=== PATIENT | female | born 1955 | race Caucasian/White ===

== ENCOUNTER 2022-02-04 21:27 | Outpatient (CLI) | payer MEDICARE, MEDICAID, SELFPAY | END 2022-02-04 21:28 | disposition home or self-care (01) | LOC: AMB 02-21 21:36 | PROVIDERS: PCP Family Medicine; Visit Provider Family Medicine | DX: R07.89 Other chest pain (principal) | CPT/HCPCS: A0425; A0427 ==

== ENCOUNTER 2022-02-04 21:41 | Emergency (ER) | payer MEDICARE, MEDICAID, SELFPAY ==
[2022-02-04 21:50] VITALS: BP 188/90; PULSE 93; RESP 16; TEMP 37.2; O2SAT 99; BMI 25.6
[2022-02-04 22:00] VITALS: BP 169/92; PULSE 92; RESP 26; O2SAT 99
--- NOTE | 2022-02-04 22:07 | CRLHL7_ITS ---
For Patients: As a result of the Cures Act, medical imaging exams and procedure reports are released immediately into your electronic medical record. You may view this report before your referring provider. If you have questions, please contact your health care provider. INDICATION: Shortness of breath. TECHNIQUE: Chest 1 view. COMPARISON: 11/16/2021. FINDINGS: Cardiovascular and mediastinum: Stable cardiomediastinal silhouette. Median sternotomy wires and mediastinal clips. Lungs and pleural spaces: Lungs are clear. No sign of infiltrate or mass. No sign of pleural effusion. No pneumothorax. Bones and soft tissues: No significant findings. IMPRESSION: No acute findings. Dictated by Balaji Tavares MD @ 02/04/2022 11:02:45 PM (Electronically Signed)
[2022-02-04 22:30] VITALS: BP 189/91; PULSE 87; RESP 28; O2SAT 99
--- NOTE | 2022-02-04 22:36 | ED.NURSE ---
call from lab, critical md cheryl notified
[2022-02-04 22:38] LABS: Basophils Absolute Auto 0.04 K/uL (0.00-0.30); Basophils Percent Auto 0.4 % (0.0-3.0); Hematocrit 37.8 % (33.0-51.0); Immature Granulocytes Abs Auto 0.01 K/uL (0.00-0.30); Lymphocytes Percent Auto 16.5 % (20-44); Mean Corpuscular HGB Conc 34 gm/dL (32-36); Mean Corpuscular Hemoglobin 31 pg (26-34); Mean Corpuscular Volume 91 fL (80-100); Monocytes Percent Auto 5.1 % (0.0-11.0); Neutrophils Percent Auto 77.9 % (42.0-72.0); Platelet Count* 429 K/uL (140-440); RDW Coefficient of Variation % 13.2 % (11.5-15.5); Red Blood Count 4.16 m/uL (4.00-5.20); Slide Review Reflex No; White Blood Count* 9.26 K/uL (4.50-11.00)
[2022-02-04] MEDS: 0.9 % SODIUM CHLORIDE 500 ML 500 ML IV ×2 (22:42→23:10)
[2022-02-04 22:51] LABS: Albumin* 4.8 g/dL (3.3-5.0); Chloride* 103 mmol/L (96-114)
[2022-02-04 22:52] LABS: Potassium* 3.9 mmol/L (3.6-5.1); Sodium* 138 mmol/L (135-149)
[2022-02-04 22:54] LABS: Creatinine* 0.9 mg/dL (0.5-1.5); Est. Creatinine Clearance* 42.59; Estimated Glomerular Filt Rate 70 ml/min
[2022-02-04 22:55] LABS: Alanine Aminotransferase* 41 U/L (4-35); Alkaline Phosphatase* 100 U/L (40-150); Aspartate Amino Transferase* 70 U/L (12-35); Bilirubin Direct* 0.3 mg/dL (0.0-0.5); Bilirubin Total* 0.4 mg/dL (0.1-1.5); Blood Urea Nitrogen* 22 mg/dL (7-30); Calcium* 10.3 mg/dL (8.4-10.6); Carbon Dioxide* 17 mmol/L (20-32); Glucose* 77 mg/dL (60-115); Total Protein* 7.5 g/dL (6.0-8.3)
[2022-02-04 22:56] LABS: Ethanol* 0.23 % (0.01-0.03)
[2022-02-04 23:00] VITALS: BP 137/122; PULSE 98; RESP 38; O2SAT 99
[2022-02-04 23:01] LABS: Acetaminophen* < 10.0 ug/mL (10.0-30.0); C Reactive Protein* < 0.5 mg/dL (0.5-1.0); Salicylate* < 1.0 mg/dL (1.0-10)
[2022-02-04 23:17] LABS: Erythrocyte SedimentationRate* 8 mm/hr (2-20)
[2022-02-04 23:30] VITALS: BP 122/67; PULSE 90; RESP 20; O2SAT 99
[2022-02-04 23:55] LABS: Troponin, Point-of-Care* 0.01 ng/ml (0.01-0.04)
[2022-02-04 23:55] LABS: Appearance Urine Clear (Clear); Bilirubin Urine Negative (Negative); Blood Urine 1+ (Negative); Color Urine Yellow (Yellow); Glucose Urine Negative (Negative); Ketones Urine 3+ (Negative); Leukocyte Esterase Urine Negative (Negative); Nitrite Urine Negative (Negative); Protein Urine 1+ (Negative); Specific Gravity Urine 1.025 (1.000-1.030); Urobilinogen Urine 0.2 (0.2-1.0); pH Urine 5.5 (5.0-8.5)
[2022-02-05] VITALS: BP 117/63; PULSE 89; RESP 18; O2SAT 99
[2022-02-05] LABS: PCR FLU A Negative PCR FLU A (Negative); PCR FLU B Negative PCR FLU B (Negative)
[2022-02-05 00:01] LABS: Amphetamine Screen Urine Negative (Negative); Barbiturate Screen Urine Negative (Negative); Benzodiazepines Screen Urine Negative (Negative); Cocaine Screen Urine Negative (Negative); Methadone Screen Urine Negative (Negative); Methamphetamines Screen Urine Negative (Negative); Opiate Screen Urine Negative (Negative); Oxycodone Screen Urine Negative (Negative); Phencyclidine Screen Urine Negative (Negative); Tricyclic Antidepressant Urine Negative (Negative)
[2022-02-05 00:05] LABS: Bacteria Urine Few; Squamous Epithelial Cell Urine Moderate (None-Few); WBC Urine 0-2 (0-5)
[2022-02-05 00:07] LABS: Cannabinoid Screen Urine POSITIVE (Negative)
[2022-02-05 00:17] LABS: SARS PCR* Negative SARS-CoV-2 (Negative)
--- NOTE | 2022-02-05 00:24 | ED.GENADULT ---
HPI - General Adult General Chief complaint: Unspecified Complaint, Adult Stated complaint: Palpitations Time Seen by Provider: 02/04/22 22:03 Source: patient Mode of arrival: ambulatory Limitations: no limitations History of Present Illness HPI narrative: 66-year-old female, looks much older than stated age, presents today with ?heart pounding in my chest?. Patient states that she feels like her heart is beating much stronger than it normally does. She denies it beating faster or irregularly. She states that it is beating the same rate it usually does but she just feels that much more her chest and this is very concerning for her because ?my heart usually kicks ass?. She denies any shortness of breath. She denies any fevers or chills. No headache or blurry vision. She denies feeling dizzy or lightheaded. She denies recent falls. She states that she has been drinking alcohol today. She also states that she was smoking marijuana which she does regularly. She denies any other drug use and states she has not done any other drugs since last winter. She denies any abdominal pain or recent diarrhea. She denies feeling like she is going to pass out. Related Data Home Medications Medication Instructions Recorded Confirmed aspirin 325 mg tablet 325 mg PO DAILY 02/04/22 02/04/22 lisinopril 10 tab 02/04/22 mg-hydrochlorothiazide 12.5 mg tablet metoprolol succinate 25 mg mg PO 02/04/22 tablet,extended release 24 hr trazodone 100 mg tablet mg 02/04/22 Allergies Allergy/AdvReac Type Severity Reaction Status Date / Time atorvastatin Allergy Severe Verified 02/04/22 23:34 lithium Allergy Severe other Verified 02/04/22 23:34 morphine Allergy Intermediate Vomiting Verified 02/04/22 23:34 codeine Allergy Mild Nausea Verified 02/04/22 23:34 Review of Systems Status of ROS: Reports: 10 or more systems reviewed and unremarkable except as noted in History and below PFSH PFS Social History Smoking Status: Former smoker How often do you have a drink containing alcohol: 4 or more times a week How many standard drinks containing alcohol do you have on a typical day: 3 or 4 How often do you have six or more drinks on one occasion: Never AUDIT-C Alcohol total score: 5 Non-prescribed substance use: marijuana (any form) Exam Narrative: Exam Narrative: Thin, well-developed patient in no acute distress. Alert and oriented. Answers questions appropriately. Patient in full sentences without needing to catch her breath. Patient's speech is slurred and she is clearly intoxicated. HEENT: Normocephalic atraumatic. Pupils are equally round reactive to light. Extraocular muscles are intact. Conjunctivae are moist without any icterus noted, she does have bilateral injection. Moist mucous membranes. Posterior pharynx is normal. Neck is soft without any lymphadenopathy or thyromegaly. No masses are appreciated. Cardiovascular: Heart is regular rate and rhythm S1 and S2 are present without any murmurs. Lungs: Clear to auscultation bilaterally no wheezes rhonchi or rales are appreciated. Patient takes deep breaths without any discomfort. Abdomen: Soft and nontender nondistended with normal bowel sounds. No guarding or rebound. No masses or organomegaly appreciated. Extremities: Bilateral lower extremities are without edema. Normal DP and PT pulses. Skin: Well perfused without any obvious rashes. Const: Vital Signs, click to edit/add: Vital Signs - 24 hr 02/04/22 21:50 02/04/22 22:00 02/04/22 22:30 Temperature 98.9 F Pulse Rate [Right Pulse Oximeter] 93 92 87 Respiratory Rate 16 26 H 28 H Blood Pressure [Le ft Upper Arm] 188/90 H 169/92 H 189/91 H Pulse Oximetry 99 99 99 02/04/22 23:00 02/04/22 23:30 02/05/22 00:00 Temperature Pulse Rate [Right Pulse Oximeter] 98 90 89 Respiratory Rate 38 H 20 18 Blood Pressure [Le ft Upper Arm] 137/122 H 122/67 117/63 Pulse Oximetry 99 99 99 02/05/22 00:30 02/05/22 01:00 Temperature Pulse Rate [Right Pulse Oximeter] 90 93 Respiratory Rate 20 22 Blood Pressure [Le ft Upper Arm] 106/61 101/66 Pulse Oximetry 99 99 Course Course Hospital Course: EKG was done which showed normal sinus rhythm with a left atrial enlargement and left ventricular hypertrophy, shows was a prolonged QTC which is slightly longer than has been in the past. She has however had prolonged QT before this is not new. Her labs are unremarkable aside from an elevated lactate at 6.0 and her blood alcohol was elevated at 0.23. Patient received 1 L of normal saline and a repeat lactate was down to 4.1. We did give her another 500 mL of normal saline after this. Troponin was unremarkable, chest a x-ray was unremarkable. In my absence, patient was talking on the phone happily with her friends, I could clearly here her as her room was directly across the doctor's office. Shortly after her conversation patient fell asleep and slept soundly. Vital Signs Vital signs: Initial Vital Signs Temperature 98.9 F 02/04/22 21:50 Temperature Source Temporal Artery Scan 02/04/22 21:50 Pulse Rate 93 02/04/22 21:50 Respiratory Rate 16 02/04/22 21:50 Blood Pressure 188/90 H 02/04/22 21:50 Blood Pressure Mean 122 02/04/22 21:50 Blood Pressure Position Supine 02/04/22 21:50 Pulse Oximetry 99 02/04/22 21:50 Oxygen Delivery Method 02/04/22 21:50 Vital Signs Temperature 98.9 F 02/04/22 21:50 Pulse Rate 93 02/04/22 21:50 Respiratory Rate 16 02/04/22 21:50 Blood Pressure 188/90 H 02/04/22 21:50 Pulse Oximetry 99 02/04/22 21:50 Temperature 98.9 F 02/04/22 21:50 Pulse Rate 93 02/05/22 01:00 Respiratory Rate 22 02/05/22 01:00 Blood Pressure 101/66 02/05/22 01:00 Pulse Oximetry 99 02/05/22 01:00 Medical Decision Making MDM Narrative Medical decision making narrative: 66-year-old female with palpitations-patient was monitored while she was here nothing abnormal was found. She was also acutely intoxicated with a blood alcohol 0.23. She was feeling better after fluid hydration. Patient discharged home in stable condition. Recommend speaking her doctor about her abnormal EKG. Recommend increased fluid hydration. Medical Records Medical records reviewed: Yes I reviewed the patient's medical records Lab Data Lab results reviewed: Yes I reviewed the patient's lab results Labs: Lab Results 02/04/22 02/04/22 02/04/22 Range/Units 22:20 22:20 22:20 WBC 9.26 (4.50-11.00) K/uL RBC 4.16 (4.00-5.20) m/uL Hgb 13.0 (12.0-16.0) gm/dL Hct 37.8 (33.0-51.0) % MCV 91 (80-100) fL MCH 31 (26-34) pg MCHC 34 (32-36) gm/dL RDW Coeff of Per 13.2 (11.5-15.5) % Plt Count 429 (140-440) K/uL Neut % (Auto) 77.9 H (42.0-72.0) % Lymph % (Auto) 16.5 L (20-44) % [place] % (Auto) 5.1 (0.0-11.0) % Eos % (Auto) 0.0 (0.0-7.0) % Baso % (Auto) 0.4 (0.0-3.0) % Neut # (Auto) 7.20 H (1.7-7.0) K/uL Lymph # (Auto) 1.50 (0.90-2.90) K/uL [place] # (Auto) 0.50 (0.00-0.90) K/UL Eos # (Auto) 0.00 (0.00-0.50) K/uL Baso # (Auto) 0.04 (0.00-0.30) K/uL Abs Immat Gran (auto) 0.01 (0.00-0.30) K/uL ESR 8 (2-20) mm/hr Sodium 138 (135-149) mmol/L Potassium 3.9 (3.6-5.1) mmol/L Chloride 103 (96-114) mmol/L Carbon Dioxide 17 L (20-32) mmol/L BUN 22 (7-30) mg/dL Creatinine 0.9 (0.5-1.5) mg/dL Estimated Creat Clear 42.59 Estimated GFR 70 ml/min Glucose 77 (60-115) mg/dL Lactate (0.5-1.9) mmol/L Calcium 10.3 (8.4-10.6) mg/dL Magnesium 2.0 (1.5-2.6) mg/dL Total Bilirubin 0.4 (0.1-1.5) mg/dL Direct Bilirubin 0.3 (0.0-0.5) mg/dL AST 70 H (12-35) U/L ALT 41 H (4-35) U/L Alkaline Phosphatase 100 (40-150) U/L C-Reactive Protein < 0.5 L (0.5-1.0) mg/dL Total Protein 7.5 (6.0-8.3) g/dL Albumin 4.8 (3.3-5.0) g/dL TSH (0.270-4.20) uIU/mL Urine Color (Yellow) Urine Appearance (Clear) Urine pH (5.0-8.5) Ur Specific [place] (1.000-1.030) Urine Protein (Negative) Urine Glucose (UA) (Negative) Urine Ketones (Negative) Urine Blood (Negative) Urine Nitrite (Negative) Urine Bilirubin (Negative) Urine Urobilinogen (0.2-1.0) Ur Leukocyte Esterase (Negative) Urine RBC (0-2) Urine WBC (0-5) Ur Squamous Epith Cells (None-Few) Urine Bacteria (None) Salicylates < 1.0 L (1.0-10) mg/dL Urine Opiates Screen (Negative) Ur Oxycodone Screen (Negative) Urine Methadone Screen (Negative) Ur Propoxyphene Screen (Negative) Acetaminophen < 10.0 L (10.0-30.0) ug/mL Ur Barbiturates Screen (Negative) U Tricyclic Antidepress (Negative) Ur Phencyclidine Scrn (Negative) Ur Amphetamines Screen (Negative) U Methamphetamines Scrn (Negative) U Benzodiazepines Scrn (Negative) Urine Cocaine Screen (Negative) U Marijuana (THC) Screen (Negative) Ur Drug Screen Comment Ethyl Alcohol 0.23 H (0.01-0.03) % SARS-CoV-2 (PCR) (Negative) Influenza Type A (PCR) (Negative) Influenza Type B (PCR) (Negative) POC Troponin I (0.01-0.04) ng/ml 02/04/22 02/04/22 02/04/22 Range/Units 22:20 22:20 22:20 WBC (4.50-11.00) K/uL RBC (4.00-5.20) m/uL Hgb (12.0-16.0) gm/dL Hct (33.0-51.0) % MCV (80-100) fL MCH (26-34) pg MCHC (32-36) gm/dL RDW Coeff of Per (11.5-15.5) % Plt Count (140-440) K/uL Neut % (Auto) (42.0-72.0) % Lymph % (Auto) (20-44) % [place] % (Auto) (0.0-11.0) % Eos % (Auto) (0.0-7.0) % Baso % (Auto) (0.0-3.0) % Neut # (Auto) (1.7-7.0) K/uL Lymph # (Auto) (0.90-2.90) K/uL [place] # (Auto) (0.00-0.90) K/UL Eos # (Auto) (0.00-0.50) K/uL Baso # (Auto) (0.00-0.30) K/uL Abs Immat Gran (auto) (0.00-0.30) K/uL ESR (2-20) mm/hr Sodium (135-149) mmol/L Potassium (3.6-5.1) mmol/L Chloride (96-114) mmol/L Carbon Dioxide (20-32) mmol/L BUN (7-30) mg/dL Creatinine (0.5-1.5) mg/dL Estimated Creat Clear Estimated GFR ml/min Glucose (60-115) mg/dL Lactate 6.0 H* (0.5-1.9) mmol/L Calcium (8.4-10.6) mg/dL Magnesium (1.5-2.6) mg/dL Total Bilirubin (0.1-1.5) mg/dL Direct Bilirubin (0.0-0.5) mg/dL AST (12-35) U/L ALT (4-35) U/L Alkaline Phosphatase (40-150) U/L C-Reactive Protein (0.5-1.0) mg/dL Total Protein (6.0-8.3) g/dL Albumin (3.3-5.0) g/dL TSH 1.080 (0.270-4.20) uIU/mL Urine Color (Yellow) Urine Appearance (Clear) Urine pH (5.0-8.5) Ur Specific [place] (1.000-1.030) Urine Protein (Negative) Urine Glucose (UA) (Negative) Urine Ketones (Negative) Urine Blood (Negative) Urine Nitrite (Negative) Urine Bilirubin (Negative) Urine Urobilinogen (0.2-1.0) Ur Leukocyte Esterase (Negative) Urine RBC (0-2) Urine WBC (0-5) Ur Squamous Epith Cells (None-Few) Urine Bacteria (None) Salicylates (1.0-10) mg/dL Urine Opiates Screen (Negative) Ur Oxycodone Screen (Negative) Urine Methadone Screen (Negative) Ur Propoxyphene Screen (Negative) Acetaminophen (10.0-30.0) ug/mL Ur Barbiturates Screen (Negative) U Tricyclic Antidepress (Negative) Ur Phencyclidine Scrn (Negative) Ur Amphetamines Screen (Negative) U Methamphetamines Scrn (Negative) U Benzodiazepines Scrn (Negative) Urine Cocaine Screen (Negative) U Marijuana (THC) Screen (Negative) Ur Drug Screen Comment Ethyl Alcohol (0.01-0.03) % SARS-CoV-2 (PCR) (Negative) Influenza Type A (PCR) (Negative) Influenza Type B (PCR) (Negative) POC Troponin I 0.01 (0.01-0.04) ng/ml 02/04/22 02/04/22 02/04/22 Range/Units 22:20 23:30 23:30 WBC (4.50-11.00) K/uL RBC (4.00-5.20) m/uL Hgb (12.0-16.0) gm/dL Hct (33.0-51.0) % MCV (80-100) fL MCH (26-34) pg MCHC (32-36) gm/dL RDW Coeff of Per (11.5-15.5) % Plt Count (140-440) K/uL Neut % (Auto) (42.0-72.0) % Lymph % (Auto) (20-44) % [place] % (Auto) (0.0-11.0) % Eos % (Auto) (0.0-7.0) % Baso % (Auto) (0.0-3.0) % Neut # (Auto) (1.7-7.0) K/uL Lymph # (Auto) (0.90-2.90) K/uL [place] # (Auto) (0.00-0.90) K/UL Eos # (Auto) (0.00-0.50) K/uL Baso # (Auto) (0.00-0.30) K/uL Abs Immat Gran (auto) (0.00-0.30) K/uL ESR (2-20) mm/hr Sodium (135-149) mmol/L Potassium (3.6-5.1) mmol/L Chloride (96-114) mmol/L Carbon Dioxide (20-32) mmol/L BUN (7-30) mg/dL Creatinine (0.5-1.5) mg/dL Estimated Creat Clear Estimated GFR ml/min Glucose (60-115) mg/dL Lactate (0.5-1.9) mmol/L Calcium (8.4-10.6) mg/dL Magnesium (1.5-2.6) mg/dL Total Bilirubin (0.1-1.5) mg/dL Direct Bilirubin (0.0-0.5) mg/dL AST (12-35) U/L ALT (4-35) U/L Alkaline Phosphatase (40-150) U/L C-Reactive Protein (0.5-1.0) mg/dL Total Protein (6.0-8.3) g/dL Albumin (3.3-5.0) g/dL TSH (0.270-4.20) uIU/mL Urine Color Yellow (Yellow) Urine Appearance Clear (Clear) Urine pH 5.5 (5.0-8.5) Ur Specific [place] 1.025 (1.000-1.030) Urine Protein 1+ A (Negative) Urine Glucose (UA) Negative (Negative) Urine Ketones 3+ A (Negative) Urine Blood 1+ A (Negative) Urine Nitrite Negative (Negative) Urine Bilirubin Negative (Negative) Urine Urobilinogen 0.2 (0.2-1.0) Ur Leukocyte Esterase Negative (Negative) Urine RBC 2-5 A (0-2) Urine WBC 0-2 (0-5) Ur Squamous Epith Cells Moderate A (None-Few) Urine Bacteria Few A (None) Salicylates (1.0-10) mg/dL Urine Opiates Screen Negative (Negative) Ur Oxycodone Screen Negative (Negative) Urine Methadone Screen Negative (Negative) Ur Propoxyphene Screen Negative (Negative) Acetaminophen (10.0-30.0) ug/mL Ur Barbiturates Screen Negative (Negative) U Tricyclic Antidepress Negative (Negative) Ur Phencyclidine Scrn Negative (Negative) Ur Amphetamines Screen Negative (Negative) U Methamphetamines Scrn Negative (Negative) U Benzodiazepines Scrn Negative (Negative) Urine Cocaine Screen Negative (Negative) U Marijuana (THC) Screen POSITIVE A* (Negative) Ur Drug Screen Comment See Note Ethyl Alcohol (0.01-0.03) % SARS-CoV-2 (PCR) Negative SARS-CoV-2 (Negative) Influenza Type A (PCR) Negative PCR FLU A (Negative) Influenza Type B (PCR) Negative PCR FLU B (Negative) POC Troponin I (0.01-0.04) ng/ml 02/05/22 Range/Units 00:35 WBC (4.50-11.00) K/uL RBC (4.00-5.20) m/uL Hgb (12.0-16.0) gm/dL Hct (33.0-51.0) % MCV (80-100) fL MCH (26-34) pg MCHC (32-36) gm/dL RDW Coeff of Per (11.5-15.5) % Plt Count (140-440) K/uL Neut % (Auto) (42.0-72.0) % Lymph % (Auto) (20-44) % [place] % (Auto) (0.0-11.0) % Eos % (Auto) (0.0-7.0) % Baso % (Auto) (0.0-3.0) % Neut # (Auto) (1.7-7.0) K/uL Lymph # (Auto) (0.90-2.90) K/uL [place] # (Auto) (0.00-0.90) K/UL Eos # (Auto) (0.00-0.50) K/uL Baso # (Auto) (0.00-0.30) K/uL Abs Immat Gran (auto) (0.00-0.30) K/uL ESR (2-20) mm/hr Sodium (135-149) mmol/L Potassium (3.6-5.1) mmol/L Chloride (96-114) mmol/L Carbon Dioxide (20-32) mmol/L BUN (7-30) mg/dL Creatinine (0.5-1.5) mg/dL Estimated Creat Clear Estimated GFR ml/min Glucose (60-115) mg/dL Lactate 4.1 H* (0.5-1.9) mmol/L Calcium (8.4-10.6) mg/dL Magnesium (1.5-2.6) mg/dL Total Bilirubin (0.1-1.5) mg/dL Direct Bilirubin (0.0-0.5) mg/dL AST (12-35) U/L ALT (4-35) U/L Alkaline Phosphatase (40-150) U/L C-Reactive Protein (0.5-1.0) mg/dL Total Protein (6.0-8.3) g/dL Albumin (3.3-5.0) g/dL TSH (0.270-4.20) uIU/mL Urine Color (Yellow) Urine Appearance (Clear) Urine pH (5.0-8.5) Ur Specific [place] (1.000-1.030) Urine Protein (Negative) Urine Glucose (UA) (Negative) Urine Ketones (Negative) Urine Blood (Negative) Urine Nitrite (Negative) Urine Bilirubin (Negative) Urine Urobilinogen (0.2-1.0) Ur Leukocyte Esterase (Negative) Urine RBC (0-2) Urine WBC (0-5) Ur Squamous Epith Cells (None-Few) Urine Bacteria (None) Salicylates (1.0-10) mg/dL Urine Opiates Screen (Negative) Ur Oxycodone Screen (Negative) Urine Methadone Screen (Negative) Ur Propoxyphene Screen (Negative) Acetaminophen (10.0-30.0) ug/mL Ur Barbiturates Screen (Negative) U Tricyclic Antidepress (Negative) Ur Phencyclidine Scrn (Negative) Ur Amphetamines Screen (Negative) U Methamphetamines Scrn (Negative) U Benzodiazepines Scrn (Negative) Urine Cocaine Screen (Negative) U Marijuana (THC) Screen (Negative) Ur Drug Screen Comment Ethyl Alcohol (0.01-0.03) % SARS-CoV-2 (PCR) (Negative) Influenza Type A (PCR) (Negative) Influenza Type B (PCR) (Negative) POC Troponin I (0.01-0.04) ng/ml Imaging Data Chest x-ray: Attestation: I have reviewed the pertinent imaging results. My impression: Normal chest Radiologist's impression: FINDINGS: Cardiovascular and mediastinum: Stable cardiomediastinal silhouette. Median sternotomy wires and mediastinal clips. Lungs and pleural spaces: Lungs are clear. No sign of infiltrate or mass. No sign of pleural effusion. No pneumothorax. Bones and soft tissues: No significant findings. IMPRESSION: No acute findings. ECG Data Attestation: I personally reviewed and interpreted this ECG as follows: (Normal sinus rhythm with possible left atrial enlargement and left ventricular hypertrophy with repolarization abnormality, prolonged QT) Prior ECG tracings: available for review (Compared to x-ray from November of 2021 no significant changes aside from QTc now 510 where it was just below 500 before.) Discharge Plan Discharge Clinical Impression: Palpitation, Prolonged QT interval, Acute alcohol intoxication Patient Disposition: Home, Self-Care Condition: Improved Additional Instructions: Reach out to your primary care physician if you would like any information on ways that we can help you abstain from alcohol use.Encourage you to increase your water intake on a daily basis. Follow-up with your primary care provider as needed. You do have a prolonged QT which is a slight abnormality on your EKG (the reading of your heart beat). I suggest to follow-up with your primary care provider to discuss if anything needs to be done about this, if you already have not had this discussion. Prescriptions: No Action trazodone 100 mg tablet 0RF Label Comments: TAKE 1 TABLET BY MOUTH AT BEDTIME metoprolol succinate 25 mg tablet extended release 24 hr PO 0RF Label Comments: TAKE 1 TABLET BY MOUTH EVERY DAY lisinopril-hydrochlorothiazide 10-12.5 mg tablet 0RF Label Comments: TAKE 1 TABLET BY MOUTH EVERY DAY aspirin 325 mg tablet 325 mg PO DAILY 0RF Follow Up/Referrals: Kurt Woodruff MD [Primary Care Provider] - Stand Alone Forms: [employer] Info Instructions
[2022-02-05 00:30] VITALS: BP 106/61; PULSE 90; RESP 20; O2SAT 99
[2022-02-05 00:43] LABS: Lactate* 4.1 mmol/L (0.5-1.9)
[2022-02-05 01:00] VITALS: BP 101/66; PULSE 93; RESP 22; O2SAT 99
[2022-02-05] MEDS: 0.9 % SODIUM CHLORIDE 500 ML 500 ML IV (01:09)
--- NOTE | 2022-02-05 05:01 | ED.NURSE ---
Pt did come to ER via EMS with only one shoe
== END 2022-02-05 07:12 | disposition home or self-care (01) ==
PROVIDERS: Emergency Provider Family Medicine; PCP Family Medicine
DX: R00.2 Palpitations (principal); I45.81 Long QT syndrome; F10.129 Alcohol abuse with intoxication, unspecified
CPT/HCPCS: 36415; 71045; 80048; 80076; 80143; 80179; 80306; 81001; 82077; 83605; 83735; 84443; 84484; 85025; 85651; 86140; 87086; 87502; 87635; 93005; 96360; 96361; 99284; 99285; J7120

== ENCOUNTER 2022-05-01 15:48 | Outpatient (CLI) | payer MEDICARE, MEDICAID, SELFPAY | END 2022-05-01 15:49 | disposition home or self-care (01) | LOC: AMB 05-06 15:43 | PROVIDERS: PCP Family Medicine; Visit Provider Family Medicine | DX: R41.82 Altered mental status, unspecified (principal) | CPT/HCPCS: A0425; A0427 ==

== ENCOUNTER 2022-05-01 16:19 | Emergency (ER) | payer MEDICARE, MEDICAID, SELFPAY ==
--- NOTE | 2022-05-01 16:40 | ED.NURSE ---
Pt removed her dentures from her mouth. A short time later, abruptly sat up in bed and began throwing her arms/legs around. Her dentures were sitting on her lap and were thrown and broke upon landing on the ground.
--- NOTE | 2022-05-01 16:52 | ED_ITS ---
HPI - General Adult General Date Seen: 05/01/22 Chief complaint: Alcohol/Intoxication Stated complaint: ETOH/Fall Time Seen by Provider: 05/01/22 16:23 Source: patient and EMS Mode of arrival: EMS Limitations: altered mental status History of Present Illness HPI narrative: Patient is a 67-year-old female well known to the emergency department who comes in acutely intoxicated. Apparently she was wandering around behind [employer] yelling and hugging patrons against their will. Police and EMS were called and she is brought in initially combative. She struck out and spit at our staff and EMS staff until she was properly sedated. She is too intoxicated to provide any history. She is intermittently tearful. She is awake and climbing out of the bed but is essentially nonverbal. As I clap and spinal other she tends to get out of bed and dance. She reeks of alcohol. After a single dose of Zyprexa she rested comfortably and was much more cooperative. Related Data Home Medications Medication Instructions Recorded Confirmed aspirin 325 mg tablet 325 mg PO DAILY 02/04/22 02/04/22 lisinopril 10 tab 02/04/22 mg-hydrochlorothiazide 12.5 mg tablet metoprolol succinate 25 mg mg PO 02/04/22 tablet,extended release 24 hr trazodone 100 mg tablet mg 02/04/22 Allergies Allergy/AdvReac Type Severity Reaction Status Date / Time atorvastatin Allergy Severe Verified 02/04/22 23:34 lithium Allergy Severe other Verified 02/04/22 23:34 morphine Allergy Intermediate Vomiting Verified 02/04/22 23:34 codeine Allergy Mild Nausea Verified 02/04/22 23:34 Review of Systems Status of ROS: Reports: unobtainable due to mental status [facility] Medical History (Updated 05/01/22 @ 19:23 by Izaiah Tang MD) Alcohol abuse Bipolar disorder COPD (chronic obstructive pulmonary disease) Coronary artery disease GERD (gastroesophageal reflux disease) Hyperlipidemia Hypertension Marijuana abuse Methadone overdose Methamphetamine abuse Polymyalgia rheumatica Surgical History (Updated 05/01/22 @ 17:31 by Izaiah Tang MD) History of carotid endarterectomy History of coronary angioplasty History of hysterectomy History of lumbar laminectomy History of tubal ligation Hx of CABG Family History (Updated 05/01/22 @ 17:32 by Izaiah Tang MD) Mother Coronary artery disease Father Coronary artery disease CHF (congestive heart failure) Social History (Updated 05/01/22 @ 17:32 by Izaiah Tang MD) Narrative: Single, retired, lives in the [facility], alcohol abuse, former smoker, polysubstance abuse Smoking Status: Former smoker How often do you have a drink containing alcohol: 4 or more times a week How many standard drinks containing alcohol do you have on a typical day: 3 or 4 How often do you have six or more drinks on one occasion: Never AUDIT-C Alcohol total score: 5 Non-prescribed substance use: marijuana (any form) service: No Exam Narrative: Exam Narrative: Vitals noted. She is obviously intoxicated. She is awake and combative. HEENT: Small nontender lump on the back of the head. Nothing fluctuant. No bony step-off. Conjunctiva clear. Tympanic membranes are pearly white bilater ally. She has spit out her false teeth and broken them. Neck is supple without adenopathy, thyromegaly, carotid bruit. Lungs: Diminished but Clear to auscultation in all pardo. No wheezes, rales, rhonchi. Heart: She has a midline sternotomy scar. Regular rate and rhythm without murmur. Abdomen: Soft and nontender. No guarding, rigidity, rebound. Bowel sounds are normal. No palpable masses. Extremities: No cyanosis or edema. Good distal pulses. Skin: No abnormalities noted of the exposed skin. Neurologic: Awake, and intoxicated. Moving all four extremities symmetrically. Does not follow commands. Const: Vital Signs, click to edit/add: Vital Signs - 24 hr 05/01/22 16:53 05/01/22 18:43 Temperature 96.2 F L Pulse Rate [Left P ulse Oximeter] 57 L 78 Respiratory Rate 16 15 Blood Pressure [Ri ght Upper Arm] 148/91 H Pulse Oximetry 98 95 Oxygen Delivery Me thod Room Air Room Air Documenting provider has reviewed patient's vital signs: yes Exam limitations: altered mental status General appearance: odor of alcohol detected Course Course Hospital Course: Patient was seen and examined. Labs and CT are ordered. She usually required sedation with Zyprexa 10 mg IM. This took about 30 minutes to really take affect and she was much more cooperative after that she is still climbs out of bed intermittently but thus far has not required physical restraints. Reevaluation(s) Reevaluation #1: CT of the head is negative for acute findings. CBC and BMP are essentially unremarkable. AST and ALT are mildly elevated. Blood alcohol is 0.38. Urine drug screen has not been collected yet. Patient is resting comfortably. We will seek discharged to detox when appropriate. Reevaluation #2: Patient awoke an urinated in her bed and on the floor. Urine drug screen is positive for marijuana but negative for methamphetamine. She will not voluntarily go to detox we are looking to see if she has a responsible person to take her home. Reevaluation #3: Apparently detox one no longer take people that are not there voluntarily. Patient refuses to go. She has no responsible adult to take her home at this point so she will need to sleep here until she is sober enough to take care of herself at home. Vital Signs Vital signs: Initial Vital Signs Temperature 96.2 F L 05/01/22 16:53 Temperature Source Temporal Artery Scan 05/01/22 16:53 Pulse Rate 57 L 05/01/22 16:53 Pulse Rhythm 05/01/22 16:53 Pulse Strength 3+ Normal 05/01/22 16:53 Respiratory Rate 16 05/01/22 16:53 Blood Pressure 148/91 H 05/01/22 16:53 Blood Pressure Mean 110 05/01/22 16:53 Blood Pressure Position Sitting 05/01/22 16:53 Pulse Oximetry 98 05/01/22 16:53 Oxygen Delivery Method 05/01/22 16:53 Vital Signs Temperature 96.2 F L 05/01/22 16:53 Pulse Rate 57 L 05/01/22 16:53 Respiratory Rate 16 05/01/22 16:53 Blood Pressure 148/91 H 05/01/22 16:53 Pulse Oximetry 98 05/01/22 16:53 Oxygen Delivery Method 05/01/22 16:53 Temperature 96.2 F L 05/01/22 16:53 Pulse Rate 78 05/01/22 18:43 Respiratory Rate 15 05/01/22 18:43 Blood Pressure 148/91 H 05/01/22 16:53 Pulse Oximetry 95 05/01/22 18:43 Oxygen Delivery Method 05/01/22 18:43 Medical Decision Making Lab Data Labs: Lab Results 05/01/22 05/01/22 05/01/22 Range/Units 16:52 16:52 18:36 WBC 10.39 (4.50-11.00) K/uL RBC 3.98 L (4.00-5.20) m/uL Hgb 11.9 L (12.0-16.0) gm/dL Hct 37.0 (33.0-51.0) % MCV 93 (80-100) fL MCH 30 (26-34) pg MCHC 32 (32-36) gm/dL RDW Coeff of Per 14.9 (11.5-15.5) % Plt Count 429 (140-440) K/uL Neut % (Auto) 57.1 (42.0-72.0) % Lymph % (Auto) 36.1 (20-44) % [place] % (Auto) 3.9 (0.0-11.0) % Eos % (Auto) 1.3 (0.0-7.0) % Baso % (Auto) 1.1 (0.0-3.0) % Neut # (Auto) 5.94 (1.7-7.0) K/uL Lymph # (Auto) 3.75 H (0.90-2.90) K/uL [place] # (Auto) 0.40 (0.00-0.90) K/UL Eos # (Auto) 0.13 (0.00-0.50) K/uL Baso # (Auto) 0.11 (0.00-0.30) K/uL Abs Immat Gran (auto) 0.05 (0.00-0.30) K/uL Sodium 143 (135-149) mmol/L Potassium 3.4 L (3.6-5.1) mmol/L Chloride 106 (96-114) mmol/L Carbon Dioxide 23 (20-32) mmol/L BUN 13 (7-30) mg/dL Creatinine 0.5 (0.5-1.5) mg/dL Estimated Creat Clear 41.99 Estimated GFR 101 ml/min Glucose 89 (60-115) mg/dL Calcium 10.1 (8.4-10.6) mg/dL Total Bilirubin 0.2 (0.1-1.5) mg/dL Direct Bilirubin 0.1 (0.0-0.5) mg/dL AST 86 H (12-35) U/L ALT 65 H (4-35) U/L Alkaline Phosphatase 106 (40-150) U/L Total Protein 7.8 (6.0-8.3) g/dL Albumin 5.0 (3.3-5.0) g/dL Urine Opiates Screen Negative (Negative) Ur Oxycodone Screen Negative (Negative) Urine Methadone Screen Negative (Negative) Ur Propoxyphene Screen Negative (Negative) Ur Barbiturates Screen Negative (Negative) U Tricyclic Antidepress Negative (Negative) Ur Phencyclidine Scrn Negative (Negative) Ur Amphetamines Screen Negative (Negative) U Methamphetamines Scrn Negative (Negative) U Benzodiazepines Scrn Negative (Negative) Urine Cocaine Screen Negative (Negative) U Marijuana (THC) Screen POSITIVE A* (Negative) Ur Drug Screen Comment See Note Ethyl Alcohol 0.38 H* (0.01-0.03) % Discharge Plan Discharge Patient Disposition: Pending Disposition Discharge Diet: Regular
[2022-05-01 16:53] VITALS: BP 148/91; PULSE 57; RESP 16; TEMP 35.7; O2SAT 98; BMI 25.6
--- NOTE | 2022-05-01 16:56 | CRLHL7_ITS ---
For Patients: As a result of the Century Cures Act, medical imaging exams and procedure reports are released immediately into your electronic medical record. You may view this report before your referring provider. If you have questions, please contact your health care provider. INDICATION: Fall, alcohol intoxication.. TECHNIQUE: CT head without contrast. COMPARISON: None. FINDINGS: CSF spaces: Within normal limits for age. Brain parenchyma and extra-axial spaces: The perez-white differentiation is normal. No sign of mass, hemorrhage, or midline shift. No extra-axial fluid collection. Calcific atherosclerosis of the intracranial vasculature. Skull base and calvarium: The visualized paranasal sinuses and mastoid air cells demonstrate no acute or significant findings. The visualized orbits are grossly unremarkable. Bilateral lens prostheses. Left posterior parietal scalp hematoma. No skull fractures. IMPRESSION: No intracranial hemorrhage identified. No skull fractures identified. Scalp hematoma along the left posterior parietal region. Please note that all CT scans at this facility use dose modulation, iterative reconstruction, and/or weight-based dosing when appropriate to reduce radiation dose to as low as reasonably achievable. Dictated by Jojo Yip MD @ 05/01/2022 5:23:56 PM (Electronically Signed)
[2022-05-01 16:59] LABS: Basophils Absolute Auto 0.11 K/uL (0.00-0.30); Basophils Percent Auto 1.1 % (0.0-3.0); Eosinophils Absolute Auto 0.13 K/uL (0.00-0.50); Eosinophils Percent Auto 1.3 % (0.0-7.0); Hemoglobin* 11.9 gm/dL (12.0-16.0); Immature Granulocytes Abs Auto 0.05 K/uL (0.00-0.30); Lymphocytes Absolute Auto 3.75 K/uL (0.90-2.90); Lymphocytes Percent Auto 36.1 % (20-44); Mean Corpuscular HGB Conc 32 gm/dL (32-36); Mean Corpuscular Hemoglobin 30 pg (26-34); Mean Corpuscular Volume 93 fL (80-100); Monocytes Percent Auto 3.9 % (0.0-11.0); Neutrophils Absolute Auto 5.94 K/uL (1.7-7.0); Neutrophils Percent Auto 57.1 % (42.0-72.0); Platelet Count* 429 K/uL (140-440); RDW Coefficient of Variation % 14.9 % (11.5-15.5); Red Blood Count 3.98 m/uL (4.00-5.20); White Blood Count* 10.39 K/uL (4.50-11.00)
[2022-05-01 17:00] LABS: Slide Review Reflex No
[2022-05-01 17:20] LABS: Chloride* 106 mmol/L (96-114); Potassium* 3.4 mmol/L (3.6-5.1); Sodium* 143 mmol/L (135-149)
[2022-05-01 17:22] LABS: Aspartate Amino Transferase* 86 U/L (12-35); Bilirubin Direct* 0.1 mg/dL (0.0-0.5); Bilirubin Total* 0.2 mg/dL (0.1-1.5); Carbon Dioxide* 23 mmol/L (20-32); Creatinine* 0.5 mg/dL (0.5-1.5); Est. Creatinine Clearance* 41.99; Estimated Glomerular Filt Rate 101 ml/min; Total Protein* 7.8 g/dL (6.0-8.3)
[2022-05-01 17:23] LABS: Alanine Aminotransferase* 65 U/L (4-35); Alkaline Phosphatase* 106 U/L (40-150); Blood Urea Nitrogen* 13 mg/dL (7-30); Calcium* 10.1 mg/dL (8.4-10.6); Glucose* 89 mg/dL (60-115)
[2022-05-01] MEDS: OLANZapine 5 MG/ML inj 10 MG IM (17:28)
[2022-05-01 17:37] LABS: Ethanol* 0.38 % (0.01-0.03)
[2022-05-01 18:43] VITALS: PULSE 78; RESP 15; O2SAT 95
[2022-05-01 19:05] LABS: Amphetamine Screen Urine Negative (Negative); Barbiturate Screen Urine Negative (Negative); Benzodiazepines Screen Urine Negative (Negative); Cannabinoid Screen Urine POSITIVE (Negative); Cocaine Screen Urine Negative (Negative); Methadone Screen Urine Negative (Negative); Methamphetamines Screen Urine Negative (Negative); Opiate Screen Urine Negative (Negative); Oxycodone Screen Urine Negative (Negative); Phencyclidine Screen Urine Negative (Negative); Tricyclic Antidepressant Urine Negative (Negative)
[2022-05-01 20:07] VITALS: O2SAT 96
[2022-05-01 20:30] VITALS: PULSE 68; RESP 20; O2SAT 96
[2022-05-01 22:01] VITALS: PULSE 64; RESP 16; O2SAT 96
[2022-05-01 23:42] VITALS: PULSE 66; RESP 16; O2SAT 92
[2022-05-02 02:44] VITALS: PULSE 65; RESP 14; O2SAT 93
--- NOTE | 2022-05-02 03:57 | ED.NURSE ---
pt ambulated to restroom.
[2022-05-02 09:15] VITALS: BP 113/77; PULSE 88; RESP 18; TEMP 37.1; O2SAT 96
--- NOTE | 2022-05-02 09:53 | ED.NURSE ---
pt awake and alert ate breakfast. calm and pleasant. sent home via taxi
== END 2022-05-02 10:00 | disposition home or self-care (01) ==
PROVIDERS: Emergency Provider Family Medicine; PCP Family Medicine
DX: F10.129 Alcohol abuse with intoxication, unspecified (principal)
CPT/HCPCS: 36415; 70450; 80048; 80076; 80306; 82077; 85025; 96372; 99284; S0166

== ENCOUNTER 2022-05-18 03:00 | Outpatient (CLI) | payer MEDICARE, MEDICAID, SELFPAY | END 2022-05-18 03:01 | disposition home or self-care (01) | LOC: AMB 05-24 10:32 | PROVIDERS: PCP Family Medicine; Visit Provider Family Medicine | DX: F91.9 Conduct disorder, unspecified (principal); F10.129 Alcohol abuse with intoxication, unspecified; R45.851 Suicidal ideations | CPT/HCPCS: A0425; A0429 ==

== ENCOUNTER 2022-05-18 03:18 | Emergency (ER) | payer MEDICARE, MEDICAID, SELFPAY ==
[2022-05-18 03:24] VITALS: BP 168/94; PULSE 112; RESP 20; TEMP 36.2; O2SAT 96
--- NOTE | 2022-05-18 03:24 | ED_ITS ---
HPI - General Adult General Date Seen: 05/18/22 Chief complaint: Alcohol/Intoxication Stated complaint: ETOH Time Seen by Provider: 05/18/22 03:23 Source: patient, EMS and police Mode of arrival: EMS Limitations: altered mental status History of Present Illness HPI narrative: Patient is a 67-year-old female who is familiar to the ER staff who is brought in by EMS and law enforcement after being picked up in the [facility] parking lot. She was found to be intoxicated and vandalizing cars and pounding on the door is trying to get into the facility. It was raining at the time. She is brought in combative, profane, thrashing. She repeatedly says she just wants to end her life. If she had drugs she would take them. She is afraid of jumping off a bridge because she might not quickly. She says her life is terrible and she just wants to end it. air control/anti air warfare officer is able to get her to calm down briefly but after a few minutes she she goes back to her previous behavior. Eventually she did require medication to calm her behavior. She is not able to provide any lucid history. Apparently she was again over served at [facility] which seems to be a pattern. Related Data Home Medications Medication Instructions Recorded Confirmed aspirin 325 mg tablet 325 mg PO DAILY 02/04/22 02/04/22 lisinopril 10 tab 02/04/22 mg-hydrochlorothiazide 12.5 mg tablet metoprolol succinate 25 mg mg PO 02/04/22 tablet,extended release 24 hr trazodone 100 mg tablet mg 02/04/22 Allergies Allergy/AdvReac Type Severity Reaction Status Date / Time atorvastatin Allergy Severe Verified 02/04/22 23:34 lithium Allergy Severe other Verified 02/04/22 23:34 morphine Allergy Intermediate Vomiting Verified 02/04/22 23:34 codeine Allergy Mild Nausea Verified 02/04/22 23:34 Review of Systems Narrative: Unobtainable from the intoxicated patient. [facility] Medical History (Updated 05/18/22 @ 05:57 by Izaiah Tang MD) Alcohol abuse Bipolar disorder COPD (chronic obstructive pulmonary disease) Coronary artery disease GERD (gastroesophageal reflux disease) Hyperlipidemia Hypertension Marijuana abuse Methadone overdose Methamphetamine abuse Polymyalgia rheumatica Surgical History (Updated 05/01/22 @ 17:31 by Izaiah Tang MD) History of carotid endarterectomy History of coronary angioplasty History of hysterectomy History of lumbar laminectomy History of tubal ligation Hx of CABG Family History (Updated 05/01/22 @ 17:32 by Izaiah Tang MD) Mother Coronary artery disease Father Coronary artery disease CHF (congestive heart failure) Social History (Updated 05/01/22 @ 17:32 by Izaiah Tang MD) Narrative: Single, retired, lives in the [facility], alcohol abuse, former smoker, polysubstance abuse Smoking Status: Former smoker Non-prescribed substance use: marijuana (any form) Non-prescribed substance use details: pt refused to answer etoh intake questions service: No Exam Narrative: Exam Narrative: Vitals noted. Exam is challenging as she is aggressive and belligerent. HEENT: No outward signs of head trauma other than some old bruises. Conjunctiva clear. Tympanic membranes are pearly white bilaterally. Posterior pharynx is clear without erythema or exudate. She is edentulous. Neck is supple without adenopathy, thyromegaly, carotid bruit. Lungs: Diminished but Clear to auscultation in all pardo. No wheezes, rales, rhonchi. Heart: Regular rate and rhythm without murmur. Abdomen: Soft and apparently nontender. No guarding, rigidity, rebound. Bowel sounds are normal. No palpable masses. Extremities: No cyanosis or edema. Good distal pulses. She has multiple scattered bruises. Neurologic: Grossly intoxicated, agitated, uncooperative. Const: Vital Signs, click to edit/add: Vital Signs - 24 hr 05/18/22 03:24 05/18/22 05:00 05/18/22 06:36 Temperature 97.2 F L Pulse Rate [Left P ulse Oximeter] 112 H 77 71 Respiratory Rate 20 16 16 Blood Pressure [Le ft Upper Arm] 168/94 H Pulse Oximetry 96 96 96 Oxygen Delivery Me thod Room Air Room Air Room Air Course Course Hospital Course: Patient is seen and examined. When we were not able to get her to remain calm and cooperative I did have to resort to giving her Benadryl 50 mg IM, Haldol 5 mg IM, lorazepam 2 mg IM. With this she did calm down and sleep comfortably. Labs are ordered. Reevaluation(s) Reevaluation #1: Labs returned showing a normal CBC, normal BMP, normal LFTs, normal lipase. Blood alcohol level is 0.23%. Patient continued to rest comfortably. Reevaluation #2: Patient will be turned over to Dr. Saba for final disposition after the [facility] assessment. Vital Signs Vital signs: Initial Vital Signs Temperature 97.2 F L 05/18/22 03:24 Temperature Source Temporal Artery Scan 05/18/22 03:24 Pulse Rate 112 H 05/18/22 03:24 Pulse Rhythm 05/18/22 03:24 Respiratory Rate 20 05/18/22 03:24 Blood Pressure 168/94 H 05/18/22 03:24 Blood Pressure Mean 118 05/18/22 03:24 Blood Pressure Position Sitting 05/18/22 03:24 Pulse Oximetry 96 05/18/22 03:24 Oxygen Delivery Method 05/18/22 03:24 Vital Signs Temperature 97.2 F L 05/18/22 03:24 Pulse Rate 112 H 05/18/22 03:24 Respiratory Rate 20 05/18/22 03:24 Blood Pressure 168/94 H 05/18/22 03:24 Pulse Oximetry 96 05/18/22 03:24 Oxygen Delivery Method 05/18/22 03:24 Temperature 97.2 F L 05/18/22 03:24 Pulse Rate 71 05/18/22 06:36 Respiratory Rate 16 05/18/22 06:36 Blood Pressure 168/94 H 05/18/22 03:24 Pulse Oximetry 96 05/18/22 06:36 Oxygen Delivery Method 05/18/22 06:36 Medical Decision Making Lab Data Labs: Lab Results 05/18/22 05/18/22 Range/Units 03:37 03:37 WBC 8.29 (4.50-11.00) K/uL RBC 4.07 (4.00-5.20) m/uL Hgb 12.1 (12.0-16.0) gm/dL Hct 36.4 (33.0-51.0) % MCV 89 (80-100) fL MCH 30 (26-34) pg MCHC 33 (32-36) gm/dL RDW Coeff of Per 14.4 (11.5-15.5) % Plt Count 401 (140-440) K/uL Neut % (Auto) 43.1 (42.0-72.0) % Lymph % (Auto) 45.0 H (20-44) % [place] % (Auto) 6.3 (0.0-11.0) % Eos % (Auto) 4.3 (0.0-7.0) % Baso % (Auto) 1.2 (0.0-3.0) % Neut # (Auto) 3.57 (1.7-7.0) K/uL Lymph # (Auto) 3.70 H (0.90-2.90) K/uL [place] # (Auto) 0.50 (0.00-0.90) K/UL Eos # (Auto) 0.36 (0.00-0.50) K/uL Baso # (Auto) 0.10 (0.00-0.30) K/uL Abs Immat Gran (auto) 0.01 (0.00-0.30) K/uL Imm/Tot Granulo (auto) 0.1 % Sodium 141 (135-149) mmol/L Potassium 3.5 L (3.6-5.1) mmol/L Chloride 105 (96-114) mmol/L Carbon Dioxide 19 L (20-32) mmol/L BUN 11 (7-30) mg/dL Creatinine 0.6 (0.5-1.5) mg/dL Estimated GFR 97 ml/min Glucose 84 (60-115) mg/dL Calcium 10.2 (8.4-10.6) mg/dL Total Bilirubin 0.2 (0.1-1.5) mg/dL Direct Bilirubin 0.0 (0.0-0.5) mg/dL AST 42 H (12-35) U/L ALT 30 (4-35) U/L Alkaline Phosphatase 82 (40-150) U/L Total Protein 7.4 (6.0-8.3) g/dL Albumin 4.8 (3.3-5.0) g/dL Lipase 75 (23-300) U/L Ethyl Alcohol 0.23 H (0.01-0.03) % Discharge Plan Discharge Clinical Impression: Alcohol abuse, Suicidal ideation, Alcoholic intoxication Condition: Improved Prescriptions: No Action trazodone 100 mg tablet Label Comments: TAKE 1 TABLET BY MOUTH AT BEDTIME metoprolol succinate 25 mg tablet extended release 24 hr PO Label Comments: TAKE 1 TABLET BY MOUTH EVERY DAY lisinopril-hydrochlorothiazide 10-12.5 mg tablet Label Comments: TAKE 1 TABLET BY MOUTH EVERY DAY aspirin 325 mg tablet 325 mg PO DAILY Follow Up/Referrals: Kurt Woodruff MD [Primary Care Provider] -
--- OUTSIDE RECORDS SUMMARY | 2022-05-18 03:25 | XMS_ITS | Clinical Summary ---
:1955 Author Organization [facility] [place] [address] Care Team Providers Name Role Phone Kurt Woodruff MD Primary Care Provider Leonardo Laguerre MD Unavailable Allergies Active Allergy Reactions Severity Noted Date Comments Codeine Nausea Only 05/23/2005 Atorvastatin Shortness Of Breath 12/07/2005 Patient has said she is able to tolerat e Crestor medication. She reported she has been on Crestor for the last 3 years and has had no issu es. [facility] pharmacy consul arielle 11-17-17 and said if weston camacho tolerates the m edication (per her report ), then to make a note in allergies, and it is ok to give. [place] Other - Describe In High 01/20/2019 Uncontro lled bodily Comment Field movements/kaila r skills, loss of memory, Morphine Vomiting 02/02/2005 Medications Medication Sig Dispensed Refills Start Date End Date Status acetaminophen Take 1 tablet by 60 tablet 0 08/14/2019 Active (TYLENOL EXTRA mouth every 6 STRENGTH) 500 mg hours if needed. tabletIndications: Max acetaminophen Chronic bilateral dose: 4000mg in 24 thoracic back pain hrs. aspirin 325 mg Take 1 tablet by 0 08/14/2019 Active tabletIndications: mouth once daily myocardial with a meal. infarction Indications: prevention treatment to prevent a heart attack metoprolol TAKE 1 TABLET BY 90 Tablet 0 01/12/2022 A ctive succinate (TOPROL MOUTH EVERY DAY XL) 25 mg Sustained-Release tabletIndications: HTN (hypertension) multivitamin (MVI) Take 1 Tablet by 0 02/12/2022 Active tablet mouth once daily. lidocaine-menthol Apply 1 Patch on 10 Patch 0 02/19/2022 Active 4-1 % topical dry, clean, patchIndications: hairless skin once Chronic pain of daily. Apply to right knee intact skin to cover most painful area for max 12hr per 24hr period. traZODone TAKE 1 TABLET(100 90 Tablet 0 04/21/2022 A ctive (DESYREL) 100 mg MG) BY MOUTH AT tabletIndications: BEDTIME Bipolar disorder, mixed (HC) lisinopril-hydroch Take 1 Tablet by 30 Tablet 0 05/16/2022 Active lorothiazide mouth once daily. (10-12.5 mg) tablet (PRINZIDE; ZESTORETIC)Indicat ions: HTN (hypertension) traZODone Take 1 Tablet (100 90 Tablet 0 11/22/2021 04/21/20 Discontinued (DESYREL) 100 mg mg) by mouth at 22 tabletIndications: bedtime. Bipolar disorder, mixed (HC) lisinopril-hydroch TAKE 1 TABLET BY 90 Tablet 0 01/12/202209/03 Discontinued lorothiazide MOUTH EVERY DAY 22 (10-12.5 mg) tablet (PRINZIDE; ZESTORETIC)Indicat ions: HTN (hypertension) Active Problems Problem Noted Date Chronic pain of right knee 02/16/2022 Primary osteoarthritis of right knee 01/01/2022 PMR (polymyalgia rheumatica) 08/04/2020 Alcohol-induced psychosis with complication 08/04/2020 Bipolar disorder, mixed 06/03/2020 Fall 08/28/2019 Borderline personality disorder 08/11/2019 Cannabis dependence 08/11/2019 Adjustment disorder 08/11/2019 Alcohol abuse 09/16/2018 COPD (chronic obstructive pulmonary disease) 9 Decreased level of consciousness 09/08/2018 Methamphetamine abuse, episodic 09/08/2018 Acute stress reaction 11/18/2017 Mood disorder 11/18/2017 History of methamphetamine abuse 11/18/2017 Panic attacks 08/16/2017 Alcohol withdrawal syndrome without complication 08/16 Beata 08/15/2017 Memory loss of unknown cause 06/20/2017 Marijuana dependence 06/20/2017 Hyperlipidemia, unspecified 01/30/2017 Gastroesophageal reflux disease without esophagitis Alcohol intoxication 03/30/2015 Acute drug overdose 03/30/2015 Acute respiratory failure with hypoxia 03/30/2015 Memory loss 03/30/2015 Methadone overdose of undetermined intent 03/30/2015 Closed compression fracture of lumbar vertebra 015 Personal history of colonic polyps 11/12/2014 Gout 10/18/2014 Pain medication agreement 04/27/2014 Overview: Abbott on occasion. Acute pericarditis, unspecified 08/04/2013 Chest pain 07/22/2013 Overview: Progressive CP with minimal exertion, si nce March when seen in the ER and ruled out at that time. Tobacco use disorder 07/22/2013 Overview: 5 cigars per day H/O drug abuse 07/22/2013 Overview: Methamphetamine abuser for 47 years and also using acid and other psychedelics as well as having an issue with alcohol abuse. Reports being clean since March 2013 ; although, does smoke marijuana daily. 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 HTN (hypertension) 08/03/2008 Overview: Updated by system to replace inactive re cord Lumbago 01/10/2006 Postsurgical percutaneous transluminal coronary angiop lasty status Other symptoms involving cardiovascular system Other specified personal history presenting hazards to health(V15.89) Resolved Problems Problem Noted Date Resolved Date S/P CABG x 3 07/28/2013 03/30/2015 Overview: CLAIR to LAD; Ao to RI; Ao to RPDA-- Dr. 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 Coronary atherosclerosis of unspecified type of vessel, genoveva ve or graft 08/22/2009 Encounters Date Type Specialty Care Team Description 05/16/2022 Refill Kurt Woodruff Refill R equest MD (Lisinopril-hyd rochlorot hiazide 10 Mg-1 2.5 Mg) 05/15/2022 Refill Kurt Woodruff Refill R equest MD (Lisinopril-hyd rochlorot hiazide 10 Mg-1 2.5 Mg) 05/01/2022 Orders Only Scanner <No scans attac hed> 04/19/2022 RefKurt Menendez Refill R equest MD (Trazodone) 03/22/2022 Hospital Encounter [facility] Ch ronic pain of right MD knee 03/22/2022 Travel 02/16/2022 Office Visit [facility], April U p (Right Knee) 02/16/2022 Travel from Last 3 Months Immunizations Name Administration Dates Next Due COVID-19 vaccine (Moderna 100mcg/0.5mL) PF MDV 09/29/2020, 08/29/2020 Influenza Virus, Unspecified 03/26/2020 Influenza, High-dose Inactivated 05/17/2019, 03/20/2018 Influenza, IIV3 (Age >=3 years) 04/10/2013 Influenza, IIV4 04/30/2017, 04/01/2015 Pneumococcal Poly,23-Valent (Pneumovax) 08/02/2020 Pneumococcal conj 13-Valent (Prevnar 13) 03/31/2018 Tdap 05/29/2015, 10/26/2009 Family History Medical History Relation Name Comments Other Brother throat ca Heart Disease Father Hyperlipidemia Father Diabetes Mother Heart Disease Mother Hyperlipidemia Mother Genetic Other Mother at 8 3, had CABG and had coronary bypass surgery i n her late 70's. Father at 83 of congest margaret heart failure, had his first GA in his 50's. She has 13 siblings, none with heart disease. Other Sister brain tumor Cancer-breast No Family History Relation Name Status Comments Brother Daughter mirian Alive Father (Age 83) CHF Mother (Age 83) Other Sister Social History Tobacco Use Types Packs/Day Years Used Date Former Smoker Cigarettes, Cigars 0.4 40 Quit: Smokeless Tobacco: Never Used Tobacco Cessation: Counseling Given: Yes Alcohol Use Standard Drinks/Week Comments Yes 0 (1 standard drink = 0.6 oz pure usuall y has vodka and hasn't had alcohol) any since 01/2019. Ad mitted to drinking Taquila Alcohol Habits Answer Date Recorded How often do you have a drink Not asked containing alcohol? How many drinks containing alcohol do Not asked you have on a typical day when you are drinking? How often do you have six or more Not asked drinks on one occasion? Comment: usually has vodka and hasn't had 022 any since 01/2019. Admitted to drinking Taquila Sex Assigned at Date Recorded Not on file Obstetrics History Last Filed Vital Signs Vital Sign Reading Time Taken Comments Blood Pressure 130/92 02/12/2022 11:05 AM CDT Pulse 88 02/12/2022 11:05 AM CDT Temperature 36.8 ??C (98.3 ??F) 12/13/2021 10:53 AM CDT Respiratory Rate 16 12/13/2021 10:53 AM CDT Oxygen Saturation 99% 12/13/2021 10:53 AM CDT Inhaled Oxygen Concentration - - Weight 62.6 kg (137 lb 14.4 oz) 02/12/2022 11:05 AM CDT Height 157.5 cm (5' 2) 12/13/2021 10:53 AM CDT Body Mass Index 25.22 12/13/2021 10:53 AM CDT Plan of Treatment Health Maintenance Due Date Last Done Comments Zoster (shingles) series for age 0803/06/2003 50+ (1 of 2) Colonoscopy through age 75 11/11/2019 11/10/2014, 5 COVID-19 vaccine series (3 - 11/24/2020 09/29/2020, 021 Booster for Moderna series) Medicare Wellness for age 65+ 08/02/2021 08/02/2020, 2018, 03/31/2018 Mammogram for age 45-75 10/18/2021 10/18/2020, 04/22/2019, 02/26/2018, Additional history exists Influenza for age 65+ 03/15/2022 03/26/2020, 05/17/2019, 03/20/2018, Additional history exists BMI (ht and wt on same day) for 12/13/2022 12/13/2021, 02/13, age 18+ 08/02/2020, Additional history exists Depression screening for age 12+ 12/13/2022 12/13/2021, , 08/02/2020, Additional history exists Tetanus booster 05/29/2025 05/29/2015, 10/26/2009 Lipids for age 45-75 08/02/2025 08/02/2020, 08/11/2019, 12/19/2018, Additional history exists Tdap Completed 05/29/2015, 10/26/2009 Hepatitis C screening for age Completed 08/02/2020 18-79 Pneumococcal series for age 65+ Completed 08/02/2020, 03/15 DEXA/DXA scan for age 65+ Completed 08/09/2020 Goals Goal Patient Goal Associated Recent Patient-Stated? Author Type Problems Progress Food - Diet In progress No Dionne Hayes (05/04/2020 [place] information security 8:55 AM CDT) Note: Formatting of this note might be d ifferent from the original. Goal identified during: Initial Screenin g Status: In Progress Barriers to goal achievement: No transpo rtation lives alone. Patient steps toward goal achievement: W ork with [facility] review list sent to patient. Navigator steps to support goal achievem ent: Follow up with patient in two weeks. Went through the resources and she did already have a few. Proposed timeline for goal completion: 2 weeks Notes: Date of follow up: 05/17/20 Transportation - Increase General In progress (05/04/20 20 No Honey Hayes, reliability 8:55 AM CDT) RN Note: Formatting of this note might be d ifferent from the original. Goal identified during: Initial Screenin g Status: In Progress Barriers to goal achievement: Limited In come Patient steps toward goal achievement: W ork with [facility] and review resources Navigator steps to support goal achievem ent: Refer to [facility] Proposed timeline for goal completion: 2 weeks Notes: Date of follow up: 05/17/20 Procedures Procedure Name Priority Date/Time Associated Comments Diagnosis SCAN-CT INTERPRETATION 05/01/2022 12:00 AM CDT MR KNEE RIGHT WO Routine 03/22/2022 10:38 Chronic pain of Resu lts for this AM CDT right knee procedure are i n the results section. from Last 3 Months Results SCAN-CT INTERPRETATION (05/01/2022 12:00 AM CDT) Narrative This result has an attachment that is no t available. Scanner OTHER MR KNEE RIGHT WO CONTRAST (03/22/2022 10:38 AM CDT) Anatomical Region Laterality Modality KNEE R Magnetic Resonance Specimen (Source) Anatomical Collection Method Collection Time Re ceived Time Location / / Volume Laterality 03/22/2022 4:11 PM CDT Impressions 03/22/2022 4:11 PM CDT 1. Complex degenerative lateral meniscus tear. 2. Medial meniscus tear. 3. Tricompartmental osteoarthritis moder ate to severe in the lateral compartment. 4. Large joint effusion. Small Spears cys t. Dictated by Tin Moeller MD @ 03/22/2022 4 :11:49 PM (Electronically Signed) Narrative 03/22/2022 4:11 PM CDT For Patients: ??As a result of the Century Cures Act, medical imaging exams and procedure report s are released immediately into your [facility] medical record. ??You may view this report before your referring provider. ??If you have questions, please contact your health care provider. HISTORY: Chronic knee pain. TECHNIQUE: Axial, sagittal and coronal T1, proton d ensity, proton density fat-sat and T2 fat-sat images were obtained of the right knee without contrast administration. COMPARISON: Right knee radiograph 12/13/2021 FINDINGS: Medial compartment: Medial meniscus: Longitudinal tear in th e medial meniscus body. Articular cartilage: Mild cartilage thin radha with no focal chondral defect. - Lateral compartment: Lateral meniscus: Degenerative tear in t he anterior horn and body of lateral meniscus. Articular cartilage: Diffuse grade 3 car tilage loss with subcentimeter grade 4 loss along the peripheral lateral femoral condyle. - Patellofemoral compartment: Grade 2 supe rficial cartilage fissuring on the patella and in the trochlear groove. - Ligaments: The anterior and posterior cr uciate ligaments are intact. Medial collateral ligament and lateral ligamentous complex are maintained. - Extensor mechanism: Distal quadriceps te ndon and patellar tendon are intact. The medial and lateral patellar restraints are intact. No patellar subluxation or merry. - Joint space: Large joint effusion. Small Spears`s cyst. - Bones and soft tissues: Mild bone marrow edema in the peripheral lateral femoral condyle per no acute fracture or AVN. No evidence of infiltrative bone marrow process. No loculated fluid collection or soft tissue mass. - Procedure Note Tin Moeller MD - 03/22/2022Form atting of this note might be different from the original. For Patients: As a result of the ntury Cures Act, medical imaging exams and procedure reports are released immediately into your electronic medical record. You may view this report before your referring provider. If you have questions, please contact [facility] health care provider. HISTORY: Chronic knee pain. TECHNIQUE: Axial, sagittal and coronal T1, proton d ensity, proton density fat-sat and T2 fat-sat images were obtained of the right knee without contrast administration. COMPARISON: Right knee radiograph 12/13/2021 FINDINGS: Medial compartment: Medial meniscus: Longitudinal tear in th e medial meniscus body. Articular cartilage: Mild cartilage thin radha with no focal chondral defect. - Lateral compartment: Lateral meniscus: Degenerative tear in t he anterior horn and body of lateral meniscus. Articular cartilage: Diffuse grade 3 car tilage loss with subcentimeter grade 4 loss along the peripheral lateral femoral condyle. - Patellofemoral compartment: Grade 2 supe rficial cartilage fissuring on the patella and in the trochlear groove. - Ligaments: The anterior and posterior cr uciate ligaments are intact. Medial collateral ligament and lateral ligamentous complex are maintained. - Extensor mechanism: Distal quadriceps te ndon and patellar tendon are intact. The medial and lateral patellar restraints are intact. No patellar subluxation or merry. - Joint space: Large joint effusion. Small Spears`s cyst. - Bones and soft tissues: Mild bone marrow edema in the peripheral lateral femoral condyle per no acute fracture or AVN. No evidence of infiltrative bone marrow process. No loculated fluid collection or soft tissue mass. - IMPRESSION: 1. Complex degenerative lateral meniscus tear. 2. Medial meniscus tear. 3. Tricompartmental osteoarthritis moder ate to severe in the lateral compartment. 4. Large joint effusion. Small Spears cys t. Dictated by Tin Moeller MD @ 03/22/2022 4 :11:49 PM (Electronically Signed) King Cintron MD MR from Last 3 Months Insurance Payer Benefit Plan / Subscriber ID Effective Dates Phone Addre ss Type Group MEDICARE PART B MEDICARE PART B [id number] 2006-Present ATTN: CLAIMS - HB USE ONLY HB ONLY [address] [place] [address] MEDICARE PART A MEDICARE PART A [id number] 2006-Present ATTN: CLAIMS - HB USE ONLY HB ONLY [address] [place] [address] MEDICARE PART A MEDICARE PART A [id number] 2006-Present ATTN: CLAIMS - HB USE ONLY HB ONLY [address] [place] [address] MEDICARE - PB MEDICARE PB [id number] 2006-Present ATT N: CLAIMS USE ONLY ONLY [address] [place] [address] MEDICA [place] MEDICA CHOICE [id number] 2013-Present [address] [address] [place] [address] [place] [id number] 2018-Present [address] [address] [place] [address] Advance Directives Latest Code Status on File Code Status Date Activated Date Inactivated Comments Full Code 08/28/2019 10:11 AM 08/29/2019 12:09 PM Full Code 08/10/2019 10:16 PM 08/14/2019 5:16 PM Code Status Discussion: Not Discussed Full Code 09/08/2018 9:09 PM 09/09/2018 2:47 PM Code Status Discussion: Not Discussed Full Code 12/13/2017 4:45 PM 12/16/2017 5:03 PM Code Status Discussion: Discussed Full Code 11/17/2017 10:30 PM 11/19/2017 3:54 PM Code Status Discussion: Not Discussed Care Teams Adobe Developer Relationship Specialty Start Date End Date Kurt Woodruff MD PCP - General Family Practice 08/05/13 [facility] [address] Leonardo Laguerre MD Rheumatology Rheumatology 02/13/18 [address] [facility] [address] [facility] [address] [place] [address]
--- OUTSIDE RECORDS SUMMARY | 2022-05-18 03:25 | XMS_ITS | Clinical Summary ---
:1955 Author Organization [facility] Address [address] [place] [address] Care Team Providers Name Role Phone Unassigned, Provider Primary Care Provider Unavailable Source Comments You are receiving this document as you are listed as the primary care provider,follow-up provider, or the patient has been referred to you for consultation.This is in compliance with the Medicare and Medicaid EHR Incentive Program,which states Providers who transition their patient to another setting of careor provider of care or refers their patient to another provider of care shouldprovide summarycare record for each transition of care or referral. Product World Allergies Active Allergy Reactions Severity Noted Date Comments Atorvastatin Calcium 02/02/2005 Nimrod 05/12/2020 Morphine And Related Vomiting 02/02/2005 Medications Medication Sig Dispensed Refills Start Date End Date Status esomeprazole (NEXIUM) Take 1 Capsule by 30 Capsule 0 0 Active 20 MG capsule mouth daily. metoprolol succinate Take 1 Tablet by 30 Tablet 0 05/23/2020 Active (TOPROL XL) 100 MG 24 mouth daily. hour release tablet QUEtiapine (SEROQUEL) Take 1 Tablet by 30 Tablet 0 05/23/2020 Active 50 MG tablet mouth daily at bedtime. rosuvastatin (CRESTOR) Take 1 Tablet by 30 Tablet 0 05/23/2020 Active 20 MG tablet mouth daily. tiZANidine (ZANAFLEX) Take 1 Tablet by 30 Tablet 0 05/23/2020 Active 4 MG tablet mouth daily. sertraline (ZOLOFT) Take 1 Tablet by 30 Tablet 0 05/23/2020 Active 100 MG tablet mouth daily at bedtime. lisinopril-hydroCHLORO Take 1 Tablet by 30 Tablet 0 05/23/2020 Active thiazide (PRINZIDE) mouth daily. 20-12.5 MG tablet Active Problems Problem Noted Date Severe episode of recurrent major depressive disorder, without psychotic 05/13/2020 features Lumbago 03/17/2003 Family History Medical History Relation Name Comments Heart Disease Father Diabetes Mother Alcohol Abuse Brother Alcohol Abuse Daughter Depression Daughter Depression Sister Relation Name Status Comments Father Mother Brother Daughter Sister Social History Tobacco Use Types Packs/Day Years Used Date Smoking Tobacco: Never Smokeless Tobacco: Never Alcohol Use Standard Drinks/Week Comments Not Currently 0 (1 standard drink = 0.6 oz pure alcoho l) Occasional Food Insecurity Answer Date Recorded Within the past 12 months, you worried that your food Someti mes true 05/12/2020 would run out before you got money to buy more. Within the past 12 months, the food you bought just Sometime s true 05/12/2020 didn't last and you didn't have money to get more. Sex Assigned at Date Recorded Not on file Last Filed Vital Signs Vital Sign Reading Time Taken Comments Blood Pressure 123/70 05/23/2020 8:14 AM WATCH AND CLOCK REPAIR CLERK Pulse 65 05/23/2020 8:14 AM WATCH AND CLOCK REPAIR CLERK Temperature 35.9 ??C (96.7 ??F) 05/23/2020 8:14 AM WATCH AND CLOCK REPAIR CLERK Respiratory Rate 18 05/23/2020 8:14 AM WATCH AND CLOCK REPAIR CLERK Oxygen Saturation 97% 05/22/2020 8:34 AM WATCH AND CLOCK REPAIR CLERK Inhaled Oxygen Concentration - - Weight 74.5 kg (164 lb 3.2 oz) 05/19/2020 7:58 AM WATCH AND CLOCK REPAIR CLERK Height 157.5 cm (5' 2.01) 05/13/2020 1:00 PM CDT Body Mass Index 30.02 05/13/2020 1:00 PM CDT Plan of Treatment Health Maintenance Due Date Last Done Comments Colon Cancer Screening Plan 1955 Due Hep C Screening (Preventive 1955 Services) Medicare Annual Wellness 1955 Visit Mammogram 1955 COVID-19 Vaccine (#1) 1955 DTaP/Tdap/Td (1 - Tdap) 1972 Zoster/Shingles (1 of 2) 2003 Cholesterol 02/24/2014 02/24/2009, 07/29/2008, 11/06/2004 Pneumococcal 65+ Yrs (1 - 2018 PCV) Influenza (#1) 2022 HepA Aged Out No longer eligib le based on patient's age to complete this to pic HepB Aged Out No longer eligib le based on patient's age to complete this to pic Hib Aged Out No longer eligib le based on patient's age to complete this to pic IPV (Polio) Aged Out No longer eligib le based on patient's age to complete this to pic MCV4 Aged Out No longer eligib le based on patient's age to complete this to pic Insurance Payer Benefit Plan / Subscriber ID Effective Phone Address T ype Group Dates MEDICARE MEDICARE [id number] 2006-Pre Medic are sent RAHUL SAUER [place] [id number] 2008-Pre PO BOX Medi caid sent [phone] [place] [employer] [place] [place] [address] COMPREHENSIVE COMPREHENSIVE 2003-Pre PO BOX Workers MGD. MANAGED CARE sent [id number] [place] [address] Marissa Shepard Personal/Family Self [phone] (Home) [place] [address] Marissa Shepard Personal/Family Self 1955 [address] [place] [address] Marissa Shepard Workers Comp Self 1955 [address] ([address] [place] [address] Marissa Shepard Workers Comp Self 1955 [address] ([address] [place] [address] Advance Directives Latest Code Status on File Code Status Date Activated Date Inactivated Comments Full Code 05/12/2020 4:42 PM 05/23/2020 1:18 PM Full Code 02/23/2009 3:53 PM 03/07/2009 12:10 PM Full Code 02/03/2009 6:00 PM 02/10/2009 5:38 PM Full Code 07/28/2008 4:50 PM 07/29/2008 6:35 PM Care Teams Paint Dipper Relationship Specialty Start Date End Date Unassigned, Provider PCP - General 03/12/[address] [place] [id number]
--- OUTSIDE RECORDS SUMMARY | 2022-05-18 03:26 | XMS_ITS | Encounter Summary ---
:1955 [facility] Address [address] [place] [address] Care Team Providers Name Role Phone Unassigned, Provider Primary Care Provider Unavailable Reason for Visit Reason Comments ALTERED MENTAL STATUS--ED SEIZURE--ED Encounter Details Date Type Department Care Team Description 12/12/2004 - Hospital Encounter RH C62 Arnol Talbot MD [address] [place] [address] OTHER GENERAL SYMPTOMS; 12/14/2004 640 Charles De León MD AMPHETAMINE ABUSE UNSPECIFIED [place], [place] [id number] Social History Tobacco Use Types Packs/Day Years Used Date Smoking Tobacco: Never Assessed Food Insecurity Answer Date Recorded Within the past 12 months, you worried that your food Someti mes true 05/12/2020 would run out before you got money to buy more. Within the past 12 months, the food you bought just Sometime s true 05/12/2020 didn't last and you didn't have money to get more. Sex Assigned at Date Recorded Not on file documented as of this encounter Last Filed Vital Signs Vital Sign Reading Time Taken Comments Blood Pressure 121/51 12/12/2004 10:29 AM CDT Pulse 91 12/12/2004 10:29 AM CDT Temperature - - Respiratory Rate 16 12/12/2004 10:29 AM CDT Oxygen Saturation 99% 12/12/2004 10:29 AM CDT Inhaled Oxygen Concentration - - Weight - - Height - - Body Mass Index - - documented in this encounter Discharge Summaries Arnol Talbot - 12/12/2004 12:00 AM CDT Patient left AMA on 12/14/04. DISCHARGE DIAGNOSES: 1. Methamphetamine dependence. 2. Presumed Seroquel toxicity. 3. Depression. 4. Rhabdomyolysis. HOSPITAL COURSE: For details of patient's presentation, please see dictated admission history and physical dated 12/12/04. In brief, the patient is a 49 -year-old woman who had been partying and relapsed and used methamphetamine. She also took an unknown amount of her Seroquel and Neurontin. Patient denied any suicidal attempt. She was extremely lethargic when she first presented after sleeping for the first afternoon and night. The next day, she was alert and oriented x 4. Her u-tox did come back confirming the prescience of amphetamine and tricyclics. She had no arrhythmic or other complicationsfrom ingestion of Seroquel and other medications. She was evaluated by psychiatry who felt that she should either go to their service (she had been on their service one month prior for depression and methamphetamine use). Their other option for her was to go to chemical dependency treatment. Patient agreed to inpatient chemical dependency treatment, and so that was the route elected. On the day of dis charge, however, at the time of discharge, the patient left AMA. Other complications noted during this admission was the patient had slightly elevated blood sugars.She also had rhabdomyolysis. Her CK had gotten into the 9000 range. When it was checked on the subsequent day, it was down to the 6000 range and she had normal kidney function. She also had one elevated blood sugar in the mid-100 range randomly and then two fasting normal ones. She at least has pre-diabetes and needs that issue followed up on. DISCHARGE MEDICATIONS: Again, the patient left AMA prior to receiving any of her medications. The medications she presented with were the following: Neurontin 600 mg t.i.d., Prevacid 30 mg q. day, Centrum Carb Assist 1 per day, ibuprofen 800 mg t.i.d., fluoxetine 40 mg p.o. q. day, Seroquel 25 mg p.o. q.4h. p.r.n. DISCHARGE DISPOSITION & FOLLOW UP: The patient left against medical advice despite initially agreeing to chemical dependency inpatient treatment. 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 I had stressed with her during this hospitalization that she should not be taking her ibuprofen so her kidney function should remain normal, and I imagine her CK will drop down to normal rangeover the next few days. She does have a psychiatrist and had noted before that she will follow up there as well. mkb Dictated: 12/14/2004 15:01:52 Transcribed: 12/18/2004 12:17:17 Kristin Talbot MD Doc #: [id number] cc: Heaven Burcht, [facility] This document was electronically signed by Kristin Talbot MD on 12/25/2004 14:05:02. 1 Page 1 Patient Name: FIFI CALDERON DISCHARGE SUMMARY CONFIDENTIAL MEDICAL RECORD [address] [id number] Page 1 Patient: FIFI CALDERON Location: R-DIS HPN: Admit Date: 12/12/2004 Date of : 1955 Discharge Date: 12/14/2004 DISCHARGE SUMMARY documented in this encounter Medications at Time of Discharge Medication Sig Dispensed Refills Start Date End Date CYCLOBENZAPRINE HCL 1 tab po qhs 10 0 12/23/2003 (FLEXERIL) 10MG ORAL TABS FLEXERIL 10MG ORAL TABS 1 tab po qhs prn 20 1 200307/28/2008 low back spasm. IBUPROFEN 800MG ORAL TABS 1 tab po q 8hrly 30 0 06/07/28/2008 prn IBUPROFEN 800MG ORAL TABS 1 tablet q 6-8 30 1 200302/06/2005 hours po prn for low back pain VICODIN 5-500MG ORAL TABS One tab po q 6-8 20 0 06/2 03/200407/28/2008 hours prn severe low back pain. VICODIN 5-500MG ORAL TABS 1 tab po q6hrly 10 0 11/1507/28/2008 prn documented as of this encounter OR Notes H&P - Arnol Talbot - 12/12/2004 12:00 AM CDT HISTORY OF PRESENT ILLNESS: The patient is a 49-year-old woman who was brought to the emergency department after she was found to have altered mental status. The patient has a long past medical history significant for depression, methamphetamine dependence and cocaine dependence. She apparently had been partying over the weekend using methamphetamine. There was some suggestion that the patient may have had an ingestion of her Seroquel, but at this time no detailed information is available. The patient's boyfriend apparently dropped her off and did not stay around for questioning. The patient herself is very sleepy at this time and cannot give me any history. The above information is, at this point, gathered only from second and third sources including the emergency department and toxicology notations since the patient is unable to give any history. The patient was admitted here at [facility] approximately one month ago and stayed for about 8 days. At that time she was found to have depression, methamphetamine dependence and cocaine dependence. She was discharged to [facility] in order to undergo outpatient chemical dependency treatment. Unclear on what happened after the discharge and how much of the program she went through. PAST MEDICAL HISTORY 1. Poly substance abuse. Patient has used methamphetamine off and on for the past several years perold hospital notes. She has also used cocaine in that time period. She also has been a heavy alcoholdrinker in the distant past. She has been through chemical dependency treatment on several occasions. 2. Depression. As noted above, the patient was on the psychiatry service here one month ago. She was also on the psychiatry service at [facility] following a neurosurgery procedure for her back. She has been treated mainly with SSRIs until recently. 3. Low back pain. The patient has chronic low back pain. She did undergo surgery in July of thisyear. PAST SURGICAL HISTORY 1. Hysterectomy. 2. Carotid endarterectomy. 3. Questionable angioplasty 15 years ago. MEDICATIONS: The patient has a bag full of medications with her including Neurontin 600 mg p.o. t.i.d.; Prevacid 30 mg p.o. q.d.; Centrum Carb-Assist 1 per day; ibuprofen 800 mg p.o. t.i.d.; fluoxetine 20 mg, 2 tablets q.d.; Seroquel 25 mg q 4 hours p.r.n. Of note, several of these bottles are empty,but there is one bottle that has a number of different pills in it. ALLERGIES: NO KNOWN DRUG ALLERGIES THAT ARE LISTED IN EPICWEB. ON A PREVIOUS DISCHARGE SUMMARY, METOPROLOL, LIPITOR AND CODEINE ARE LISTED. SOCIAL HISTORY: As above. I am unable to get further information from the patient. REVIEW OF SYSTEMS/FAMILY HISTORY: Unable to obtain from the patient. PHYSICAL EXAMINATION GENERAL: The patient is very sleepy; she is arouseable and is oriented to person and place, but does not stay awake longer than that to answer more questions. HEENT: No signs of head trauma; pupils equal, round and reactive to light; they are slightly enlarged; oropharynx is clear. NECK: Supple; no lymphadenopathy or thyromegaly. LUNGS: Clear to auscultation with poor respiratory effort bilaterally; she is in no respiratory distress. HEART: Regular rate and rhythm; normal S1 and S2; no murmur, rub or gallop. ABDOMEN: Positive bowelsounds; nontender to palpation; no hepatosplenomegaly. EXTREMITIES: No clubbing, cyanosis or edema. NEUROLOGIC: The patient is sleepy, but oriented x 2 only; when she is touched even with my stethoscope she does seem to twitch or jump; she does withdraw to painful stimuli; she is also slightly hyperreflexic symmetrically; she has no evidence of bruising or laceration. LABORATORY DATA: Tylenol level is less than 2. Sodium 140, potassium 4.1, chloride 102, [id number], BUN 27, creatinine 1.3, calcium 9.1. Urine toxicology screen is positive for amphetamine and tricyclic. ECG revealed normal sinus rhythm with a rate of 88, positive left ventricular hypertrophy. She alsohas Q-waves in V4 through V6. No significant ST or other T- wave changes, prolonged QT interval with QT corrected being 493. ASSESSMENT/PLAN: Altered mental status. The patient's mental status seems to be decreased secondaryto drug ingestion. She appears to have used methamphetamine over the weekend and then may have takentoo much of her own Seroquel, Neurontin and/or fluoxetine. She may also be in a post-excited state seen after methamphetamine use. The rest of the patient's laboratory thus far, including Tylenol level, is unremarkable. There is no suggestion of head or other trauma and no suggestion of other metabolic or infectious etiologies at this point. For now the patient will be watched closely in the MICU forrespiratory depression and if she develops respiratory depression she would need to be intubated. She will also be watched closely for signs and symptoms of arrhythmia which may come about from prolonged QT. Will also have psychiatry come to see her tomorrow. Unclear if this was a suicide attempt, unclear also whether the patient needs further inpatient psychiatric management at this point or not. While she is in the ICU and because she has a history of gastroesophageal reflux disease she will be oncertain preventative measures including peptic ulcer prophylaxis with ranitidine. I will also keep her NPO, given her decreased level of consciousness, and support her with half normal saline. mjb Dictated: 12/12/2004 14:14:15 Transcribed: 12/12/2004 14:29:25 Kristin Talbot MD Doc #: [id number] cc: Heaven Huynh MD, Primary This document was electronically signed by Kristin Talbot MD on 12/18/2004 08:05:43. 1 Page 2 Patient Name: FIFI CALDERON HISTORY & PHYSICAL CONFIDENTIAL MEDICAL RECORD [address] [address] Page 1 Patient: FIFI CALDERON Location: HPN: Admit Date: 12/12/2004 Date of : 1955 HISTORY & PHYSICAL documented in this encounter ED Notes Charles Trammell - 12/12/2004 11:[address] [facility] Emergency Department Attending Supervision Note Patient Name: Fifi Calderon Date of : 1955 I certify that I obtained a history, examined the patient, and agree with resident's findings as documented the corresponding visit note by Dr. Jean Carlos Rivera. PMH, FH, SOC, ROS reviewed Please see today's note by resident physician. Assessment: Altered Mental Status OVERDOSE Plan: Planned Disposition: inpatient admission This electronic signature covers the nursing and ancillary testing orders for this visit. Author: Charles Trammell MD - 12/12/2004 11:05 AM Nighat Angelo - 12/12/2004 11:00 AM CDT Patient Valuables Collected on Admission and sent to Nursing Unit Fifi Calderon [id number] 12/12/2004 Paper $: (not recorded) Coins $: (not recorded) Checkbook: No, First Number: (not recorded), Last Number: (not recorded) Name of Credit Cards: (not recorded), Number of Credit Cards: (not recorded), Social Security Card:No, Passport: No, Drivers' License: No, Government ID: No Watch: Yes Watch Brand: (not recorded) Glasses: No Hearing Aid: No Dentures: No [place] #: (not recorded) Cell Phone: No Pager: No Jewelry: Yes, Description: 1-SILVER CHAIN, 1-EAR CUFF, 1-SILVER RING Clothes/Misc: (not recorded) Medications: Kept at the bedside, Description: 6-BOTTLES, ONLY 3- HAVE PILLS IN THEM Equipment: No, Description: (not recorded) I understand that I assume full responsibility for all clothing, personal items, or valuables retained by me in my hospital room. I choose to keep the following at my bedside: Watch, Jewelry and Clothes/Misc. I have been offered the opportunity to secure my valuables in the Business Office. Patient and Witness signatures required. 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 Emergency Department Visit Note Patient Name: Fifi Calderon Date of : 1955 Chief Complaint: Patient presents with: ALTERED MENTAL STATUS--ED SEIZURE--ED HPI: 49 y.o. female present by EMS with AMS. Pt states, I was partying this weekend. I did a line of crank . Admits to taking excess Seroquel (amount unknown). Brought to [facility] by boyfriend, got out of car and laid on ground. EMS called for difficulty to arouse. Pt without complaint at this time. Aware she is at [facility] and knows date PMH: Previous Medical History: None on file There is no previous surgical history on file. Meds: No active medications on file as of 12/12/2004 Allergies: Review of patient's allergies indicates no known allergies. Social and Family History: Tobacco Use: Not Asked Alcohol Use: Not Asked Patient's Family History None on file Review of Systems: Please see iPerceptions flowsheet for review of systems. Physical Exam: BP 133/62 Pulse 90 Resp 16 SaO2 100% General: oriented to time, altered level of consciousness and moderate dehydration Head: atraumatic Eyes: PERRL, EOMI, corneas clear and conjunctivae clear, no nystagmus Nose: no rhinorrhea/nasal discharge Mouth/Throat: no exudates and no erythema Neck: no tenderness, supple and full AROM Chest/Pulmonary: chest clear with equal lung sounds bilaterally, no chest wall tenderness or deformities and no tachypnea Cardiovascular: S1, S2 normal, regular rate and rhythm, no murmur, no rubs, no S3 or S4, no JVD andno pedal edema Abdomen: soft, non-tender, no guarding, no rebound tenderness and no tenderness to percussion Musculoskel/Extremities: normal extremities, no edema, erythema, tenderness and full AROM of major joints without tenderness Neuro: gait stable and motor normal. No clonus. Difficulty following exam. Responds to voice and sternal rub. No focal weakness. Medical Decision Making: EKG: NSR with LVH. QT 493. Labs: Tylenol pending. Anion gap 16. Assessment: Altered mental status. LIkely secondary to seroquel ingestion which also likely explains prolonged QT interval. Discusssed with admitting hospitalist. Pt protecting airway at this time so will not intubated. Plan: Planned Disposition: inpatient admission: MICU Condition on disposition: Stable This electronic signature covers the nursing and ancillary testing orders for this visit. Author: Jean Carlos Rivera MD - 12/12/2004 10:22 AM Hortencia Bull - 12/12/2004 10:34 AM CDT awaiting admit to icu, glascow remains 12 Hortencia Bull - 12/12/2004 10:12 AM CDT REASSESSED, STATIS SAME GLASCOW 13, LISTLESS, AWAKENS WITH STIMULATION, VS STABLE, LABS PENDING. Hortencia Bull - 12/12/2004 9:43 AM CDT received pt decrease lo9c, glascow 12, denies trauma, states drinking and partying this weekend, may have taken too many drugs, admit to meth use, takeing seraquil and alcohool. breathilizier.00, acucheck 455. heart rrr, sinus tach, lungs clear, abd soft, #2 ivin, lab done drColleen with pt. Spenser Ring - 12/12/2004 12:00 AM CDT CLINICAL TOXICOLOGY CONSULTATION: DATE OF CONSULTATION: 12/12/2004. REASON FOR CONSULTATION: Dr. Trammell from the emergency department asked the toxicology service to see this lady for altered mental status and possible ingestion of Seroquel, as well as using amphetamines over the weekend. The patient's medications included gabapentin, ibuprofen, Prevacid and Seroquel. The patient also takes Prozac. HISTORY: The patient is a 49-year-old female who was brought to the emergency department by medics after she presented to them with altered mental status. She apparently has had a very active weekend using amphetamines. She has been very fatigued according to the patient's boyfriend and has been sleeping quite a bit over the past day or 2. Due to the patient's mental status, no further history can be obtained. REVIEW OF SYSTEMS, SOCIAL HISTORY AND PAST MEDICAL HISTORY: Unable to be obtained due to the patient's level of consciousness. PHYSICAL EXAMINATION: VITAL SIGNS: Blood pressure 123/60, pulse 90 and regular, respirations 18 and sonorous. HEENT: Head was atraumatic. Pupils were equal, round and react to light. They are sluggish. The pupil diameter is approximately 2 mm to 3 mm. Mucous membranes are slightly dry. NECK: Supple. LUNGS: Clear bilaterally. HEART: Regular rate and rhythm. Without gallops or rubs. There was a questionable soft grade 1/6 systolic murmur at the left sternal border. ABDOMEN: Soft. Non-tender. No masses appreciated. EXTREMITIES: Benign. Without cyanosis, clubbing or edema. NEUROLOGIC: The patient has depressed mental status, but does have some non purposeful movements to noxious stimuli. No focal findings were appreciated. SKIN: The patient was noted to have an old scar on the right anterolateral neck measuring a pproximately 6 cm. There was some hyperkeratosis to the thumb of the right hand. This was on the volar surface. LABORATORY DATA: This has been reviewed. Please see the emergency department note. The patient has a positive urine screen for amphetamines. Acetaminophen level is pending. A chemistry panel revealed a sodium of 140, potassium 4.1, chloride 102, CO2 was 22 and BUN/creatinine was 27/1.3. Urine from a Judd catheter was noted to be somewhat dark with a moderate amount of sediment. ELECTROCARDIOGRAM: The QRS duration was 94 and QTc was 493, which was prolonged. ASSESSMENT: Altered mental status, possibly secondary to multiple drug ingestion. The patient's clinical findings are consistent with Neurontin and Seroquel ingestions. The prolonged QT may also be a manifestation of Seroquel ingestion. The patient has significant depressed level of consciousness andwill need to be monitored for the need for airway protection, as well as development of any ventricular dysrhythmias associated with prolonged QT. At this point, supportive care is recommended. The toxicology service will continue to follow this patient as needed and maybe called for any questions or if the patient's condition changes. Toxicology on- call number is . The toxicology service would like to thank the emergency department for allowing us to participate in this patient's care. TIME WITH PATIENT: Approximately 30 minutes. lmn Dictated: 12/12/2004 10:55:56 Spenser Ring MD Transcribed: 12/12/2004 11:38:27 Doc #: [id number] cc: Kristin Talbot MD, Attending Heaven Huynh MD, Primary KRISTIN TALBOT, Attending Physician HEAVEN HUYNH, Primary Physician This document was electronically signed by Spenser Ring MD on 12/12/2004 14:05:41. 1 Page 2 Patient Name: FIFI CALDERON Visit Date: 12/12/2004 EMERGENCY MEDICINE NOTE CONFIDENTIAL MEDICAL RECORD [address] [address] Page 1 Patient: FIFI CALDERON Location: HPN: Date of : 1955 Visit Date: 12/12/2004 EMERGENCY MEDICINE NOTE documented in this encounter Plan of Treatment Not on filedocumented as of this encounter Procedures Procedure Name Priority Date/Time Associated Comments Diagnosis BASIC METABOLIC PANEL Routine 12/14/2004 6:10 AM Results for this CDT procedure are i n the results section. TROPONIN I Routine 12/14/2004 6:10 AM Results f or this CDT procedure are i n the results section. MAGNESIUM Routine 12/14/2004 6:10 AM Results f or this CDT procedure are i n the results section. URIC ACID Routine 12/14/2004 6:10 AM Results f or this CDT procedure are i n the results section. CK, TOTAL Routine 12/14/2004 6:10 AM Results f or this CDT procedure are i n the results section. HEMOGRAM & PLATELETS Routine 12/13/2004 6:45 AM R esults for this CDT procedure are i n the results section. BASIC METABOLIC PANEL Routine 12/13/2004 6:45 AM Results for this CDT procedure are i n the results section. MAGNESIUM Routine 12/13/2004 6:45 AM Results f or this CDT procedure are i n the results section. ALT (SGPT) Routine 12/13/2004 6:45 AM Results f or this CDT procedure are i n the results section. PHOSPHORUS Routine 12/13/2004 6:45 AM Results f or this CDT procedure are i n the results section. CK, TOTAL Routine 12/13/2004 6:45 AM Results f or this CDT procedure are i n the results section. GLUCOSE, WHOLE BLOOD Routine 12/13/2004 12:03 Res ults for this POCT AM CDT procedure are i n the results section. RAPID DRUG PANEL, Waiting 12/12/2004 9:33 AM Resu lts for this URINE CDT procedure are i n the results section. BASIC METABOLIC PANEL Waiting 12/12/2004 9:33 AM Results for this CDT procedure are i n the results section. ACETAMINOPHEN Waiting 12/12/2004 9:33 AM Results for this CDT procedure are i n the results section. BB HOLD TUBE ([facility] Routine 12/12/2004 9:30 AM Results for this ONLY) CDT procedure are i n the results section. documented in this encounter Results TROPONIN 1 (12/14/2004 6:10 AM CDT) athologist Signature Troponin I <0.10 0.0 - 1.0 [facility] ng/ml Specimen Anatomical Collection Method Collection Time Receive d Time (Source) Location / / Volume Laterality 12/14/2004 6:10 AM 5 6:16 CDT AM CDT Arnol Talbot MD LAB_1 Performing Organization Address City/State/ZIP Code Phon e Number [address] [address] [place], [place] [phone] (ABNORMAL) BASIC METABOLIC PANEL (12/14/2004 6:10 AM CDT) athologist Signature BUN 11 10 - 26 [facility] mg/dl Sodium 142 135 - 145 [facility] mmol/L Potassium 4.0 3.5 - 5.3 [facility] mmol/L Chloride 106 (H) 95 - 105 [place] mmol/L CO2 28 22 - 31 [facility] mmol/L Glucose 98 65 - 115 [facility] mg/dl Creatinine 0.6 0.6 - 1.3 [facility] mg/dl GFR, Estimated >80.0 >60 [facility] ml/min/1.7 3m2 GFR, Est., If >80.0 >60 [facility] Black ml/min/1.7 3m2 Calcium 8.9 8.2 - 10.0 [facility] mg/dl Anion Gap 8 7 - 17 [facility] (calc.) mmol/L Specimen Anatomical Collection Method Collection Time Receive d Time (Source) Location / / Volume Laterality 12/14/2004 6:10 AM 5 6:16 CDT AM CDT Arnol Talbot MD LAB_1 Performing Organization Address [facility] Phon e Number [address] [address] [place], [place] [phone] URIC ACID (12/14/2004 6:10 AM CDT) athologist Signature Uric Acid 4.0 2.5 - 6.5 [facility] mg/dl Specimen Anatomical Collection Method Collection Time Receive d Time (Source) Location / / Volume Laterality 12/14/2004 6:10 AM 5 6:16 CDT AM CDT Arnol Talbot MD LAB_1 Performing Organization Address [facility] Phon e Number [address] [address] [place], [place] [phone] MAGNESIUM (12/14/2004 6:10 AM CDT) P athologist Signature Magnesium 1.6 1.6 - 2.6 [facility] mg/dl Specimen Anatomical Collection Method Collection Time Receive d Time (Source) Location / / Volume Laterality 12/14/2004 6:10 AM 5 6:16 CDT AM CDT Arnol Talbot MD LAB_1 Performing Organization Address [facility] Phon e Number [address] [address] [place], [place] [phone] (ABNORMAL) CK, TOTAL (12/14/2004 6:10 AM CDT) athologist Signature CK, Total 6455 (H) 17 - 142 [facility] U/L Comment: Result Checked Specimen Anatomical Collection Method Collection Time Receive d Time (Source) Location / / Volume Laterality 12/14/2004 6:10 AM 5 6:16 CDT AM CDT Arnol Talbot MD LAB_1 Performing Organization Address [facility] Phon e Number [address] [address] [place], [place] [phone] (ABNORMAL) BASIC METABOLIC PANEL (12/13/2004 6:45 AM CDT) athologist Signature BUN 13 10 - 26 [facility] mg/dl Sodium 140 135 - 145 [facility] mmol/L Potassium 4.1 3.5 - 5.3 [facility] mmol/L Chloride 108 (H) 95 - 105 [facility] mmol/L CO2 25 22 - 31 [facility] mmol/L Glucose 98 65 - 115 [facility] mg/dl Creatinine 0.6 0.6 - 1.3 [facility] mg/dl GFR, Estimated >80.0 >60 [facility] ml/min/1.7 3m2 GFR, Est., If >80.0 >60 [facility] Black ml/min/1.7 3m2 Calcium 8.9 8.2 - 10.0 [facility] mg/dl Anion Gap 7 7 - 17 [facility] (calc.) mmol/L Specimen Anatomical Collection Method Collection Time Receive d Time (Source) Location / / Volume Laterality 12/13/2004 6:45 AM 5 7:01 CDT AM CDT Arnol Talbot MD LAB_1 Performing Organization Address City/[facility] Phon e Number [address] [address] [place], [place] [phone] (ABNORMAL) ALT (SGPT) (12/13/2004 6:45 AM CDT) athologist Signature ALT (SGPT) 116 (H) 0 - 55 U/L [facility] Specimen Anatomical Collection Method Collection Time Receive d Time (Source) Location / / Volume Laterality 12/13/2004 6:45 AM 5 7:01 CDT AM CDT Arnol Talbot MD LAB_1 Performing Organization Address [place]/[facility] [facility] [place] Number [address] [address] [place], [place] [phone] (ABNORMAL) PHOSPHORUS (12/13/2004 6:45 AM CDT) P athologist Signature Phosphorus 2.0 (L) 2.8 - 4.6 [facility] mg/dl Specimen Anatomical Collection Method Collection Time Receive d Time (Source) Location / / Volume Laterality 12/13/2004 6:45 AM 5 7:01 CDT AM CDT Arnol Talbot MD LAB_1 Performing Organization Address City/[facility] Code Phon e Number [address] [address] [place], [place] [phone] MAGNESIUM (12/13/2004 6:45 AM CDT) P athologist Signature Magnesium 1.9 1.6 - 2.6 [facility] mg/dl Specimen Anatomical Collection Method Collection Time Receive d Time (Source) Location / / Volume Laterality 12/13/2004 6:45 AM 5 7:01 CDT AM CDT Arnol Talbot MD LAB_1 Performing Organization Address [place]/[facility] [facility] [place] Number [address] [address] [place], [place] [phone] (ABNORMAL) CK, TOTAL (12/13/2004 6:45 AM CDT) P athologist Signature CK, Total 9971 (H) 17 - 142 [facility] U/L Specimen Anatomical Collection Method Collection Time Receive d Time (Source) Location / / Volume Laterality 12/13/2004 6:45 AM 5 7:01 CDT AM CDT Arnol Talbot MD LAB_1 Performing Organization Address City/[facility]/ZIP Code Phon e Number [address] [address] [place], [place] [phone] (ABNORMAL) HEMOGRAM+PLATELETS (12/13/2004 6:45 AM CDT) athologist Signature WBC 8.4 4.0 - 11.0 [facility] k/ul RBC 3.98 (L) 4.0 - 5.2 [facility] M/ul Hemoglobin 12.0 12.0 - 16.0 [facility] g/dl HCT 35.9 (L) 36.0 - 46.0 [facility] % MCV 90.1 80 - 100 fl [facility] MCH 30.2 26 - 34 pg [facility] MCHC 33.5 32 - 36 % [facility] RDW 12.0 11.5 - 14.5 [facility] % PLTS 283 150 - 450 [facility] k/ul Specimen Anatomical Collection Method Collection Time Receive d Time (Source) Location / / Volume Laterality 12/13/2004 6:45 AM 5 7:01 CDT AM CDT Arnol Talbot MD LAB_1 Performing Organization Address [facility] Phon e Number [address] [address] [place], [place] [phone] (ABNORMAL) GLUCOSE, WHOLE BLOOD POC (12/13/2004 12:03 AM CDT) athologist Signature Glucose, Whole 167 (H) 65 - 115 [facility] Blood mg/dl Comment: Point of Care Testing IV Insulin Specimen Anatomical Collection Method Collection Time Receive d Time (Source) Location / / Volume Laterality 12/13/2004 12:03 12/13/2004 6:56 AM CDT AM CDT Arnol Talbot MD LAB_1 Performing Organization Address [facility] Phon e Number [address] [address] [place], [place] [phone] (ABNORMAL) RAPID DRUG SCREEN (12/12/2004 9:33 AM CDT) Component Value Ref Test Analysis Performed Pathologis t Range Method Time At [facility] Negative NEG [facility] Benzodiazepines Negative NEG [facility] Cocaine Metabolite Negative NEG [facility] Amphetamines Presumptive NEG [facility] Positive - Confirmation pending : (A) Comment: Positive Amphetamine and Methamphetamine Confirmed by GCMS THC(Marijuana) Metab Negative NEG [facility] Opiates Negative NEG [facility] Barbiturates Negative NEG [facility] Tricyclic Screen UR Presumptive Positive - Confirmation pending ?: [facility] Negative Unable to Confirm Preliminary Positive Result pH Urine Rapid, Tox 5.0 [facility] Creatinine, Ur 133.0 mg/dl [facility] Methadone Negative NEG [facility] Specimen Anatomical Collection Method Collection Time Receive d Time (Source) Location / / Volume Laterality 12/12/2004 9:33 AM 5 9:44 CDT AM CDT Charles Trammell MD LAB_1 Performing Organization Address [facility] Phon e Number [address] [address] [place], [place] [phone] (ABNORMAL) ACETAMINOPHEN (12/12/2004 9:33 AM CDT) P athologist Signature Acetaminophen <2 (L) 10 - 20 [facility] mcg/ml Specimen Anatomical Collection Method Collection Time Receive d Time (Source) Location / / Volume Laterality 12/12/2004 9:33 AM 5 9:39 CDT AM CDT Charles Trammell MD LAB_1 Performing Organization Address City/[facility] Phon e Number [address] [address] [place], [place] [phone] (ABNORMAL) BASIC METABOLIC PANEL (12/12/2004 9:33 AM CDT) Analysis Performed At Patho logist Time Signature BUN 27 (H) 10 - 26 [facility] mg/dl Sodium 140 135 - 145 [facility] mmol/L Potassium 4.1 3.5 - 5.3 [facility] mmol/L Chloride 102 95 - 105 [facility] mmol/L CO2 22 22 - 31 [facility] mmol/L Glucose 97 65 - 115 [facility] mg/dl Creatinine 1.3 0.6 - 1.3 [facility] mg/dl GFR, Estimated 45.9 (L) >60 [facility] ml/min/1.7 3m2 GFR, Est., If 55.5 (L) >60 [facility] Black ml/min/1.7 3m2 Calcium 9.1 8.2 - 10.0 [facility] mg/dl Anion Gap 16 7 - 17 [facility] (calc.) mmol/L Specimen Anatomical Collection Method Collection Time Receive d Time (Source) Location / / Volume Laterality 12/12/2004 9:33 AM 5 9:39 CDT AM CDT Charles Trammell MD LAB_1 Performing Organization Address [facility] Phon e Number [address] [address] [place], [place] [phone] BB HOLD TUBE (12/12/2004 9:30 AM CDT) [facility] gist Method Time Signature BB Hold Tube Blood Bank [facility] save tube expires in 3 days Specimen Anatomical Collection Method Collection Time Receive d Time (Source) Location / / Volume Laterality 12/12/2004 9:30 AM 5 9:41 CDT AM CDT Charles Trammell MD LAB_1 Performing Organization Address [facility] Phon e Number [address] [address] [place], [place] [phone] documented in this encounter Visit Diagnoses Diagnosis Other general symptoms(780.99) Other general symptoms 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
--- OUTSIDE RECORDS SUMMARY | 2022-05-18 03:26 | XMS_ITS | Encounter Summary ---
:1955 Author Organization [facility] Address [address] [place] [address] Care Team Providers Name Role Phone Unassigned, Provider Primary Care Provider Unavailable Encounter Details Date Type Department Care Team Description 07/29/2008 Imaging [facility] [address] [place] [address] [id number] Social History Tobacco Use Types Packs/Day Years Used Date Smoking Tobacco: Never Alcohol Use Standard Drinks/Week Comments Yes 0 [...] on file documented as of this encounter Plan of Treatment Not on filedocumented as of this encounter Procedures Procedure Name Priority Date/Time Associated Diagnosis Comme nts NM CARD MYOCARD Routine 07/29/2008 11:22 AM Resul ts for this EXERCISE DECORATOR HAND procedure are i n REST/STRESS SPECT the result s section. documented in this encounter Results NM CARDIAC EXERCISE CARDIOLITE STRESS TST (07/29/2008 11:22 AM DECORATOR HAND) Anatomical Region Laterality Modality Chest, NM Cardiac Nuclear Medicine, Nu clear Medicine Specimen (Source) Anatomical Collection Method Collection Time Re ceived Time Location / / Volume Laterality 07/29/2008 11:22 AM DECORATOR HAND Narrative 07/29/2008 12:35 PM DECORATOR HAND NM MYOCARDIAL PERFUSION EXERCISE REST-STRESS SPECT SCAN 07/29/2008: INDICATION: Anginal chest pain. Hyperten rupinder. Previous heart cath 20 years ago. Family history. COMPARISON: None. TECHNIQUE: Stress test performed by Card iology and ECG reported separately. Prior to the stress test 10.3 mCi Tc 99m Sestamibi was injected and rest SPECT myocardial perfusion images obtain ed. 30.6 mCi Technetium Sestamibi was injected at peak stress ??created by treadmill exercise and gated SPECT stress images obtained. Wall motion and left ventricular ejection fraction was evaluated. Stress consisted of tread mill exercise following Skip protocol for 7:01 minutes. Work level ac hieved MAC METS: 8.40. Baseline standing heart rate 78 bpm which thomas to 130 bpm representing 80% predicted. Baseline standing blood press ure 122/88 which thomas to 188/88 with double product [id number]. Stress stoppe d because of chest discomfort. Abnormal EKG reported separately. studio control operator: Normal. FINDINGS: Wall motion and thickening is normal in all segments with the immediate post stress rest gated SPECT e jection fraction of 56%. The SPECT myocardial images show normal distributi on of the radionuclide with no suggestion for either fixed or stress in duced ischemia. CONCLUSION: Normal. No evidence for stress induced i schemia. Procedure Note Tin Chopra B - 07/29/2008Formattin g of this note might be different from the original. NM MYOCARDIAL PERFUSION EXERCISE REST-ST RESS SPECT SCAN 07/29/2008: INDICATION: Anginal chest pain. Hyperten rupinder. Previous heart cath 20 years ago. Family history. COMPARISON: None. TECHNIQUE: Stress test performed by Card iology and ECG reported separately. Prior to the stress test 10.3 mCi Tc 99m Sestamibi was injected and rest SPECT myocardial perfusion images obtain ed. 30.6 mCi Technetium Sestamibi was injected at peak stress created by t readmill exercise and gated SPECT stress images obtained. Wall motion and left ventricular ejection fraction was evaluated. Stress consisted of tread mill exercise following Skip protocol for 7:01 minutes. Work level ac hieved MAC METS: 8.40. Baseline standing heart rate 78 bpm which thomas to 130 bpm representing 80% predicted. Baseline standing blood press ure 122/88 which thomas to 188/88 with double product [id number]. Stress stoppe d because of chest discomfort. Abnormal EKG reported separately. studio control operator: Normal. FINDINGS: Wall motion and thickening is normal in all segments with the immediate post stress rest gated SPECT e jection fraction of 56%. The SPECT myocardial images show normal distributi on of the radionuclide with no suggestion for either fixed or stress in duced ischemia. CONCLUSION: Normal. No evidence for stress induced i schemia. King Schilling PA-C RAD NM documented in this encounter Visit Diagnoses Not on filedocumented in this encounter Care Teams Kiln Puller Relationship Specialty Start Date End Date Unassigned, Provider PCP - General 03/12/[address] [place] [id number] documented as of this encounter
--- OUTSIDE RECORDS SUMMARY | 2022-05-18 03:26 | XMS_ITS | Encounter Summary ---
:1955 Author Organization Formerly [facility] Address [address] [place] [address] Care Team Providers Name Role Phone Unassigned, Provider Primary Care Provider Unavailable Encounter Details Date Type Department Care Team Description 12/12/2004 Orders Only [facility] Unknown, Physician Cardiology [address] [place] [phone] (Wo rk) Social History Tobacco Use Types Packs/Day Years [...] on file documented as of this encounter Procedure Notes Lester Jin - 12/12/2004 12:00 AM CDTAssociated Order(s): EKG documented in this encounter Plan of Treatment Not on filedocumented as of this encounter Procedures Procedure Name Priority Date/Time Associated Diagnosis Comme nts EKG 12/12/2004 12:00 AM Results for this CDT procedure are i n the results section . ECG TRACING 12/12/2004 Results for thi s procedure are i n the results section . documented in this encounter Results EKG (12/12/2004 12:00 AM CDT) Narrative 12/12/2004 12:00 AM CDT This result has an attachment that is no t available. Ordered by an unspecified provider. Transcriptions Lester Jin - 12/12/2004 12:00 AM CDT Physician Unknown EKG documented in this encounter Visit Diagnoses Not on filedocumented in this encounter Care Teams Wildlife Technician Relationship Specialty Start Date End Date Unassigned, Provider PCP - General 03/12/[address] [place] [id number] documented as of this encounter
--- OUTSIDE RECORDS SUMMARY | 2022-05-18 03:26 | XMS_ITS | Encounter Summary ---
:1955 Author Organization [facility] Address [address] [place] [address] Care Team Providers Name Role Phone Unassigned, Provider Primary Care Provider Unavailable Encounter Details Date Type Department Care Team Description 07/29/2008 Orders Only [facility] King Schilling, Cardiology PA-C [address] [facility] [address] [place] [address] [place] [address] [phone] (Wo rk) Social History Tobacco Use Types [...] documented as of this encounter Procedure Notes [facility], PROVIDER - 07/29/2008 12:00 AM CSTAssociated Order(s): CARDIAC STRESS TEST documented in this encounter Plan of Treatment Not on filedocumented as of this encounter Procedures Procedure Name Priority Date/Time Associated Diagnosis Comme nts CARDIAC STRESS TEST 07/29/2008 12:00 AM R esults for this VIBRATION ENGINEER procedure are i n the results section. documented in this encounter Results CARDIAC STRESS TEST (07/29/2008 12:00 AM VIBRATION ENGINEER) Specimen (Source) Anatomical Location Collection Method / Collectio n Time Received Time / Laterality Volume 07/29/2008 Narrative This result has an attachment that is no t available. Transcriptions [facility], PROVIDER - 9 12:00 AM VIBRATION ENGINEER King Schilling PA-C DUMMY/OTHER/AR documented in this encounter Visit Diagnoses Not on filedocumented in this encounter Care Teams Clinching Machine Operator Relationship Specialty Start Date End Date Unassigned, Provider PCP - General 03/12/[address] [place] [id number] documented as of this encounter
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
--- OUTSIDE RECORDS SUMMARY | 2022-05-18 03:26 | XMS_ITS | Encounter Summary ---
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 URINE Negative NEG- ??? NITRITE, URINE Negative NEG- ??? LEUKOCYTE EST., UR Negative NEG- ? ? RBC'S <1 0-3 (/hpf) ? ? WBC'S <1 0-5 (/hpf) ??? EPITH, SQUAMOUS Occ - (/hpf) ??? MUCOUS, URINE Present - GOLD HOLD TUBE (OR RED/GARCIA) Component Value Range ??? GOLD HOLD TUBE R Held in Chemistry sample rack for 7 days - ADD ON LAB ORDERS(SPECIMEN IN LAB) Component Value Range ??? ADD ON TEST R Additional Testing Ordered by - ALT (SGPT) Component Value Range ??? ALT (SGPT) 17 0-55 (U/L) AST Component Value Range ? ? AST (SGOT) 20 <45- (U/L) CHEST X-RAY 2 VIEWS 03/05/2009 AT 1254 HOURS: INDICATION: Chest pain. COMPARISON: 07/28/2008. FINDINGS: Lungs are clear. No adenopathy or effusion. Normal cardiac size and pulmonary vascularity.Slight calcification aorta. Mild degenerative changes AC joints. Previously seen monitoring leads have been removed. Otherwise, no change. ULTRASOUND ABDOMEN 03/05/2009: INDICATION: Pain. TECHNIQUE: Ultrasound examination performed by hospice registered nurse. FINDINGS: Liver is of normal size, configuration and echotexture without hepatomegaly, biliary dilatation or suspicious lesions. Normal appearance of the hepatic and portal veins. Common duct is normalmeasuring 0.3 cm AP. Gallbladder contains tiny polyps. Changes of adenomyomatosis. No stones, pericholecystic fluid or sonographic tenderness to suggest ongoing cholecystitis. Gallbladder wall measures0.2 cm in thickness. Pancreas is of normal size, configuration and echotexture without peripancreatic inflammatory changes or fluid collection. Portosplenic confluence is normal. Spleen is of normal size, configuration and echotexture without focal lesions and measures 9.4 cm long. Both kidneys are of normal size, configuration and echotexture without stones or masses on either side. Slight caliectasis on the left which persists post void. No caliectasis on the right. Bilateral ureteral jets identified in the urinary bladder. These findings may be due to previous infection. Right kidney measures 10.9 cm, left 11.8 cm [id number]. Abdominal aorta contains atherosclerotic plaque distally and is of normal caliber measuring 2.4 cm AP proximally, 1.9 cm AP in the midportion and 1.6 cm AP distally. IVC is patent. No ascites. IMPRESSION: 1. Gallbladder polyps. Changes of adenomyomatosis. No cholelithiasis, biliary dilatation or inflammatory signs. 2. Slight caliectasis on the left which persists post void. Ureteral jets identified in the urinary bladder. Caliectasis may represent changes of previous infection. 3. Atherosclerotic normal caliber aorta. Remainder normal. EKG: Sinus bradycardia Otherwise normal ECG When compared with ECG of 23-FEB-2009 21:04, No significant change was found. A/P: 1. Pain has subsided and R/O was negative. Will have her follow-up with Cardiology as an OP. She canhave an TTE there for a baseline for continued care. Federico Moy, ADELAIDA, [facility] Katia Lozano - 03/05/2009 5:27 PM CDT [facility] Progress Note (Nursing) Identify/Problem(s): Mood Desired Outcome(s): Mood will improve Evaluation: Pt was anxious after she had abdominal Ultra sound, fearing what will be the result. Pt requested Haldol and received @ 1824. Pt also notified that the result was normal after the result reviewed by H/O. Pt was out in the unit and social with peers. Pt was pleasant with approach, denies psych symptoms. Pt c/o back pain and rated the pain 6/10. Pt received Tylenol 650 mg and warm pack. Pain reassessedand reported relief. Pt talked about this morning incident regarding her chest pain that she was scared something might have happened to her angio plasty which was done 20 yrs ago. Pt requested Seroquel and Benadryl for sleep and received @3948. Pt did not c/o chest pain through out the shift and vitals are stable. Plan: Monitor mood improvement and encourage verbalization of feelings. Katia Lozano RN --- End of Report --- Federico Moy - 03/05/2009 11:52 AM CDT Medical Cross Cover Note Name: Fifi Shepard : 1955 TD: 03/05/2009 CC: My chest hurts. HPI: Asked to see the patient by the RN after she started complaining of chest pain. She states thatshe urinated and was leaving the bathroom when she started experiencing a stabbing, sharp circumferential chest pressure with pain also in her upper abdominal quadrants that she rated as a 9 out of 10.(She states that now her pain has almost completely resolved.) She described the pain as radiating up her neck and in a band around her lower ribs. She currently denies diaphoresis or dyspnea. She subsequently reports that the pain in her neck has subsided. She states that she has experienced lots of gas over the past few days. The chest pain was not able to be reproduced with palpation but she did have a focal right upper quadrant pain with palpation. She denies any fever of chills. It is notable that she does have a history of CAD with angioplasty but has been stable X 20 years. She is currently admitted for depression , polysubstance abuse (THC, Methamphetamine, and Alcohol). PMH: Chronic back pain S/P Laminectomy CAD S/P Angioplasty S/P Hysterectomy Current hospital medications Medication Dose Route Frequency ??? acetaminophen (aka TYLENOL) tablet 650 mg 650 mg Oral Q4H PRN ? ? aluminum & magnesium hydroxide-simethicone (aka MAALOX MAX,MYLANTA) 400-400-40 MG/5ML oral liquid 15-30 mL 15-30 mL Oral QID PRN ??? citalopram (aka CELEXA) tablet 20 mg 20 mg Oral Daily ??? diphenhydramine (aka BENADRYL) capsule 50 mg 50 mg Oral Q4H PRN ??? gabapentin (aka NEURONTIN) capsule 100 mg 100 mg Oral TID ??? haloperidol (aka HALDOL) tablet 5 mg 5 mg Oral Q4H PRN ??? hydrOXYzine HCl (aka ATARAX) tablet 25 mg 25 mg Oral Q6H PRN ??? multivitamin tablet 1 Tab 1 Tab Oral Daily ??? nicotine (aka NICORETTE) gum 4 mg 4 mg Oral Q1H PRN ??? nicotine (aka NICOTROL) inhaler 10 mg 1 Inhaler Inhalation Q1H PRN ??? quetiapine (aka SEROQUEL) tablet 25 mg 25 mg Oral Q4H PRN Allergies Allergen Reactions ??? Lipitor (Atorvastatin Calcium) ??? Codeine Vomiting ROS: See HPI. PEX: BP 128/79 Pulse 64 Temp(Src) 97.9 ??F (36.6 ??C) (Oral) Resp 16 SpO2 97% Gen: 53 year old female in NAD. Much more comfortable at this time. HEENT: AT, NC, B Symmetrical. PERRL, EOMI . OP Clear. Chest: CTAB, RR Abdomen: Focal right upper quadrant pain with palpation. She has a positive Chester's sign. MS: FROM, EPPS. No edema. Pulses equal and adequate in the upper and lower extremities. Neuro: CN II-XII grossly intact. Labs: No results found for this or any previous visit (from the past 24 hour(s)). ECG: Sinus Bradycardia at 59 BPM. QTc is 447. Assessment: 1. Chest pain: Unclear etiology and is resolved. Will monitor due to risk factors. 2. Abdominal pain. ? Gas v. Cholecystitis. See work-up below. Plan: 1. 12 lead ECG. 2. Serial Troponins Q 6 H X3 2a. Consider TTE tomorrow. 3. ASA 324 mg now and then daily. 4. CXR 5. UA 6. Abdominal US. 7. Amylase/Lipase 8. CBC 9. BMP 10. LFT's Federico Moy DNP Kenton Burnham Tevinpia Blanc - 03/05/2009 9:53 AM CDT [facility] Hospital Progress Note (Nursing) Identify/Problem(s): Mood Desired Outcome(s): Will be calm and controlled Evaluation: Pt in and out in the unit, very social with her room mate, came for her meds, stated doing good, slept good, denied SI, SIB, or voices, mood/affect is neutral/calm. 0855, pt requested and received 650mg tylenol for LOO and lower back pain 6/10 with relieved stated. At about 1130, pt c/o of chest pain after using the bathroom just when pt's daughter and BF came to visit. Certified Dietary Manager and charge nurse physically assisted/walked with pt to walk to the exam room as pt's gait was unstable. Pt rated pain 9/10 and sharp. Pt stated that pain radiated across her rib cage to her neck. Pt said that she had a pain r/t heartburn last July but not as bad as this pain. PA/STEAM CONDITIONER OPERATOR Ralph Moy was paged who saw pt. During the course of the assess as pt laid on the exam table, pt started saying the pain was beginning to resolve. Pt received one time order of 4 x 81mg Aspirin at 1153 which was helpful. By noon pt was now able to sit up, talk, laugh and walk. Pt said I'm starting tofeel fine now. Pt did her laundry. EKG was normal, chest x-ray showed no major changes as well as labs. Pt has been NPO since after breakfast and will be getting a US of the abdomen after 4pm to examine the gallbladder and bowels. pt said that her daughter had her gallbladder taken out in the past.pt also said that she has passing out gas, some of which resulted from taking the multivitamin, which pt refused taking this am. Pt can have meds with sips of movie writer but to hold on to nicotine gum still afterthe US. [id number], pt requested/received 650mg tylenol for back and knee pain 12/22 with relieved stated. Pt is now stable at this time, stated she feels okay, chest pain is gone. Plan: Will continue to monitor for chest pain, and other symptoms. Easton Burnham RN --- End of Report --- Luna Pedraza - 03/05/2009 7:11 AM CDT [facility] Progress Note (Nursing) Identify/Problem(s): Mood disturbance Desired Outcome(s): Pt's mood will improve and stabilize and Pt will sleep 6 to 8 hours at night Evaluation: Pt was observed to sleep throughout this shift (8.5 hours) without incident. Plan: Continue to monitor, document and encourage Pt to sleep at night and/ or to verbalize thoughts and feelings regarding plan of care when awake. Luna Pedraza RN --- End of Report --- Katia Lozano - 03/04/2009 5:35 PM CDT [facility] Progress Note (Nursing) Identify/Problem(s): Mood Desired Outcome(s): Mood will improve Evaluation: Pt was out in the unit and social with peers. Pleasant with approach, denies psych symptoms. C/o back pain and rated the pain 7/10. Pt received Tylenol 650 mg and Atarax 25 mg per request @ 1831. Pain reassessed and Pt reported relief. Pt rated her mood 02/21. Pt stated, I am happy now I will be discharged on Saturday to [facility]. Pt requested Seroquel and Benadryl for sleep and received @2033. Pt was out with her Green code pass. Affect WNL, calm and controlled. Complaint with medication. Plan: Monitor mood improvement and encourage verbalization of feelings Katia Lozano RN --- End of Report --- Arlet Ennis - 03/04/2009 1:35 PM CDT [facility] Progress Note (Nursing) Identify/Problem(s): Altered mood Desired Outcome(s): Mood will improve Evaluation: Pt out on unit, social with peers, attending groups appropriately. Pt states she slept much better last night, as she stayed up all day yesterday and didn't take a nap. Pt jokes appropriately with movie writer and other staff. Pt is calm and pleasant on approach, offers no complaints, med compliant. Denies thoughts of SH, SI, and hallucinations. Makes appropriate requests at nursing station. Looking forward to d/c on Saturday. Plan: Continue with treatment plan, document/monitor mood, Discussed plan of care with patient and treatment team. Arlet Ennis RN --- End of Report --- Nathan Alvarado - 03/04/2009 1:16 PM CDT [facility] Psychiatry Staff Physician Progress Note Date of Service: 03/04/2009 Subjective: Pt is without any complaints at this time. She states that she is willing to undergo CD tx. She denies any perceptual disturbance, paranoia, or delusional thought processes; denies any HI or SI/intent or plan. She states that she is looking forward to being discharged to a [facility] in [place], [place]. Objective: Mental Status Exam Appearance: alert Grooming: her own apparel Demeanor: more engaged and cooperative Behavior: cooperative Speech: normal rate and loudness Thought Process: logical and goal-directed. She states that her thoughts are racing. Thought Content: no abnormalities noted Mood: sad Affect: restricted Cognition: intact Insight: fair Judgment: improving. Review of systems: The patient notes no new medical problems. Side effects: no complaints Patient Vitals in the past 24 hrs: BP Temp Temp src Pulse Resp SpO2 Height Wt - Scale 03/04/09 0810 101/72 mmHg 97.6 ??F (36.4 ??C) Oral 71 16 - - - Labs Reviewed: Results for orders placed during the hospital encounter of 02/23/09 (from the past 48 hour(s)) RAPID CONDITIONAL DSU Component Value Range ??? P. C. P. Negative NEG- ??? BENZODIAZEPINES Negative NEG- ??? COCAINE METABOLITE Negative NEG- ??? AMPHETAMINES Negative NEG- ??? THC(MARIJUANA) METAB Negative NEG- ??? OPIATES Negative NEG- ??? BARBITURATES Negative NEG- ??? TRICYCLIC SCREEN UR Negative NEG- ??? PH URINE RAPID, TOX 7.0 - ??? CREATININE, UR, RAPI 38.0 - (mg/dl) UA CONDITIONAL UC Component Value Range ??? URINE COLOR Light Yellow - ??? URINE CLARITY Clear - ??? SPECIFIC GRAVITY,UR 1.003 (*) 1.005-1.03 ??? PH, URINE 7.0 4.5-8.0 ??? PROTEIN, URINE QUAL Negative NEG- (mg/dl) ??? GLUCOSE, URINE QUAL Negative NEG- (mg/dl) ??? KETONES, URINE Negative NEG- (mg/dl) ? ? UROBIL, URINE QUAL <2.0 <2.0- (mg/dl) ??? BILIRUBIN, URINE Negative NEG- ??? BLOOD, URINE Negative NEG- ??? NITRITE, URINE Negative NEG- ??? LEUKOCYTE EST., UR Negative NEG- ??? RBC'S 1 0-3 (/hpf) ??? WBC'S 1 0-5 (/hpf) ??? EPITH, SQUAMOUS Occ - (/hpf) ??? MUCOUS, URINE Present - BASIC METABOLIC PANEL Component Value Range ??? BUN 9 (*) 10-26 (mg/dl) ??? SODIUM 141 135-145 (mmol/L) ??? POTASSIUM 3.7 3.5-5.3 (mmol/L) ??? CHLORIDE 107 (*) 95-105 (mmol/L) ??? CO2 27 22-31 (mmol/L) ??? GLUCOSE 93 70-180 (mg/dl) ??? CREATININE 0.5 (*) 0.6-1.0 (mg/dl) ? ? GFR, ESTIMATED >80.0 >60- (ml/min/1.73m2) ? ? GFR EST IF >80.0 >60- (ml/min/1.73m2) ??? CALCIUM 9.5 8.6-10.3 (mg/dl) ??? ANION GAP (CALC.) 7 7-17 (mmol/L) HEMOGRAM/PLTS Component Value Range ??? WBC 6.8 4.0-11.0 (k/ul) ??? RBC 4.37 4.0-5.2 (M/ul) ??? HGB 12.8 12.0-16.0 (g/dl) ??? HCT 37.9 36.0-46.0 (%) ??? MCV 86.8 80-100 (fl) ??? MCH 29.3 26-34 (pg) ??? MCHC 33.7 32-36 (g/dl) ??? RDW 12.0 11.5-14.5 (%) ??? PLTS 281 150-450 (k/ul) ??? MPV 9.5 6.5-10.0 (fl) CHOLESTEROL (TOTAL) Component Value Range ??? CHOLESTEROL 167 0-199 (mg/dl) MAGNESIUM Component Value Range ??? MAGNESIUM 1.8 1.6-2.6 (mg/dl) PHOSPHORUS Component Value Range ??? PHOSPHORUS 3.3 2.8-4.6 (mg/dl) TSH, SENSITIVE (WITH REFLEX) Component Value Range ??? TSH, WITH REFLEX 0.58 0.3-5.0 (uIU/ml) BILIRUBIN, TOTAL Component Value Range ??? BILIRUBIN, TOTAL 0.5 0.2-1.2 (mg/dl) AST Component Value Range ? ? AST (SGOT) 12 <45- (U/L) ALT (SGPT) Component Value Range ??? ALT (SGPT) 14 0-55 (U/L) GT (GAMMA GT) Component Value Range ? ? GT (GAMMA GT) 38 <65- (U/L) Current Medications Current hospital medications Medication Dose Route Frequency ??? acetaminophen (aka TYLENOL) tablet 650 mg 650 mg Oral Q4H PRN ? ? aluminum & magnesium hydroxide-simethicone (aka MAALOX MAX,MYLANTA) 400-400-40 MG/5ML oral liquid 15-30 mL 15-30 mL Oral QID PRN ??? citalopram (aka CELEXA) tablet 20 mg 20 mg Oral Daily ??? diphenhydramine (aka BENADRYL) capsule 50 mg 50 mg Oral Q4H PRN ??? gabapentin (aka NEURONTIN) capsule 100 mg 100 mg Oral TID ??? haloperidol (aka HALDOL) tablet 5 mg 5 mg Oral Q4H PRN ??? hydrOXYzine HCl (aka ATARAX) tablet 25 mg 25 mg Oral Q6H PRN ??? multivitamin tablet 1 Tab 1 Tab Oral Daily ??? nicotine (aka NICORETTE) gum 4 mg 4 mg Oral Q1H PRN ??? nicotine (aka NICOTROL) inhaler 10 mg 1 Inhaler Inhalation Q1H PRN ??? quetiapine (aka SEROQUEL) tablet 25 mg 25 mg Oral Q4H PRN Risk assessment: self harm: Low assault: Low Diagnosis: This is the [facility]nd [facility] [...] by a transport hold signed by CM shared services representative Annemarie Andujar. CM currently expl oring CD options. Impression (Diagnoses) Weiner I: Depressive Disorder NOS 311.00; Dysthymia, Polysubstance abuse: THC and Methamphetamine, Alcohol abuse, R/0 Alcohol dependence. R/0 PTSD Weiner II: Deferred Weiner III: HTN, Hypercholesterolemia, CAD, S/P Hysterectomy. She is allergic to Lipitor and Codeine. Weiner IV: Severe: homeless, limited support system. Weiner V: GAF = 54 Serious symptoms, or any serious impairment in social, occupational or school functioning Legal Status: Voluntary Acuity Level: Yellow (pt following treatment, improving) Plan: Continue current pharmacological tx regimen. SW: regarding disposition plans. ADAP/pending. prognosis : guarded. Summary: Follow-up hospital care Nathan Alvarado MD Guille Thomas - 03/04/2009 11:43 AM CDT [facility] Social Work Progress Note Data: Rcvd call back from MANISH Sharpe, she states, she is not recommending inpt CD treatment. She is recommending [place] [facility] and [place] CD treatment at [facility]. Certified Dietary Manager met with pt she is accepting of this plan. States she likes [facility]. Certified Dietary Manager contacted Nahomi at [facility], pt is able to come, but no bed available till Saturday.Pt signed PRIMITIVO, faxed requested records. Risk Assessment/Clinical Summary: Patient continues to stabilize on unit. Plan: Primary [place]position[place] [facility] [place] [facility] Report completed by ELDA Pugh,[facility], Pager Number [phone] --- End of Report --- FROILAN spoke with Annemarie Willow, she can pick pt up for transport no later than 8am. FROILAN called unit [facility] [place] who said this would be fine. Plan for CM to pick pt up at 8am on Saturday for d/c. CHELLE Dunbar Rhiannon Kearney - 03/04/2009 7:19 AM CDT [facility] OT Progress Note Assessments Initial Assessment No data found. OT Evaluation No data found. All OT Evaluations are found under Consults - OT Notes. 1:1 Session No data found. 1:1 Assessment- None Clinic Group Patient Clinic Group in the past 12 hrs: Attended (minutes) + Reason if Absent Mood Concentration Goal Additional Goal Clinic Social Behavior Clinic Thought Process/Tracking Clinic Investment/Participation 03/04/09 0700 30;60 - - - - - 5 5 5 Clinic Group Assessment- Patient Strengths: General Assessments: Good/appropriate energy level, Patient joined group independently Social Behavior/Social Skills: Attentive to peers, Engaged, Pleasant, Social Work Skills: Investment & Participation: Good follow through, Motivated, Task focused Affect: brightened with activity Activities of Daily Living: groomed Stephany Price OT Student/Rhiannon Kearney OTR/Jesica Relaxation Group No data found. Relaxation Group Assessment- None Grooming Group Patient Grooming Group in the past 12 hrs: Attended (minutes) + Reason if Absent G/H Social Behavior G/H Thought Process/Tracking G/H Investment/Participation 03/04/09 0700 45 - 5 5 5 Grooming Assessment- Patient Strengths: General Assessments: Patient completed selected grooming tasks, Patient initiated needing grooming supplies, Patient joined group independently, contributed to group discussion Social Behavior/Social Skills: Able to be assertive, Attentive to peers, Social Work Skills: Investment & Participation: Good follow through, Motivated, Task focused Affect: brightened with activity Activities of Daily Living: groomed WANDA Cartwright/LIZZ Ziegler Life Skills Group No data found. Life Skills Assessment- None Patient's Reported Anxiety/Stress Level Patient Stress Anxiety Level in the past 12 hrs: Group attended or one to one Patient's reported stress/anxiety level at beginning of session Patient's reported stress/anxiety level at the end of the session Patient's reported benefits Patient's other reported benefits Patient's reported negative outcomes During/after use of Sensory Integration Intervention, patient exhibited 03/04/09699 Brain gym;Movement/exercise 1 1 - - - - Movement Group Patient Movement/ Exercise & Brain Gym Group in the past 12 hrs: Attended (minutes) + Reason if Absent Ex. Social Behavior Ex. Thought Process/Tracking Ex. Investment/Participation Energy Level 03/04/09699 15 - 5 5 5 5 Movement Assessment- Patient Strengths: General Assessments: Good/appropriate energy level, Patientable to perform most of the Brain Gym stretches, Patient able to perform most of the general stretches and exercises WANDA Cartwright/TERRY Ziegler/Jesica Patient's Goals Patient Treatment Goals in the [...] during OTgroup to 30 to increase independence 03/03/09699 - - Met - - 02/24/09699 - - Set - - Patient Treatment Goals in the past 2159 hrs: Identify reasons for poor attendance in OT groups Identify two community resources to access to increase success after discharge Identify at least three healthy coping skills to reduce stress and/or anger Identify at least three leisure interests to pursue post discharge Verbalize problem areas experienced PAYROLL TAX SPECIALIST to increase insight and self-awareness 03/03/09699 - Set - - - No data found. No data [...] patient and reviewed all related documentation. LIZZ Ziegler 03/04/2009 2:47 PM --- End of Report --- Cari Shaw - 03/04/2009 4:55 AM CDT [facility] Progress Note (Nursing) Identify/Problem(s): Mood Desired Outcome(s): Will be stable Evaluation: Pt was observed to have slept throughout the shift, no incident was observed. Plan: Will continue to assess pt's mood and document. Cair Shaw --- End of Report --- Nafisa Chester - 03/03/2009 5:15 PM CDT [facility] Progress Note (Nursing) Identify/Problem(s): Mood Desired Outcome(s): Mood will stabilize Evaluation: Patient up and down on unit. Social with select peers. Patient is quite anxious at the start of shift. She received prn Haldol at this time. Patient reports this was ineffective. She is very restless, anxious and reports being stir crazy in here. She then received prn Seroquel for anxiety. Patient is irritable and agitated at this time. Shortly after patient reports this was effective for her anxiety. She received prn Tylenol x1 this shift for back pain. Patient reports relief with this. Denies thoughts of self harm, SI, and hallucinations. She had poor sleep last night due to a peer being awake much of the night. Patient reports this threw her schedule off and she has been napping throughout the day and feels more anxious today. Received prn Benadryl at for sleep. Controlled behavior. Med compliant. Plan: Monitor mood, encourage activity, document findings. Nafisa Chester RN --- End of Report --- Nathan Alvarado - 03/03/2009 4:19 PM CDT [facility] Psychiatry Staff Physician Progress Note Date of Service: 03/03/2009 Subjective: Pt is without any complaints at this time. She states that she is willing to undergo CD tx. She denies any perceptual disturbance, paranoia, or delusional thought processes; denies any HI or SI/intent or plan. Objective: Mental Status Exam Appearance: alert Grooming: her own apparel Demeanor: more engaged and cooperative Behavior: cooperative Speech: normal rate and loudness Thought Process: logical and goal-directed. She states that her thoughts are racing. Thought Content: no abnormalities noted Mood: sad Affect: restricted Cognition: intact Insight: fair Judgment: improving. Review of systems: The patient notes no new medical problems. Side effects: no complaints Patient Vitals in the past 24 hrs: BP Temp Temp src Pulse Resp SpO2 Height Wt - Scale 03/03/09 0820 124/84 mmHg 97 ??F (36.1 ??C) Oral 68 18 97 % - - Labs Reviewed: Results for orders placed during the hospital encounter of 02/23/09 (from the past 48 hour(s)) RAPID CONDITIONAL DSU Component Value Range ??? P. C. P. Negative NEG- ??? BENZODIAZEPINES Negative NEG- ??? COCAINE METABOLITE Negative NEG- ??? AMPHETAMINES Negative NEG- ??? THC(MARIJUANA) METAB Negative NEG- ??? OPIATES Negative NEG- ??? BARBITURATES Negative NEG- ??? TRICYCLIC SCREEN UR Negative NEG- ??? PH URINE RAPID, TOX 7.0 - ??? CREATININE, UR, RAPI 38.0 - (mg/dl) UA CONDITIONAL UC Component Value Range ??? URINE COLOR Light Yellow - ??? URINE CLARITY Clear - ??? SPECIFIC GRAVITY,UR 1.003 (*) 1.005-1.03 ??? PH, URINE 7.0 4.5-8.0 ??? PROTEIN, URINE QUAL Negative NEG- (mg/dl) ??? GLUCOSE, URINE QUAL Negative NEG- (mg/dl) ??? KETONES, URINE Negative NEG- (mg/dl) ? ? UROBIL, URINE QUAL <2.0 <2.0- (mg/dl) ??? BILIRUBIN, URINE Negative NEG- ??? BLOOD, URINE Negative NEG- ??? NITRITE, URINE Negative NEG- ??? LEUKOCYTE EST., UR Negative NEG- ??? RBC'S 1 0-3 (/hpf) ??? WBC'S 1 0-5 (/hpf) ??? EPITH, SQUAMOUS Occ - (/hpf) ??? MUCOUS, URINE Present - BASIC METABOLIC PANEL Component Value Range ??? BUN 9 (*) 10-26 (mg/dl) ??? SODIUM 141 135-145 (mmol/L) ??? POTASSIUM 3.7 3.5-5.3 (mmol/L) ??? CHLORIDE 107 (*) 95-105 (mmol/L) ??? CO2 27 22-31 (mmol/L) ??? GLUCOSE 93 70-180 (mg/dl) ??? CREATININE 0.5 (*) 0.6-1.0 (mg/dl) ? ? GFR, ESTIMATED >80.0 >60- (ml/min/1.73m2) ? ? GFR EST IF >80.0 >60- (ml/min/1.73m2) ??? CALCIUM 9.5 8.6-10.3 (mg/dl) ??? ANION GAP (CALC.) 7 7-17 (mmol/L) HEMOGRAM/PLTS Component Value Range ??? WBC 6.8 4.0-11.0 (k/ul) ??? RBC 4.37 4.0-5.2 (M/ul) ??? HGB 12.8 12.0-16.0 (g/dl) ??? HCT 37.9 36.0-46.0 (%) ??? MCV 86.8 80-100 (fl) ??? MCH 29.3 26-34 (pg) ??? MCHC 33.7 32-36 (g/dl) ??? RDW 12.0 11.5-14.5 (%) ??? PLTS 281 150-450 (k/ul) ??? MPV 9.5 6.5-10.0 (fl) CHOLESTEROL (TOTAL) Component Value Range ??? CHOLESTEROL 167 0-199 (mg/dl) MAGNESIUM Component Value Range ??? MAGNESIUM 1.8 1.6-2.6 (mg/dl) PHOSPHORUS Component Value Range ??? PHOSPHORUS 3.3 2.8-4.6 (mg/dl) TSH, SENSITIVE (WITH REFLEX) Component Value Range ??? TSH, WITH REFLEX 0.58 0.3-5.0 (uIU/ml) BILIRUBIN, TOTAL Component Value Range ??? BILIRUBIN, TOTAL 0.5 0.2-1.2 (mg/dl) AST Component Value Range ? ? AST (SGOT) 12 <45- (U/L) ALT (SGPT) Component Value Range ??? ALT (SGPT) 14 0-55 (U/L) GT (GAMMA GT) Component Value Range ? ? GT (GAMMA GT) 38 <65- (U/L) Current Medications Current hospital medications Medication Dose Route Frequency ??? acetaminophen (aka TYLENOL) tablet 650 mg 650 mg Oral Q4H PRN ? ? aluminum & magnesium hydroxide-simethicone (aka MAALOX MAX,MYLANTA) 400-400-40 MG/5ML oral liquid 15-30 mL 15-30 mL Oral QID PRN ??? citalopram (aka CELEXA) tablet 20 mg 20 mg Oral Daily ??? diphenhydramine (aka BENADRYL) capsule 50 mg 50 mg Oral Q4H PRN ??? gabapentin (aka NEURONTIN) capsule 100 mg 100 mg Oral TID ??? haloperidol (aka HALDOL) tablet 5 mg 5 mg Oral Q4H PRN ??? hydrOXYzine HCl (aka ATARAX) tablet 25 mg 25 mg Oral Q6H PRN ??? multivitamin tablet 1 Tab 1 Tab Oral Daily ??? nicotine (aka NICORETTE) gum 4 mg 4 mg Oral Q1H PRN ??? nicotine (aka NICOTROL) inhaler 10 mg 1 Inhaler Inhalation Q1H PRN ??? quetiapine (aka SEROQUEL) tablet 25 mg 25 mg Oral Q4H PRN Risk assessment: self harm: Low assault: Low Diagnosis: This is the 2nd [facility] inpatient psychiatric [...] by a transport hold signed by CM shared services representative Annemarie Andujar. CM currently expl oring CD options. Impression (Diagnoses) Weiner I: Depressive Disorder NOS 311.00; Dysthymia, Polysubstance abuse: THC and Methamphetamine, Alcohol abuse, R/0 Alcohol dependence. R/0 PTSD Weiner II: Deferred Weiner III: HTN, Hypercholesterolemia, CAD, S/P Hysterectomy. She is allergic to Lipitor and Codeine. Weiner IV: Severe: homeless, limited support system. Weiner V: GAF = 54 Serious symptoms, or any serious impairment in social, occupational or school functioning Legal Status: Voluntary Acuity Level: Yellow (pt following treatment, improving) Plan: Continue current pharmacological tx regimen. SW: regarding disposition plans. ADAP/pending. prognosis : guarded. Summary: Follow-up hospital care Nathan Alvarado MD Arlet Ennis - 03/03/2009 9:36 AM CDT [facility] Progress Note (Nursing) Identify/Problem(s): Altered Mood Desired Outcome(s): Mood will improve Evaluation: Pt complaining that she did not sleep well last night and has been up since 5am(D/t a situation withanother pt.) Pt was given 650mg APAP and 25mg vistaril for pain and anxiety with her AM meds.Pt is calm and pleasant on approach, offers no complaints, med compliant.Denies thoughts of SH, SI, and hallu cinations. Pt daughter was here to visit in the afternoon, brought her own clothes up. Pt asked appropriately for wash soap as they smelled musky from sitting in a storage garage.Pt laughs and jokes appropriately with movie writer. Plan: Continue with treatment plan, document/monitor mood, Discussed plan of care with patient and treatment team. Arlet Ennis RN --- End of Report --- Rhiannon Kearney - 03/03/2009 7:08 AM CDT [facility] OT Progress Note Assessments Initial Assessment No data found. OT Evaluation No data found. All OT Evaluations are found under Consults - OT Notes. 1:1 Session Patient BH OT 1:1 Session in the past 12 hrs: 1:1 Minutes + 1:1 Comments 03/03/09 0700 OT 1:1 30 minutes Goal setting;IM&R;IM&R: Recovery strategies 1:1 Assessment- Met with patient on 1:1 to discuss IMR recovery/goal setting. Patient was motivatedand receptive to identifying areas of her life that she was not satisfied with, and was able to narrow down and ID her first goal as: Patient would like to live independently in her own apartment aftercompleting her CD treatment. She was able to identify a short-term goal and steps to achieving this goal with assistance from this movie writer. Her short term goal was: Research realistic/available housing for seniors and/or disabled in the [facility]. Patient's steps included: 1. Look in newspaper and make a list of potential housing options with contact/phone numbers. 2. Make a list of relevant questions to ask potential housing prospects she locates in the paper, and/or questions she could ask [place] [facility] housing information. 3/ Call [facility] regarding housing options. 4. Call [facility] regarding housing options available. Patient was pleasant and cooperative throughout conversation. Certified Dietary Manager will follow-up with support for the goal setting process. Rhiannon Kearney, OTR/L Clinic Group Patient Clinic Group in the past 12 hrs: Attended (minutes) + Reason if Absent Mood Concentration Goal Additional Goal Clinic Social Behavior Clinic Thought Process/Tracking Clinic Investment/Participation 03/03/09 0700 30;60 - - - - - 5 5 5 Clinic Group Assessment- Patient Strengths: Social Behavior/Social Skills: Appropriate feedback, Cooperative, Pleasant, Social Work Skills: Investment & Participation: Mostly independent work skills, Motivated, Task focused Affect: semi-bright Activities of Daily Living: Well groomed. TERRY Ziegler/Jesica Relaxation Group No data found. Relaxation Group Assessment- None Grooming Group No data found. Grooming Assessment- None Life Skills Group Patient IM&R, Life Skills, Unit Group in the past 12 hrs: Attended (minutes) + Reason if Absent Topic - OT IM&R OT IM&R Social Behavior OT IM&R Thought Process/Tracking OT IM&R Investment/Participation 03/03/09699 45 - Leisure 5 5 5 Life Skills Assessment- Patient Strengths: Social Behavior/Social Skills: Appropriate feedback, Cooperative, Engaged, Social Work Skills: Investment & Participation: Followed directions, Mostly independent work skills, Motivated Affect: semi-bright Activities of Daily Living: Well groomed. Rhiannon Kearney OTR/L Patient's Reported Anxiety/Stress Level Patient Stress Anxiety Level in the past 12 hrs: Group attended or one to one Patient's reported stress/anxiety level at beginning of session Patient's reported stress/anxiety level at the end of the session Patient's reported benefits Patient's other reported benefits Patient's reported negative outcomes During/after use of Sensory Integration Intervention, patient exhibited 03/03/09 07 Brain gym;Movement/exercise 7 5 More relaxed - - - Movement Group Patient Movement/ Exercise & Brain Gym Group in the past 12 hrs: Attended (minutes) + Reason if Absent Ex. Social Behavior Ex. Thought Process/Tracking Ex. Investment/Participation Energy Level 08699 15 - 5 5 5 5 Movement Assessment- Patient Strengths: General Assessments: Patient able to perform most of the Brain Gym stretches, Patient able to perform most of the general stretches and exercises. LIZZ Ziegler Patient's Goals Patient Treatment Goals in the [...] during OTgroup to 30 to increase independence 03/03/09699 - - Met - - 02/24/09699 - - Set - - Patient Treatment Goals in the past 2159 hrs: Identify reasons for poor attendance in OT groups Identify two community resources to access to increase success after discharge Identify at least three healthy coping skills to reduce stress and/or anger Identify at least three leisure interests to pursue post discharge Verbalize problem areas experienced [employer] to increase insight and self-awareness 03/03/09699 - Set - - - No data found. No data [...] LIZZ Ziegler --- End of Report --- Cari Shaw - 03/03/2009 6:13 AM CDT [facility] Progress Note (Nursing) Identify/Problem(s): Mood Desired Outcome(s): Will improve Evaluation: Pt was sleeping till about 5 AM when pt was up, and used the restroom, pt came to the nursing station requested and received PRN Benadryl 50 mg and Seroquel 25 mg at 4.56 AM for rash and anxiety. Pt slept for 7 hrs last night. Plan: Will continue to assess mood and document. Cari Shaw --- End of Report --- Nafisa Chester - 03/02/2009 5:51 PM CDT [facility] Progress Note (Nursing) Identify/Problem(s): Mood Desired Outcome(s): Mood will stabilize Evaluation: Patient up on unit. Social with select peers. Her SW was here to see her this shift and patient reports there meeting was long. Patient states she should have her recommendations completed by tomorrow, so patient is hopeful for discharge to CD treatment soon. She received prn Tylenol x2 this shift for back pain. Patient reports tolerable relief with this. Denies thoughts of self harm, SI, and hallucinations. Received prn Benadryl and Seroquel at for sleep. New order for nicotrol inhaler this evening and patient has been using this appropriately. Controlled behavior. Med compliant. Plan: Monitor mood, encourage activity, document findings. Nafisa Chester RN --- End of Report --- Nathan Alvarado - 03/02/2009 2:31 PM CDT [facility] Psychiatry Staff Physician Progress Note Date of Service: 03/02/2009 Multi-disciplinary team meeting held Attended by SW, resident physician, RN, staff psychiatrist. For details regarding content of reporting, please refer to progress notes from previous day for above disciplines. For plans arising as an outcome of this meeting, please refer to progress note dated this day and completed by staff psychiatrist. Subjective: Pt is without any complaints at this time. She states that she is willing to undergo CD tx. She denies any perceptual disturbance, paranoia, or delusional thought processes; denies any HI or SI/intent or plan. Objective: Mental Status Exam Appearance: alert Grooming: her own apparel Demeanor: more engaged and cooperative Behavior: cooperative Speech: normal rate and loudness Thought Process: logical and goal-directed. She states that her thoughts are racing. Thought Content: no abnormalities noted Mood: sad Affect: restricted Cognition: intact Insight: fair Judgment: improving. Review of systems: The patient notes no new medical problems. Side effects: no complaints Patient Vitals in the past 24 hrs: BP Temp Temp src Pulse Resp SpO2 Height Wt - Scale 03/02/09 0805 119/69 mmHg 98.8 ??F (37.1 ??C) Oral 70 16 - - - Labs Reviewed: Results for orders placed during the hospital encounter of 02/23/09 (from the past 48 hour(s)) RAPID CONDITIONAL DSU Component Value Range ??? P. C. P. Negative NEG- ??? BENZODIAZEPINES Negative NEG- ??? COCAINE METABOLITE Negative NEG- ??? AMPHETAMINES Negative NEG- ??? THC(MARIJUANA) METAB Negative NEG- ??? OPIATES Negative NEG- ??? BARBITURATES Negative NEG- ??? TRICYCLIC SCREEN UR Negative NEG- ??? PH URINE RAPID, TOX 7.0 - ??? CREATININE, UR, RAPI 38.0 - (mg/dl) UA CONDITIONAL UC Component Value Range ??? URINE COLOR Light Yellow - ??? URINE CLARITY Clear - ??? SPECIFIC GRAVITY,UR 1.003 (*) 1.005-1.03 ??? PH, URINE 7.0 4.5-8.0 ??? PROTEIN, URINE QUAL Negative NEG- (mg/dl) ??? GLUCOSE, URINE QUAL Negative NEG- (mg/dl) ??? KETONES, URINE Negative NEG- (mg/dl) ? ? UROBIL, URINE QUAL <2.0 <2.0- (mg/dl) ??? BILIRUBIN, URINE Negative NEG- ??? BLOOD, URINE Negative NEG- ??? NITRITE, URINE Negative NEG- ??? LEUKOCYTE EST., UR Negative NEG- ??? RBC'S 1 0-3 (/hpf) ??? WBC'S 1 0-5 (/hpf) ??? EPITH, SQUAMOUS Occ - (/hpf) ??? MUCOUS, URINE Present - BASIC METABOLIC PANEL Component Value Range ??? BUN 9 (*) 10-26 (mg/dl) ??? SODIUM 141 135-145 (mmol/L) ??? POTASSIUM 3.7 3.5-5.3 (mmol/L) ??? CHLORIDE 107 (*) 95-105 (mmol/L) ??? CO2 27 22-31 (mmol/L) ??? GLUCOSE 93 70-180 (mg/dl) ??? CREATININE 0.5 (*) 0.6-1.0 (mg/dl) ? ? GFR, ESTIMATED >80.0 >60- (ml/min/1.73m2) ? ? GFR EST IF >80.0 >60- (ml/min/1.73m2) ??? CALCIUM 9.5 8.6-10.3 (mg/dl) ??? ANION GAP (CALC.) 7 7-17 (mmol/L) HEMOGRAM/PLTS Component Value Range ??? WBC 6.8 4.0-11.0 (k/ul) ??? RBC 4.37 4.0-5.2 (M/ul) ??? HGB 12.8 12.0-16.0 (g/dl) ??? HCT 37.9 36.0-46.0 (%) ??? MCV 86.8 80-100 (fl) ??? MCH 29.3 26-34 (pg) ??? MCHC 33.7 32-36 (g/dl) ??? RDW 12.0 11.5-14.5 (%) ??? PLTS 281 150-450 (k/ul) ??? MPV 9.5 6.5-10.0 (fl) CHOLESTEROL (TOTAL) Component Value Range ??? CHOLESTEROL 167 0-199 (mg/dl) MAGNESIUM Component Value Range ??? MAGNESIUM 1.8 1.6-2.6 (mg/dl) PHOSPHORUS Component Value Range ??? PHOSPHORUS 3.3 2.8-4.6 (mg/dl) TSH, SENSITIVE (WITH REFLEX) Component Value Range ??? TSH, WITH REFLEX 0.58 0.3-5.0 (uIU/ml) BILIRUBIN, TOTAL Component Value Range ??? BILIRUBIN, TOTAL 0.5 0.2-1.2 (mg/dl) AST Component Value Range ? ? AST (SGOT) 12 <45- (U/L) ALT (SGPT) Component Value Range ??? ALT (SGPT) 14 0-55 (U/L) GT (GAMMA GT) Component Value Range ? ? GT (GAMMA GT) 38 <65- (U/L) Current Medications Current hospital medications Medication Dose Route Frequency ??? acetaminophen (aka TYLENOL) tablet 650 mg 650 mg Oral Q4H PRN ? ? aluminum & magnesium hydroxide-simethicone (aka MAALOX MAX,MYLANTA) 400-400-40 MG/5ML oral liquid 15-30 mL 15-30 mL Oral QID PRN ??? citalopram (aka CELEXA) tablet 20 mg 20 mg Oral Daily ??? diphenhydramine (aka BENADRYL) capsule 50 mg 50 mg Oral Q4H PRN ??? gabapentin (aka NEURONTIN) capsule 100 mg 100 mg Oral TID ??? haloperidol (aka HALDOL) tablet 5 mg 5 mg Oral Q4H PRN ??? hydrOXYzine HCl (aka ATARAX) tablet 25 mg 25 mg Oral Q6H PRN ??? multivitamin tablet 1 Tab 1 Tab Oral Daily ??? nicotine (aka NICORETTE) gum 4 mg 4 mg Oral Q1H PRN ??? quetiapine (aka SEROQUEL) tablet 25 mg 25 mg Oral Q4H PRN Risk assessment: self harm: Low assault: Low Diagnosis: This is the 2nd [facility]ions inpatient psychiatric [...] by a transport hold signed by CM shared services representative Annemarie Andujar. CM currently expl oring CD options. Impression (Diagnoses) Weiner I: Depressive Disorder NOS 311.00; Dysthymia, Polysubstance abuse: THC and Methamphetamine, Alcohol abuse, R/0 Alcohol dependence. R/0 PTSD Weiner II: Deferred Weiner III: HTN, Hypercholesterolemia, CAD, S/P Hysterectomy. She is allergic to Lipitor and Codeine. Weiner IV: Severe: homeless, limited support system. Weiner V: GAF = 48 Serious symptoms, or any serious impairment in social, occupational or school functioning Legal Status: Voluntary Acuity Level: Yellow (pt following treatment, improving) Plan: Continue current pharmacological tx regimen. SW: regarding disposition plans. Rule 25/CD tx prognosis : guarded. Summary: Follow-up hospital care Nathan Alvarado MD Brynn Bautista - 03/02/2009 11:17 AM CDT [facility] Progress Note (Nursing) Identify/Problem(s): Behavior Desired Outcome(s): Pt will be pain free Evaluation: Pt requested vistaril, mid morning, for anxiety,did calm after that. Pt stated she was very anxious,but was controled, and able to make needs clearly known. Did attend groups, and did participate in them. Has attended to grooming, and pain has been managed by hot pack. Denies any psy symptoms, and takes all meds cooperatively. Knows meds by name, and reason to take. Plan: Encourage pt to continue to attend groups.Discussed plan of care with patient. Brynn Bautista RN --- End of Report --- Hortencia Fernandez - 03/02/2009 9:15 AM CDT [facility] Social Work Progress Note Data: Rcvd call back from Isaias Kruger [facility] at [employer], she states that at this point pt would need a Rule 25 to complete the funding for CD treatment. Certified Dietary Manager contacted MANISH Daugherty [phone] to request Rule 25 assessment. Await call back. Risk Assessment/Clinical Summary: Patient continues to stabilize on unit. Plan: Primary Disposition: CD treatment Alternative Disposition Options: CD treatment ELOS: 2-4 days Report completed by ELDA Pugh,[employer], Pager Number [phone] --- End of Report --- CaioRhiannon - 03/02/2009 7:10 AM CDT [facility] OT Progress Note Assessments Initial Assessment No data found. OT Evaluation No data found. All OT Evaluations are found under Consults - OT Notes. 1:1 Session No data found. 1:1 Assessment- None Clinic Group Patient Clinic Group in the past 12 hrs: Attended (minutes) + Reason if Absent Mood Concentration Goal Additional Goal Clinic Social Behavior Clinic Thought Process/Tracking Clinic Investment/Participation 03/02/09 0700 30;60 - - - - - 5 5 5 Clinic Group Assessment- Patient Strengths: Social Behavior/Social Skills: Attentive to peers, Pleasant, Patient was receptive to casual conversation, Social Work Skills: Investment & Participation: Creative work skills, Followed directions, Good follow through, Motivated Affect: brightened with activity Activities of Daily Living: groomed WANDA Cartwright/TERRY Ziegler/Jesica Relaxation Group No data found. Relaxation Group Assessment- None Grooming Group No data found. Grooming Assessment- None Life Skills Group Patient IM&R, Life Skills, Unit Group in the past 12 hrs: Attended (minutes) + Reason if Absent Topic - OT IM&R OT IM&R Social Behavior OT IM&R Thought Process/Tracking OT IM&R Investment/Participation 03/02/09 0700 45 - Other (see comments) 5 5 5 Life Skills Assessment- Patient Strengths: Cognitive: Good insight Social Behavior/Social Skills: Attentive to peers, Engaged, Pleasant, Patient was receptive to casual conversation Work Skills: Investment & Participation: Followed directions, Good effort, Good follow through, Motivated Affect: brightened with activity Activities of Daily Living: jignehs Price OT Student/TERRY Ziegler/Jesica Patient's Reported Anxiety/Stress Level Patient Stress Anxiety Level in the past 12 hrs: Group attended or one to one Patient's reported stress/anxiety level at beginning of session Patient's reported stress/anxiety level at the end of the session Patient's reported benefits Patient's other reported benefits Patient's reported negative outcomes During/after use of Sensory Integration Intervention, patient exhibited 03/02/09 0700 Brain gym;Movement/exercise 2 2 - - - - Movement Group Patient Movement/ Exercise & Brain Gym Group in the past 12 hrs: Attended (minutes) + Reason if Absent Ex. Social Behavior Ex. Thought Process/Tracking Ex. Investment/Participation Energy Level 03/02/09 0700 15 - 5 5 5 5 Movement Assessment- Patient Strengths: General Assessments: Good/appropriate energy level, Patientable to perform most of the Brain Gym stretches, Patient able to perform most of the general stretches and exercises Stephany Price OT Student/LIZZ Ziegler Patient's Goals Patient Treatment Goals in the [...] during OTgroup to 30 to increase independence 02/24/09 0700 - - Set - - No [...] LIZZ Ziegler --- End of Report --- una Jaramillo - 03/02/2009 6:44 AM CDT [facility] Progress Note (Nursing) Identify/Problem(s): Mood disturbance Desired [...] Pedraza RN --- End of Report --- Suyapa Mcclain - 03/01/2009 8:16 PM CDT [facility] Progress Note (Nursing) Identify/Problem(s): Mood, behavior Desired Outcome(s): Mood will improve and will be safe on the unit. Evaluation: Pt reports she is doing OK this shift. Went out on the [employer] walk with the staff and enjoyed that. Pt had her CD eval today and thinks she will [facility] go [facility] or [facility] for a 30 day program. Was disappointed that she does not meet funding for the adult foster program as feels she does betterwith fewer people around her. Enjoyed the CD group today as there were only 5 people in the group and everyone had a chance to talk without interruptions. States she does well with the combination of Seroquel and Benadryl at and took that again tonight. Plan: Encourage and support MD plan for patient. Continue to assess response to medications. Suyapa Mcclain RN --- End of Report --- Hortencia Fernandez - 03/01/2009 3:03 PM CDT [facility] Social Work Progress Note Data: CD consult completed, see consults. ADAP states that pt's whose primary funding source is Medicare, then ADAP needs RULE 25 approval before can start program. Rule 25 asks we fax our consult over for them to review and possibly authorize remaining part of treatment. Faxed to Ella bradshaw [place] Rule 25 for review fax [phone], # [phone]. Risk Assessment/Clinical Summary: Pt stabilizing on unit. Plan: Primary Disposition: CD treatment Alternative Disposition Options: Custodial ELOS: 3-5 days Report completed by ELDA Pugh,[facility], Pager Number [phone] --- End of Report --- Nathan Alvarado Nolan - 03/01/2009 12:05 PM CDT [facility] Psychiatry Staff Physician Progress Note Date of Service: 03/01/2009 Multi-disciplinary team meeting held Attended by FROILAN, resident physician, RN, staff psychiatrist. For details regarding content of reporting, please refer to progress notes from previous day for above disciplines. For plans arising as an outcome of this meeting, please refer to progress note dated this day and completed by staff psychiatrist. Subjective:. She admitted that she has been struggling for many years as to her Methampehtamine addiction and that should she be discharged without any CD tx and/or support that she would revert back to using it resulting in her need to be re-hospitalized--no change from yesterday. She states that shewas seen by Sabrina/MANISH this am who explained the CD application process. She states that she is willing to go to an inpatient CD tx program/ but preferably one that does not last for three months. She continues to complain of experiencing the subjective sense that her thoughts are racing. Objective: Mental Status Exam Appearance: alert Grooming: hospital gown/appropriate. Demeanor: disengaged Behavior: cooperative Speech: normal rate and loudness Thought Process: logical and goal-directed. She states that her thoughts are racing. Thought Content: no abnormalities noted Mood: sad Affect: restricted, sad Cognition: intact Insight: fair Judgment: improving. Review of systems: The patient notes no new medical problems. Side effects: no complaints Patient Vitals in the past 24 hrs: BP Temp Temp src Pulse Resp SpO2 Height Wt - Scale 03/01/09 0816 130/84 mmHg 98.9 ??F (37.2 ??C) Oral 68 16 - - - Labs Reviewed: Results for orders placed during the hospital encounter of 02/23/09 (from the past 48 hour(s)) RAPID CONDITIONAL DSU Component Value Range ??? P. C. P. Negative NEG- ??? BENZODIAZEPINES Negative NEG- ??? COCAINE METABOLITE Negative NEG- ??? AMPHETAMINES Negative NEG- ??? THC(MARIJUANA) METAB Negative NEG- ??? OPIATES Negative NEG- ??? BARBITURATES Negative NEG- ??? TRICYCLIC SCREEN UR Negative NEG- ??? PH URINE RAPID, TOX 7.0 - ??? CREATININE, UR, RAPI 38.0 - (mg/dl) UA CONDITIONAL UC Component Value Range ??? URINE COLOR Light Yellow - ??? URINE CLARITY Clear - ??? SPECIFIC GRAVITY,UR 1.003 (*) 1.005-1.03 ??? PH, URINE 7.0 4.5-8.0 ??? PROTEIN, URINE QUAL Negative NEG- (mg/dl) ??? GLUCOSE, URINE QUAL Negative NEG- (mg/dl) ??? KETONES, URINE Negative NEG- (mg/dl) ? ? UROBIL, URINE QUAL <2.0 <2.0- (mg/dl) ??? BILIRUBIN, URINE Negative NEG- ??? BLOOD, URINE Negative NEG- ??? NITRITE, URINE Negative NEG- ??? LEUKOCYTE EST., UR Negative NEG- ??? RBC'S 1 0-3 (/hpf) ??? WBC'S 1 0-5 (/hpf) ??? EPITH, SQUAMOUS Occ - (/hpf) ??? MUCOUS, URINE Present - BASIC METABOLIC PANEL Component Value Range ??? BUN 9 (*) 10-26 (mg/dl) ??? SODIUM 141 135-145 (mmol/L) ??? POTASSIUM 3.7 3.5-5.3 (mmol/L) ??? CHLORIDE 107 (*) 95-105 (mmol/L) ??? CO2 27 22-31 (mmol/L) ??? GLUCOSE 93 70-180 (mg/dl) ??? CREATININE 0.5 (*) 0.6-1.0 (mg/dl) ? ? GFR, ESTIMATED >80.0 >60- (ml/min/1.73m2) ? ? GFR EST IF >80.0 >60- (ml/min/1.73m2) ??? CALCIUM 9.5 8.6-10.3 (mg/dl) ??? ANION GAP (CALC.) 7 7-17 (mmol/L) HEMOGRAM/PLTS Component Value Range ??? WBC 6.8 4.0-11.0 (k/ul) ??? RBC 4.37 4.0-5.2 (M/ul) ??? HGB 12.8 12.0-16.0 (g/dl) ??? HCT 37.9 36.0-46.0 (%) ??? MCV 86.8 80-100 (fl) ??? MCH 29.3 26-34 (pg) ??? MCHC 33.7 32-36 (g/dl) ??? RDW 12.0 11.5-14.5 (%) ??? PLTS 281 150-450 (k/ul) ??? MPV 9.5 6.5-10.0 (fl) CHOLESTEROL (TOTAL) Component Value Range ??? CHOLESTEROL 167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 Identify/Problem(s): Behavior Desired Outcome(s): Will remain controlled. Evaluation: Pt slept most of the time during the shift, no behavior was noted. Plan: Will continue to monitor pt's behavior and document. Cari Shaw --- End of Report --- Kindra Sharma - 02/25/2009 4:39 PM CDT [facility] Progress Note (Nursing) Identify/Problem(s): Behavior Desired Outcome(s): Patient will be safe on the unit Evaluation: Patient out on unit for dinner. Sleeping in room most of the evening. Denies suicidal thoughts, hallucinations or pain. Pleasant opon approach. Mood and affect are depressed. States she feels tired andenergy is low--has anxiety and racing thoughts--Benadryl 50 mg and Haldol 5 mg given at 2115 for anxiety. Patient is med compliant and behavior has been calm and controlled. Plan: Continue to monitor/Encourage verbalization of feelings/Ensure patient safety/Encourage attendance and participation in groups Kindra Sharma RN --- End of Report --- Brynn Bautista - 02/25/2009 1:33 PM CDT [facility] Progress Note (Nursing) Identify/Problem(s): Behavior Desired Outcome(s): Will be controled Evaluation: Had brief period of extreme anxiety,given benadryl 25mg, vistaril 25mg, seroquel 25mg, and haldol 25mg, all po. Pt was anxious about an impending meeting.with family, and worker. Pt has been going to group, and does make needs known. Attends to grooming, and did attend groups.denies thoughts of hurting self,or others. Plan: Encourage pt to make needs known, and encourage pt to follow md plan.Discussed plan of care with patient. Brynn Bautista RN --- End of Report --- Nathan Alvarado - 02/25/2009 12:14 PM CDT [facility] Psychiatry Staff Physician Progress Note Date of Service: 02/25/2009 Subjective: Pt continues to c/o feeling anxious and again she has been informed that she will not bereceiving any benzos; that she can have the prn Vistaril, Benadryl or her Haldol. She has also reminded that though she doesn't like Seroquel due to potential weight gain, that she can have the occasional prn when she feels agitated. Objective: Mental Status Exam Appearance: alert Grooming: disheveled Demeanor: disengaged Behavior: tense Speech: normal rate and loudness Thought Process: logical and goal-directed Thought Content: no abnormalities noted Mood: sad, irritable Affect: restricted, sad Cognition: intact Insight: fair Judgment: improving. Review of systems: The patient notes no new medical problems. Side effects: no complaints BP 131/76 Pulse 69 Temp(Src) 98.4 ??F (36.9 ??C) (Oral) Resp 15 SpO2 99% Labs Reviewed: Results for orders placed during the hospital encounter of 02/23/09 (from the past 48 hour(s)) RAPID CONDITIONAL DSU Component Value Range ??? P. C. P. Negative NEG- ??? BENZODIAZEPINES Negative NEG- ??? COCAINE METABOLITE Negative NEG- ??? AMPHETAMINES Negative NEG- ??? THC(MARIJUANA) METAB Negative NEG- ??? OPIATES Negative NEG- ??? BARBITURATES Negative NEG- ??? TRICYCLIC SCREEN UR Negative NEG- ??? PH URINE RAPID, TOX 7.0 - ??? CREATININE, UR, RAPI 38.0 - (mg/dl) UA CONDITIONAL UC Component Value Range ??? URINE COLOR Light Yellow - ??? URINE CLARITY Clear - ??? SPECIFIC GRAVITY,UR 1.003 (*) 1.005-1.03 ??? PH, URINE 7.0 4.5-8.0 ??? PROTEIN, URINE QUAL Negative NEG- (mg/dl) ??? GLUCOSE, URINE QUAL Negative NEG- (mg/dl) ??? KETONES, URINE Negative NEG- (mg/dl) ? ? UROBIL, URINE QUAL <2.0 <2.0- (mg/dl) ??? BILIRUBIN, URINE Negative NEG- ??? BLOOD, URINE Negative NEG- ??? NITRITE, URINE Negative NEG- ??? LEUKOCYTE EST., UR Negative NEG- ??? RBC'S 1 0-3 (/hpf) ??? WBC'S 1 0-5 (/hpf) ??? EPITH, SQUAMOUS Occ - (/hpf) ??? MUCOUS, URINE Present - BASIC METABOLIC PANEL Component Value Range ??? BUN 9 (*) 10-26 (mg/dl) ??? SODIUM 141 135-145 (mmol/L) ??? POTASSIUM 3.7 3.5-5.3 (mmol/L) ??? CHLORIDE 107 (*) 95-105 (mmol/L) ??? CO2 27 22-31 (mmol/L) ??? GLUCOSE 93 70-180 (mg/dl) ??? CREATININE 0.5 (*) 0.6-1.0 (mg/dl) ? ? GFR, ESTIMATED >80.0 >60- (ml/min/1.73m2) ? ? GFR EST IF >80.0 >60- (ml/min/1.73m2) ??? CALCIUM 9.5 8.6-10.3 (mg/dl) ??? ANION GAP (CALC.) 7 7-17 (mmol/L) HEMOGRAM/PLTS Component Value Range ??? WBC 6.8 4.0-11.0 (k/ul) ??? RBC 4.37 4.0-5.2 (M/ul) ??? HGB 12.8 12.0-16.0 (g/dl) ??? HCT 37.9 36.0-46.0 (%) ??? MCV 86.8 80-100 (fl) ??? MCH 29.3 26-34 (pg) ??? MCHC 33.7 32-36 (g/dl) ??? RDW 12.0 11.5-14.5 (%) ??? PLTS 281 150-450 (k/ul) ??? MPV 9.5 6.5-10.0 (fl) CHOLESTEROL (TOTAL) Component Value Range ??? CHOLESTEROL 167 0-199 (mg/dl) MAGNESIUM Component Value Range ??? MAGNESIUM 1.8 1.6-2.6 (mg/dl) PHOSPHORUS Component Value Range ??? PHOSPHORUS 3.3 2.8-4.6 (mg/dl) TSH, SENSITIVE (WITH REFLEX) Component Value Range ??? TSH, WITH REFLEX 0.58 0.3-5.0 (uIU/ml) BILIRUBIN, TOTAL Component Value Range ??? BILIRUBIN, TOTAL 0.5 0.2-1.2 (mg/dl) AST Component Value Range ? ? AST (SGOT) 12 <45- (U/L) ALT (SGPT) Component Value Range ??? ALT (SGPT) 14 0-55 (U/L) GT (GAMMA GT) Component Value Range ? ? GT (GAMMA GT) 38 <65- (U/L) Current Medications Current hospital medications Medication Dose Route Frequency ??? acetaminophen (aka TYLENOL) tablet 650 mg 650 mg Oral Q4H PRN ? ? aluminum & magnesium hydroxide-simethicone (aka MAALOX MAX,MYLANTA) 400-400-40 MG/5ML oral liquid 15-30 mL 15-30 mL Oral QID PRN ??? citalopram (aka CELEXA) tablet 20 mg 20 mg Oral Daily ??? diphenhydramine (aka BENADRYL) capsule 50 mg 50 mg Oral Q4H PRN ??? gabapentin (aka NEURONTIN) capsule 100 mg 100 mg Oral TID ??? haloperidol (aka HALDOL) tablet 5 mg 5 mg Oral Q4H PRN ??? hydrOXYzine HCl (aka ATARAX) tablet 25 mg 25 mg Oral Q6H PRN ??? multivitamin tablet 1 Tab 1 Tab Oral Daily ??? nicotine (aka NICORETTE) gum 4 mg 4 mg Oral Q1H PRN Risk assessment: self harm: Low assault: Low Diagnosis: This is the [facility] [...] by a transport hold signed by CM shared services representative Annemarie Andujar. Impression (Diagnoses) Weiner I: Depressive Disorder NOS 311.00; Dysthymia, Polysubstance abuse: THC and Methamphetamine, Alcohol abuse, R/0 Alcohol dependence. R/0 PTSD Weiner II: Deferred Weiner III: HTN, Hypercholesterolemia, CAD, S/P Hysterectomy. She is allergic to Lipitor and Codeine. Weiner IV: Severe: homeless, limited support system. Weiner V: GAF = 41-50 Serious symptoms, or any serious impairment in social, occupational or school functioning Legal Status: Voluntary Acuity Level: Yellow (pt following treatment, improving) Plan: Continue current pharmacological tx regimen. SW: regarding disposition plans. Start Seroquel 25 mg one po q 4 to 6 prn agitation. prognosis : guarded. Summary: Follow-up hospital care Nathan Alvarado MD Brynn Bautista - 02/25/2009 11:49 AM CDT [facility] Progress Note (Nursing) Identify/Problem(s): behavior Desired Outcome(s): Will have managed pain control Evaluation: Pt had complaint of pain level 6/10. Given 2 tylenol, with relief at level 2/10. Has attended to grooming, and has attended groups, and has participated in them. Pt makes needs known, and does use nicotine supplement appropriately. Is out on the unit, and does spend some time in her room. Is not social with peers. Denies any thought of hurting herself, or others. Plan: Encourage pt to be out on the unit, and to be social with peers.Discussed plan of care with patient. Brynn Bautista RN --- End of Report --- Dorys King - 02/25/2009 7:12 AM CDT [facility] OT Progress Note Assessments Initial Assessment No data found. OT Evaluation No data found. All OT Evaluations are found under Consults - OT Notes. 1:1 Session No data found. 1:1 Assessment- None Clinic Group No data found. Clinic Group Assessment- Absent Relaxation Group No data found. Relaxation Group Assessment- None Grooming Group Patient Grooming Group in the past 12 hrs: Attended (minutes) + Reason if Absent G/H Social Behavior G/H Thought Process/Tracking G/H Investment/Participation 02/25/09 0700 45 - 4 4 5 Grooming Assessment- Patient Strengths: General Assessments: Patient completed selected grooming tasks, Patient initiated needing grooming supplies, Patient joined group independently Social Behavior/Social Skills: Able to be assertive, Engaged, More comfortable manner Work Skills: Investment & Participation: Followed directions, Good effort, Good follow through, Task focused Activities of Daily Living: groomed Patient Areas for Improvement: Affect: flat Cognitive Skills: Thought Process & Tracking: Delayed processing General Assessments: Low energy level Social Behavior/Social Skills: Does not initiate conversation with peers, Withdrawn Stephany Price OT Student /.MAURICIO Bass/Jesica Life Skills Group No data found. Life Skills Assessment- None Patient's Reported Anxiety/Stress Level Patient Stress Anxiety Level in the past 12 hrs: Group attended or one to one Patient's reported stress/anxiety level at beginning of session Patient's reported stress/anxiety level at the end of the session Patient's reported benefits Patient's other reported benefits Patient's reported negative outcomes During/after use of Sensory Integration Intervention, patient exhibited 02/25/09 0700 Brain gym;Movement/exercise 4 7 - - - - Movement Group Patient Movement/ Exercise & Brain Gym Group in the past 12 hrs: Attended (minutes) + Reason if Absent Ex. Social Behavior Ex. Thought Process/Tracking Ex. Investment/Participation Energy Level 02/25/09 0700 15 - 4 4 4 4 Movement Assessment- Patient Strengths: General Assessments: Patient able to perform most of the Brain Gym stretches, Patient able to perform most of the general stretches and exercises, Patient joined group independently Patient Areas for Improvement: General: Low energy Cognitive Skills: Thought Process & Tracking: Delayed processing Social Behavior/Social Skills: Does not initiate conversation with peers, Withdrawn Work Skills: Investment & Participation: Limited motivation, Selective participation Stephany Price, OT Student /.NESSA Bass Patient's Goals Patient Treatment Goals in the [...] during OTgroup to 30 to increase independence 02/24/09 0700 - - Set - - No [...] patient and reviewed all related documentation. TERRY Hollins/Jesica 02/25/2009 3:22 PM --- End of Report --- Cari Shaw - 02/25/2009 3:57 AM CDT [facility] Progress Note (Nursing) Identify/Problem(s): Behavior Desired Outcome(s): Will remain calm and controlled. Evaluation: Pt slept throughout last night, no behavior was observed. Plan: Will continue to monitor pt's behavior and document. Cari Shaw --- End of Report --- Suyapa Mcclain - 02/24/2009 4:37 PM CDT [facility] Progress Note (Nursing) Identify/Problem(s): Mood, behavior Desired Outcome(s): Mood will improve and will be safe on the unit. Evaluation: Pt has been out on the unit this shift. Spending time watching TV. States she feels better than she did this AM and is glad about that. States she had a meltdown. Reports she has trouble with racing thoughts and that has been going on for 4 days. States she has not been able to sleep well either. Pt was reminded that she slept much of the evening last night and was encouraged to stay up this evening to support better sleep tonight. Pt is aware that she has Haldol available if needed. Pt is upset that she is not able to get any real drugs. Pt reports that she never had problems with benzos but that she had a problem with meth. States she started diet pills when she was 11 years old. Needs much dental care done and is trying to get partial plates ordered as she had to have several teeth removed due to the damage by the meth. Cooperative with meds. Has not requested any PRN's this shift. Plan: Encourage and support MD plan for patient. Continue to assess response to medications. Suyapa Mcclain RN --- End of Report --- Nathan Alvarado N - 02/24/2009 3:58 PM CDT [facility] Psychiatry Staff Physician Progress Note Date of Service: 02/24/2009 Subjective: Pt lying in her bed/sedated after receiving Haldol and Benadryl earlier this am/ordered by movie writer, due to her agitation and having been informed by nursing staff that she would not be receiving any Vicodin and/or Benzos. She is aware that she will not be able to enter a CD program when sheis still receiving Vicodin, Benzos and is grudgingly willing abide by this plan. She has been informed that she can take prn Haldol/Benadryl is she is anxious or agitated. Objective: Sedated. She denies any perceptual disturbance, paranoia, or delusional thought processes; denies any HI or SI/intent or plan. Review of systems: The patient notes no new medical problems. Side effects: no complaints BP 145/83 Pulse 72 Temp(Src) 98.7 ??F (37.1 ??C) (Oral) Resp 16 SpO2 99% Labs Reviewed: Results for orders placed during the hospital encounter of 02/23/09 (from the past 48 hour(s)) RAPID CONDITIONAL DSU Component Value Range ??? P. C. P. Negative NEG- ??? BENZODIAZEPINES Negative NEG- ??? COCAINE METABOLITE Negative NEG- ??? AMPHETAMINES Negative NEG- ??? THC(MARIJUANA) METAB Negative NEG- ??? OPIATES Negative NEG- ??? BARBITURATES Negative NEG- ??? TRICYCLIC SCREEN UR Negative NEG- ??? PH URINE RAPID, TOX 7.0 - ??? CREATININE, UR, RAPI 38.0 - (mg/dl) UA CONDITIONAL UC Component Value Range ??? URINE COLOR Light Yellow - ??? URINE CLARITY Clear - ??? SPECIFIC GRAVITY,UR 1.003 (*) 1.005-1.03 ??? PH, URINE 7.0 4.5-8.0 ??? PROTEIN, URINE QUAL Negative NEG- (mg/dl) ??? GLUCOSE, URINE QUAL Negative NEG- (mg/dl) ??? KETONES, URINE Negative NEG- (mg/dl) ? ? UROBIL, URINE QUAL <2.0 <2.0- (mg/dl) ??? BILIRUBIN, URINE Negative NEG- ??? BLOOD, URINE Negative NEG- ??? NITRITE, URINE Negative NEG- ??? LEUKOCYTE EST., UR Negative NEG- ??? RBC'S 1 0-3 (/hpf) ??? WBC'S 1 0-5 (/hpf) ??? EPITH, SQUAMOUS Occ - (/hpf) ??? MUCOUS, URINE Present - BASIC METABOLIC PANEL Component Value Range ??? BUN 9 (*) 10-26 (mg/dl) ??? SODIUM 141 135-145 (mmol/L) ??? POTASSIUM 3.7 3.5-5.3 (mmol/L) ??? CHLORIDE 107 (*) 95-105 (mmol/L) ??? CO2 27 22-31 (mmol/L) ??? GLUCOSE 93 70-180 (mg/dl) ??? CREATININE 0.5 (*) 0.6-1.0 (mg/dl) ? ? GFR, ESTIMATED >80.0 >60- (ml/min/1.73m2) ? ? GFR EST IF >80.0 >60- (ml/min/1.73m2) ??? CALCIUM 9.5 8.6-10.3 (mg/dl) ??? ANION GAP (CALC.) 7 7-17 (mmol/L) HEMOGRAM/PLTS Component Value Range ??? WBC 6.8 4.0-11.0 (k/ul) ??? RBC 4.37 4.0-5.2 (M/ul) ??? HGB 12.8 12.0-16.0 (g/dl) ??? HCT 37.9 36.0-46.0 (%) ??? MCV 86.8 80-100 (fl) ??? MCH 29.3 26-34 (pg) ??? MCHC 33.7 32-36 (g/dl) ??? RDW 12.0 11.5-14.5 (%) ??? PLTS 281 150-450 (k/ul) ??? MPV 9.5 6.5-10.0 (fl) CHOLESTEROL (TOTAL) Component Value Range ??? CHOLESTEROL 167 0-199 (mg/dl) MAGNESIUM Component Value Range ??? MAGNESIUM 1.8 1.6-2.6 (mg/dl) PHOSPHORUS Component Value Range ??? PHOSPHORUS 3.3 2.8-4.6 (mg/dl) TSH, SENSITIVE (WITH REFLEX) Component Value Range ??? TSH, WITH REFLEX 0.58 0.3-5.0 (uIU/ml) BILIRUBIN, TOTAL Component Value Range ??? BILIRUBIN, TOTAL 0.5 0.2-1.2 (mg/dl) AST Component Value Range ? ? AST (SGOT) 12 <45- (U/L) ALT (SGPT) Component Value Range ??? ALT (SGPT) 14 0-55 (U/L) GT (GAMMA GT) Component Value Range ? ? GT (GAMMA GT) 38 <65- (U/L) Current Medications: Current hospital medications Medication Dose Route Frequency ??? acetaminophen (aka TYLENOL) tablet 650 mg 650 mg Oral Q4H PRN ? ? aluminum & magnesium hydroxide-simethicone (aka MAALOX MAX,MYLANTA) 400-400-40 MG/5ML oral liquid 15-30 mL 15-30 mL Oral QID PRN ??? citalopram (aka CELEXA) tablet 20 mg 20 mg Oral Daily ??? diphenhydramine (aka BENADRYL) capsule 50 mg 50 mg Oral Q4H PRN ??? folic Acid tablet 1 mg 1 mg Oral Daily ??? gabapentin (aka NEURONTIN) capsule 100 mg 100 mg Oral TID ??? hydrOXYzine HCl (aka ATARAX) tablet 25 mg 25 mg Oral Q6H PRN ??? multivitamin tablet 1 Tab 1 Tab Oral Daily ??? nicotine (aka NICORETTE) gum 4 mg 4 mg Oral Q1H PRN ??? thiamine (aka VITAMIN B-1) tablet 100 mg 100 mg Oral Daily Risk assessment: self harm: Low assault: Low Diagnosis: This is the [facility]nd [facility] inpatient psychiatric [...] by a transport hold signed by CM shared services representative Annemarie Andujar. Impression (Diagnoses) Weiner I: Depressive Disorder NOS 311.00; Dysthymia, Polysubstance abuse: THC and Methamphetamine, Alcohol abuse, R/0 Alcohol dependence. R/0 PTSD Weiner II: Deferred Weiner III: HTN, Hypercholesterolemia, CAD, S/P Hysterectomy. She is allergic to Lipitor and Codeine. Weiner IV: Severe: homeless, limited support system. Weiner V: GAF = 41-50 Serious symptoms, or any serious impairment in social, occupational or school functioning Legal Status: Voluntary Acuity Level: Yellow (pt following treatment, improving) Plan: Continue current pharmacological tx regimen. SW: regarding disposition plans. prognosis : guarded. Summary: Follow-up hospital care Nathan Alvarado MD Preethi Souza - 02/24/2009 8:45 AM CDT [facility] Hospital Progress Note (Nursing) Identify/Problem(s): Behavioral Desired Outcome(s): Patient will remain calm and controlled. Evaluation: Patient seen for 1:1 in her room. Patient was sleeping and had to wake to administer medication. Patient was med compliant. Later this afternoon she came to the nurses station, crying hysterically and holding her head. She states she can't stop it. Patient would not elaborate on what she meant by that. Atarax and Tylenol given at that time. Guided imagery and deep breathing to calm patient was then attempted. Patient showered and came out in the milieu at that time. This afternoon patient again became labile and began yelling, stating she doesn't want to live anymore. Patient was given Haldol 5mg and Benedryl. Behaviors stopped and patient is sleeping at this time. She is to get no benzo's or narcotics per Dr. Alvarado. Plan: Continue MD care plan, monitor and document. Preethi Souza RN --- End of Report --- Elif Kc - 02/24/2009 7:12 AM CDT [facility] OT Progress Note Assessments Initial Assessment No [...] during OTgroup to 30 to increase independence 02/24/09 0700 - - Set - - No [...] Report completed by Stephany Price, OT Student TERRY Tyler/Jesica --- End of Report --- Roger Ambrose - 02/23/2009 9:02 PM CDT [facility] Clinical Pharmacy Medication Reconciliation Note Medication History: Medications marked Taking as of 02/23/09 encounter (Hospital Encounter) with NATHAN ALVARADO N: aspirin 81 MG chewable tablet 1 Tab Oral daily a 8 p.m. citalopram (AKA CELEXA) 20 MG tablet 1 Tab Oral daily ezetimibe-simvastatin (AKA VYTORIN) 10-40 MG tablet None Entered gabapentin (AKA NEURONTIN) 100 MG capsule 1 Cap Oral three times a day HYDROCODONE-APAP 7.5-750 MG tablet Take 1 tablet by mouth every 4-6 hours as needed for pain. Do nottake more than 5 tablets in one day. ibuprofen (AKA MOTRIN) 200 MG tablet Take 1-2 tablets by mouth every 4-6 hours as needed for pain. metoPROLOL tartrate (AKA LOPRESSOR) 50 MG tablet 1 Tab Oral two times a day Multiple Vitamins-Minerals (CENTRUM CARDIO OR) None Entered varenicline (CHANTIX) 1 MG tablet Take 1mg tablet two times each day. Taken after eating with a fullglass of w ater. NOTE: Dispense as maintenance for refills only. zolpidem (AKA AMBIEN) 10 MG tablet 1 Tab Oral at bedtime as needed Medications Reviewed and Reconciled: Contacted MD regarding the following medication history interventions: Left note on: Vytorin and Metorpolol PHARMACIST NAME: Roger Ambrose Phone/Pager #: [phone] --- End of Report --- Suyapa Mcclain - 02/23/2009 4:35 PM CDT [facility] Progress Note (Nursing) Identify/Problem(s): Admission for depressed mood with SI Desired Outcome(s): Will cooperate with the admit process and be safe on the unit Evaluation: Pt was napping after met with MD. Pt cooperative with the admit process and states she can contract for safety. Pt reports she has just had increased depression with SI. Has no specific plan, Just however I can get it done. Pt met with Dr. Alvarado and was told she would not be getting Vicodin or Ambien. Pt is concerned about that as states she used the Vicodin for knee pain. Pt appears very drowsy asmeets with RN but able to complete the admission. Read vol rights. States knows the unit as was herelast month. Pt denies any use of alcohol, for a long time, but states she wants to talk to someoneabout chemical dependency treatment. Scored 1 for CIWA for slight tremor. Given a egg crate mattressfor c/o back pain from the mattress here. Reported that was helpful. Napped for a while this evening. Accepting of meds as ordered. Accepted HS snack. Plan: Encourage and support MD plan for patient. Continue to monitor mood and behavior. Suyapa Mcclain RN --- End of Report --- Risa Khoury - 02/23/2009 2:30 PM CDT [facility] Patient Medications Collected and Sent to Pharmacy Patient Name: Fifi Shepard Today's Date: 02/23/2009 Description of Medications: many Disposition of Medications: Kept with Patient Chantix Hydrocodone ASA Gabapentin Metoprolol Simvastin Centrum Celexa The items listed above are a correct list of medications taken to the Pharmacy. Patient's Signature Witness _ Pharmacist: __ Witness _ Unclaimed medications and all other personal items deposited into the custody of the hospital will be disposed of by the hospital if they are not claimed within 60 days of discharge. Patient's Signature Medications taken home by: Date: Signature: Relationship: ___ Witness Name: Witness Signature: I have received my medications back from the pharmacy as listed above. Date: Patient's Signature: Witness: --- End of Report --- Risa Khoury - 02/23/2009 2:17 PM CDT 02/23/2009 2:19 PM Patient arrived to unit Patient stated she did not need a tour of unit or review of unit routine as pt was recently hospitalized on [facility] . Patient does contract [facility] and is currently meeting with medical student. Risa Khoury RN documented in this encounter Consult Notes Guille Thomas G - 03/01/2009 1:03 PM CDTAssociated Order(s): CHEM DEP INPT CONSULT [facility] Chemical Health Assessment Admission Date: 02/23/2009 Attending Provider: Nathan Alvarado Insurance: Payor: MEDICARE PART B ONLY [id number] Plan: MEDICARE PART B ONLY Product Type: Medicare Psychiatric History: Any known mental health diagnosis: Yes Depression Previous Admissions and/or Mental Health Treatments: Yes 4 previous hospitalizations Current Psychiatrist and/or Psychotherapist: none Current Medications: Celexa, Neurontin, Haldol, Seroquel Social History: Education (special learning needs?): 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 Yes Occasional Longest Period of Abstinence: 9-10 months Substance of Choice: Amphetamines Other Drugs Used: Alcohol, Cocaine, Ecstasy, Heroin and Marijuana Date of Last Use: 1 week before admission History of IV Drug Abuse: No CD Treatment (dates, places): [facility] [place], [place]. History Tobacco Use Never Other Information: N/A Diagnosis: Weiner I: Depressive Disorder NOS 311.00; Dysthymia, Polysubstance abuse: THC and Methamphetamine, Alcohol abuse, R/0 Alcohol dependence. R/0 PTSD Weiner II: Deferred Weiner III: HTN, Hypercholesterolemia, CAD, S/P Hysterectomy. She is allergic to Lipitor and Codeine. Weiner IV: Severe: homeless, limited support system. Weiner V: GAF = 48 Serious symptoms, or any serious impairment in social, occupational or school functioning 6 Dimensions: Symptomatology: (past twelve months) Increased Tolerance, Weekly use to intoxication, Preoccupation, Loss of Control, Mood Swings, Repeated family or social problems, Family History of Addiction and Using Alone Dimension I: Acute intoxication/Withdrawal potential - Identify withdrawal symptoms Agitation, Anxiety, Depression, Fatigue, High Blood Pressure and Sweating (sweating, rapid pulse) Risk Rating: Risk 1 - Minimal risk of severe withdrawal. No reported concerns about withdrawal symptoms. Dimension II: Biomedical conditions - Define current medical status, history/current medical conditions, complications related to drug use. Risk Rating: Risk 2 - Some difficulty tolerating physical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 Maximum dose 8 tablets per day. Given 2009 8:25 AM CDT 650 mg Given 03/05/2009 8:56 PM CDT 650 mg aluminum & magnesium hydroxide-simethicone Given 2009 5:17 PM CDT 30 mL (aka MAALOX MAX,MYLANTA) 400-400-40 MG/5ML oral liquid 15-30 mL 15-30 mL, Oral, QID PRN, Upset Stomach, Starting on Sat02/23/09 at 1550, Until Sat03/07/09 at 1210 Given 2009 2:34 PM CDT 30 mL aspirin chewable tablet 324 mg Given 03/05/2009 11:53 AM CDT 324 mg 324 mg, Oral, ONCE, On 03/05/09 at 1153, For 1 dose aspirin enteric coated tablet 81 mg Given 2009 8:36 PM CDT 81 mg 81 mg, Oral, ASPIRIN - DAILY, First dose on Sat03/06/09 at 2000, Until Discontinued citalopram (aka CELEXA) tablet 20 mg Given 03/07/2009 7:30 AM CDT 20 mg 20 mg, Oral, DAILY, First dose on Sat02/23/09 at 1601, Until Discontinued Given 2009 8:25 AM CDT 20 mg Given 03/05/2009 8:22 AM CDT 20 mg diphenhydramine (aka BENADRYL) caplet 25 mg Given 02/24/2009 11:30 AM CDT 25 mg 25 mg, Oral, NOW, On Michelle 02/24/09 at 1130, For 1 dose diphenhydramine (aka BENADRYL) capsule 5 0 mg Given 2009 8:36 PM CDT 50 mg 50 mg, Oral, Q4H PRN, Hives, Rash, sleep, Starting on Sat02/23/09 at 1550, Until Sat03/07/09 at 1210 Given 03/05/2009 8:58 PM CDT 50 mg Given 03/04/2009 8:34 PM CDT 50 mg folic Acid tablet 1 mg Given 02/25/2009 9:00 AM CDT 1 mg 1 mg, Oral, DAILY, First dose on Sat02/23/09 at 1602, Last dose on Sat02/25/09 at 0900, For 3 days Given 02/24/2009 8:40 AM CDT 1 mg Given 02/23/2009 5:50 PM CDT 1 mg gabapentin (aka NEURONTIN) capsule 100 m g Given 03/07/2009 7:30 AM CDT 100 mg 100 mg, Oral, TID, First dose on Sat02/23/09 at 1700, Until Discontinued Given 2009 8:36 PM CDT 100 mg Given 2009 5:24 PM CDT 100 mg haloperidol (aka HALDOL) tablet 5 mg Given 02/24/2009 11:28 AM CDT 5 mg 5 mg, Oral, NOW, On Michelle /13/09 at 1128, For 1 dose haloperidol (aka HALDOL) tablet 5 mg Given 2009 2:55 PM CDT 5 mg 5 mg, Oral, Q4H PRN, Anxiety, Agitation, Hallucinations, Starting on Sat02/24/09 at 1612, Until Sat03/07/09 at 1210 Given 03/05/2009 6:24 PM CDT 5 mg Given 03/03/2009 3:20 PM CDT 5 mg hydrOXYzine HCl (aka ATARAX) tablet 25 m g Given 03/05/2009 1:12 PM CDT 25 mg 25 mg, Oral, Q6H PRN, Anxiety, Pain, Itching, sleep, Starting on Sat02/23/09 at 1600, Until Sat03/07/09 at 1210 Given 03/04/2009 6:30 PM CDT 25 mg Given 03/03/2009 8:30 AM CDT 25 mg LORazepam (aka ATIVAN) tablet 2 mg Given 02/23/2009 12:17 PM CDT 2 mg 2 mg, Oral, NOW, On Sat02/23/09 at 1217, For 1 dose multivitamin tablet 1 Tab Given 03/05/2009 8:22 AM CDT 1 Tablet 1 Tablet, Oral, DAILY, First dose on Sat02/23/09 at 1602, as nutritional supplement Given 03/04/2009 8:30 AM CDT 1 Tablet Given 03/03/2009 8:30 AM CDT 1 Tablet nicotine (aka NICORETTE) gum 4 mg Given 2009 2:55 PM CDT 4 mg 4 mg, Oral, Q1H PRN, Smoking Cessation, Starting on Sat02/23/09 at 1551, Until Sat03/07/09 at 1210, Slow paced chewing and intermittent packing in cheek. Maximum 12 pieces per day. Given 2009 1:27 PM CDT 4 mg Given 03/04/2009 12:53 PM CDT 4 mg nicotine (aka NICOTROL) inhaler 10 mg Given 03/05/2009 8:58 PM CDT 10 mg 10 mg (1 Inhaler), Inhalation, Q1H PRN, Nicotine Replacement, Starting on Sat03/02/09 at 2109, Hazardous waste, dispose of in Black Box. The mouthpiece is reusable and should be cleaned regularly with soap and water. Given 03/05/2009 5:56 PM CDT 10 mg Given 03/04/2009 9:14 PM CDT 10 mg quetiapine (aka SEROQUEL) tablet 25 mg Given 02/25/2009 1:22 PM CDT 25 mg 25 mg, Oral, NOW, On Sat02/25/09 at 1322, For 1 dose quetiapine (aka SEROQUEL) tablet 25 mg Given 2009 8:36 PM CDT 25 mg 25 mg, Oral, Q4H PRN, Psychosis, Anxiety, Agitation, Starting on 02/26/09 at 1943, Until 03/07/09 at 1210 Given 03/05/2009 8:58 PM CDT 25 mg Given 03/04/2009 8:34 PM CDT 25 mg simethicone (aka MYLICON) tablet 80 mg Given 2009 8:14 PM CDT 80 mg 80 mg, Oral, QID PRN, Gas Pain, first dose as soon as possible, Starting on 03/06/09 at 1949, Until Sat03/07/09 at 1210 thiamine (aka VITAMIN B-1) tablet 100 mg Given 02/25/2009 9:00 AM CDT 100 mg 100 mg, Oral, DAILY, First dose on Sat02/23/09 at 1602, Last dose on Sat02/25/09 at 0900, For 3 days Given 02/24/2009 8:40 AM CDT 100 mg Given 02/23/2009 5:50 PM CDT 100 mg documented in this encounter Active and Recently Administered Medications Times are shown in CDT. Scheduled Medication Order 03/05/2009 2009 03/07/2009 aspirin chewable tablet 324 mg (COMPLETED) 1153 (Given - Provider: Easton Lawsonbharathi) 324 mg, Oral, ONCE, 1 dose, 03/05/09 at 1153 aspirin enteric coated tablet 81 mg (CANCELED) 2035 (Given - Provider: Katia Lozano) 81 mg, Oral, ASPIRIN - 1999, First dose on 03/06/09 at 2000, Until Discontinued citalopram (aka CELEXA) tablet 20 mg 821 (Given - Pro vider: Pascaline M Ndifor Suhfor) 0825 (Given - Provider: Tevincaline M Ndifor Suhfor) 073 0 (Given - Provider: Arlet Ennis)0900 (Canceled Entry - Provider: Arlet Ennis) 20 mg, Oral, DAILY, First dose on Sat02/23/09 at 1601, Until Dis continued gabapentin (aka NEURONTIN) capsule 100 mg 0822 (Given - Provider: Tevincaline M Ndifor Suhfor)1737 (Given - Provider: Katia Lozano)205 (Given - Provider: Katia Lozano) 0825 (Given - Provider: Easton Blanc Ndif or Suhfor)172 (Given - Provider: Katia Lozano)203 (Given - Provider: Katia Lozano) 0730 (Given - Provider: Arlet Ennis )0900 (Canceled Entry - Provider: Arlet Ennis) 100 mg, Oral, TID, First dose on Sat02/23/09 at 1700, Until Disc ontinued multivitamin tablet 1 Tab 0822 (Given - Provider: Tevincalnorberto M Ndifor Suhfor) 0825 (Refused - Provider: Tevincalnorberto M Ndifor Suhfor) 0730 (Refused - Provider: Arlet Ennis)0900 (Canceled Entry - Provider: Arlet Ennis) 1 Tab, Oral, DAILY, First dose on Sat02/23/09 at 1602, Until Dis continued PRN Medication Order 03/05/2009 2009 03/07/2009 acetaminophen (aka TYLENOL) tablet 650 mg (CANCELED) 0 855 (Given - Provider: Tevincaline M Ndifor Suhfor - Comment: c/o LOO and back pain 12/22)1312 (Given - Provider: Pascaline M Ndifor Suhfor - Comment: back and knee pain 12/22)205 (Given - Provider: Katia Lozano) 0825 (Given - Provider: Tevincaline M Ndifor Suhfor - Comment: back pain 11/21)1339 (Given - Provider: Pascaline M Ndifor Suhfor - Comment: per pt request for knee and back pain /10) 650 mg, Oral, Q4H PRN, Starting Sat02/23/09 at 1550, Until Disco ntinued aluminum & magnesium hydroxide-simethico ne (aka MAALOX MAX,MYLANTA) 400-400-40 MG/5ML oral liquid 15-30 mL (CANCELED) 1434 (Given - P rovider: Pascaline M Ndifor Suhfor)171 (Given - Provider: Katia Lozano) 15-30 mL, Oral, QID PRN, Starting Sat02/23/09 at 1550, Until Dis continued diphenhydramine (aka BENADRYL) capsule 50 mg 2057 (Giv en - Provider: Katia Lozano) 2035 (Given - Provider: Katia Lozano) 50 mg, Oral, Q4H PRN, Starting Sat02/23/09 at 1550, Until Discon tinued, sleep haloperidol (aka HALDOL) tablet 5 mg 182 (Given - Pro vider: Katia Lozano) 1455 (Given - Provider: Tevincaline Guanaco Ndif or Suhfor - Comment: per pt request for anxiety and agitation) 5 mg, Oral, Q4H PRN, Starting Michelle 02/24/09 at 1612, Until Discont inued hydrOXYzine HCl (aka ATARAX) tablet 25 mg 1312 (Given - Provider: Pascaline M Ndifor Suhfor - Comment: back pain 10 and anxiety) 25 mg, Oral, Q6H PRN, Starting Sat02/23/09 at 1600, Until Discon tinued, sleep nicotine (aka NICORETTE) gum 4 mg (CANCELED) 1327 (Given - Provider: Pascaline M Ndifor Suhfor)1455 (Given - Provider: Pascaline M Ndifor Suhfor) 4 mg, Oral, Q1H PRN, Starting Sat02/23/09 at 1551, Until Discont inued nicotine (aka NICOTROL) inhaler 10 mg (CANCELED) 175 (Given - Provider: Katia Lozano)2057 (Given - Provider: Katia Lozano) 1 Inhaler = 10 mg, Inhalation, Q1H PRN, Starting 03/02/09 at 2109, Until Discontinued quetiapine (aka SEROQUEL) tablet 25 mg 2057 (Given - P rovider: Katia Lozano) 2035 (Given - Provider: Katia Lozano) 25 mg, Oral, Q4H PRN, Starting Sat at 1943, Until Discontinued, Psychosis, Anxiety, Agitation simethicone (aka MYLICON) tablet 80 mg (CANCELED) 2013 (Given - Provider: Katia Lozano) 80 mg, Oral, QID PRN, Gas Pain, first do se as soon as possible, Starting on 03/06/09 at 1949, Until 03/07/09 at 1210 documented in this encounter Care Teams Manganese Wheeler Relationship Specialty Start Date End Date Unassigned, Provider PCP - General 03/12/[address] [place] [id number] documented as of this encounter
--- OUTSIDE RECORDS SUMMARY | 2022-05-18 03:26 | XMS_ITS | Encounter Summary ---
:1955 [facility] Address [address] [place] [address] Care Team Providers Name Role Phone Unassigned, Provider Primary Care Provider Unavailable Encounter Details Date Type Department Care Team Description 02/02/2005 Correspondence None [facility] Conse nt and Release Social History Tobacco Use Types Packs/Day Years [...] on file documented as of this encounter Progress Notes CORI GARSIA, PROVIDER - 02/02/2005 12:00 AM CDT documented in this encounter Plan of Treatment Not on filedocumented as of this encounter Visit Diagnoses Not on filedocumented in this encounter Care Teams Wood Chopper Relationship Specialty Start Date End Date Unassigned, Provider PCP - General 03/12/03 [address] [place] [address] documented as of this encounter
--- OUTSIDE RECORDS SUMMARY | 2022-05-18 03:26 | XMS_ITS | Encounter Summary ---
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
--- OUTSIDE RECORDS SUMMARY | 2022-05-18 03:26 | XMS_ITS | Encounter Summary ---
:1955 [facility] Address [address] [place] [address] Care Team Providers Name Role Phone Unassigned, Provider Primary Care Provider Unavailable Encounter Details Date Type Department Care Team Description 01/05/2005 Correspondence None Unknown, Physici an [facility] [place] to [place] [address] disability [place], [place] [id number] (Wo rk) Social History Tobacco Use Types [...] documented as of this encounter Progress Notes Unknown, Physician - 01/05/2005 12:00 AM CDT documented in this encounter Plan of Treatment Not on filedocumented as of this encounter Visit Diagnoses Not on filedocumented in this encounter Care Teams Sap Security Consultant Relationship Specialty Start Date End Date Unassigned, Provider PCP - General 03/12/03 [address] [place] [address] documented as of this encounter
--- OUTSIDE RECORDS SUMMARY | 2022-05-18 03:26 | XMS_ITS | Encounter Summary ---
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 Organization Address [facility] Phon e Number [address] [address] [place], [place] [phone] Troponin I (07/28/2008 3:10 PM CERTIFIED LEGAL INVESTIGATOR) athologist Signature Troponin I <0.030 0.0 - 0.049 [facility] ng/ml Comment: (0.000-0.049 ng/ml): Normal (0.050-0.770 ng/ml): Indeterminant for c linical definition of myocardial infarction (0.780 ng/ml): Cutoff indicating myocard ial infarction Specimen Anatomical Collection Method Collection Time Receive d Time (Source) Location / / Volume Laterality 07/28/2008 3:10 PM 9 3:41 CERTIFIED LEGAL INVESTIGATOR PM CERTIFIED LEGAL INVESTIGATOR Dilip Bird MD LAB_1 Performing Organization Address [facility]/ZIP [facility] Phon e Number [address] [address] [place], [place] [phone] (ABNORMAL) Basic Metabolic Panel (K, Na, CO2, Cl, Gluc, BUN, Creat, Ca) (Chem 8) (07/28/2008 3:10 PMCST) athologist Signature BUN 8 (L) 10 - 26 [facility] mg/dl Sodium 140 135 - 145 [facility] mmol/L Potassium 3.9 3.5 - 5.3 [facility] mmol/L Chloride 106 (H) 95 - 105 [facility] mmol/L CO2 24 22 - 31 [facility] mmol/L Glucose 127 70 - 180 [facility] mg/dl Creatinine 0.5 (L) 0.6 - 1.0 [facility] mg/dl GFR, Estimated >80.0 >60 [facility] ml/min/1.7 3m2 GFR, Est., If >80.0 >60 [facility] Black ml/min/1.7 3m2 Calcium 9.5 8.6 - 10.3 [facility] mg/dl Anion Gap 10 7 - 17 [facility] (calc.) mmol/L Specimen Anatomical Collection Method Collection Time Receive d Time (Source) Location / / Volume Laterality 07/28/2008 3:10 PM 9 3:37 CERTIFIED LEGAL INVESTIGATOR PM CERTIFIED LEGAL INVESTIGATOR Dilip Bird MD LAB_1 Performing Organization Address City/State/ZIP Code Phon e Number [address] [address] [place], [place] [phone] Hemogram with Platelets (07/28/2008 3:10 PM CERTIFIED LEGAL INVESTIGATOR) athologist Signature WBC 9.1 4.0 - 11.0 [facility] k/ul RBC 4.45 4.0 - 5.2 [facility] M/ul Hemoglobin 13.4 12.0 - 16.0 [facility] g/dl HCT 38.7 36.0 - 46.0 [facility] % MCV 86.9 80 - 100 fl [facility] MCH 30.2 26 - 34 pg [facility] MCHC 34.8 32 - 36 % [facility] RDW 12.8 11.5 - 14.5 [facility] % Platelets 373 150 - 450 [facility] k/ul MPV 9.2 6.5 - 10.0 [facility] fl Specimen Anatomical Collection Method Collection Time Receive d Time (Source) Location / / Volume Laterality 07/28/2008 3:10 PM 9 3:37 CERTIFIED LEGAL INVESTIGATOR PM CERTIFIED LEGAL INVESTIGATOR Dilip Bird MD LAB_1 Performing Organization Address City/State/ZIP Code Phon e Number [address] [address] [place], [place] [phone] documented in this encounter Visit Diagnoses Diagnosis Angina at rest (HRC) Other and unspecified angina pectoris Depression Depressive disorder, not elsewhere class ified Anxiety (HRC) Anxiety state, unspecified HTN Unspecified essential hypertension ACS (acute coronary syndrome) (HRC) Intermediate coronary syndrome Chest pain, unspecified Initial Assessments - Mervin Malagon - 07/28/2008 6:[address] [facility] Med-Surg / ICU / Rehab Initial Assessment Note GENERAL INFORMATION Demographics Actual arrival on unit: date: 07-28-08 time: 1700 Is this patient a transfer from another hospital for Trauma? No Primary Care Physician or Clinic: N/a Patient Identification Patient indentity confirmed by: full name including last, first & middle and birthdate. Source of identifying information:patient. History Allergies: Lipitor and Codeine Past Medical History Diagnosis Date ??? Anxiety ??? Depression ??? Methamphetamine Use No past surgical history on file. Has she had recent exposure to communicable diseases? No Does she have a history for resistant organism? None Medications marked Taking as of 07/28/08 encounter (Hospital Encounter) with KOSTAS JAVIER S: AMOXICILLIN 500 MG OR CAPS Take one capsule by mouth three times each day for 10 days. Disp: Rfl: ASPIRIN 81 MG OR CHEW Take one tablet by mouth every day. Disp: Rfl: HYDROCODONE-ACETAMINOPHEN 5-325 MG OR TABS 1 tab po q4h prn Disp: Rfl: TRAMADOL HCL (ULTRAM) 50MG ORAL TABS 1 tab po q4h prn Disp: Rfl: ZOLPIDEM TARTRATE 10 MG OR TABS 1 tab po qhs Disp: Rfl: Is the patient taking herbal medications? No Medications confirmed with patient or family at this time? Yes NEUROLOGICAL No apparent abnormalities EENT Head/Neck Assessment: No apparent abnormalities. Eye Assessment: No apparent abnormalities. Ear Assessment: No apparent abnormalities. Nose Assessment: No apparent abnormalities. Throat Assessment: Poor Dentition Additional EENT info: None Screening Criteria Does patient have special speech, hearing or vision needs? No. No special needs identified. RESPIRATORY History Tobacco Use Never No apparent abnormalities Screening criteria Are respiratory needs likely at discharge? No. CARDIOVASCULAR Abnormal cardiovascular findings: None GASTROINTESTINAL/NUTRITIONAL Last bowel movement date: 07-28-08 Abnormal gastrointestinal findings:None Diet: Regular diet Nutrition Consult Screening: No GI/nutrition screening criteria applicable. Dietary Consult has NOT been sent. (Not needed) GENITOURINARY Marissa Jay Shepard presents with: No apparent genitourinary abnormalities INTEGUMENTARY Jovon Scale score: Score: 23 Other integumentary findings:No apparent abnormalities MUSCULOSKELETAL No Apparent Abnormalities Screening Criteria Has MD been notified of potential rehabilitation or PT/OT needs due to mobility? Not needed PAIN Patient denies having pain. FUNCTIONAL Are there any recent changes in level of ADL's? No Current Level of Assist with these ADL's: Eating: Independent Activity: Independent Elimination: Independent Hygiene: Independent Functional screening: No functional screening criteria is applicable. PSYCHOSOCIAL Mental Health/Psychological Assessment Mental health findings: Depressed behavior, however patient weaned self off of medications and states that she has been feeling fine, but does have stressors in her life. A good friend lastweek. Suicide Screening Question: Suicide Risk Do you currently have or recently had thoughts of harming or killing yourself?: No Suicide Risk-Total Score: (not recorded) Total Score Summary: (not recorded) For nursing interventions, see policy: PC:12:10 Current Social Situation Marital Status: Occupation: disability She lives with family in a home. Social Screening: No Discharge Planning screening criteria applicable. Are there any Agencies/Community Support Services involved before admission: No. Is there Guardianship issues affecting care planning? No Spiritual/Restorationist Is the nurse aware, at present, of any needs or issues for which support from the hospital retail support associate might be helpful to patient and/or family? (e.g. need or desire for spiritual support, difficulty coping, end of life issues, grief/loss, etc.) No. ([facility] makes daily rounds to all restoration patients.) Cultural On the Best Care/Best Experience questionnaire, does the patient have cultural practices that effectpatient care? No. Actual or Suspected Assault/Abuse Evidence of actual or suspected abuse or assault (physical, sexual or emotional): No evidence of assault or abuse Has bruises on upper rt arm, states that this occurred from the paramedics BP cuff. . Chemical Use History Alcohol Use ??? Yes Occasional History Drug Use ??? 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 Chemical Use Screening: No Chemical Use screening criteria applicable. SAFETY Falls 1) History of Falls (either at home or during hospitalization)? No 2) Is she age greater than 65 (This qualifier alone may not require the Fall Prevention Program but should be used with nursing judgement)? No 3) Is she disoriented? No 4) Impaired judgement? No 5) Use of mobility device? No 6) Sensory perceptual deterioration(vision/hearing)? No 7) Muscle weakness/mobility impairment? No 8) Bowel/Bladder incontinence? No 9) Dizziness/vertigo or postural hypotension? No 10) Seizures/epilepsy? No 11) Communication impairment? No 12) Attached to movement-limiting equipment (compression boots, chest tubes, EKG leads, etc.)? No 13) Is she currently taking medications that may increase fall risk? No With the exception of question 2 alone, are any of the above falls risk assessment questions answered 'yes'? No Restraints The following criteria place this patient at additional risk if restraints are used: None Does the patient present with behaviors that put them at risk for restraint use? No (If any behavior criteria noted, initiate restraint alternatives.) See flowsheet documentation for additional information. IFIED LEGAL INVESTIGATOR documented in this encounter Administered Medications Inactive Administered Medications - up to 3 most recent administrations Medication Order MAR Action Action Date Dose Rate Site amoxicillin (AMOXIL) capsule 500 Given 07/29/2008 2:00 PM CERTIFIED LEGAL INVESTIGATOR 50 0 mg mg 500 mg, Oral, TID, First dose on Sat07/28/08 at 2000, For 7 days Given 07/29/2008 8:00 AM CERTIFIED LEGAL INVESTIGATOR 500 mg Given 07/28/2008 8:00 PM CERTIFIED LEGAL INVESTIGATOR 500 mg enoxaparin (LOVENOX) injection 70 mg Given 07/28/2008 4:30 PM CERTIFIED LEGAL INVESTIGATOR 70 mg 70 mg, Subcutaneous, NOW, On Sat07/28/08 at 1619, For 1 dose, Recommended dose 1 mg/kg. Patient reports weight being 160lbs approx 70kgs hydrALAZINE (APRESOLINE) tablet 10 mg Given 07/28/2008 5:30 PM CERTIFIED LEGAL INVESTIGATOR 10 mg 10 mg, Oral, Q4H PRN, Blood Pressure >, SBP > 180, Starting on Sat07/28/08 at 1712, Until Michelle 07/29/08 at 1835 hydrocodone/acetaminophen (VICODIN) 5-500 Given 07/28/2008 8 :30 PM CERTIFIED LEGAL INVESTIGATOR 1 Tablet MG 1-2 Tab 1-2 Tablet, Oral, Q4H PRN, Pain, Starting on Sat07/28/08 at 1649, Maximum Daily Acetaminophen dose for patients > 53 k g/day Maximum Daily Acetaminophen dose for patients < 53 k mg/kg/day This product contains 500 mg Acetaminophen per tablet. lansoprazole (PREVACID) capsule 30 mg Given 07/29/2008 8:00 AM CERTIFIED LEGAL INVESTIGATOR 30 mg 30 mg, Oral, DAILY, First dose on Sat07/28/08 at 1809, Until Discontinued Given 07/28/2008 8:00 PM CERTIFIED LEGAL INVESTIGATOR 30 mg metoPROLOL tartrate (LOPRESSOR) oral tablet Given 07/15 8:00 AM CERTIFIED LEGAL INVESTIGATOR 12.5 mg 12.5 mg 12.5 mg, Oral, BID, First dose on Sat07/28/08 at 2000, Until Discontinued, 12.5 mg = a prepackaged 1/2 tablet Take with food Given 07/28/2008 6:42 PM CERTIFIED LEGAL INVESTIGATOR 12.5 mg zolpidem (AMBIEN) tablet 10 mg Given 07/28/2008 10:45 PM CERTIFIED LEGAL INVESTIGATOR 10 mg 10 mg, Oral, HS PRN, Sleep, Starting on Sat07/28/08 at 1648, Until Michelle 07/29/08 at 1835 documented in this encounter Active and Recently Administered Medications Times are shown in CERTIFIED LEGAL INVESTIGATOR. Scheduled Medication Order 07/27/2008 07/28/2008 07/29/2008 amoxicillin (AMOXIL) capsule 500 mg (CANCELED) 1999 (Given - Provider: Amira Gonzalez) 0800 (Given - Provider: Julia Gaines)1400 (Given - Provider: Julia Gaines) 500 mg, Oral, TID, 21 doses, First dose on 07/28 at 2000, Last dose on 08/04 at 1400 enoxaparin (LOVENOX) injection 70 mg (COMPLETED) 1630 (Given - Provider: Cherelle Harry V) 70 mg, SC, NOW, 1 dose, 07/28 at 1619 lansoprazole (PREVACID) capsule 30 mg (CANCELED) 1999 (Given - Provider: Amira Gonzalez) 0800 (Given - Provider: Julia Gaines) 30 mg, Oral, DAILY, First dose on Sat07/28/08 at 1809, Until Dis continued metoPROLOL tartrate (LOPRESSOR) oral tablet 12.5 mg (CANCELE D) 1842 (Given - Provider: Mervin Malagon)1999 (Canceled Entry - Provider: Mervin Malagon) 0800 (Given - Provider: Julia Gaines) 12.5 mg, Oral, BID, First dose on 07/28 at 2000, Until Discon tinued PRN Medication Order 07/27/2008 07/28/2008 07/29/2008 hydrALAZINE (APRESOLINE) tablet 10 mg (CANCELED) 1730 (Given - Provider: Mervin Malagon) 10 mg, Oral, Q4H PRN, Starting 07/28 at 1712, Until Disco ntinued, SBP > 180 hydrocodone/acetaminophen (VICODIN) 5-500 MG 1-2 Tab (CANCEL ED) 2029 (Given - Provider: Amira Gonzalez) 1-2 Tab, Oral, Q4H PRN, Starting 07/28 at 1649, Until Discont inued zolpidem (AMBIEN) tablet 10 mg (CANCELED) 224 (Given - Provider: Amira Gonzalez) 10 mg, Oral, HS PRN, Starting 07/28 at 1648, Until Discontinu ed documented in this encounter Care Teams Derrick Car Operator Relationship Specialty Start Date End Date Unassigned, Provider PCP - General 03/12/[address] [place] [address] documented as of this encounter
--- OUTSIDE RECORDS SUMMARY | 2022-05-18 03:26 | XMS_ITS | Encounter Summary ---
:1955 Author Organization [employer] Address [address] [place] [address] Care Team Providers Name Role Phone Unassigned, Provider Primary Care Provider Unavailable Reason for Visit Reason Comments DIZZINESS/VERTIGO--ED DENTAL FRACTURE--ED NAUSEA--ED Encounter Details Date Type Department Care Team Description 09/28/2005 Emergency [facility] Ketan Cortez, LEFT WITHOUT BEING [address] Karthik Carlson MD SEEN/FINISHED/[place] [address] D [phone] Social History Tobacco Use Types Packs/Day Years [...] Sign Reading Time Taken Comments Blood Pressure 193/117 09/28/2005 4:26 PM SPRING MANUFACTURING SET UP TECHNICIAN Pulse 83 09/28/2005 4:26 PM SPRING MANUFACTURING SET UP TECHNICIAN Temperature 36.7 ??C (98 ??F) 09/28/2005 4:26 PM SPRING MANUFACTURING SET UP TECHNICIAN Respiratory Rate 98 09/28/2005 4:26 PM SPRING MANUFACTURING SET UP TECHNICIAN Oxygen Saturation - - Inhaled Oxygen Concentration - - Weight - - Height - - Body Mass Index - - documented in this encounter Medications at Time of Discharge Medication Sig Dispensed Refills Start Date End Date CYCLOBENZAPRINE HCL 1 tab po qhs 10 0 12/23/2003 (FLEXERIL) 10MG ORAL TABS EFFEXOR OR None Entered 0 07/28/2008 FLEXERIL 10MG ORAL TABS 1 tab po qhs prn 20 1 200307/28/2008 low back spasm. IBUPROFEN 800MG ORAL TABS 1 tab po q 8hrly 30 0 06/07/28/2008 prn SEROQUEL OR None Entered 0 07/28/2008 VICODIN 5-500MG ORAL TABS One tab po q 6-8 20 0 12/1407/28/2008 hours prn severe low back pain. VICODIN 5-500MG ORAL TABS 1 tab po q6hrly 10 0 11/1507/28/2008 prn documented as of this encounter ED Notes Ketan Cortez - 09/28/2005 6:48 PM SPRING MANUFACTURING SET UP TECHNICIAN patient left prior to evaluation. NG MANUFACTURING SET UP TECHNICIAN Pam Kitchen - 09/28/2005 6:37 PM SPRING MANUFACTURING SET UP TECHNICIAN Pt called for rooming no answer, pt lwbs NG MANUFACTURING SET UP TECHNICIAN Cherelle Harry V - 09/28/2005 6:27 PM SPRING MANUFACTURING SET UP TECHNICIAN Pt called in triage to go back, no response. NG MANUFACTURING SET UP TECHNICIAN Karin Resendiz - 09/28/2005 4:19 PM SPRING MANUFACTURING SET UP TECHNICIAN Patient with with dizziness as if the room is spinning, also feels nuaseated. Nausea started after the dizziness today. Patient also has wisdom tooth that is broken. NG MANUFACTURING SET UP TECHNICIAN documented in this encounter Plan of Treatment Not on filedocumented as of this encounter Visit Diagnoses Diagnosis LEFT WITHOUT BEING SEEN/FINISHED/REGISTE RED documented in this encounter Care Teams Yeast Cake Cutter Relationship Specialty Start Date End Date Unassigned, Provider PCP - General 03/12/[address] [place] [phone] documented as of this encounter
--- OUTSIDE RECORDS SUMMARY | 2022-05-18 03:26 | XMS_ITS | Encounter Summary ---
:1955 Author Organization [employer] Address [address] [place] [address] Care Team Providers Name Role Phone Unassigned, Provider Primary Care Provider Unavailable Reason for Visit Reason Onset Date Comments [facility]LLOW[facility] 08/05/2008 Encounter Details Date Type Department Care Team Description 08/05/2008 Telephone Manueilto3 Nola Brown V FOLLOW-UP,HOSPITAL [address] [place] [address] [place] [address] [phone] (Wo rk) Social History Tobacco Use Types [...] on filedocumented in this encounter Care Teams Cd Technician Relationship Specialty Start Date End Date Unassigned, Provider PCP - General 03/12/03 [address] [place] [address] documented as of this encounter
--- OUTSIDE RECORDS SUMMARY | 2022-05-18 03:26 | XMS_ITS | Encounter Summary ---
:1955 Author Organization [facility] Address [address] [place] [address] Care Team Providers Name Role Phone Unassigned, Provider Primary Care Provider Unavailable Encounter Details Date Type Department Care Team Description 07/28/2008 [facility] [address] [place], [place] [phone] Social History Tobacco Use Types Packs/Day Years [...] Name Priority Date/Time Associated Diagnosis Comme nts XR PORTABLE CHEST 1 STAT 07/28/2008 3:42 PM Re sults for this VIEW WATER SYSTEM OPERATOR procedure are i n the results section. documented in this encounter Results XR PORTABLE CHEST 1 VIEW (07/28/2008 3:42 PM WATER SYSTEM OPERATOR) Anatomical Region Laterality Modality Chest, Lung Computed Radiography Specimen (Source) Anatomical Collection Method Collection Time Re ceived Time Location / / Volume Laterality 07/28/2008 3:42 PM WATER SYSTEM OPERATOR Narrative 07/28/2008 3:52 PM WATER SYSTEM OPERATOR [please fill in title of report and indication as they were not dictated. thank you] FINDINGS: Cardiac silhouette upper limit s of normal. Pulmonary vasculature within normal limits. Lungs well-inflate d without focal abnormality. CONCLUSION: No acute disease of the ches t. Procedure Note SparksLigia Jay - 07/30/2008Formatting o f this note might be different from the original. [please fill in title of report and elva cation as they were not dictated. thank you] FINDINGS: Cardiac silhouette upper limit s of normal. Pulmonary vasculature within normal limits. Lungs well-inflate d without focal abnormality. CONCLUSION: No acute disease of the ches t. Dilip Bird MD RAD PORTABLE documented in this encounter Visit Diagnoses Not on filedocumented in this encounter Care Teams Event Set Up Specialist Relationship Specialty Start Date End Date Unassigned, Provider PCP - General 03/12/[address] [place] [phone] documented as of this encounter
--- OUTSIDE RECORDS SUMMARY | 2022-05-18 03:26 | XMS_ITS | Encounter Summary ---
:1955 Author Organization [facility] Address [address] [place] [address] Care Team Providers Name Role Phone Unassigned, Provider Primary Care Provider Unavailable Reason for Visit Reason Onset Date Comments FOLLOW-UP,[facility] 08/04/2008 [facility] d/c callback Encounter Details Date Type Department Care Team Description 08/04/2008 Telephone C7Stephany Anderson, FOLLOW-UP,[facility] ([address] RN d/c callback) [place] [address] Social History Tobacco Use Types Packs/Day Years [...] on filedocumented in this encounter Care Teams Brick Extruder Operator Relationship Specialty Start Date End Date Unassigned, Provider PCP - General 03/12/[address] [place] [phone] documented as of this encounter
--- OUTSIDE RECORDS SUMMARY | 2022-05-18 03:26 | XMS_ITS | Encounter Summary ---
:1955 Author Organization [employer] Address [address] [place] [address] Care Team Providers Name Role Phone Unassigned, Provider Primary Care Provider Unavailable Encounter Details Date Type Department Care Team Description 07/29/2008 [facility] [address] [place] [address] [phone] Social History Tobacco Use Types Packs/Day Years [...] 11:22 AM Resul ts for this EXERCISE TITLE AGENT procedure are i n REST/STRESS SPECT the result s section. documented in this encounter Results NM CARDIAC EXERCISE CARDIOLITE STRESS TST (07/29/2008 11:22 AM TITLE AGENT) Anatomical Region Laterality Modality Chest, NM Cardiac Nuclear Medicine, Nu clear Medicine Specimen (Source) Anatomical Collection Method Collection Time Re ceived Time Location / / Volume Laterality 07/29/2008 11:22 AM TITLE AGENT Narrative 07/29/2008 12:35 PM TITLE AGENT NM MYOCARDIAL PERFUSION EXERCISE REST-STRESS SPECT SCAN [...] which thomas to 188/88 with double product [id number]. Stress stoppe d because of chest discomfort. Abnormal EKG reported separately. control room technician: Normal. FINDINGS: Wall motion and thickening is [...] which thomas to 188/88 with double product [id number]. Stress stoppe d because of chest discomfort. Abnormal EKG reported separately. control room technician: Normal. FINDINGS: Wall motion and thickening is [...] on filedocumented in this encounter Care Teams Orthopedic Cast Specialist Relationship Specialty Start Date End Date Unassigned, Provider PCP - General 03/12/[address] [place] [phone] documented as of this encounter
--- OUTSIDE RECORDS SUMMARY | 2022-05-18 03:26 | XMS_ITS | Encounter Summary ---
:1955 Author Organization [facility] Address [address] [place] [address] Care Team Providers Name Role Phone Unassigned, Provider Primary Care Provider Unavailable Encounter Details Date Type Department Care Team Description 12/13/2004 Orders Only [facility] Unknown, Physician Cardiology [address] [place] [address] [phone] (Wo rk) Social History Tobacco Use Types [...] documented as of this encounter Procedure Notes David Waite - 12/13/2004 12:00 AM CDTAssociated Order(s): EKG documented in this encounter Plan of Treatment Not on filedocumented as of this encounter Procedures Procedure Name Priority Date/Time Associated Diagnosis Comme nts EKG 12/13/2004 12:00 AM Results for this CDT procedure are i n the results section . ECG TRACING 12/13/2004 Results for thi s procedure are i n the results section . documented in this encounter Results EKG (12/13/2004 12:00 AM CDT) Narrative 12/13/2004 12:00 AM CDT This result has an attachment that is no t available. Ordered by an unspecified provider. Transcriptions David Waite - 12/13/2004 12:00 AM CDT Physician Unknown EKG documented in this encounter Visit Diagnoses Not on filedocumented in this encounter Care Teams Cut Lace Machine Operator Relationship Specialty Start Date End Date Unassigned, Provider PCP - General 03/12/[address] [place] [phone] documented as of this encounter
--- OUTSIDE RECORDS SUMMARY | 2022-05-18 03:26 | XMS_ITS | Encounter Summary ---
:1955 Author Organization [employer] Address [address] [place] [address] Care Team Providers Name Role Phone Unassigned, Provider Primary Care Provider Unavailable Encounter Details Date Type Department Care Team Description 03/05/2009 [facility] [address] [place], [place] [phone] Social History Tobacco Use Types Packs/Day Years [...] Priority Date/Time Associated Diagnosis Comme nts XR CHEST 2 VIEWS STAT 03/05/2009 12:59 PM Resu lts for this CDT procedure are i n the results section. documented in this encounter Results XR CHEST PA/AP AND LAT 2 VIEWS [...] been removed. Otherwise, no change. Federico Moy SUPERINTENDENT WAREHOUSE, BLOW PIT OPERATOR RAD GD documented in this encounter Visit Diagnoses Not on filedocumented in this encounter Care Teams Ergonomist Relationship Specialty Start Date End Date Unassigned, Provider PCP - General 03/12/[address] [place] [phone] documented as of this encounter
--- OUTSIDE RECORDS SUMMARY | 2022-05-18 03:26 | XMS_ITS | Encounter Summary ---
:1955 Author Organization [facility] Address [address] [place] [address] Care Team Providers Name Role Phone Unassigned, Provider Primary Care Provider Unavailable Reason for Visit Reason Comments BACK PAIN--ED chronic Encounter Details Date Type Department Care Team Description 02/02/2005 Emergency [facility] Emergency Dept Preet Rahman, LOW BACK PAIN(ACUTE)<6 WEEKS ; [address] Karthik Carlson MD [place]PRESS[place] [address] [phone] [id number] [place], [place] [id number] Social History Tobacco Use Types Packs/Day Years [...] Sign Reading Time Taken Comments Blood Pressure 149/74 02/02/2005 12:48 PM CDT Pulse 87 02/02/2005 12:48 PM CDT Temperature 36.3 ??C (97.4 ??F) 02/02/2005 12:48 PM CDT Respiratory Rate 12 02/02/2005 12:48 PM CDT Oxygen Saturation 98% 02/02/2005 12:48 PM CDT Inhaled Oxygen Concentration - - Weight - - Height - - Body Mass Index - - documented in this encounter Discharge Instructions Discharge InstructionsGreg Zimmerman PA-C - 02/02/2005 2:40 PM CDT Dear Ms. Calderon, Thank you for choosing [facility] for your emergency medical needs. You have received emergency care only and your condition may change. Therefore, we highly recommend you follow-up with your physician as directed. For follow-up care contact: [facility] [phone] For follow-up care, you have an appointment at [facility] next saturday. When you see your doctor, bring your medications and instructions to the office. If you had x-rays,an EKG, or lab tests today, they have been reviewed by your emergency department doctor. We will contact you at once if other important findings are notified after further review of our staff. If you do not continue to improve or if your condition worsens, please call your doctor or the emergency roomright away. I understand that my condition may require more care and will arrange for further treatment as recommended. If you would like to be seen in a [facility] clinic, please call the [facility] Appointment Desk at [phone] anytime between 7:00 AM and 9:00 PM, 7 days a week, 365 days a year (Hearing Impaired: ). Please bring these instructions with you when you are seen in your follow-up appointment. Co-pays for this visit may be paid for at the discharge desk. Back Pain (Lumbo-Sacral Strain) You have been seen by a health care provider for back pain. Back pain is common and second only to headaches as a cause of pain. If you have previously had x- rays, your provider will determine if bonyinjury may be the cause of your pain. Your spinal column is made up of 24 main vertebral bodies in addition to the sacrum and coccyx. These are held together by tough fibrous tissue called ligaments, and also by the support of your muscles. Nerve roots pass through the openings between the vertebrae. A sudden wrenching move or injury to the back may cause injury to, or pressure upon these nerves. This may result in localized back pain orradiation (movement) of pain into the buttocks and down the leg into the foot. The condition known as sciatica is frequently associated with a ruptured (herniated) disc. Pain is also created by muscle spasm alone. TO PREVENT: Avoid an underactive life style. Active exercise, as directed by your caregiver, is your greatest weapon against back pain. Hard physical activities such as tennis, racquetball, waterskiing etc., without proper physical conditioning may aggravate and/or create problems, especially if you are not in condition for that activity. If you have a back problem it is especially important to avoid sports requiring sudden body movements. Swimming and walking are generally safer activities. Maintain good posture. Avoid obesity. Use bed rest for only the most extreme, acute (sudden) episode. Prolonged bed rest over 48 hours will aggravate your condition. Ice used for acute conditions is very effective. Use a large plastic bag filled with ice and wrapped in a towel. This also provides excellent pain relief. This may be continuous or for thirty minutes every two hours during acute phase, then as needed. Heat for thirty minutesprior to activities is helpful. See your caregiver for continued problems. Your caregiver can help or refer you for appropriate exercises and work hardening. Work hardening means that the back is put through the proper exercises and rehabilitation to treat the present problems and prevent future problems. With conditioning, most back problems can be avoided. Sometimes a more serious issue may be the cause of back pain and you should be seen immediately again if new problems seem to be developing. RETURN PROMPTLY TO THIS LOCATION OR TO YOUR CAREGIVER IF ANY OF THE FOLLOWING OCCUR: ?? Numbness, tingling, weakness, or problem with the use of your arms or legs. ?? Severe headache not relieved with medications. ?? Change in bowel or bladder control. ?? Increasing pain in any areas of the body. ?? Shortness of breath, dizziness or fainting. ?? Nausea (feeling sick to your stomach), vomiting or sweats. ExitCare(R) Patient Information (C)2004 [employer]. \\[email or web address]\epic\ExitcareNonfieldFull\NonFields\di\Indian\1432.htm documented in this encounter Medications at Time of Discharge Medication Sig Dispensed Refills Start Date End Date CYCLOBENZAPRINE HCL 1 tab po qhs 10 0 12/23/2003 (FLEXERIL) 10MG ORAL TABS FLEXERIL 10MG ORAL TABS 1 tab po qhs prn 20 1 200307/28/2008 low back spasm. IBUPROFEN 800MG ORAL TABS 1 tab po q 8hrly 30 0 12/1307/28/2008 prn IBUPROFEN 800MG ORAL TABS 1 tablet q 6-8 30 1 200302/06/2005 hours po prn for low back pain VICODIN 5-500MG ORAL TABS One tab po q 6-8 20 0 12/1407/28/2008 hours prn severe low back pain. VICODIN 5-500MG ORAL TABS 1 tab po q6hrly 10 0 11/1507/28/2008 prn documented as of this encounter ED Notes Greg Zimmerman PA-C - 02/02/2005 3:53 PM CDT [facility] Emergency Department Visit Note Patient Name: Fifi Calderon Date of : 1955 Patient presents with: BACK PAIN--ED - chronic BP 149/74 Pulse 87 Temp (Src) 97.4 (Oral) Resp 12 SaO2 98% Previous Medical History: None on file No hospital prescriptions on file as of 02/02/05. outpatient prescriptions as of 02/02/05: ALLERGIES: Lipitor, Codeine Tobacco Use: Not Asked Alcohol Use: Not Asked ASSESSMENT: 724.5 BACKACHE NOS PLAN: medrodose hunter; vicodin (10); prozac 40 mg qd - f/u [facility] on saturday Visit note has been dictated: see dictated note ( ) Condition on disposition: Stable This electronic signature covers the nursing and ancillary testing orders for this visit. Author: RODOLFO Rooney - 02/02/2005 2:27 PM Allie Cole - 02/02/2005 2:40 PM CDT F/u appt. arranged at [facility] for Saturday, 02/06 at 10:40 -pt. agrees to plan. Preet Rahman - 02/02/2005 2:32 PM CDT [facility] Emergency Department Attending Supervision Note Patient Name: Fifi Calderon Date of : 1955 ANALILIA Care under my supervision. Author: Preet Rahman MD - 02/02/2005 2:32 PM Isael Joy - 02/02/2005 1:50 PM CDT Pt ambulatory to room. Pt has hx of back injury over 1 year ago, with back surgery in jul 19 -laminectomy. Pt has had back pain , worse over last few days - not relieved with ibuprofen. Greg Zimmerman PA-C - 02/02/2005 12:00 AM CDT CHIEF COMPLAINT: Back pain. HISTORY OF PRESENT ILLNESS: This is a 49-year-old female who comes in for evaluation of back pain. The patient states that she has a work-related injury that started about 2 years ago. She did have a laminectomy for this in 07/2004, which she states had little improvement. She does report some residual numbness in the right foot, which has been persistent since surgery. She states over thelast 3 to 4 weeks that back pain has gradually been getting worse with no acute exacerbation. The pain does bother her on alternating sides, sometimes the right and sometimes the left. She denies any problems with fecal or urinary incontinence. She did have the surgery done at [facility], bute states they are no longer following her. Previously seen at [facility] but states that's too far for her to get to that clinic anymore. The patient also has a history of depression. She has been off her medications for about 4 weeks, which she was on Prozac 40 mg q.d. She feels like her depression is getting worse since being off this, but denies being suicidal. She states that she is currently thinking of her grandson who has provided her some merrill and hope. OBJECTIVE: The patient is alert and oriented. Pupils equal, round, reactive to light. Extraocular movements intact. Mucous membranes are moist. Heart rate is regular in rhythm. Lungs: Clear to auscultation. Abdomen: Soft, nontender. The patient has diffuse tenderness to the lumbar region of the back.No midline tenderness. Straight leg raise test is negative. Deep tendon reflexes are 1/4 equal bilaterally and plantar dorsiflexion of the feet is normal. She is ambulatory without too much difficulty. ASSESSMENT 1. Back pain. 2. Depression. PLAN: The patient was seen by Allie of director of social media marketing and is set up for a followup appointment [facility] next Saturday. The patient is discharged to home. She is to continue with ibuprofen for baseline pain. I did give her 10 Vicodin for bad pain and put her on a trial of Medrol Dose Hunter. The patient was also given a refill of her depression med 40 mg q.d. with a 10 day supply. The patientwas offered director of social media marketing here but declines at this time. She is currently hoping to get into [facility] in about the next week. FINAL ASSESSMENT 1. Back pain. 2. Depression. maira Dictated: 02/02/2005 15:51:30 Greg Harden PA-C Transcribed: 02/06/2005 11:56:09 Staff: Preet Rahman MD Doc #: [id number] cc: Yoselyn Strauss MD, Primary 1 Page 1 Patient Name: FIFI CALDERON Visit Date: 02/02/2005 EMERGENCY MEDICINE NOTE CONFIDENTIAL MEDICAL RECORD [address] [phone] Page 1 Patient: FIFI CALDERON [id number] Date of : 1955 Visit Date: 02/02/2005 EMERGENCY MEDICINE NOTE documented in this encounter Plan of Treatment Not on filedocumented as of this encounter Visit Diagnoses Diagnosis Lumbago Depressive disorder, not elsewhere class ified documented in this encounter Care Teams Automatic Vulcanizing Operator Relationship Specialty Start Date End Date Unassigned, Provider PCP - General 03/12/[address] [place] [id number] documented as of this encounter
--- OUTSIDE RECORDS SUMMARY | 2022-05-18 03:26 | XMS_ITS | Encounter Summary ---
:1955 Author Organization [facility] Address [address] [place] [address] Care Team Providers Name Role Phone Unassigned, Provider Primary Care Provider Unavailable Encounter Details Date Type Department Care Team Description 02/02/2005 Emergency Room [facility] Emergency Dept Emergency, [facility] Emergency [address] [facility] Provider Orders/[place] [address] Social History Tobacco Use Types Packs/Day Years [...] documented as of this encounter Progress Notes Emergency, Provider - 02/02/2005 12:00 AM CDT documented in this encounter Plan of Treatment Not on filedocumented as of this encounter Visit Diagnoses Not on filedocumented in this encounter Care Teams Dry Heat Room Attendant Relationship Specialty Start Date End Date Unassigned, Provider PCP - General 03/12/03 [address] [place] [address] documented as of this encounter
--- OUTSIDE RECORDS SUMMARY | 2022-05-18 03:26 | XMS_ITS | Encounter Summary ---
:1955 Author Organization [email or web address] Address [address] [place] [address] Care Team Providers Name Role Phone Unassigned, Provider Primary Care Provider Unavailable Encounter Details Date Type Department Care Team Description 07/29/2008 Office Visit [facility] Unspecified Chest Pain [address] [place] [address] Social History Tobacco Use Types Packs/Day Years [...] 11:22 AM Resul ts for this EXERCISE STEM CLEANING MACHINE FEEDER procedure are i n REST/STRESS SPECT the result s section. documented in this encounter Visit Diagnoses Diagnosis Chest pain, unspecified documented in this encounter Care Teams Ui Application Developer Relationship Specialty Start Date End Date Unassigned, Provider PCP - General 03/12/03 [address] [place] [address] documented as of this encounter
--- OUTSIDE RECORDS SUMMARY | 2022-05-18 03:26 | XMS_ITS | Encounter Summary ---
:1955 Author [facility] Address [address] [place] [address] Care Team Providers Name Role Phone Unassigned, Provider Primary Care Provider Unavailable Encounter Details Date Type Department Care Team Description 02/02/2005 Correspondence Emergency Dept Emergency, D/C Patient [address] [facility] [place] [address] Social History Tobacco Use Types Packs/Day Years [...] on filedocumented in this encounter Care Teams Plant Utilities Engineer Relationship Specialty Start Date End Date Unassigned, Provider PCP - General 03/12/03 [address] [place] [address] documented as of this encounter
--- OUTSIDE RECORDS SUMMARY | 2022-05-18 03:26 | XMS_ITS | Encounter Summary ---
:1955 Author Organization [facility] Address [address] [place] [address] Care Team Providers Name Role Phone Unassigned, Provider Primary Care Provider Unavailable Encounter Details Date Type Department Care Team Description 03/05/2009 Imaging [facility] Ul trasound [address] [place], [place] [id number] Social History Tobacco Use Types Packs/Day Years [...] Name Priority Date/Time Associated Diagnosis Comme nts US ABD COMPLETE Routine 03/05/2009 5:01 PM Result s for this CDT procedure are i n the results section. documented in this encounter Results US ABDOMEN COMPLETE (03/05/2009 5:01 PM CDT) Anatomical Region Laterality Modality Abdomen Ultrasound Specimen (Source) Anatomical Collection Method Collection Time Re ceived Time Location / / Volume Laterality 03/05/2009 5:01 PM CDT Narrative 03/05/2009 5:02 PM CDT ULTRASOUND ABDOMEN 03/05/2009: INDICATION: Pain. TECHNIQUE: Ultrasound examination perfor med by waiter/waitress bar. FINDINGS: Liver is of normal size, confi [...] measures 10.9 cm , left 11.8 cm [id number]. Abdominal aorta contains atherosclerotic plaque distally and [...] Pain. TECHNIQUE: Ultrasound examination perfor med by waiter/waitress bar. FINDINGS: Liver is of normal size, confi [...] measures 10.9 cm , left 11.8 cm [id number]. Abdominal aorta contains atherosclerotic plaque distally and [...] normal caliber aorta. Remainder normal. Federico Moy SUPERVISOR SCREEN MAKING, JIGGER CROWN POUNCING MACHINE OPERATOR RAD US documented in this encounter Visit Diagnoses Not on filedocumented in this encounter Care Teams Mechanical Engineering Coop Relationship Specialty Start Date End Date Unassigned, Provider PCP - General 03/12/[address] [place] [address] documented as of this encounter
--- OUTSIDE RECORDS SUMMARY | 2022-05-18 03:27 | XMS_ITS | Encounter Summary ---
:1955 Author Organization [facility] Address [address] [place] [address] Care Team Providers Name Role Phone Unassigned, Provider Primary Care Provider Unavailable Encounter Details Date Type Department Care Team Description 12/23/2003 Office Visit [facility] Sherry Winchester MD Environmental Medicine Social History Tobacco Use Types Packs/Day Years [...] documented as of this encounter Progress Notes Sherry Winchester - 12/23/2003 12:00 AM CDT documented in this encounter Plan of Treatment Not on filedocumented as of this encounter Visit Diagnoses Not on filedocumented in this encounter Care Teams Banjo Repairer Relationship Specialty Start Date End Date Unassigned, Provider PCP - General 03/12/03 [address] [place] [address] documented as of this encounter
--- OUTSIDE RECORDS SUMMARY | 2022-05-18 03:27 | XMS_ITS | Encounter Summary ---
:1955 Author Organization [facility] Address [address] [place] [address] Care Team Providers Name Role Phone Unassigned, Provider Primary Care Provider Unavailable Encounter Details Date Type Department Care Team Description 12/23/2003 Office Visit [facility] Abrar, Sherry A, Jesica OW BACK and Environmental MD PAIN(ACUTE )<6 WEEKS Medicine Social History Tobacco Use Types Packs/Day [...] of this encounter Visit Diagnoses Diagnosis Lumbago documented in this encounter Care Teams Boat Driver Relationship Specialty Start Date End Date Unassigned, Provider PCP - General 03/12/03 [address] [place] [address] documented as of this encounter
--- OUTSIDE RECORDS SUMMARY | 2022-05-18 03:27 | XMS_ITS | Encounter Summary ---
:1955 Author Organization [employer] Address [address] [place] [address] Care Team Providers Name Role Phone Unassigned, Provider Primary Care Provider Unavailable Encounter Details Date Type Department Care Team Description 06/24/2003 Office Visit [facility] Sherry Winchester L OW BACK and Environmental MD PAIN(ACUTE )<6 [...] this encounter Progress Notes Sherry Winchester - 06/24/2003 12:00 AM MEDIA CLERK CHIEF COMPLAINT: Low back pain, chronic low back pain. Status post MRI. HISTORY OF PRESENT ILLNESS: A 48-year-old female who developed low back pain after being re-injured at work. Had a low back pain with bilateral intermittent anterior type pain. Has been to physical therapy. Notes that her symptoms are improving with pool therapy. Patient has a history of chronic back pain, exacerbation of symptoms. MRI did show contained central disk protrusion at L4 to L5 which compresses the ventral thecal sac. No foraminal encroachment. Also normal cauda equina regions are appreciated. OBJECTIVELY TODAY: Alert and oriented x 3. Examination of a healthy appearing female who is in no acute distress. Examination of healthy appearing female. Examination of the back: Normal back lordosis. Normal range of motion. Limited. Elicits pain with flexion. Deep tendon reflexes 2+, symmetric. Straight leg raising is normal. Ankle 1+. Deep tendon reflexes 1+ and symmetric. Sensation and vascular are intact. ASSESSMENT: Exacerbation of chronic low back pain, aggravated by work. Work-related. MRI does show a central disk herniation. Jobs restrictions will be limit lifting and carry to 20 pounds. No sustained bending of the trunk. Followup in this clinic. Patient has also been referred to Dr. Tovar for an evaluation of surgery or an epidural injection. Followup in this clinic after that evaluation or sooner if symptoms worsen. st1 Dictated: 06/24/2003 10:13:00 Sherry Winchester MD Transcribed: 07/01/2003 13:25:12 Doc #: [id number] cc: 1 Page 2 Patient Name: FIFI CALDERON Visit Date: 06/24/2003 OCCUPATIONAL/ENVIRONMENTAL CONFIDENTIAL MEDICAL RECORD [address] [phone] Page 1 Patient: FIFI CALDERON Location:[facility]: Date of : 1955 Visit Date: 06/24/2003 OCCUPATIONAL/ENVIRONMENTAL A CLERK Sherry Winchester - 06/24/2003 12:00 AM MEDIA CLERK A CLERK documented in this encounter Plan of Treatment Not on filedocumented as of this encounter Visit Diagnoses Diagnosis Lumbago documented in this encounter Care Teams Smelter Charger Relationship Specialty Start Date End Date Unassigned, Provider PCP - General 03/12/[address] [place] [id number] documented as of this encounter
--- OUTSIDE RECORDS SUMMARY | 2022-05-18 03:27 | XMS_ITS | Encounter Summary ---
:1955 Author Organization [facility] Address [address] [place] [address] Care Team Providers Name Role Phone Unassigned, Provider Primary Care Provider Unavailable Encounter Details Date Type Department Care Team Description 06/22/2003 Correspondence None Unknown, Physici an [facility] [address] MANAGED CARE [place], [place] [id number] (Wo rk) Social History Tobacco Use Types [...] this encounter Progress Notes Unknown, Physician - 06/22/2003 12:00 AM EXECUTIVE CHEF ASSISTANT documented in this encounter Plan of Treatment Not on filedocumented as of this encounter Visit Diagnoses Not on filedocumented in this encounter Care Teams Marketing Ambassador Relationship Specialty Start Date End Date Unassigned, Provider PCP - General 03/12/03 [address] [place] [address] documented as of this encounter
--- OUTSIDE RECORDS SUMMARY | 2022-05-18 03:27 | XMS_ITS | Encounter Summary ---
:1955 Author Organization [email or web address] Address [address] [place] [address] Care Team Providers Name Role Phone Unassigned, Provider Primary Care Provider Unavailable Encounter Details Date Type Department Care Team Description 11/16/2003 Office Visit [facility] Sherry Winchester [...] this encounter Progress Notes Sherry Winchester - 11/16/2003 12:00 AM CDT CHIEF COMPLAINT: Chronic low back pain. SUBJECTIVE: The patient is a 48-year-old female who is being seen for followup of chronic low back pain with L4-L5 disc herniation. The patient requested Vicodin refills and noted that her pain improved with the Vicodin. She has been evaluated by Dr. Lopez. A second MRI did show disc herniation of L4-L5 which compresses the ventral thecal sac. Surgery was recommended by Dr. Talley. Per patient history she notes that the work compensation insurance denied surgery, noting that this is not work related injury. In reviewing the chart the patient has also been seen in this clinic on 03/17/03. She then reported that on 02/15/03, she was in her usual state of health, picking up a tub of water, when she developed sharp pain in her low back area which radiated to the right leg. She also noted that on 05/25/01, she was picking up a basket of laundry at work, she developed low back pain, but she noticed that her back pain improved. She did not have any back pain prior to this. She was about 80% improved before she had lifting restrictions at work. Please read previous dictation for elaboration of the injury. She was assessed with an exacerbation of chronic low back pain, 2 MRIs showed disc herniation. Surgery was recommended by Dr. Talley and also by Dr. Winston Garcia. Per patient history the surgery was denied. 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 Currently it is an aching pain, on scale of 1-10, is a 3. The patient radiates down to both legs. Denies bladder and bowel dysfunction. The pain improves with Vicodin, Motrin and Flexeril. She notes that she takes Vicodin for breakthrough pain. Please see previous dictation for elaboration of the injury. Currently unemployed. She has been laid off for performance issues. OBJECTIVE: Alert, oriented x3, healthy appearing female who is in no acute distress. Back: Limited range of motion, flexion she can touch above the knee. Deep tendon reflexes 2+ and symmetric. Romberg negative. Sensation and vascular intact. Deep tendon reflexes on patella 2+ and symmetric. Ankle 1+ and symmetric. ASSESSMENT: Chronic low back pain with L4-L5 disc herniation exacerbated by work. PLAN: Patient was given a prescription of Motrin 800 mg t.i.d. Potential side effects were discussed with the patient. The patient was told to take the Motrin with food. Flexeril 1 tab p.o. q.h.s. at night for muscle spasms. Vicodin 1 tab p.o. q6h p.r.n. (#10 tablets). Follow up in this clinic in 1 month. Encouraged to start stretching, continue stretching exercises, continue being active, walking. Will be seen in this clinic in 1 month, or sooner if symptoms worsen. sheryl Dictated: 11/16/2003 11:42:00 Sherry Winchester MD Transcribed: 11/16/2003 15:26:46 Doc #: [id number] cc: 1 Page 1 Patient Name: FIFI CALDERON Visit Date: 11/16/2003 OCCUPATIONAL/ENVIRONMENTAL CONFIDENTIAL MEDICAL RECORD [address] [id number] Page 1 Patient: FIFI CALDERON Location:[facility]: Date of : 1955 Visit Date: 11/16/2003 OCCUPATIONAL/ENVIRONMENTAL Sherry Winchester - 11/16/2003 12:00 AM CDT documented in this encounter Plan of Treatment Not on filedocumented as of this encounter Visit Diagnoses Diagnosis Lumbago documented in this encounter Care Teams Produce Assistant Relationship Specialty Start Date End Date Unassigned, Provider PCP - General 03/12/[address] [place] [id number] documented as of this encounter
--- OUTSIDE RECORDS SUMMARY | 2022-05-18 03:27 | XMS_ITS | Encounter Summary ---
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 athologist Signature WBC 7.7 4.0 - 11.0 [facility] k/ul RBC 4.42 4.0 - 5.2 [facility] M/ul Hemoglobin 13.4 12.0 - 16.0 [facility] g/dl HCT 39.1 36.0 - 46.0 [facility] % MCV 88.4 80 - 100 fl [facility] MCH 30.2 26 - 34 pg [facility] MCHC 34.2 32 - 36 % [facility] RDW 11.5 11.5 - 14.5 [facility] % PLTS 320 150 - 450 [facility] k/ul Specimen Anatomical Collection Method Collection Time Receive d Time (Source) Location / / Volume Laterality 11/06/2004 4:30 PM 5 4:44 CDT PM CDT Sarthak Mccullough MD LAB_1 Performing Organization Address [facility] Phon e Number [address] [address] [place], [place] [phone] RAPID CONDITIONAL DSU (11/06/2004 4:24 PM CDT) [facility] gist Method Time Signature P.C.P. Negative NEG [facility] Benzodiazepines Negative NEG [facility] Cocaine Metabolite Negative NEG [facility] Amphetamines Negative NEG [facility] THC(Marijuana) Negative NEG [facility] Metab Opiates Negative NEG [facility] Barbiturates Negative NEG [facility] Tricyclic Screen UR Negative NEG [facility] pH Urine Rapid, Tox 6.2 [facility] Creatinine, Ur 29.3 mg/dl [facility] Specimen Anatomical Collection Method Collection Time Receive d Time (Source) Location / / Volume Laterality 11/06/2004 4:24 PM 5 4:32 CDT PM CDT Sarthak Mccullough MD LAB_1 Performing Organization Address [facility] Phon e Number [address] [address] [place], [place] [phone] documented in this encounter Visit Diagnoses Diagnosis Depressive disorder, not elsewhere class ified documented in this encounter Care Teams Fabric Inspector Relationship Specialty Start Date End Date Unassigned, Provider PCP - General 03/12/[address] [place] [phone] documented as of this encounter
--- OUTSIDE RECORDS SUMMARY | 2022-05-18 03:27 | XMS_ITS | Encounter Summary ---
:1955 Author Organization [facility] Address [address] [place] [address] Care Team Providers Name Role Phone Unassigned, Provider Primary Care Provider Unavailable Encounter Details Date Type Department Care Team Description 07/29/2003 Office Visit [facility] Margot Balderrama Physical Medicine [facility] [address] [place] [address] [address] [facility] [phone] [place] [address] Social History Tobacco Use Types Packs/Day Years [...] documented as of this encounter Progress Notes Margot Balderrama - 07/29/2003 12:00 AM OPERATIONAL INTELLIGENCE OFFICER ATIONAL INTELLIGENCE OFFICER documented in this encounter Plan of Treatment Not on filedocumented as of this encounter Visit Diagnoses Not on filedocumented in this encounter Care Teams Drain Cleaner Relationship Specialty Start Date End Date Unassigned, Provider PCP - General 03/12/03 [address] [place] [address] documented as of this encounter
--- OUTSIDE RECORDS SUMMARY | 2022-05-18 03:27 | XMS_ITS | Encounter Summary ---
:1955 Author Organization [employer] Address [address] [place] [address] Care Team Providers Name Role Phone Unassigned, Provider Primary Care Provider Unavailable Encounter Details Date Type Department Care Team Description 04/20/2003 Office Visit [facility] Occupational Annabella, Jesica Membreno OW BACK and Environmental MD PAIN(ACUTE )<6 [...] documented as of this encounter Progress Notes Deandre Angel Jr. - 04/20/2003 12:00 AM CDT CHIEF COMPLAINT: Chronic low back pain, minimally improved. HISTORY OF PRESENT ILLNESS: This is a 48-year-old female who presents to occupational medicine clinic for a followup of low back pain. The patient had exacerbation of low back pain at work. Previous injury was an injury at home two years ago. Two months ago, she was lifting a box at work and reinjured her back. She denies bladder or bowel dysfunction. She has intermittent radiation of the pain to the right leg. She denies any new symptoms. She notes that her symptoms did not improve compared to her last visit. She notes that she took Vicodin from a friend, and that was the first time she was pain free. Otherwise, she has been taking the Motrin. She also has been performing home exercises at home. Please see previous dictation for elaboration of the injury. OBJECTIVE: The patient is alert and oriented x 3. Vital signs are not noted. She is alert and oriented x 3. This is a very pleasant young woman who is in no acute distress. Examination of the back: Normal back lordosis. Range of motion, and flexion limited about 60 to 70 degrees today. Straight leg raising is normal. Deep tendon reflexes are 2+ and symmetric on the patella, ankles 1+ and symmetric bilaterally. Toe extensions are within normal limits. She is able to toe and heel walk. Distal sensation and vascular are intact. ASSESSMENT: Exacerbation of chronic low back pain with right leg radicular symptoms, minimally improving. PLAN AT THIS POINT 1. We stated that a referral to do therapy. 2. Same job restrictions. 3. Vicodin for breakthrough pain. Motrin 800 mg. Potential side effects were discussed with the patient. 4. Follow up in this clinic in three weeks and if these symptoms do not improve, I will consider an MRI. The patient voices understanding and agrees with the treatment plan. st1 Dictated: 04/20/2003 10:43:00 Deandre Angel MD Transcribed: 04/21/2003 16:27:49 Doc #: [id number] cc: [facility], Primary Physician This document was electronically signed by Deandre Angel MD on 08/02/2003 16:33:54. 1 Page 2 Patient Name: FIFI CALDERON Visit Date: 04/20/2003 OCCUPATIONAL/ENVIRONMENTAL CONFIDENTIAL MEDICAL RECORD [address] [phone] Page 1 Patient: FIFI CALDERON Location:[place] HPN: Date of : 1955 Visit Date: 04/20/2003 OCCUPATIONAL/ENVIRONMENTAL Sherry Winchester - 04/20/2003 12:00 AM CDT documented in this encounter Plan of Treatment Not on filedocumented as of this encounter Visit Diagnoses Diagnosis Lumbago documented in this encounter Care Teams Junior Systems Engineer Relationship Specialty Start Date End Date Unassigned, Provider PCP - General 03/12/03 [address] [place] [address] documented as of this encounter
--- OUTSIDE RECORDS SUMMARY | 2022-05-18 03:27 | XMS_ITS | Encounter Summary ---
:1955 Author Organization [employer] Address [address] [place] [address] Care Team Providers Name Role Phone Unassigned, Provider Primary Care Provider Unavailable Reason for Visit Reason Comments ALLERGIC REACTION--ED Encounter Details Date Type Department Care Team Description 05/18/2004 Hospital Encounter [facility] Harsh Cantu, ADVERSE EFFECT DRUG MED/BIO SUBST UNSPEIFIED; [address] Karthik Carlson MD SHORTNESS OF BREATH; [place], [place] [address] [facility] N[facility] [address] [address] [phone] [place] [address] Social History Tobacco Use Types Packs/Day Years [...] on file documented as of this encounter Medications at Time of Discharge [...] documented as of this encounter ED Notes Lindsey Bruno - 05/18/2004 6:45 PM CSTBed: 15
Expected date:
Expected time:
Means of arrival:
Comments:
allergic reaction Lorenzo Akers - 05/18/2004 12:00 AM PATTERN FITTER CHIEF COMPLAINT: Eyelid swelling and subjective feeling of shortness of breath. HISTORY OF PRESENT ILLNESS: The patient is a 49-year-old female who comes in this evening complaining that she felt short of breath at home as well as subjective feeling that her eyelids were swelling and that her eyes were itching after having taken metoprolol which was recently prescribed by a spray gun striper. She has a history of back pain for which she had workup for to undergo back surgery. During this workup at [facility], they discovered that she has a carotid artery stenosis of 70% on the right and is actually scheduled to undergo carotid endarterectomy tomorrow morning. Preoperatively, she was seen by a spray gun striper at [facility] who prescribed her both Lipitor and metoprolol, which she took for the first time today. Shortly after taking metoprolol, she states that she began to feel swelling in her eyes as well as itching in her eyes bilaterally. This continued to get worse over the next hour. This was around 3 in the afternoon. She took the Lipitor as well, which she had been prescribed by her spray gun striper she saw. Following that, she began to describe increasing shortness of breath and feeling that she was not able to completely inspire. Finally, she was brought in by paramedics after complaining of increasing shortness of breath. They brought her in after starting an IV with normal vital signs and saturations were 100% on room air. They did not treat her with any medications in the interim. Currently, she says she still subjectively feels itchy around her eyes and feels her eyes are slightly swollen. She denies any shortness of breath currently. PAST MEDICAL HISTORY: Significant for lower back pain as well as carotid artery stenosis. SHE DENIES ANY HISTORY OF KNOWN DRUG ALLERGIES. PHYSICAL EXAMINATION: She is alert and oriented x3. Vital signs: Blood pressure 188/90, pulse 75, respirations 20, temperature 98.4, oxygen saturation 100% on room air. Examination of her skin is negative for urticaria or erythema. I am unable to appreciate soft tissue swelling around the eyelids. Examination of the oropharynx reveals nonerythematous oropharynx which appears normal in caliber. Lungs are clear to auscultation bilaterally. There is no evidence of stridor. Heart is regular rate and rhythm. No murmurs, rubs, or gallops appreciated. Abdomen is soft, nontender and nondistended. Bowel sounds are positive. EMERGENCY MEDICINE DEPARTMENT COURSE: Due to the fact that she has not been symptomatic here in the emergency medicine department, despite not receiving any medical treatment for this, I did advise her that this could retention representative of an allergic reaction or could be secondary to possible anxiety-related to her surgery for tomorrow. She did not that she has been overly anxious and feels that this may be the case. However, she is also interested in having something for sleep, so I did think it reasonable to give her 50 mg of Benadryl IV since she already had an IV started by paramedics. Additionally, I instructed her that she should not take metoprolol or Lipitor until she sees her spray gun striper again at [facility]. I advised her not to take these medications tomorrow morning presurgery. I did advise her to discuss this with the anesthesiologist who would be taking over her care at [facility] to advise that she may have had an allergic reaction to metoprolol or Lipitor the night before. When she left the emergency medicine department, she was breathing well and I gave her a prescription for Benadryl 25 mg p.o. q.6h. as needed for allergic symptoms. FINAL DIAGNOSIS: Allergic reaction likely to metoprolol. DISPOSITION: Discharge to home. I did discuss her care as well as her treatment with Dr. Cantu who was in agreement with stated plan. peter Dictated: 05/19/2004 00:02:47 Lorenzo Akers MD Transcribed: 05/19/2004 08:44:37 Staff: Harsh Cantu MD Doc #: [id number] cc: Yoselyn Strauss MD, Primary 1 Page 1 Patient Name: FIFI CALDERON Visit Date: 05/18/2004 EMERGENCY MEDICINE NOTE CONFIDENTIAL MEDICAL RECORD [address] [phone] Page 1 Patient: FIFI CALDERON Location: [facility] HPN: Date of : 1955 Visit Date: 05/18/2004 EMERGENCY MEDICINE NOTE ERN FITTER documented in this encounter Plan of Treatment Not on filedocumented as of this encounter Visit Diagnoses Diagnosis Other and unspecified adverse effect of drug, medicinal and biological substance Shortness of breath Swelling, mass, or lump in head and neck documented in this encounter Care Teams Cask Maker Relationship Specialty Start Date End Date Unassigned, Provider PCP - General 03/12/[address] [place] [address] documented as of this encounter
--- OUTSIDE RECORDS SUMMARY | 2022-05-18 03:27 | XMS_ITS | Encounter Summary ---
:1955 Author Organization [facility] Address [address] [place] [address] Care Team Providers Name Role Phone Unassigned, Provider Primary Care Provider Unavailable Encounter Details Date Type Department Care Team Description 07/01/2003 Correspondence None Unknown, Physici [facility] [address] MANAGED CARE [place], [place] [phone] (Wo rk) Social History Tobacco Use Types [...] this encounter Progress Notes Unknown, Physician - 07/01/2003 12:00 AM TOOTH CUTTER CONTACT WHEEL documented in this encounter Plan of Treatment Not on filedocumented as of this encounter Visit Diagnoses Not on filedocumented in this encounter Care Teams Outreach Assistant Relationship Specialty Start Date End Date Unassigned, Provider PCP - General 03/12/03 [address] [place] [address] documented as of this encounter
--- OUTSIDE RECORDS SUMMARY | 2022-05-18 03:27 | XMS_ITS | Encounter Summary ---
:1955 Author Organization [facility] Address [address] [place] [address] Care Team Providers Name Role Phone Unassigned, Provider Primary Care Provider Unavailable Encounter Details Date Type Department Care Team Description 12/23/2003 Correspondence [facility] Occupational Sherry Winchester, MEDICAL OPINION and Environmental Medicine MD Social History Tobacco Use Types Packs/Day Years [...] on filedocumented in this encounter Care Teams Recycling Manager Relationship Specialty Start Date End Date Unassigned, Provider PCP - General 03/12/03 [address] [place] [address] documented as of this encounter
--- OUTSIDE RECORDS SUMMARY | 2022-05-18 03:27 | XMS_ITS | Encounter Summary ---
:1955 Author Organization [facility] Address [address] [place] [address] Care Team Providers Name Role Phone Unassigned, Provider Primary Care Provider Unavailable Encounter Details Date Type Department Care Team Description 07/23/2003 Correspondence None Unknown, Physici an [facility] PRIMITIVO TO COMPREHENSIVE [address] MANAGED CARE [place], [place] [phone] (Wo rk) Social History Tobacco Use Types [...] this encounter Progress Notes Unknown, Physician - 07/23/2003 12:00 AM SOLAR SALES MANAGER documented in this encounter Plan of Treatment Not on filedocumented as of this encounter Visit Diagnoses Not on filedocumented in this encounter Care Teams Block Mechanic Relationship Specialty Start Date End Date Unassigned, Provider PCP - General 03/12/03 [address] [place] [address] documented as of this encounter
--- OUTSIDE RECORDS SUMMARY | 2022-05-18 03:27 | XMS_ITS | Encounter Summary ---
:1955 Author Organization [facility] Address [address] [place] [address] Care Team Providers Name Role Phone Unassigned, Provider Primary Care Provider Unavailable Encounter Details Date Type Department Care Team Description 05/25/2003 Office Visit [facility] Margot Balderrama Physical Medicine [facility] [address] [place] [address] [address] [address] [place] [address] [place] [address] Social History Tobacco Use Types Packs/Day Years [...] this encounter Progress Notes Margot Balderrama - 05/25/2003 12:00 AM CSTDATE: 05-25-2003 OUTPATIENT PHYSICAL THERAPY - INITIAL NOTE - AQUATIC THERAPY SUBJECTIVE Diagnosis/Onset Date: 724.2 LBP, 719.45 pelvic pain, onset 02/18/03. Complaint: LBP with bilateral intermittent anterior thigh pain. History: Pt reports LBP began in late 04/14 following a work injury when patient was lifting a basket of laundry. At that time patient had radicular symptoms to inner thigh & LBP. After recovery from that bout patient had exacerbation of symptoms, again at work, 02/14, after lifting a heavy box. Currently symptoms are of LBP with intermittent radicular symptoms to bilateral LE's - anterior thigh symptoms of trickily feelings of pins & needles as well as groin pain with hip flexion. Functional Tool: Functional self assessment for the back was completed with score of 29%. A high score indicates higher disability. Self rated pain at 5/10. Work Hx: Pt is currently on light duty & works 4 hours a day as normal hours. She reports regular tasks include reaching, standing, walking. Function: Prior Status/Current Limits: Pt reports difficulty at home including laundry as it is difficult to carry laundry up/down steps. She is cleaning less secondary to pain especially with bending over. Activities done at waist & shoulder height are o.k., for example patient has not changed any of her cooking habits. Pt ambulates [address] work 5 days/week. She reports tolerating this without increased pain. Sleep Disturbance: Pt awakens ~ 5-6x/night when she lies on her back. She can only sleep on her right side. Aggravating Factors: Prolonged sitting, i.e., on the bus x30 minutes is very difficult. Reaching, squatting & bending over increase symptoms. When LE symptoms occur they typically last 15-20 minutes at a time & she is unable to be find any position to relieve the pain. It happens as rarely as 1x every 3 days or multiple times in any given day. Relieving Factors: Medications, massage, extending LE when sitting & rubbing bilateral thighs. Diagnostic Tests: Recent x-rays were normal. General Med Hx: Angioplasty at age 34 secondary to a defect. No difficulty since then. Hysterectomy at age 38. (L) knee pain secondary to OA and recent weight loss that has been purposeful at 10# over the past 2 months. Medication: Motrin. Vicodin (patient uses Vicodin only at work as needed. Flexeril. Patient Goals: Decrease pain, strengthening, flexibility. OBJECTIVE Posture/Observations: 48 y/o moderately overweight female with exacerbation of LBP due to work injury. Approximate L3 level hypermobility with stiffness throughout the rest of the spine. Pt moves freely through various positions for evaluation & appears in no acute distress. Some pelvis asymmetries are noted, left ASIS is superior & anterior, (R) PSIS is posterior, decreased mobility in right PSIS but good mobility through the sacrum. Functional Mobility/Transfers: Pt reports ambulation is without increased symptoms & she moves through various positions of the evaluation without evidence of pain or restrictions. Gait: Normal (slight decreased rotation through trunk). ROM: Normal sacral mobility. Trunk flexion full ROM with complaints of pulling at end range through lumbar spine. Trunk extension painful at ~ 20% of normal. Bilateral side bend stiff & painful restricted at ~ 20%. Strength: Not formally tested however patient reports some weakness in LE's. Neurological Signs/Special Tests: Decreased symptoms with traction through (R) LE. SLR positive for SI pain as patient experiences increased anterior hip pain with ~ 20?? passive SLR supine on (R), LE; (L) LE anterior hip pain at full ROM. Palpation: Non tender at bilateral PSIS & bilateral ASIS. Pt Comfort in Water: Pt is a swimmer. Tx Today: Pool orientation. Introduction to abdominal stabilizing concepts & initiation of abdominal bracing with activity, stretching, deep water traction, deep water LE exercises. Pt Tolerance: Excellent. Pt reported pain level 1/10 in the pool vs. 5/10 [address] pool deck. ASSESSMENT Problem List: 1. Pain in one area. 2. Decreased ROM of trunk extension in bilateral side bend. 3. Decreased functional activities. 4. Decreased work activities. 5. Decreased trunk stabilization secondary to increased pain with bending & lifting activities. Goals by 6 visits: 1) Issue independent aquatic exercise program; 2) Improve functional tool score ( 7%; 3) Subjective report of decreased episodes of bilateral intermittent LE radicular symptoms; 4) Decreased pain to average levels of 3/10 or less; 5) Report increased tolerance with 2-3 ADL's. Rehab Potential: Good. Treatment Precautions: None. PLAN Aquatic PT for: ROM, stretching and strengthening , aerobics, balance/coordination, trunk stabilization, independent program instruction, functional activities. Frequency: 1-2x/week. Duration: 30 days. ld Dictated: 05/25/2003 15:55:54 Margot Balderrama PT#[id number] Transcribed: 06/07/2003 13:15:39 Doc #: [id number] cc: Sherry Winchester MD (Requests no copies) [facility] FAX This document was electronically signed by Margot Balderrama PT#[id number] on 06/08/2003 17:36:58. Patient: FIFI CALDERON Page 2 Date: 05-25-2003 PM&R THERAPY CONFIDENTIAL MEDICAL RECORD [address] [place] [address] [phone] Page 1 Patient: FIFI CALDERON Location: [facility] HPN: Date of : 1955 PM&R THERAPY SOL SUPERVISOR Margot Balderrama - 05/25/2003 12:00 AM AEROSOL SUPERVISOR DATE: 07-01-2003 OUTPATIENT PHYSICAL THERAPY - PROGRESS SUMMARY - AQUATIC THERAPY SUBJECTIVE: Pt has been seen 1x for initial evaluation on 05/25/03. After one cancellation & one no show on 06/08/03 patient's work comp company called therapy [facility] to state that coverage for therapy was ending as of 06/03/03 due to patient's non-compliance with forms for release of information. We then placed her chart on hold. Pt has attempted to schedule with us, however, Work Comp continues to deny reimbursal due to her not cooperating with regard to forms that needs to be filled out. OBJECTIVE: One visit thus far. Pt is on hold until Work Comp approves therapy. PLAN: Keep chart on hold x30 days or until referral expires. ld Dictated: 07/01/2003 16:15:48 Margot Balderrama PT#[id number] [phone] Transcribed: 07/09/2003 11:53:00 Doc #: [id number] cc: Sherry Winchester MD (Requests no copies) This document was electronically signed by Margot Balderrama PT#[id number] [phone] on 07/13/2003 15:26:13. Patient: FIFI CALDERON Page 2 Date: PM&R THERAPY CONFIDENTIAL MEDICAL RECORD [address] [place] [address] [phone] Page 1 Patient: FIFI CALDERON Location: [facility] HPN: Date of : 1955 PM&R THERAPY SOL SUPERVISOR documented in this encounter Plan of Treatment Not on filedocumented as of this encounter Visit Diagnoses Not on filedocumented in this encounter Care Teams Cardiac Rehabilitation Specialist Relationship Specialty Start Date End Date Unassigned, Provider PCP - General 03/12/03 [address] [place] [address] documented as of this encounter
--- OUTSIDE RECORDS SUMMARY | 2022-05-18 03:27 | XMS_ITS | Encounter Summary ---
:1955 Author Organization [facility] Address [address] [place] [address] Care Team Providers Name Role Phone Unassigned, Provider Primary Care Provider Unavailable Encounter Details Date Type Department Care Team Description 09/07/2003 Office Visit [facility] Margot Balderrama Physical Medicine [facility] [address] [place] [phone] [place] [address] [place] [address] Social History Tobacco Use Types Packs/Day Years [...] this encounter Progress Notes Margot Balderrama - 09/07/2003 12:00 AM HIP HOP PERFORMERS OUTPATIENT AQUATIC PHYSICAL THERAPY - DISCHARGE SUMMARY DATE: 09/30/2003 SUBJECTIVE: Pt was treated for LBP with Dimitris. radicular symptoms between 05/25/03 - 09/09/03. Pt eventually progressed to independent monitored status after 4 1:1 sessions. Although pt had reported improvement in earlier visits, she plateaued and then symptoms worsened during a move. At later visits pt reported no change with symptoms after pool sessions and seemed to be able to perform functional activities, i.e., walking up to 1 mile and carrying groceries. Then, at later visits, for example 09/07/03 pt reported severe increase in symptoms and radicular symptoms. Neurosurgeon had recommended surgery and pt had decided to go ahead and have this surgery. Her last visit was on 09/07/03. Surgery was planned for the following week (laminectomy). OBJECTIVE: Pt was seen for initial evaluation on 05/25/03 and then did not return until 07/27/03 stating she was feeling much better. She then had 3 1:1 sessions before completing IM sessions X4. HEP was issued for quadriceps stretching, hip flexor stretching and various trunk stabilization activities with ADL's. Attendance: 4 1:1 visits since 05/25/03. Independent monitored visits: 4. Cancels: 3. No shows: 3. Pt had sporadic attendance early on due to insurance issues and WC denial. Aquatic Rx consisted of warm up ambulation in multiple patterns, stretching for trunk and hip muscles, abdominal stabilization exercises, trunk ROM, series of UE resistive exercises for trunk stabilization, functional activities simulation, hip strengthening open and closed chain, trunk stabilization exercises and deep water aerobics. ASSESSMENT: Symptoms significantly worsened at later visits and pt was referred for surgery (laminectomy). Status of Goals: 20% of goals were met, 1 goal met was to issue an independent aquatic exercise program. Other goals were not met due to symptom exacerbation. Reason for D/C: Pt was scheduled for laminectomy surgery week of 09/12. PLAN: Pt hopes to resume aquatic therapy when OK'd by following surgery. tmt Dictated: 09/30/2003 13:13:08 Margot Balderrama PT#[id number] [phone] Transcribed: 10/01/2003 11:11:08 Doc #: [id number] cc: Sherry Winchester MD This document was electronically signed by Margot Balderrama PT#[id number] [phone] on 10/05/2003 18:30:14. Patient: KVNG FIFI Page 1 Date: PM&R THERAPY CONFIDENTIAL MEDICAL RECORD [address] [address] Page 1 Patient: KVNG FIFI [facility] Date [facility] 1955 PM&R THERAPY HOP PERFORMERS Margot Balderrama - 09/07/2003 12:00 AM HIP HOP PERFORMERS HOP PERFORMERS documented in this encounter Plan of Treatment Not on filedocumented as of this encounter Visit Diagnoses Not on filedocumented in this encounter Care Teams Private Duty Aide Relationship Specialty Start Date End Date Unassigned, Provider PCP - General 03/12/[address] [place] [address] documented as of this encounter
--- OUTSIDE RECORDS SUMMARY | 2022-05-18 03:27 | XMS_ITS | Encounter Summary ---
:1955 Author Organization [facility] Address [address] [place] [address] Care Team Providers Name Role Phone Unassigned, Provider Primary Care Provider Unavailable Encounter Details Date Type Department Care Team Description 10/05/2003 Notes/Orders [facility] Occupational and Radha Villalpando, Environmental Medicine HEARING THERAPY TEACHER Social History Tobacco Use Types Packs/Day Years [...] documented as of this encounter Progress Notes 10/05/2003 11:59 PM CAT AND DOG BATHER patient called requesting a refill of her meds. Patient states she was to have surgery, but that was postponed until they recieved all her medical records, and she would need to call Dr. Winchester for a refill of her meds if she need. Dr. Winchester refilled her vicodin #15, Ibuprofen 800 #21 and flexeril #10. no refills.This was called into the 1st floor pharmacy at [facility]. Sasha Villalpando LPN documented in this encounter Plan of Treatment Not on filedocumented as of this encounter Visit Diagnoses Not on filedocumented in this encounter Care Teams Loan Supervisor Relationship Specialty Start Date End Date Unassigned, Provider PCP - General 03/12/[address] [place] [id number] documented as of this encounter
--- OUTSIDE RECORDS SUMMARY | 2022-05-18 03:27 | XMS_ITS | Encounter Summary ---
:1955 Author Organization [facility] Address [address] [place] [address] Care Team Providers Name Role Phone Unassigned, Provider Primary Care Provider Unavailable Encounter Details Date Type Department Care Team Description 05/18/2003 Office Visit [facility] Sherry Winchester [...] this encounter Progress Notes Sherry Winchester - 05/18/2003 12:00 AM BUMPER OPERATOR CHIEF COMPLAINT: Chronic low back pain flare-up. HISTORY OF PRESENT ILLNESS: [id number] female returns to the Occupational Medicine Clinic for re-aggravation of chronic low back pain. Notes that she was functioning about 80% from the baseline and Saturday p.m. started to push carts full of food and immediately developed pain. Notes that the pain is at this time radiating down to her lower extremity. Has also numbness and tingling. Denies bladder or bowel dysfunction. Has had a injury on February 15, 2003 where she was lifting boxes and developed pain. Conservatively treated. Symptoms resolved. She is exercising at home bicycling, stretching. Never had any MRI. Pain today on a scale of 1 to 10, 7 out of 10, sharp, radiating, with numbness and tingling to the lower extremity. OBJECTIVE: Alert and oriented x3. Examination of a healthy appearing female who is in no acute distress. Examination of the back: Normal back lordosis. Range of motion limited. Flexion about 40 degrees elicits pain. Straight leg raising is normal. Deep tendon reflexes 2+ and symmetric. Also 2+ in the patella. Ankle 1+. Distal sensation and vascular are intact. ASSESSMENT: Exacerbation of chronic low back pain. PLAN: 1. At this point will obtain a MRI. 2. Job restrictions: Limit lifting 20 pounds. No sustained bending of the trunk. Follow up in this clinic after the MRI or sooner if symptoms worsen or new symptoms arise. st1 Dictated: 05/18/2003 16:24:00 Sherry Winchester MD Transcribed: 05/24/2003 15:44:46 Doc #: [id number] cc: This document was electronically signed by Sherry Winchester MD on 08/02/2003 15:13:36. 1 Page 2 Patient Name: FIFI CALDERON Visit Date: 05/18/2003 OCCUPATIONAL/ENVIRONMENTAL CONFIDENTIAL MEDICAL RECORD [address] [address] Page 1 Patient: FIFI CALDERON Location:[facility] HPN: Date of : 1955 Visit Date: 05/18/2003 OCCUPATIONAL/ENVIRONMENTAL ER OPERATOR Sherry Winchester - 05/18/2003 12:00 AM BUMPER OPERATOR ER OPERATOR documented in this encounter Plan of Treatment Not on filedocumented as of this encounter Visit Diagnoses Diagnosis Lumbago documented in this encounter Care Teams Antique Dealer Relationship Specialty Start Date End Date Unassigned, Provider PCP - General 03/12/[address] [place] [address] documented as of this encounter
--- OUTSIDE RECORDS SUMMARY | 2022-05-18 03:27 | XMS_ITS | Encounter Summary ---
:1955 Author Organization [facility] Address [address] [place] [address] Care Team Providers Name Role Phone Unassigned, Provider Primary Care Provider Unavailable Encounter Details Date Type Department Care Team Description 07/21/2003 Correspondence None Unknown, Physici [facility] PRIMITIVO to Comprehensive [address] Managed Care [place], [place] [phone] (Wo rk) Social History Tobacco Use Types [...] this encounter Progress Notes Unknown, Physician - 07/21/2003 12:00 AM PROFILE SHAPER OPERATOR documented in this encounter Plan of Treatment Not on filedocumented as of this encounter Visit Diagnoses Not on filedocumented in this encounter Care Teams Mash Filter Press Operator Relationship Specialty Start Date End Date Unassigned, Provider PCP - General 03/12/03 [address] [place] [address] documented as of this encounter
--- OUTSIDE RECORDS SUMMARY | 2022-05-18 03:27 | XMS_ITS | Encounter Summary ---
:1955 Author Organization [facility] Address [address] [place] [address] Care Team Providers Name Role Phone Unassigned, Provider Primary Care Provider Unavailable Encounter Details Date Type Department Care Team Description 07/15/1989 PN Conversion Only HAIRSPRING ASSEMBLER [address] [place] [address] Social History Tobacco Use Types Packs/Day Years [...] on filedocumented in this encounter Care Teams Infrastructure Developer Relationship Specialty Start Date End Date Unassigned, Provider PCP - General 03/12/03 [address] [place] [address] documented as of this encounter
--- OUTSIDE RECORDS SUMMARY | 2022-05-18 03:27 | XMS_ITS | Encounter Summary ---
:1955 Author Organization [facility] Address [address] [place] [address] Care Team Providers Name Role Phone Unassigned, Provider Primary Care Provider Unavailable Encounter Details Date Type Department Care Team Description 10/29/2003 Notes/Orders [facility] Occupational and [address], Juan J Medina MD Environmental Medicine [address] [place], [place] [address] (Wo rk) Social History Tobacco Use Types [...] on filedocumented in this encounter Care Teams Internal Wholesaler Relationship Specialty Start Date End Date Unassigned, Provider PCP - General 03/12/03 [address] [place] [address] documented as of this encounter
--- OUTSIDE RECORDS SUMMARY | 2022-05-18 03:27 | XMS_ITS | Encounter Summary ---
:1955 Author Organization [facility] Address [address] [place] [address] Care Team Providers Name Role Phone Unassigned, Provider Primary Care Provider Unavailable Encounter Details Date Type Department Care Team Description 08/26/2003 Office Visit [facility] Margot Balderrama Physical Medicine [facility] [address] [place] [address] [address] [facility] [phone] [place] [address] Social History Tobacco Use Types Packs/Day Years [...] this encounter Progress Notes Margot Balderrama - 08/26/2003 12:00 AM DRAW TENDER TENDER documented in this encounter Plan of Treatment Not on filedocumented as of this encounter Visit Diagnoses Not on filedocumented in this encounter Care Teams Tankerman Relationship Specialty Start Date End Date Unassigned, Provider PCP - General 03/12/03 [address] [place] [address] documented as of this encounter
--- OUTSIDE RECORDS SUMMARY | 2022-05-18 03:27 | XMS_ITS | Encounter Summary ---
:1955 Author Organization [facility] Address [address] [place] [address] Care Team Providers Name Role Phone Unassigned, Provider Primary Care Provider Unavailable Encounter Details Date Type Department Care Team Description 12/23/2003 Office Visit [facility] Occupational and Sherry Winchester MD Environmental Medicine [...] Sherry Winchester - 12/23/2003 12:00 AM CDT CHIEF COMPLAINT: Low back pain, minimally improving. HISTORY OF PRESENT ILLNESS: A 48-year-old female who is being seen for a followup of back pain. She notes that the Workers Compensation insurance denied her low back pain, which was assessed with an exacerbation of chronic low back pain exacerbation as well. MRI did show L4-L5 compression of the ventral thecal sac. Two neurosurgeons, Dr. Winston Bauer and Dr. Conde, recommended surgery. Patient noted that she has pain approved for medical assistance and would like to reschedule the surgery with Dr. Winston Bauer. She made this appointment to obtain pain medications. She notes that she has [facility] from last month. She takes the Vicodin for breakthrough pain. Usually takes Motrin, Flexeril for pain. Denies ____. Denies bladder or bowel dysfunction. She notes that she develops increased pain with increased activity, however, she notes that she walks still, bikes, but gets an increased pain with radiation of the pain to the middle of her buttocks. OBJECTIVE: Alert and oriented x3. Healthy-appearing female who is in no distress. Examination of the back essentially the same. PLAN: 1. Chronic low back pain with L4-L5 disk herniation exacerbated by work. Plan: I have referred her back to Dr. Winston Bauer for scheduled surgery. 2. Vicodin 20 to be used p.r.n. 1 at night as needed. 3. Motrin 800 mg 1 tablet p.r.n. 4. Flexeril 1 tablet p.o. q.h.s. 5. The workability form for the [facility] was also filled, which said part-time job until the surgery. Limit lifting to 20 pounds. No bending. No prolonged sitting. 6. Follow with this clinic after the surgery or sooner if symptoms worsen. st1 Dictated: 12/23/2003 13:59:00 Sherry Winchester MD Transcribed: 12/28/2003 11:04:42 Doc #: [id number] cc: 1 Page 1 Patient Name: FIFI CALDERON Visit Date: 12/23/2003 OCCUPATIONAL/ENVIRONMENTAL CONFIDENTIAL MEDICAL RECORD [address] [address] Page 1 Patient: FIFI CALDERON Location:[facility] HPN: Date of : 1955 Visit Date: 12/23/2003 OCCUPATIONAL/ENVIRONMENTAL documented in this encounter Plan of Treatment Not on filedocumented as of this encounter Visit Diagnoses Not on filedocumented in this encounter Care Teams Casino Assistant Manager Relationship Specialty Start Date End Date Unassigned, Provider PCP - General 03/12/[address] [place] [address] documented as of this encounter
--- OUTSIDE RECORDS SUMMARY | 2022-05-18 03:27 | XMS_ITS | Encounter Summary ---
:1955 Author Organization [facility] Address [address] [place] [address] Care Team Providers Name Role Phone Unavailable Primary Care Provider Unavailable Encounter Details Date Type Department Care Team Description 05/25/2001 Office Visit [facility] LOW BACK PAIN(ACUTE)<6 WEEKS ; [address] [facility]. [facility] FROM OVEREXERTION [place], [place] [phone] Social History Tobacco Use Types Packs/Day Years [...] on file documented as of this encounter ED Notes Hughcorinne Sarthak - 05/25/2001 12:00 AM CSTREVISED Log Number: [id number] CHIEF COMPLAINT: Low back pain x 3 weeks. HISTORY OF PRESENT ILLNESS: This is a 46-year-old white female with complaints of low back pain that is 10 out of 10, sharp, and radiating down the iliac crest, down the inner thigh. The patient states the back pain began 3 weeks ago while picking up a basket of laundry. The pain went away after 1 to 2 days with the aid of Excedrin, but was not as severe as now. The patient stated approximately 1 week ago, the pain returned and has been intermittent. Approximately 6 hours prior to admission, the patient states the pain increased in severity. She states the pain is now 10 out of 10 and unbearable. She denies fevers, chills, headache, shortness of breath, chest pain, acute abdominal pain, dysuria, hematuria, or change in bowel or bladder habits. She denies trauma to the region. PAST MEDICAL HISTORY: 1. Angioplasty. 2. Hysterectomy. MEDICATIONS: 1. Ibuprofen. 2. Excedrin. ALLERGIES: CODEINE. SOCIAL HISTORY, FAMILY HISTORY, REVIEW OF SYSTEMS: Please refer to the emergency department shingle. PHYSICAL EXAMINATION: VITAL SIGNS: Blood pressure 184/108. Pulse 84. Respirations 20. Temperature 98.9. GENERAL: The patient is alert and oriented times 3, in mild distress complaining of left back-sided pain. HEENT: Pupils are equal round and reactive to light. Oropharynx and nasopharynx are within normal limits. CHEST: Clear to auscultation bilaterally, without CVA tenderness. No chest wall tenderness. HEART: Regular rate and rhythm. Without murmur, rub or gallop. ABDOMEN: Soft and non-tender. With no rebound or guarding. Active bowel sounds. BACK: There is pain to midline palpation in the lower lumbar sacral area. No step off. MUSCULOSKELETAL: There is no gross motor focal sensory deficits. There is pain with approximately 30 degrees passive straight leg raise, approximately 10 degrees active straight leg raise on the left. Normal straight leg raise exam on the right. Normal internal and external rotation of the right and left hips. NEUROLOGIC: Pettigrew Coma Scale 15. Motor and sensory within normal limits. EMERGENCY DEPARTMENT COURSE: The patient appears to be in some painful distress. An IV was started and the patient was given 4 mg of morphine and 5 mg of Valium initially; 4 mg more of morphine was given and does not resolve the patient's pain. The patient was given 30 mg of Toradol and was sent to x-ray for x-rays of her lumbar and sacral spine. At this time, the patient was signed out to Dr. Jose Sanchez for further treatment. Dictation by Sarthak Mccullough ends here. ADDENDUM: L-spine x-rays were obtained, which were negative for any abnormalities. She received additional Demerol and Valium for pain control. Following this, she was able to ambulate and get dressed. She had called her sister for a ride home. We have given her a prescription for Percocet and she was also given the number to the [facility] to call and inquire about financial services. She will need to follow up with a primary care physician for this back pain. DISPOSITION: She was discharged home in stable condition. [facility] Dictated: 05/25/2001 07:05:04 Sarthak Mccullough MD/Jose Sanchez MD Transcribed: 05/26/2001 16:56:08 Patient seen with Justyn Mcgrath MD Revised: 05/26/2001 17:34:00 /[id number] Doc #: [id number] cc: [facility], Primary 2 Page 2 Patient Name: FIFI CALDERON Visit Date: 05/25/2001 EMERGENCY MEDICINE NOTE CONFIDENTIAL MEDICAL RECORD [address] [address] Page 1 Patient: FIFI CALDERON Location: [facility] HPN: Date of : 1955 Visit Date: 05/25/2001 EMERGENCY MEDICINE NOTE SION SPECIALIST documented in this encounter Plan of Treatment Not on filedocumented as of this encounter Procedures Procedure Name Priority Date/Time Associated Diagnosis Comme nts L-SPINE AP/LAT/CONE Routine 05/25/2001 7:25 AM Re sults for this DOWN EMISSION SPECIALIST procedure are i n the results section. documented in this encounter Results L-SPINE AP/LAT/CONE DOWN (05/25/2001 7:25 AM EMISSION SPECIALIST) [facility] gist Method Time Signature Lspine LUMBAR SPINE 05/25/2001, 0725 HOURS: [facility] Ap,Lat,[place] INDICATIONS: Pain. RADIOL OGY n L5-S1 FINDINGS: Normal. Anatomical Region Laterality Modality Other Specimen (Source) Anatomical Collection Method Collection Time Re ceived Time Location / / Volume Laterality 05/25/2001 7:25 AM EMISSION SPECIALIST Justyn Mcgrath MD RAD GENERAL DIAGNOSTIC/RH documented in this encounter Visit Diagnoses Diagnosis Lumbago Overexertion and strenuous and repetitiv e movements or loads documented in this encounter
--- OUTSIDE RECORDS SUMMARY | 2022-05-18 03:27 | XMS_ITS | Encounter Summary ---
:1955 Author Organization [facility] Address [address] [place] [address] Care Team Providers Name Role Phone Unassigned, Provider Primary Care Provider Unavailable Encounter Details Date Type Department Care Team Description 10/20/2004 Correspondence None Unknown, Physici an [facility] PRIMITIV[place] to [place] [address] disabiltiy [place], [place] [phone] (Wo rk) Social History Tobacco Use Types [...] this encounter Progress Notes Unknown, Physician - 10/20/2004 12:00 AM CDT documented in this encounter Plan of Treatment Not on filedocumented as of this encounter Visit Diagnoses Not on filedocumented in this encounter Care Teams Gas Flow Regulator Relationship Specialty Start Date End Date Unassigned, Provider PCP - General 03/12/03 [address] [place] [address] documented as of this encounter
--- OUTSIDE RECORDS SUMMARY | 2022-05-18 03:27 | XMS_ITS | Encounter Summary ---
:1955 Author Organization [facility] Address [address] [place] [address] Care Team Providers Name Role Phone Unassigned, Provider Primary Care Provider Unavailable Encounter Details Date Type Department Care Team Description 05/25/2003 Office Visit [facility] Jay Peterson Physical Medicine [facility] [address] [place] [address] [place] [address] [place] [address] Social History Tobacco Use Types Packs/Day Years [...] documented as of this encounter Progress Notes Nithya Peterson - 05/25/2003 12:00 AM COMPOSITION STONE APPLICATOR DATE: 07-27-2003 OUTPATIENT PHYSICAL THERAPY - INITIAL NOTE - AQUATIC THERAPY SUBJECTIVE Diagnosis/Onset Date: 724.2 LBP, 719.45 pelvic pain, onset 02/18/03. Complaint/History: Pt has a restart of LBP with bilateral intermittent anterior thigh pain. Pt was initially seen at [facility] [place] on 05/25/03. Please refer to initial evaluation for previous follow up. On this date patient reports she feels better than previously & has fewer bad days. Spasms occur within the first 15 minutes of the day. Pt uses medications as necessary for hard times. At this time she uses Vicodin. Normally she uses 800 mg Motrin. She reports that on 08/17/03 she will be seeing a neurosurgeon if the injection is necessary. Currently reports pinching sensation localized to the right, right hip feels as if she has menstrual cramp feeling & complains of heat on the anterior thigh & bilatera knees. Today reports pain on a scale of 1/10. General Med Hx: Please refer to [facility] & previous initial note. Patient Goals: Decrease pain. Return to work 08/04/03. OBJECTIVE Posture/Observations: 48 y/o moderately overweight female with continuing exacerbation of LBP due to work injury. Continues to demonstrate level L3-4 hypomobility. Stiffness through thoracic & lumbar spine as demonstrated with decreased trunk flexion (touch fingers to knees) side bending bilateral pinch sensation L3-4 lumbar spine. MMT overall 5/5 with exception to right hip flexion ~ 4 to 4+/5. ASSESSMENT Problem List: 1. Continued localized pain L3-4 with referral to L3-4 bilaterally (R) > (L). 2. Decreased ROM of trunk secondary to muscle guarding with flexion & bilateral side bending. 3. Decreased functional activity secondary to insidious onset of pain & stiffness & deconditioned status. 4. Decreased work activities. 5. Decreased trunk stabilization secondary to pain & overall deconditioned. PLAN Aquatic PT for: Strength, flexibility, aerobics & functional activity training/recreation in the pool with weights & lifting. Frequency: 2x/week. Duration: 4-6 visits. Thank you for this referral. ld Dictated: 07/27/2003 13:25:38 Nithya Peterson PT, License [id number] Transcribed: 07/29/2003 10:47:31 Doc #: [id number] cc: Sherry Winchester MD (Requests no copies) DENICE KISNEY FAX This document was electronically signed by Nithya Peterson PT, License [id number] on 07/29/2003 14:50:15. Patient: FIFI SHEPARD Page 1 Date: PM&R THERAPY CONFIDENTIAL MEDICAL RECORD [address] [address] Page 1 Patient: FIFI SHEPARD Location: [facility] HPN: Date of : 1955 PM&R THERAPY OSITION STONE APPLICATOR documented in this encounter Plan of Treatment Not on filedocumented as of this encounter Visit Diagnoses Not on filedocumented in this encounter Care Teams Order Editor Relationship Specialty Start Date End Date Unassigned, Provider PCP - General 03/12/[address] [place] [address] documented as of this encounter
--- OUTSIDE RECORDS SUMMARY | 2022-05-18 03:27 | XMS_ITS | Encounter Summary ---
:1955 Author Organization [facility] Address [address] [place] [address] Care Team Providers Name Role Phone Unassigned, Provider Primary Care Provider Unavailable Encounter Details Date Type Department Care Team Description 01/11/2004 Notes/Orders [facility] Occupational and Kwasi, Radha Blanc, Environmental Medicine INDUCTION MACHINE SETTER Social History Tobacco Use Types Packs/Day Years [...] on filedocumented in this encounter Care Teams Houseman Relationship Specialty Start Date End Date Unassigned, Provider PCP - General 03/12/03 [address] [place] [address] documented as of this encounter
--- OUTSIDE RECORDS SUMMARY | 2022-05-18 03:27 | XMS_ITS | Encounter Summary ---
:1955 Author Organization [employer] Address [address] [place] [address] Care Team Providers Name Role Phone Unassigned, Provider Primary Care Provider Unavailable Encounter Details Date Type Department Care Team Description 07/20/2003 Office Visit [facility] Occupational Sherry Winchester [...] this encounter Progress Notes Sherry Winchester - 07/20/2003 12:00 AM SUBSTATION OPERATOR TRANSFORMING CHIEF COMPLAINT: Exacerbation of chronic low back pain, minimal to some improvement. WORK-RELATED: Yes. EMPLOYER: [employer]. HISTORY OF PRESENT ILLNESS: Ydboe-[id number]-[id number] female presents to the clinic for evaluation of chronic low back pain. The patient has been referred to pool therapy. Noted that after 2 sessions her pool therapy was terminated because of insurance problems. The [facility] is here today and pool therapy will be reinstated. MRI also does show some abnormality. The patient was referred to Dr. Tovar for a 2nd opinion. Of note, she did not get an appointment. We will re-refer the patient to Dr. Tovar. Symptoms are about the same, minimal improvement. Has no new symptoms. Please read previous dictations for details of the injury. Denies bladder and bowel dysfunction. Has been taking Vicodin for breakthrough pain and also Motrin p.r.n. The patient is working with restrictions of no repetitive bending of her trunk. OBJECTIVE: Alert and oriented x 3. Healthy-appearing female who is in no acute distress. Examination of the back: Normal back lordosis. Limited range of motion; specifically, flexion is not limited, some pain with extension. DTRs 2+ and symmetric at the knees, ankles 1+ and symmetric. Sensation and vascular are intact. ASSESSMENT: Exacerbation of chronic low back pain aggravated by work. PLAN: The patient will be re-referred again to Dr. Tovar for a 2nd opinion regarding surgery or an epidural injection and pool therapy. The [facility] was present at this visit. It was discussed with the [facility] that the restrictions will remain the same. Follow up in this clinic after Dr. Tovar's evaluation. Ten more Vicodin and more Motrin have been prescribed for the patient. The patient was also encouraged that she should specifically do stretching and strengthening exercises at home. hes Dictated: 07/20/2003 11:30:32 Sherry Winchester MD Transcribed: 07/21/2003 12:34:01 Doc #: [id number] cc: 1 Page 2 Patient Name: FIFI CALDERON Visit Date: 07/20/2003 OCCUPATIONAL/ENVIRONMENTAL CONFIDENTIAL MEDICAL RECORD [address] [address] Page 1 Patient: FIFI CALDERON Location:[place] HPN: Date of : 1955 Visit Date: 07/20/2003 OCCUPATIONAL/ENVIRONMENTAL TATION OPERATOR TRANSFORMING documented in this encounter Plan of Treatment Not on filedocumented as of this encounter Visit Diagnoses Diagnosis Lumbago documented in this encounter Care Teams Lead Pressman [employer] Relationship Specialty Start Date End Date Unassigned, Provider PCP - General 03/12/[address] [place] [address] documented as of this encounter
--- OUTSIDE RECORDS SUMMARY | 2022-05-18 03:27 | XMS_ITS | Encounter Summary ---
:1955 Author Organization [employer] Address [address] [place] [address] Care Team Providers Name Role Phone Unassigned, Provider Primary Care Provider Unavailable Encounter Details Date Type Department Care Team Description 03/17/2003 Office Visit [facility] Occupational Sherry Winchester [...] this encounter Progress Notes Sherry Winchester - 03/17/2003 12:00 AM CDT CHIEF COMPLAINT: Exacerbation of low back pain. EMPLOYER: [employer]. 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 CHIEF COMPLAINT: Exacerbation of chronic back pain with right leg radicular symptoms. HISTORY OF PRESENT ILLNESS: Anali-swzv-ivn female presents to the occupational medicine clinic for exacerbation of low back pain. She notes that on 02-15-03, she was in her usual state of health at work, picking a tub of water when she felt a sharp pain in her low back area radiating to the right leg. She denies any bladder or bowel dysfunction. She notes that she had a bad injury two years ago at home while she was picking a basket of laundry and was in the emergency room but had an intermittent radiation of the pain to the right leg and intermittent numbness. At this injury at work her low back pain worsened but the patient had intermittent numbness from the home injury. She notes that she was evaluated in the [facility]. She was assessed with a low back pain and has been on NSAID and Flexeril. She notes that she is functioning at 70% from the baseline but notes that her pain increases with sustained bending at work. She notes that she can lift more. She works with a 10-pound restriction at work but notes that she can lift up to 20 pounds. She also notes that she is performing back exercises. She would like to decline physical therapy. She denies any bladder and bowel dysfunction. PAST MEDICAL HISTORY: None. FAMILY HISTORY: Diabetes. SURGERIES: Angioplasty and hysterectomy. SOCIAL HISTORY: Single with three children, smokes a half a pack of cigarettes for the last 25 years. OBJECTIVE: Alert and oriented times three. Vitals are stable. Blood pressure 130/98. Pulse 84. Weight 170. Examination of the back - normal back lordosis. Range of motion is limited. Flexion now about 50 degrees, extension is normal. Straight-leg raising is normal. Deep tendon reflexes are 2+ and symmetric on the patella, 1+ and symmetric on the ankle, bilateral toe extension are within normal limits. Muscle strength is 5/5. ASSESSMENT: Exacerbation of chronic low back pain with right leg radicular symptoms improving. PLAN: Job restrictions will be raised. Limit lifting and carrying to 20 pounds, no sustained bending of the trunk. Continue the home exercises. Follow up in this clinic in three weeks and at that time it is anticipated that she will go back to work without any restrictions and will reach MMI. The patient was understanding and agrees with the treatment plan. st1 Dictated: 03/17/2003 09:14:00 Sherry Winchester MD Transcribed: 03/23/2003 15:54:24 Doc #: [id number] cc: Sherry Winchester MD, Attending Physician This document was electronically signed by Sherry Winchester MD on 04/22/2003 16:51:09. 1 Page 2 Patient Name: FIFI CALDERON Visit Date: 03/17/2003 OCCUPATIONAL/ENVIRONMENTAL CONFIDENTIAL MEDICAL RECORD [address] [address] Page 1 Patient: FIFI CALDERON Location:[place] HPN: Date of : 1955 Visit Date: 03/17/2003 OCCUPATIONAL/ENVIRONMENTAL Sherry Winchester - 03/17/2003 12:00 AM CDT documented in this encounter Plan of Treatment Not on filedocumented as of this encounter Visit Diagnoses Diagnosis Lumbago documented in this encounter Care Teams Reconciliation Machine Operator Relationship Specialty Start Date End Date Unassigned, Provider PCP - General 03/12/[address] [place] [id number] documented as of this encounter
--- OUTSIDE RECORDS SUMMARY | 2022-05-18 03:27 | XMS_ITS | Encounter Summary ---
:1955 Author Organization [facility] Address [address] [place] [address] Care Team Providers Name Role Phone Unassigned, Provider Primary Care Provider Unavailable Encounter Details Date Type Department Care Team Description 11/29/2003 Office Visit [facility] Occupational Sherry Winchester [...] this encounter Progress Notes Sherry Winchester - 11/29/2003 12:00 AM CDT DATE: 11/29/2003 CHIEF COMPLAINT: Chronic low back pain with L4-L5 disk herniation, exacerbated by work. HISTORY OF PRESENT ILLNESS: This is a 48-year-old female who is being seen, who walked in for a Vicodin refill. The patient was in this clinic on 11/16/2003 and had been given 10 Vicodin. She notes that this morning she completed a 2 mile walk and at the end of the walk she developed increased pain. She notes that the pain radiates to the middle of her buttocks. Denies bladder or bowel dysfunction. Please refer to previous dictation for elaboration of injury. MRI did show L4-L5 with compression of ventral thecal sac. Dr. Cleveland recommended surgery. She had a second opinion by Dr. Winston Bauer who also recommended surgery. According to the patient, Work Comp is denying her claim. She is in litigation and has a case open with an appointment to see her brownfield redevelopment specialist tomorrow. No bladder or bowel dysfunction. She manages the pain with Motrin, but notes that her pain had not improved with Motrin today. OBJECTIVE: Alert and oriented times 3. Healthy-appearing female who is in no acute distress. Physical examination was deferred. ASSESSMENT: Chronic low back pain with L4-L5 disk herniation, exacerbated by work. PLAN: Vicodin, #20 tablets, were given to the patient. She was told to use one tablet every 6 hours as needed. The patient will make an appointment with Dr. Cleveland again. I again counseled the patient about the risks of narcotic use and had advised the patient to use Motrin and Flexeril, and use the Vicodin for breakthrough pain. The patient will follow up in 3 weeks, or sooner, if symptoms worsen. st1 Dictated: 11/29/2003 15:59:00 Sherry Winchester MD Transcribed: 12/01/2003 15:22:03 Doc #: [id number] cc: Sherry Winchester MD, Primary Physician 1 Page 1 Patient Name: FIFI CALDERON Visit Date: 11/29/2003 OCCUPATIONAL/ENVIRONMENTAL CONFIDENTIAL MEDICAL RECORD [address] [address] Page 1 Patient: FIFI CALDERON Location[place] HPN: Date of : 1955 Visit Date: 11/29/2003 OCCUPATIONAL/ENVIRONMENTAL Sherry Winchester - 11/29/2003 12:00 AM CDT Sherry Winchester - 11/29/2003 12:00 AM CDT documented in this encounter Plan of Treatment Not on filedocumented as of this encounter Visit Diagnoses Diagnosis Lumbago documented in this encounter Care Teams Laborer Livestock Relationship Specialty Start Date End Date Unassigned, Provider PCP - General 03/12/[address] [place] [id number] documented as of this encounter
--- OUTSIDE RECORDS SUMMARY | 2022-05-18 03:27 | XMS_ITS | Encounter Summary ---
:1955 Author [facility] Address [address] [place] [address] Care Team Providers Name Role Phone Unassigned, Provider Primary Care Provider Unavailable Encounter Details Date Type Department Care Team Description 07/06/2003 Correspondence None Unknown, Physici an [facility] PRIMITIV[facility] TO DEPT. OF [address] [place] [address] (Wo rk) Social History Tobacco Use Types [...] this encounter Progress Notes Unknown, Physician - 07/06/2003 12:00 AM TRAFFIC COUNTER documented in this encounter Plan of Treatment Not on filedocumented as of this encounter Visit Diagnoses Not on filedocumented in this encounter Care Teams Cook Pressure Relationship Specialty Start Date End Date Unassigned, Provider PCP - General 03/12/03 [address] [place] [address] documented as of this encounter
--- OUTSIDE RECORDS SUMMARY | 2022-05-18 03:27 | XMS_ITS | Encounter Summary ---
:1955 Author Organization [facility] Address [address] [place] [address] Care Team Providers Name Role Phone Unassigned, Provider Primary Care Provider Unavailable Encounter Details Date Type Department Care Team Description 08/10/2003 Office Visit [facility] Margot Balderrama Physical Medicine [facility] [address] [place] [id number] [place] [address] [place] [address] Social History Tobacco Use Types Packs/Day Years [...] this encounter Progress Notes Margot Balderrama - 08/10/2003 12:00 AM UNLEAVENED DOUGH MIXER DATE: 08-26-2003 OUTPATIENT PHYSICAL THERAPY - PROGRESS SUMMARY - AQUATIC THERAPY SUBJECTIVE: Pt attended three 1:1 sessions & 3 independent monitored sessions since resuming aquatic therapy on 07/27/03. Pt reports consistent benefits with aquatic exercises & perceives increased strength & temporary decreased pain. 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 OBJECTIVE: Body mechanics were reviewed for lifting & abdominal bracing was emphasized with activities related to moving. Pt reports has seen physician & surgery has been recommended, which physician recommends performing as soon as possible. Pt plans to have this surgery upon completion of move. TREATMENT: Aquatic PT consists of stretching for trunk & LE's, abdominal bracing education & incorporation into aquatic exercises. ADL's, series of UE exercises to increase trunk stabilization, hip extensor strengthening, deep water aerobics times maximal tolerance of 5 minutes thus far. Pt also performs vertical dangling in deep end at completion of treatment for gentle traction. ASSESSMENT: Pt experiences temporary relief with aquatic PT but has not experienced sustained relief. Recent activities of moving have limited progress. GOALS: One goal met thus far. PLAN: Pt to continue on an independent basis x2 weeks until final 1:1 visit. lcd Dictated: 08/26/2003 13:50:36 Margot Balderrama PT#[id number] [phone] Transcribed: 09/01/2003 11:47:17 Doc #: [id number] cc: Sherry Winchester MD (Requests no copies) This document was electronically signed by Margot Balderrama PT#[id number] [phone] on 09/07/2003 18:13:43. Patient: FIFI CALDERON Page 1 Date: [facility] THERAPY CONFIDENTIAL MEDICAL RECORD [address] [address] Page 1 Patient: FIFI CALDERON Location: [place] HPN: Date of : 1955 PM&R THERAPY AVENED DOUGH MIXER documented in this encounter Plan of Treatment Not on filedocumented as of this encounter Visit Diagnoses Not on filedocumented in this encounter Care Teams Carding Machine Feeder Relationship Specialty Start Date End Date Unassigned, Provider PCP - General 03/12/[address] [place] [id number] documented as of this encounter
--- OUTSIDE RECORDS SUMMARY | 2022-05-18 03:27 | XMS_ITS | Encounter Summary ---
:1955 Author Organization [facility] Address [address] [place] [address] Care Team Providers Name Role Phone Unassigned, Provider Primary Care Provider Unavailable Encounter Details Date Type Department Care Team Description 07/20/2003 Office Visit [facility] Occupational and Sherry [...] Notes Sherry Winchester - 07/20/2003 12:00 AM PRINT LINE TAILER T LINE TAILER documented in this encounter Plan of Treatment Not on filedocumented as of this encounter Visit Diagnoses Not on filedocumented in this encounter Care Teams Pants Presser Automatic Relationship Specialty Start Date End Date Unassigned, Provider PCP - General 03/12/03 [address] [place] [address] documented as of this encounter
--- OUTSIDE RECORDS SUMMARY | 2022-05-18 03:27 | XMS_ITS | Encounter Summary ---
:1955 Author Organization [facility] Address [address] [place] [address] Care Team Providers Name Role Phone Unassigned, Provider Primary Care Provider Unavailable Encounter Details Date Type Department Care Team Description 06/08/2003 Correspondence External to Unknown, [facility] [address] [place], [place] [address] Social History Tobacco Use Types Packs/Day Years [...] this encounter Progress Notes Unknown, Physician - 06/08/2003 12:00 AM BOTTOM SANDER documented in this encounter Plan of Treatment Not on filedocumented as of this encounter Visit Diagnoses Not on filedocumented in this encounter Care Teams Automatic Packer Operator Relationship Specialty Start Date End Date Unassigned, Provider PCP - General 03/12/03 [address] [place] [address] documented as of this encounter
--- OUTSIDE RECORDS SUMMARY | 2022-05-18 03:27 | XMS_ITS | Encounter Summary ---
:1955 Author [facility] Address [address] [place] [address] Care Team Providers Name Role Phone Unassigned, Provider Primary Care Provider Unavailable Reason for Visit Reason Onset Date Comments Refill 01/11/2004 Encounter Details Date Type Department Care Team Description 01/11/2004 Refill [facility] Occupational and Sherry Winchester MD Refill Environmental Medicine Social History Tobacco Use Types [...] on file documented as of this encounter Nursing Notes 01/11/2004 11:59 PM CDT >> SHERRY Carrera Jan 11, 2004 11:50 AM Encounter initiated. documented in this encounter Plan of Treatment Not on filedocumented as of this encounter Visit Diagnoses Not on filedocumented in this encounter Care Teams Dope Pourer Relationship Specialty Start Date End Date Unassigned, Provider PCP - General 03/12/03 [address] [place] [address] documented as of this encounter
--- OUTSIDE RECORDS SUMMARY | 2022-05-18 03:27 | XMS_ITS | Encounter Summary ---
:1955 Author Organization [facility] Address [address] [place] [address] Care Team Providers Name Role Phone Unassigned, Provider Primary Care Provider Unavailable Encounter Details Date Type Department Care Team Description 06/08/2003 Notes/Orders [facility] Occupational and Kwasi, Radha Blanc, Environmental Medicine BLEACHER KRAFT PULP Social History Tobacco Use Types Packs/Day Years [...] documented as of this encounter Progress Notes 06/08/2003 11:59 PM LABORATORY CUREMAN Per Dr. Winchester a refill was called into the 2nd floor pharmacy. it was vicodin 10 tabs with no refills, and motrin 800mg with no refills. 06/08/2003 Sasha Prieto LPN documented in this encounter Plan of Treatment Not on filedocumented as of this encounter Visit Diagnoses Not on filedocumented in this encounter Care Teams Manager Psychology Relationship Specialty Start Date End Date Unassigned, Provider PCP - General 03/12/03 [address] [place] [address] documented as of this encounter
--- OUTSIDE RECORDS SUMMARY | 2022-05-18 03:27 | XMS_ITS | Encounter Summary ---
:1955 Author Organization [facility] Address [address] [place] [address] Care Team Providers Name Role Phone Unassigned, Provider Primary Care Provider Unavailable Encounter Details Date Type Department Care Team Description 08/13/2003 Correspondence None Unknown, Physici an [facility]PREHENSIVE [address] MANAGED CARE [place], [place] [id number] (Wo rk) Social History Tobacco Use Types [...] this encounter Progress Notes Unknown, Physician - 08/13/2003 12:00 AM SCOWMAN documented in this encounter Plan of Treatment Not on filedocumented as of this encounter Visit Diagnoses Not on filedocumented in this encounter Care Teams Picker And Packer Relationship Specialty Start Date End Date Unassigned, Provider PCP - General 03/12/03 [address] [place] [address] documented as of this encounter
--- OUTSIDE RECORDS SUMMARY | 2022-05-18 03:27 | XMS_ITS | Encounter Summary ---
:1955 Author Organization [facility] Address [address] [place] [address] Care Team Providers Name Role Phone Unassigned, Provider Primary Care Provider Unavailable Encounter Details Date Type Department Care Team Description 08/17/2003 Office Visit [facility] Albert Tovar, [facility] Neurosurgery [address] [place] [address] CLINIC [phone] [place] [phone] (Wo rk) Social History Tobacco Use Types [...] Sign Reading Time Taken Comments Blood Pressure 143/81 08/17/2003 2:45 PM ASSET COORDINATOR Pulse 92 08/17/2003 2:45 PM ASSET COORDINATOR Temperature 36.8 ??C (98.3 ??F) 08/17/2003 2:45 PM ASSET COORDINATOR Respiratory Rate - - Oxygen Saturation - - Inhaled Oxygen Concentration - - Weight - - Height - - Body Mass Index - - documented in this encounter Progress Notes 08/17/2003 2:45 PM ASSET COORDINATOR Fifi Calderon is here today regarding 2nd opinion chronic back pain. Post Op visit?: NO. Pain assessment: 3 Location: lower back , Frequency: Other today, Type: spasms, Duration: intermitten. Recent Tests?: Yes, What test? mri L-spine. Date of test 06/08/03, location of test regions. Injury?: Yes, date 02/15/03, [employer], patient must have work slip. Patient's pcp is Provider Unassigned, Physician. Referring provider is nallely winchester. BP 143/81 Pulse 92 Temp 98.3 Current outpatient prescriptions: IBUPROFEN 800MG ORAL TABS,1 tablet as needed for pain,Disp: 30,Rfl: 0 FLEXERIL 10MG ORAL TABS,1 tab po qhs,Disp: 10,Rfl: 0 Jaimee Lerner MA, 2:55 PM, 08/17/2003 Will call when wants surgery. At this time has other things that need to be completed first. [facility]17/2003 12:00 AM ASSET COORDINATOR This patient is seen in consultation at the request of Dr Winchester. Seen in consultation to evaluate low back pain. HISTORY OF PRESENT ILLNESS: This is a 48-year-old female who states that back on 02/15/2003, while at work, she was lifting a heavy bin of water that unbeknownst to her also contained a bunch of stainless steel plates in the bottom of it. At that time, she felt a crunching-like sensation in her lower back and ever since then has developed low back pain that has progressed into her buttocks bilaterally and wraps around to her anterior thighs. If she stands real still, she is able to get some relief, or if she lies down with a pillow under her leg, she also gets relief that way. Walking is not really much of a problem for her, but bending over, sitting for any period of time, are all quite problematic for her. The patient's pain pattern is as stated above. She does not notice any motor weakness, but she does seem to fatigue easily, having what she feels kind of worn down with the amount of pain that she has been in. She has been to see her doctor on a number of occasions; they have her on some medication. She currently is getting some pool therapy, as well. None of that has seemed to help her much. She feels that she is in a better place now than she was months ago, but currently is not getting any better any more. REVIEW OF SYSTEMS: The patient has no difficulty with bowel or bladder control. Her weight has been stable and a complete review of systems was undertaken, a copy of which is on the chart, but it was reviewed with the patient. Essentially, it is negative, except she does have some night sweats that she attributes to hormone changes. She only gets them maybe once to twice a week. She also has some difficulty and inability to concentrate or focus. Says she has had this ever since she had a head bump, in her words, about 15 years ago. Says that even things like trying to do her taxes every year is very frustrating for her. She can't concentrate or focus well enough to complete them. PAST MEDICAL HISTORY: Is significant for hypercholesterolemia, for which she is not treated. She also had a coronary angioplasty at age 35. 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 She also underwent a hysterectomy in 1993. CURRENT MEDICATIONS: Ibuprofen; Vicodin and Flexeril. ALLERGIES: SHE IS NOT ALLERGIC TO ANY MEDICATIONS. PERSONAL AND SOCIAL HISTORY: She is single, lives with a partner. She has 3 children. They are all adults. She has smoked 1/2 pack a day for the last 20 years, occasionally drinks. FAMILY HISTORY: Is significant in that both parents had coronary artery disease. She is the 10th child of 13 children. PHYSICAL EXAMINATION: She is well-developed, well-nourished. Her blood pressure is 143/81, temperature is 98.3. Her pulse is 92 and regular. She is alert, cooperative, oriented x 3, in no acute distress. Her speech is clear, coherent. Normal content, context, and is fluent. Her mood and affect are appropriate and even and it would appear that grossly, her short-term memory is fairly intact as of today. Very pleasant woman to talk with. States that she is 5'2 tall. Weighs 163 pounds and that she is right-handed. Her skin is warm, dry, well-perfused. No obvious trophic changes. HEENT: Is normocephalic and atraumatic. Pupils are equal, round, and reactive to light; both direct and consensually. Extra-ocular movements are intact. There is no nystagmus. Her gaze is conjugate. Sinuses are nontender. Mouth and nose are clear. External auditory meatuses are clear. Neck: Enjoys good range of motion, there are no obvious masses. The trachea is midline. Her back is essentially nontender to palpation. There is no spasm or mass. The pelvis is grossly stable to manipulation. Abdomen is benign. Extremities: There is no obvious deformity. Muscle bulk and tone are appropriate and symmetric for both upper and lower extremities. Joints enjoy good range of motion. There is no peripheral edema. Peripheral pulses appear to be intact. Straight leg lifting is negative bilaterally. NEUROLOGIC EXAM: The cranial nerves II-XII are intact; symmetric. Motor is 5/5 and symmetric for all motor groups, both upper and lower extremities. Her deep tendon reflexes are normal, both upper and lower extremities. There is no [place]ardo. There is no clonus. No Babinskis. Cerebellar function, station, keeping both sitting and standing are quiet. Her gait, heel-toe, tandem are all normal. Romberg is negative. Fine motor control is also intact and symmetric in both upper and lower extremities. Sensory is subjectively intact and symmetric. There is no pronator drift and position sense is intact. IMAGING: The patient underwent an MRI, date is 06/08/2003. The film itself is reviewed at this time which shows a rather significant, broad disk herniation at L4-5. It compresses the ventral thecal sac anteriorly. The foramina also appear to be moderately smaller bilaterally at the L4-5 level. IMPRESSION: The patient clinically demonstrates bilateral L4 pain distribution. Anatomically, the MRI also supports this finding, with a rather large disk herniation at the L4-5 level; sufficiently large enough, where the lateral edges of the herniation do encroach on the lateral recesses. The patient's pain has been here since February, which is nearly 6 months in duration now, without much relief. It would be our impression that this patient would make a good surgical candidate, based on the fact that she does have intractable pain in a distribution pattern, consistent with the anatomical findings. Did discuss with the patient the possibility of surgical intervention and briefly discussed what the most likely surgical procedure would be, and its subsequent followup and recovery, and what we would expect for recovery period. The patient indicated her desire to think about it, for the next 1 to 2 week and get back to us. The patient's initial caution at this time is predicated on the fact that she is supposed to be moving in 10 days from now, and would like to postpone any final decision until after her move. Did give her contact information, to get back with us; but to let us know sooner if there is any difficulty or condition changes. cfp Dictated: 08/17/2003 17:18:53 Albert Tovar MD Transcribed: 08/26/2003 08:24:56 Doc #: [id number] cc: Nallely Winchester MD, Primary and Referring Occ Med 1 Page 2 Patient Name: FIFI CALDERON Visit Date: 08/17/2003 NEUROSURGERY CONFIDENTIAL MEDICAL RECORD [address] [phone] Page 1 Patient: FIFI CALDERON Location: SURG HPN: Date of : 1955 Visit Date: 08/17/2003 NEUROSURGERY T COORDINATOR documented in this encounter Plan of Treatment Not on filedocumented as of this encounter Visit Diagnoses Not on filedocumented in this encounter Care Teams Model Maker Scale Relationship Specialty Start Date End Date Unassigned, Provider PCP - General 03/12/[address] [place] [address] documented as of this encounter
--- OUTSIDE RECORDS SUMMARY | 2022-05-18 03:27 | XMS_ITS | Encounter Summary ---
:1955 Author Organization [facility] Address [address] [place] [address] Care Team Providers Name Role Phone Unassigned, Provider Primary Care Provider Unavailable Encounter Details Date Type Department Care Team Description 11/22/2004 Correspondence None Unknown, Physici an [facility] [address] [place] [address] (Wo rk) Social History Tobacco [...] this encounter Progress Notes Unknown, Physician - 11/22/2004 12:00 AM CDT documented in this encounter Plan of Treatment Not on filedocumented as of this encounter Visit Diagnoses Not on filedocumented in this encounter Care Teams Chemical Treatment Plant Technician Relationship Specialty Start Date End Date Unassigned, Provider PCP - General 03/12/03 [address] [place] [address] documented as of this encounter
--- OUTSIDE RECORDS SUMMARY | 2022-05-18 03:27 | XMS_ITS | Encounter Summary ---
:1955 Author Organization [facility] Address [address] [place] [address] Care Team Providers Name Role Phone Unassigned, Provider Primary Care Provider Unavailable Encounter Details Date Type Department Care Team Description 11/18/2003 Correspondence None Unknown, Physici an [facility] [address] [place], [place] [phone] (Wo rk) Social History Tobacco Use Types [...] this encounter Progress Notes Unknown, Physician - 11/18/2003 12:00 AM CDT documented in this encounter Plan of Treatment Not on filedocumented as of this encounter Visit Diagnoses Not on filedocumented in this encounter Care Teams Escrow Clerk Relationship Specialty Start Date End Date Unassigned, Provider PCP - General 03/12/03 [address] [place] [address] documented as of this encounter
--- OUTSIDE RECORDS SUMMARY | 2022-05-18 03:27 | XMS_ITS | Encounter Summary ---
:1955 Author Organization [facility] Address [address] [place] [address] Care Team Providers Name Role Phone Unassigned, Provider Primary Care Provider Unavailable Encounter Details Date Type Department Care Team Description 11/01/2003 Telephone [facility] and Malka kapoor, Juan J Medina MD Environmental Medicine [address] [place], [place] [address] (Wo rk) Social History [...] documented as of this encounter Nursing Notes Juan J Swain - 10/29/2003 3:48 PM CDT DATE OF SERVICE: 10/29/2003 DATE OF : 1955 HISTORY: This is a patient with low back pain symptoms with a radicular component who has been seen here in the clinic by Dr. Winchester and has seen Dr. Tovar through neurosurgery. She is scheduled to have a back surgery in the future that apparently was held up due to some insurance issues. She has consulted us today on having refills of her medications, and I am asked to do this in Dr. Winchester's absence. She wants refills on her ibuprofen, Flexeril and her Vicodin for severe pain in the back. I did review her chart and I am able to refill these medications for her. I put in refills through the [facility] second floor pharmacy for: 1. Vicodin 5/500 mg a total of 20 tabs with no refill to be used one tab p.o. q.6-8h. as needed for severe back pain. 2. Flexeril 10 mg to be used p.o. q.h.s. p.r.n. low back spasm, 20 and one refill 3. Ibuprofen 800 mg to be used one tablet p.o. q.6-8h. as needed for mild to moderate low back pain, 40 prescribed with one refill. The patient needs a follow-up with Dr. Winchester and/or Dr. Tovar as scheduled. Review of the chart, taking the request and entering data into the computer, total 15 minutes over the lunch hour for these pharmaceutical refills. strd Dictated: 10/29/2003 15:48:02 Juan J Swain MD Transcribed: 11/01/2003 13:16:37 Doc #: [id number] cc: This document was electronically signed by Juan J Swain MD on 11/02/2003 12:24:05. Page 1 Patient Name: FIFI CALDERON Encounter #: Visit Date: PHONE MESSAGE CONFIDENTIAL MEDICAL RECORD [address] [address] Page Patient: FIFI CALDERON Location: HPN: Date of : 1955 Visit Date: PHONE MESSAGE documented in this encounter Plan of Treatment Not on filedocumented as of this encounter Visit Diagnoses Not on filedocumented in this encounter Care Teams Customer Experience Analyst Relationship Specialty Start Date End Date Unassigned, Provider PCP - General 03/12/[address] [place] [address] documented as of this encounter
--- OUTSIDE RECORDS SUMMARY | 2022-05-18 03:27 | XMS_ITS | Encounter Summary ---
:1955 [facility] Address [address] [place] [address] Care Team Providers Name Role Phone Unavailable Primary Care Provider Unavailable Encounter Details Date Type Department Care Team Description 06/24/1999 Office Visit [facility] SPRAIN/STRAIN OF ANKLE NOS; [address] [facility]. FALL ON LEVEL-TRIPPING [place], [place] [id number] Social History Tobacco Use Types Packs/Day Years [...] as of this encounter Visit Diagnoses Diagnosis Sprain of ankle, unspecified site Fall on level-tripping Accidental fall on same level from slipp ing, tripping, or stumbling documented in this encounter
--- OUTSIDE RECORDS SUMMARY | 2022-05-18 03:27 | XMS_ITS | Encounter Summary ---
:1955 Author Organization [facility] Address [address] [place] [address] Care Team Providers Name Role Phone Unassigned, Provider Primary Care Provider Unavailable Encounter Details Date Type Department Care Team Description 09/07/2003 Scanned History None Unknown, Physici an [facility] [address] [place] [address] (Wo rk) Social History Tobacco [...] this encounter Progress Notes Unknown, Physician - 09/07/2003 12:00 AM NASCAR RACER documented in this encounter Plan of Treatment Not on filedocumented as of this encounter Visit Diagnoses Not on filedocumented in this encounter Care Teams Community Living Instructor Relationship Specialty Start Date End Date Unassigned, Provider PCP - General 03/12/03 [address] [place] [address] documented as of this encounter
--- NOTE | 2022-05-18 03:40 | ED.NURSE ---
EMS update that pt did fall and hit forehead, denied LOC. pt unwilling to talk about this. MD Tang updated, no new orders.
[2022-05-18 03:42] LABS: Basophils Percent Auto 1.2 % (0.0-3.0); Eosinophils Absolute Auto 0.36 K/uL (0.00-0.50); Eosinophils Percent Auto 4.3 % (0.0-7.0); Hematocrit 36.4 % (33.0-51.0); Hemoglobin* 12.1 gm/dL (12.0-16.0); Immature Granulocytes Abs Auto 0.01 K/uL (0.00-0.30); Immature Granulocytes Pct Auto 0.1 %; Mean Corpuscular HGB Conc 33 gm/dL (32-36); Mean Corpuscular Hemoglobin 30 pg (26-34); Mean Corpuscular Volume 89 fL (80-100); Monocytes Percent Auto 6.3 % (0.0-11.0); Neutrophils Absolute Auto 3.57 K/uL (1.7-7.0); Neutrophils Percent Auto 43.1 % (42.0-72.0); Platelet Count* 401 K/uL (140-440); RDW Coefficient of Variation % 14.4 % (11.5-15.5); Red Blood Count 4.07 m/uL (4.00-5.20); White Blood Count* 8.29 K/uL (4.50-11.00)
[2022-05-18] MEDS: diphenhydrAMINE 50 MG/ML inj IM (03:56)
[2022-05-18] MEDS: HALOPERIDOL 5 MG/ML INJ IM (03:57)
[2022-05-18] MEDS: LORazepam 2 MG/ML inj IM (03:57)
--- OUTSIDE RECORDS SUMMARY | 2022-05-18 03:58 | XMS_ITS | Clinical Summary ---
:1955 Author Organization [facility] [place] [address] Care Team Providers Name Role Phone Kurt Woodruff MD Primary Care Provider Leonardo Laguerre MD Unavailable Allergies Active Allergy Reactions Severity Noted Date Comments Codeine Nausea Only 05/23/2005 Atorvastatin Shortness Of Breath 12/07/2005 Patient has said she is able to tolerat e Crestor medication. She reported she has been on Crestor for the last 3 years and has had no issu es. [facility] pharmacy consul arielle 11-17-17 and said if weston camacho tolerates the m edication (per her report ), then to make a note in allergies, and it is ok to give. Lee Other - Describe In High 01/20/2019 Uncontro [...] Gout 10/18/2014 Pain medication agreement 04/27/2014 Overview: [place] on occasion. Acute pericarditis, unspecified 08/04/2013 Chest [...] having a balloon a ngioplasty at the [facility] in 1988 and being told that [...] congest margaret heart failure, had his first [place] in his 50's. She has 13 siblings, [...] progress No Dionne Hayes (05/04/2020 [employer] internet security specialist 8:55 AM CDT) Note: Formatting of this [...] s are released immediately into your [facility] medical record. ??You may view this [...] provider. If you have questions, please contact [facility] health care provider. HISTORY: Chronic knee pain. [...] Group MEDICARE PART B MEDICARE PART B [id number] 2006-Present ATTN: CLAIMS - HB USE ONLY HB ONLY [address] [place] [address] MEDICARE PART A MEDICARE PART A [id number] 2006-Present ATTN: CLAIMS - HB USE ONLY HB ONLY [address] [place] [address] MEDICARE PART A MEDICARE PART A [id number] 2006-Present ATTN: CLAIMS - HB USE ONLY HB ONLY [address] [place] [address] MEDICARE - PB MEDICARE PB [id number] 2006-Present ATT N: CLAIMS USE ONLY ONLY [address] [place] [address] MEDICA [place] MEDICA CHOICE [id number] 2013-Present [address] [place] [address] MEDICAID [place] MEDICAID [id number] 2018-Present [address] [address] [place] [address] Advance Directives Latest Code Status on File [...] Code Status Discussion: Not Discussed Care Teams Nanny Caregiver Relationship Specialty Start Date End Date Kurt Woodruff MD PCP - General Family Practice 08/05/[address] [facility] [address] Leonardo Laguerre MD Rheumatology Rheumatology 02/13/18 [address] [facility] [address] [facility] [address] [place] [address]
--- OUTSIDE RECORDS SUMMARY | 2022-05-18 03:59 | XMS_ITS | Encounter Summary ---
:1955 Author Organization [facility] Address [address] [place] [address] Care Team Providers Name Role Phone Unassigned, Provider Primary Care Provider Unavailable Reason for Visit Reason Onset Date Comments [facility] 08/05/2008 Encounter Details Date Type Department Care Team Description 08/05/2008 Telephone Manuelito3 Nola Brown V FOLLOW-UP,HOSPITAL [address] [place] [address] [place] [address] [phone] (Wo rk) Social History Tobacco Use Types [...] on filedocumented in this encounter Care Teams Mail Room Relationship Specialty Start Date End Date Unassigned, Provider PCP - General 03/12/03 [address] [place] [address] documented as of this encounter
--- OUTSIDE RECORDS SUMMARY | 2022-05-18 03:59 | XMS_ITS | Encounter Summary ---
:1955 Author Organization [facility] Address [address] [place] [address] Care Team Providers Name Role Phone Unassigned, Provider Primary Care Provider Unavailable Encounter Details Date Type Department Care Team Description 07/29/2008 [facility] [address] [place] [phone] Social History Tobacco Use Types Packs/Day Years [...] 11:22 AM Resul ts for this EXERCISE FISH AND WILDLIFE WARDEN procedure are i n REST/STRESS SPECT the result s section. documented in this encounter Results NM CARDIAC EXERCISE CARDIOLITE STRESS TST (07/29/2008 11:22 AM FISH AND WILDLIFE WARDEN) Anatomical Region Laterality Modality Chest, NM Cardiac Nuclear Medicine, Nu clear Medicine Specimen (Source) Anatomical Collection Method Collection Time Re ceived Time Location / / Volume Laterality 07/29/2008 11:22 AM [employer] WILDLIFE WARDEN Narrative 07/29/2008 12:35 PM FISH AND WILDLIFE WARDEN NM MYOCARDIAL PERFUSION EXERCISE REST-STRESS SPECT SCAN [...] which thomas to 188/88 with double product [id number]. Stress stoppe d because of chest discomfort. Abnormal EKG reported separately. system controller: Normal. FINDINGS: Wall motion and thickening is [...] which thomas to 188/88 with double product [id number]. Stress stoppe d because of chest discomfort. Abnormal EKG reported separately. system controller: Normal. FINDINGS: Wall motion and thickening is [...] on filedocumented in this encounter Care Teams Varnish Cooker Relationship Specialty Start Date End Date Unassigned, Provider PCP - General 03/12/[address] [place] [address] documented as of this encounter
--- OUTSIDE RECORDS SUMMARY | 2022-05-18 03:59 | XMS_ITS | Encounter Summary ---
:1955 Author Organization [employer] Address [address] [place] [address] Care Team Providers Name Role Phone Unassigned, Provider Primary Care Provider Unavailable Reason for Visit Reason Comments DEPRESSED--ED Encounter Details Date Type Department Care Team Description 02/23/2009 - Hospital Encounter RH E4 Winston Garcia MD [address] [place], [place] [id number] Depressive Disorder, not Elsewhere Class ified (Primary Dx); 03/07/2009 [facility] Nathan Alvarado MD Comb Drug Depend NEC, Continuous [id number] [place] [address] Social History Tobacco Use Types Packs/Day Years [...] 03/07/2009 3:57 PM CDT D/c summary done stat#[id number]..Tevin Saravia RN/MSN SaraviaTevin shaffer - 03/07/2009 3:57 [...] judgment are poor. She was seen by social service liaison, who initiated chemical dependency evaluation. She's been involved with [facility] intake team. Over the course of her [...] 80 mg p.r.n. She was referred to [facility] for possible [place]. She continues to be willing to undergo CD treatment. She began denying suicidal thoughts, homicidal thoughts, and other psychotic symptoms. She was more engaged and cooperative on the unit. Insight and judgment were improving. She had no major complaints of side effects. It appears that case management will continue to explore CD options possibly at the [facility]. Patient is in agreement with the discharge plan. FINAL DIAGNOSIS: [place] I: 1. Depressive disorder NOS. 2. Dysthymia. 3. Polysubstance abuse with THC and methamphetamine. 4. Alcohol abuse, rule out alcohol dependence, rule out PTSD. [place] II: Deferred. [place] III: 1. Hypertension. 2. Hypercholesterolemia. 3. CAD. 4. Status post hysterectomy. 5. ALLERGIES: LIPITOR AND CODEINE. [place] IV: Moderate. [place] V: GAF at time of discharge 54. DISCHARGE PLAN: As noted, she's discharged to [facility]. She's to avoid alcohol and mood-altering substances. Regular diet. She's free of communicable diseases. She will be seen at the [facility] in [place] by Dr. Fernandes 03/14/09 at 9:15 a.m. [...] 03/07/2009 15:57:11 Transcribed: 03/07/2009 18:11:44 Doc #: [id number] cc: 1 Page 2 Patient Name: FIFI SHEPARD DISCHARGE SUMMARY CONFIDENTIAL MEDICAL RECORD [address] [id number] Page 1 Patient: FIFI SHEPARD Location: E4 HPN: [id number] Admit Date: 02/23/2009 Date of : 1955 Discharge Date: 03/07/2009 Age: 54Y DISCHARGE SUMMARY documented in this encounter Discharge Instructions Discharge InstructionsPatsy Burns - 03/07/2009 7:11 AM CDT Images from the original note were not included. [address] [place] [id number] Discharge Instructions for: Fifi Shepard Thank you for choosing [facility] as your hospital. A copy [...] Primary care provider: Provider Unassigned Discharge Disposition [facility] Medications UpToDate Carefully read the medication handouts [...] doctor. Additional Orders DISCHARGE CLINIC REFERRAL CLINIC: [facility]; [phone]; [address], [place], [id number] DOCTORS NAME: Dr. Yareli Aguilar WHEN TO [...] of care, I can be reached at [phone]. Discharge Diagnosis [place] I: Depressive Disorder NOS 311.00; Dysthymia, Polysubstance abuse: THC and Methamphetamine, Alcohol abuse, R/0 Alcohol dependence. R/0 PTSD [place] II: Deferred [place] III: HTN, Hypercholesterolemia, CAD, S/P Hysterectomy. She [...] information has been faxed or sent to: [facility] Date: 03/07/2009, Time:NA PHQ-9 Admission Date: NA [...] side effects not tolerable. Resources 1. [facility] [address], [address], [place] [address]. or toll free at 1- [phone] 2. Online go to: [email or web address] Crisis Line Numbers 1. [facility] [phone] [facility] [phone] 3. [facility] [phone] 4. [facility] [phone] or [phone] Contact Information [address] [address] For questions about your discharge instructions call the nursing unit : E4 Emergency & Urgently Needed Care: For emergencies call 911 and/or get medical help right away. If you are a [facility] member and have medical needs after clinic hours you may call the CareLineat [phone] or . All medical devices (telemetry/IV/etc) unless otherwise ordered, have been removed before discharge. Smoking and Second-hand Smoke Exposure: Smoking damages blood vessels, reduces the oxygen in your blood and makes your heart beat too fast. If you smoke you should quit. Everyone should avoid second- hand smoke. If you would like further assistance after your discharge, please contact [phone] or visit www.[email or web address] and [facility] can offer further information and assistance. We hope you had a positive experience and that you can definitely recommend [facility] to yourfamily and friends. You???ll be receiving a survey in the mail in about 2 weeks and we look forward to hearing your feedback. When leaving your room at discharge, please stop at the nursing unit desk to check out. I understand my discharge instructions: Fifi A Cross (or Adjunct History Instructor) documented in this encounter Medications at Time [...] Dorys King - 03/07/2009 7:29 AM CDT [facility] OT Progress Note Assessments Initial [...] pursue post discharge Verbalize problem areas experienced TANK WELDER to increase insight and self-awareness 03/03/09 0700 [...] Luna Pedraza - 03/07/2009 7:19 AM CDT [facility] Progress Note (Nursing) Identify/Problem(s): Disturbance in mood [...] Katia Lozano - 2009 5:35 PM CDT [facility] Progress Note (Nursing) Identify/Problem(s): Mood Desired Outcome(s): [...] Nathan Alvarado - 2009 11:58 AM CDT [facility] Psychiatry Staff Physician Progress Note Date of Service: 2009 Subjective: today is pt's birthday and states that she is more hopefull about her future. She admitsthat she has been her worse critic and that she plans with therapy and with new friends from [employer], to work re framing her self-concept. Pt is without any complaints at this time. She states that she is willing to undergo CD tx. She denies any perceptual disturbance, paranoia, or delusional thoughtprocesses; denies any HI or SI/intent or plan. She states that she is looking forward to being discharged to a [facility] in [place], [place]. Objective: Mental Status Exam Appearance: alert [...] by a transport hold signed by CM wire rope sales representative Annemarie Andujar. CM currently expl oring CD options. Impression (Diagnoses) [place] I: Depressive Disorder NOS 311.00; Dysthymia, Polysubstance abuse: THC and Methamphetamine, Alcohol abuse, R/0 Alcohol dependence. R/0 PTSD [place] II: Deferred [place] III: HTN, Hypercholesterolemia, CAD, S/P Hysterectomy. She is allergic to Lipitor and Codeine. [place] IV: Severe: homeless, limited support system. [place] V: GAF = 54 Serious symptoms, or any serious impairment in social, occupational or school functioning Legal Status: Voluntary Acuity Level: Yellow (pt following treatment, improving) Plan: Continue current pharmacological tx regimen. SW: regarding disposition plans. Pt per SW reportis to be discharged this upcoming Saturday. prognosis : guarded. Summary: Follow-up hospital care Nathan Alvarado MD Easton Palomo - 2009 9:47 AM CDT [facility] Progress Note (Nursing) Identify/Problem(s): Mood, back [...] c/o of still passing lots of gas. In Home Sales Consultant page on-call Dr. Hough who said pt could have Maalox. Pt received 30ml. 1455, pt requested for 5mg haldol for anxiety and agitation. Pt said that she feels anxiety about d/c tomorrow to CD tx. Pt said that she does not know she is going to cope with having room mates. Pt said that she will like to have her own space. In Home Sales Consultant encourage pt to do her CD tx and pt was accepting. Pt asked to go on a green code walk to the [employer] shop before it closes and NA took pt at 1457 and came back at 1513. In Home Sales Consultant asked pt about the effect of the Maalox and pt said it seems to be working. In Home Sales Consultant informed pt to report to PM nurse it improving or not. Plan: Will continue to monitor for any symptoms. Esaton Burnham RN --- End of Report --- una Jaramillo - 2009 6:28 AM CDT [facility] Progress Note (Nursing) Identify/Problem(s): [...] INDICATION: Pain. TECHNIQUE: Ultrasound examination performed by underwater hunter trapper. FINDINGS: Liver is of normal size, configuration [...] kidney measures 10.9 cm, left 11.8 cm [id number]. Abdominal aorta contains atherosclerotic plaque distally and [...] baseline for continued care. Federico Moy, [place]LA[place], [facility] Katia Lozano - 03/05/2009 5:27 PM CDT [facility] Progress Note (Nursing) Identify/Problem(s): Mood Desired Outcome(s): [...] Seroquel and Benadryl for sleep and received @8153. Pt did not c/o chest pain through [...] Tevinpia Blanc - 03/05/2009 9:53 AM CDT [facility] Progress Note (Nursing) Identify/Problem(s): Mood Desired [...] pt's daughter and BF came to visit. In Home Sales Consultant and charge nurse physically assisted/walked with pt to walk to the exam room as pt's gait was unstable. Pt rated pain 9/10 and sharp. Pt stated that pain radiated across her rib cage to her neck. Pt said that she had a pain r/t heartburn last July but not as bad as this pain. PA/HEAD COUNSELOR Ralph Moy was paged who saw pt. [...] Pt can have meds with sips of aligner typewriter but to hold on to nicotine gum still afterthe US. [id number], pt requested/received 650mg tylenol for back and knee pain 12/22 with relieved stated. Pt is now stable at this time, stated she feels okay, chest pain is gone. Plan: Will continue to monitor for chest pain, and other symptoms. Easton Burnham RN --- End of Report --- Luna Pedraza - 03/05/2009 7:11 AM CDT [facility] Progress Note (Nursing) Identify/Problem(s): Mood disturbance Desired [...] Katia Lozano - 03/04/2009 5:35 PM CDT [facility] Progress Note (Nursing) Identify/Problem(s): Mood Desired Outcome(s): [...] I will be discharged on Saturday to [facility]. Pt requested Seroquel and Benadryl for sleep and received @2033. Pt was out with her Green code pass. Affect WNL, calm and controlled. Complaint with medication. Plan: Monitor mood improvement and encourage verbalization of feelings Katia Lozano RN --- End of Report --- Arlet Ennis - 03/04/2009 1:35 PM CDT [facility] Progress Note (Nursing) Identify/Problem(s): Altered mood Desired Outcome(s): Mood will improve Evaluation: Pt out on unit, social with peers, attending groups appropriately. Pt states she slept much better last night, as she stayed up all day yesterday and didn't take a nap. Pt jokes appropriately with aligner typewriter and other staff. Pt is calm and [...] Nathan Alvarado - 03/04/2009 1:16 PM CDT [facility] Staff Physician Progress Note Date of Service: 03/04/2009 Subjective: Pt is without any complaints at this time. She states that she is willing to undergo CD tx. She denies any perceptual disturbance, paranoia, or delusional thought processes; denies any HI or SI/intent or plan. She states that she is looking forward to being discharged to a [facility] in [place], [place]. Objective: Mental Status Exam Appearance: alert [...] by a transport hold signed by CM wire rope sales representative Annemarie Andujar. CM currently expl oring CD options. Impression (Diagnoses) [place] I: Depressive Disorder NOS 311.00; Dysthymia, Polysubstance abuse: THC and Methamphetamine, Alcohol abuse, R/0 Alcohol dependence. R/0 PTSD [place] II: Deferred [place] III: HTN, Hypercholesterolemia, CAD, S/P Hysterectomy. She is allergic to Lipitor and Codeine. [place] IV: Severe: homeless, limited support system. [place] V: GAF = 54 Serious symptoms, or any serious impairment in social, occupational or school functioning Legal Status: Voluntary Acuity Level: Yellow (pt following treatment, improving) Plan: Continue current pharmacological tx regimen. SW: regarding disposition plans. ADAP/pending. prognosis : guarded. Summary: Follow-up hospital care Nathan Alvarado MD Guille Thomas - 03/04/2009 11:43 AM CDT [facility] Social Work Progress Note Data: Rcvd call back from MANISH Sahrpe, she states, she is not recommending inpt CD treatment. She is recommending pt reside at [facility] and do CD treatment at [facility]. In Home Sales Consultant met with pt she is accepting of this plan. States she likes [facility]. In Home Sales Consultant contacted Nahomi at [facility], pt is able to come, but no bed available till Saturday.Pt signed PRIMITIVO, faxed requested records. Risk Assessment/Clinical Summary: Patient continues to stabilize on unit. Plan: Primary Disposition: [facility] Alternative Dis[place] [facility] Report completed by ELDA Pugh,[facility], Pager Number [phone] --- End of Report --- FROILAN spoke with Annemarie Willow, she can pick pt up for transport no later than 8am. FROILAN called unit [facility] who said this would be fine. Plan for CM to pick pt up at 8am on Saturday for d/c. CHELLE Dunbar Rhiannon Kearney - 03/04/2009 7:19 AM CDT [facility] OT Progress Note Assessments Initial [...] pursue post discharge Verbalize problem areas experienced TANK WELDER to increase insight and self-awareness 03/03/09699 - [...] Cari Shaw - 03/04/2009 4:55 AM CDT [facility] Progress Note (Nursing) Identify/Problem(s): Mood Desired Outcome(s): Will be stable Evaluation: Pt was observed to have slept throughout the shift, no incident was observed. Plan: Will continue to assess pt's mood and document. Cari Shaw --- End of Report --- Nafisa Chesetr - 03/03/2009 5:15 PM CDT [facility] Progress Note (Nursing) Identify/Problem(s): Mood Desired Outcome(s): [...] Nathan Alvarado - 03/03/2009 4:19 PM CDT [facility] Psychiatry Staff Physician Progress Note Date of [...] by a transport hold signed by CM wire rope sales representative Annemarie Andujar. CM currently expl oring CD options. Impression (Diagnoses) [place] I: Depressive Disorder NOS 311.00; Dysthymia, Polysubstance abuse: THC and Methamphetamine, Alcohol abuse, R/0 Alcohol dependence. R/0 PTSD [place] II: Deferred [place] III: HTN, Hypercholesterolemia, CAD, S/P Hysterectomy. She is allergic to Lipitor and Codeine. [place] IV: Severe: homeless, limited support system. [place] V: GAF = 54 Serious symptoms, or any serious impairment in social, occupational or school functioning Legal Status: Voluntary Acuity Level: Yellow (pt following treatment, improving) Plan: Continue current pharmacological tx regimen. SW: regarding disposition plans. ADAP/pending. prognosis : guarded. Summary: Follow-up hospital care Nathan Alvarado MD Arlet Ennis - 03/03/2009 9:36 AM CDT [facility] Progress Note (Nursing) Identify/Problem(s): Altered Mood Desired [...] storage garage.Pt laughs and jokes appropriately with aligner typewriter. Plan: Continue with treatment plan, document/monitor mood, Discussed plan of care with patient and treatment team. Arlet Ennis RN --- End of Report --- Rhiannon Keanrey - 03/03/2009 7:08 AM CDT [facility] OT Progress Note Assessments Initial [...] achieving this goal with assistance from this aligner typewriter. Her short term goal was: Research realistic/available housing for seniors and/or disabled [place] [facility] Patient's steps included: 1. Look in newspaper and make a list of potential housing options with contact/phone numbers. 2. Make a list of relevant questions to ask potential housing prospects she locates in the paper, and/or questions she could ask [place] [facility] housing information. 3/ Call [facility] regarding housing options. 4. Call [facility] regarding housing options available. Patient was pleasant and cooperative throughout conversation. In Home Sales Consultant will follow-up with support for the goal [...] pursue post discharge Verbalize problem areas experienced TANK WELDER to increase insight and self-awareness 03/03/09699 - [...] Cari Shaw - 03/03/2009 6:13 AM CDT [facility] Progress Note (Nursing) Identify/Problem(s): Mood Desired Outcome(s): [...] Nafisa Chester - 03/02/2009 5:51 PM CDT [facility] Progress Note (Nursing) Identify/Problem(s): Mood Desired Outcome(s): [...] Nathan Alvarado - 03/02/2009 2:31 PM CDT [facility] Psychiatry Staff Physician Progress Note Date of [...] by a transport hold signed by CM wire rope sales representative Annemarie Andujar. CM currently expl oring CD options. Impression (Diagnoses) [place] I: Depressive Disorder NOS 311.00; Dysthymia, Polysubstance abuse: THC and Methamphetamine, Alcohol abuse, R/0 Alcohol dependence. R/0 PTSD [place] II: Deferred [place] III: HTN, Hypercholesterolemia, CAD, S/P Hysterectomy. She is allergic to Lipitor and Codeine. [place] IV: Severe: homeless, limited support system. [place] V: GAF = 48 Serious symptoms, or any serious impairment in social, occupational or school functioning Legal Status: Voluntary Acuity Level: Yellow (pt following treatment, improving) Plan: Continue current pharmacological tx regimen. SW: regarding disposition plans. Rule 25/CD tx prognosis : guarded. Summary: Follow-up hospital care Nathan Alvarado MD Brynn Bautista - 03/02/2009 11:17 AM CDT [facility] Progress Note (Nursing) Identify/Problem(s): Behavior Desired Outcome(s): [...] Hortencia Fernandez - 03/02/2009 9:15 AM CDT [facility] Social Work Progress Note Data: Rcvd call back from Isaias Kruger 25 at [employer], she states that at this point pt would need a Rule 25 to complete the funding for CD treatment. In Home Sales Consultant contacted MANISH Daugherty [phone] to request Rule 25 assessment. Await call back. Risk Assessment/Clinical Summary: Patient continues to stabilize on unit. Plan: Primary Disposition: CD treatment Alternative Disposition Options: CD treatment ELOS: 2-4 days Report completed by ELDA Pugh,LEGAL [employer]ESS SPECIALIST, Pager Number [phone] --- End of Report --- CaioRhiannon - 03/02/2009 7:10 AM CDT [facility] OT Progress Note Assessments Initial [...] Activities of Daily Living: groomed WANDA Cartwright/TERRY Zeigler/Jesica Relaxation Group No data found. Relaxation Group [...] brightened with activity Activities of Daily Living: jignesh Price OT Student/TERRY Ziegler/Jesica Patient's Reported Anxiety/Stress [...] una Jaramillo - 03/02/2009 6:44 AM CDT [facility] Progress Note (Nursing) Identify/Problem(s): Mood disturbance Desired [...] Suyapa Mcclain - 03/01/2009 8:16 PM CDT [facility] Progress Note (Nursing) Identify/Problem(s): Mood, behavior Desired Outcome(s): Mood will improve and will be safe on the unit. Evaluation: Pt reports she is doing OK this shift. Went out on the [employer] walk with the staff and enjoyed that. Pt had her CD eval today and thinks she will either go to [facility] or [facility] for a 30 day program. [...] Hortencia Fernandez - 03/01/2009 3:03 PM CDT [facility] Social Work Progress Note Data: CD consult completed, see consults. ADAP states that pt's whose primary funding source is Medicare, then ADAP needs RULE 25 approval before can start program. Rule 25 asks we fax our consult over for them to review and possibly authorize remaining part of treatment. Faxed to Ella bradshaw [place] Rule 25 for review fax [phone], # [phone]. Risk Assessment/Clinical Summary: Pt stabilizing on unit. Plan: Primary Disposition: CD treatment Alternative Disposition Options: [facility] ELOS: 3-5 days Report completed by ELDA Pugh,[facility], Pager Number [phone] --- End of Report --- Nathan Alvarado Nolan - 03/01/2009 12:05 PM CDT [facility] Psychiatry Staff Physician Progress Note Date of [...] by a transport hold signed by CM wire rope sales representative Annemarie Andujar. CM currently expl oring CD options. Impression (Diagnoses) [place] I: Depressive Disorder NOS 311.00; Dysthymia, Polysubstance abuse: THC and Methamphetamine, Alcohol abuse, R/0 Alcohol dependence. R/0 PTSD [place] II: Deferred [place] III: HTN, Hypercholesterolemia, CAD, S/P Hysterectomy. She is allergic to Lipitor and Codeine. [place] IV: Severe: homeless, limited support system. [place] V: GAF = 48 Serious symptoms, or any serious impairment in social, occupational or school functioning Legal Status: Voluntary Acuity Level: Yellow (pt following treatment, improving) Plan: Continue current pharmacological tx regimen. SW: regarding disposition plans. Rule 25/CD tx prognosis : guarded. Summary: Follow-up hospital care Nathan Alvarado MD Arlet Ennis - 03/01/2009 10:41 AM CDT [facility] Progress Note (Nursing) Identify/Problem(s): Altered Mood Desired [...] Rhiannon Kearney - 03/01/2009 7:22 AM CDT [facility] OT Progress Note Assessments Initial [...] and reviewed all related documentation. TERRY Ziegler/Jesica 03/01/2009 3:06 PM --- End of Report --- Luna Pedraza - 03/01/2009 7:21 AM CDT [facility] Progress Note (Nursing) Identify/Problem(s): Depressed/ Anxious Mood [...] Suyapa Mcclain - 02/28/2009 7:24 PM CDT [facility] Progress Note (Nursing) Identify/Problem(s): Mood, behavior Desired [...] CDT As of 02/24/09, per Carolyn at [facility].-[phone]- this pt. Does not have a pillowcase cleaner in [facility]...Mane Sanchez Nathan Alvarado - 02/28/2009 12:31 PM CDT [facility] Psychiatry Staff Physician Progress Note Date of [...] by a transport hold signed by CM wire rope sales representative Annemarie Andujar. Impression (Diagnoses) [place] I: Depressive Disorder NOS 311.00; Dysthymia, Polysubstance abuse: THC and Methamphetamine, Alcohol abuse, R/0 Alcohol dependence. R/0 PTSD [place] II: Deferred [place] III: HTN, Hypercholesterolemia, CAD, S/P Hysterectomy. She is allergic to Lipitor and Codeine. [place] IV: Severe: homeless, limited support system. [place] V: GAF = 41-50 Serious symptoms, or any serious impairment in social, occupational or school functioning Legal Status: Voluntary Acuity Level: Yellow (pt following treatment, improving) Plan: Continue current pharmacological tx regimen. SW: regarding disposition plans. Rule 25/CD tx prognosis : guarded. Summary: Follow-up hospital care Nathan Alvarado MD Hortencia Fernandez - 02/28/2009 9:07 AM CDT [facility] Social Work Progress Note Data: Rcvd call back from MANISH Sharpe, she states that she met with her intake team and supervisor hanging and trimming. CM does not have current housing options for pt. Can give information regarding a subcity housing, but not current independent living options, which is what pt is requesting. Cm inquired if pt interested in CD patti atment, pt refusing. CM stated that pt's options would be a custodial. Cm will look into female shelters.[facility], . Risk Assessment/Clinical Summary: Pt on unit, does not want CD treatment, focused on own apt. Plan: Primary Disposition: [facility] Alternative Disposition Options: [facility] ELOS: 2 days Report completed by ELDA Pugh,[facility], Pager Number [phone] --- End of Report --- Arlet Ennis - 02/28/2009 8:26 AM CDT [facility] Progress Note (Nursing) Identify/Problem(s): Altered mood Desired [...] Sanchez Guanaco - 02/28/2009 7:08 AM CDT [facility] OT Progress Note Assessments Initial [...] Cari Shaw - 02/28/2009 4:56 AM CDT [facility] Progress Note (Nursing) Identify/Problem(s): Behavior Desired Outcome(s): Will remain calm Evaluation: Pt slept throughout last night, no behavior was observed. Plan: Will continue to monitor pt's behavior and document. Cari Shaw --- End of Report --- Dorys Chowdary - 02/27/2009 4:00 PM CDT [facility] Progress Note (Nursing) Identify/Problem(s): Labile mood. Desired [...] Arlet Ennis - 02/27/2009 10:02 AM CDT [facility] Progress Note (Nursing) Identify/Problem(s): Altered Mood Anxiety [...] Cari Shaw - 02/27/2009 6:19 AM CDT [facility] Progress Note (Nursing) Identify/Problem(s): Behavior Desired Outcome(s): Will remain controlled. Evaluation: Pt slept throughout last night, no behavior was observed. Plan: Will continue to monitor pt's behavior and document. Cari Shaw --- End of Report --- Luna Pedraza - 02/26/2009 8:32 PM CDT [facility] Progress Note (Nursing) Identify/Problem(s): Depressed / Anxious mood Desired Outcome(s): Pt's mood will improve and stabilize Evaluation: Pt was watching television with peers at the onset of this shift. On 1:1 Pt talked in depth about breaking up with her boyfriend of the past 4 years. Pt stated how they met at the [facility] and although they did have some good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
--- OUTSIDE RECORDS SUMMARY | 2022-05-18 03:59 | XMS_ITS | Clinical Summary ---
:1955 Author Organization [facility] Address [address] [place] [address] Care Team Providers Name Role Phone Unassigned, [...] for each transition of care or referral. [facility] Allergies Active Allergy Reactions Severity Noted Date Comments Atorvastatin Calcium 02/02/2005 [place] 05/12/2020 Morphine And Related Vomiting 02/02/2005 Medications [...] Comments Blood Pressure 123/70 05/23/2020 8:14 AM SENIOR SOFTWARE QA ANALYST Pulse 65 05/23/2020 8:14 AM SENIOR SOFTWARE QA ANALYST Temperature 35.9 ??C (96.7 ??F) 05/23/2020 8:14 AM SENIOR SOFTWARE QA ANALYST Respiratory Rate 18 05/23/2020 8:14 AM SENIOR SOFTWARE QA ANALYST Oxygen Saturation 97% 05/22/2020 8:34 AM SENIOR SOFTWARE QA ANALYST Inhaled Oxygen Concentration - - Weight 74.5 kg (164 lb 3.2 oz) 05/19/2020 7:58 AM SENIOR SOFTWARE QA ANALYST Height 157.5 cm (5' 2.01) 05/13/2020 1:00 [...] Address T ype Group Dates MEDICARE MEDICARE [id number] 2006-Pre Medic are sent RAHUL SAUER [place] [id number] 2008-Pre PO BOX Medi caid sent [id number] [place] [employer] [place] [place] [address] COMPREHENSIVE COMPREHENSIVE 2003-Pre PO BOX Workers MGD. MANAGED CARE sent [id number] [place] [address] Marissa Shepard Personal/Family Self [phone] (Home) [place] [address] Marissa Shepard Personal/Family Self 1955 [address] [place] [address] Marissa Shepard Workers Comp Self 1955 [address] ([address] [place] [address] Marissa Shepard Workers Comp Self 1955 [address] ([address] [place] [address] Advance Directives Latest Code Status on File Code Status Date Activated Date Inactivated Comments Full Code 05/12/2020 4:42 PM 05/23/2020 1:18 PM Full Code 02/23/2009 3:53 PM 03/07/2009 12:10 PM Full Code 02/03/2009 6:00 PM 02/10/2009 5:38 PM Full Code 07/28/2008 4:50 PM 07/29/2008 6:35 PM Care Teams Microsoft Exchange Architect Relationship Specialty Start Date End Date Unassigned, Provider PCP - General 03/12/[address] [place] [id number]
--- OUTSIDE RECORDS SUMMARY | 2022-05-18 03:59 | XMS_ITS | Encounter Summary ---
:1955 Author Organization [employer] Address [address] [place] [address] Care Team Providers Name Role Phone Unassigned, Provider Primary Care Provider Unavailable Encounter Details Date Type Department Care Team Description 03/05/2009 Imaging [facility] Ul trasound [address] [place], [place] [phone] Social History Tobacco Use Types Packs/Day Years [...] Pain. TECHNIQUE: Ultrasound examination perfor med by diesel tractor engine mechanic. FINDINGS: Liver is of normal size, confi [...] measures 10.9 cm , left 11.8 cm [id number]. Abdominal aorta contains atherosclerotic plaque distally and [...] Pain. TECHNIQUE: Ultrasound examination perfor med by diesel tractor engine mechanic. FINDINGS: Liver is of normal size, confi [...] measures 10.9 cm , left 11.8 cm [id number]. Abdominal aorta contains atherosclerotic plaque distally and [...] normal caliber aorta. Remainder normal. Federico Moy SERVICE MANAGER, MAIL WEIGHER RAD US documented in this encounter Visit Diagnoses Not on filedocumented in this encounter Care Teams Rubber Attacher Relationship Specialty Start Date End Date Unassigned, Provider PCP - General 03/12/[address] [place] [id number] documented as of this encounter
--- OUTSIDE RECORDS SUMMARY | 2022-05-18 03:59 | XMS_ITS | Encounter Summary ---
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 Ventilating: [facility] Intake team. Release of Information: Yes Family/Friend Contact: Denies. Release of Information: No Community Providers/Outpatient Psychiatrist: No current psych MD, sees Dr. Aguilar at [facility] as PCP. Release of Information: Yes Financial Insurance: Medical Assistance, medicare Employment/Income: [place], [place], Food stamps Psychiatric/Chemical Dependency/Medical History Pt reports this is her 4th psychiatric admission, last was at [facility] 4 yrs ago Pt admits long history of abusing Methamphetamine, reports 1 past treatment in 1994 at [facility]. Reports using ETOH and THC also. [...] and low dose medications. Left message with [facility] regarding available services for pt. [...] 3-5 days This document completed by: ELDA Pugh,EXTRACTOR OPERATOR HELPER --- End of Report --- Initial Assessments - Rhiannon Kearney - 02/04/2009 8:44 AM CDT [facility] OT Initial Assessment Diagnosis: Encounter Diagnoses Code Name Primary? 311 Depressive Disorder, not Elsewhere Classified Yes ??? 724.2 Lumbago ??? 401.9BX HTN ??? 305.1 Tobacco Use Disorder ??? 272.0F Hypercholesteremia Patient Data on File C/o Joelle Shepard [address] [place] [phone] History Social History ??? Marital Status: Spouse [...] phone down the street to call the charge authorizer. Next thing I know the charge authorizer arrived with him in the backseat. I [...] WNL, Patient's insight was impaired, Patient's judgment SUPERVISOR CHASSIS ASSEMBLY was poor, Patient's coping skills were impaired, Patient's speech was rambling, excessive, and tangential, Patient's responses were vague, Patient appeared to be minimizing events SUPERVISOR CHASSIS ASSEMBLY, Patient's reasoning for admittance was I just [...] Dcmontserrat Francisco - 02/03/2009 8:55 PM CDT [facility] Nursing Initial Assessment Note GENERAL INFORMATION/PATIENT IDENTIFICATION/HISTORY Admitted From: ED Admitted To: E4 Reason for Admission: depression, thoughts of SI. Needs outside services, homeless. Actual Arrival Date on Unit: 02/03/09 Actual Arrival Time on Unit: 1730 Patient a transfer from another hospital for trauma?: No Primary Care Physician or Clinic: [facility] [place] Patient Orientation: Tour of unit;Shower hours;Patient phones;Emergency [...] Screening: No functional screening criteria is applicable PSYCHOSOCIAL/SPIRITUAL/NONDENOMINATIONAL/CULTURAL/ABUSE/CHEMICAL Suicide Health Inventory Do you currently have [...] should notify?: Yes Name/Phone Number: dieudonne rodriguez [phone] Patient behaviors that put them at risk [...] Cari Shaw) 0838 (Given - Provider: Mary Klein)170 0 (Given - Provider: Berta Rosales)2100 [...] Comment: requested for anxiety)1443 (Given - Provider: Mayr Klein - Comment: requested for anxiety) 2 [...] inued documented in this encounter Care Teams Labor Mediator Relationship Specialty Start Date End Date Unassigned, Provider PCP - General 03/12/03 [address] [place] [address] documented as of this encounter
--- OUTSIDE RECORDS SUMMARY | 2022-05-18 03:59 | XMS_ITS | Encounter Summary ---
:1955 Author Organization [facility] Address [address] [place] [address] Care Team Providers Name Role Phone Unassigned, Provider Primary Care Provider Unavailable Encounter Details Date Type Department Care Team Description 07/29/2008 Orders Only [facility] King Schilling, Cardiology PA-C [address] [facility] [address] [place] [address] [place] [address] [phone] (Wo rk) Social History Tobacco Use Types [...] 07/29/2008 12:00 AM R esults for this OTOLARYNGOLOGY PHYSICIAN procedure are i n the results section. documented in this encounter Results CARDIAC STRESS TEST (07/29/2008 12:00 AM OTOLARYNGOLOGY PHYSICIAN) Specimen (Source) Anatomical Location Collection Method / Collectio n Time Received Time / Laterality Volume 07/29/2008 Narrative This result has an attachment that is no t available. Transcriptions [facility], PROVIDER - 9 12:00 AM OTOLARYNGOLOGY PHYSICIAN King Schilling PA-C DUMMY/OTHER/AR documented in this encounter Visit Diagnoses Not on filedocumented in this encounter Care Teams Warehouse Logistics Coordinator Relationship Specialty Start Date End Date Unassigned, Provider PCP - General 03/12/[address] [place] [address] documented as of this encounter
--- OUTSIDE RECORDS SUMMARY | 2022-05-18 03:59 | XMS_ITS | Encounter Summary ---
:1955 Author Organization [facility] Address [address] [place] [address] Care Team Providers Name Role Phone Unassigned, Provider Primary Care Provider Unavailable Encounter Details Date Type Department Care Team Description 07/29/2008 Office Visit [facility] Unspecified Chest Pain [address] [place] [address] Social History Tobacco Use Types Packs/Day Years [...] 11:22 AM Resul ts for this EXERCISE IMPLEMENTATION COORDINATOR procedure are i n REST/STRESS SPECT the result s section. documented in this encounter Visit Diagnoses Diagnosis Chest pain, unspecified documented in this encounter Care Teams Drop Board Man Relationship Specialty Start Date End Date Unassigned, Provider PCP - General 03/12/03 [address] [place] [address] documented as of this encounter
--- OUTSIDE RECORDS SUMMARY | 2022-05-18 03:59 | XMS_ITS | Encounter Summary ---
:1955 Author Organization [facility] Address [address] [place] [address] Care Team Providers Name Role Phone Unassigned, Provider Primary Care Provider Unavailable Encounter Details Date Type Department Care Team Description 03/05/2009 Imaging [facility] [address] [place], [place] [id number] Social History Tobacco Use Types Packs/Day Years [...] been removed. Otherwise, no change. Federico Moy CLINIC MANAGER, MERGERS AND ACQUISITIONS CONSULTANT RAD GD documented in this encounter Visit Diagnoses Not on filedocumented in this encounter Care Teams Business Services Sales Representative Relationship Specialty Start Date End Date Unassigned, Provider PCP - General 03/12/[address] [place] [address] documented as of this encounter
--- OUTSIDE RECORDS SUMMARY | 2022-05-18 03:59 | XMS_ITS | Encounter Summary ---
:1955 Author Organization [facility] Address [address] [place] [address] Care Team Providers Name Role Phone Unassigned, Provider Primary Care Provider Unavailable Encounter Details Date Type Department Care Team Description 07/29/2008 Imaging [facility] [address] [place] [id number] Social History Tobacco Use Types Packs/Day Years [...] 11:22 AM Resul ts for this EXERCISE COMPETITIVE INTELLIGENCE ANALYST procedure are i n REST/STRESS SPECT the result s section. documented in this encounter Results NM CARDIAC EXERCISE CARDIOLITE STRESS TST (07/29/2008 11:22 AM COMPETITIVE INTELLIGENCE ANALYST) Anatomical Region Laterality Modality Chest, NM Cardiac Nuclear Medicine, Nu clear Medicine Specimen (Source) Anatomical Collection Method Collection Time Re ceived Time Location / / Volume Laterality 07/29/2008 11:22 AM COMPETITIVE INTELLIGENCE ANALYST Narrative 07/29/2008 12:35 PM COMPETITIVE INTELLIGENCE ANALYST NM MYOCARDIAL PERFUSION EXERCISE REST-STRESS SPECT SCAN [...] which thomas to 188/88 with double product 20133. Stress stoppe d because of chest discomfort. Abnormal EKG reported separately. rail operations controller: Normal. FINDINGS: Wall motion and thickening [...] which thomas to 188/88 with double product 72647. Stress stoppe d because of chest discomfort. Abnormal EKG reported separately. rail operations controller: Normal. FINDINGS: Wall motion and thickening [...] on filedocumented in this encounter Care Teams Alternative Financing Specialist Relationship Specialty Start Date End Date Unassigned, Provider PCP - General 03/12/[address] [place] [address] documented as of this encounter
--- OUTSIDE RECORDS SUMMARY | 2022-05-18 03:59 | XMS_ITS | Encounter Summary ---
:1955 Author Organization [facility] Address [address] [place] [address] Care Team Providers Name Role Phone Unassigned, Provider Primary Care Provider Unavailable Reason for Visit Reason Onset Date Comments FOLLOW-UP,[facility] 08/04/2008 [facility] [place] callback Encounter Details Date Type Department Care Team Description 08/04/2008 Telephone C7Stephany Anderson, FOLLOW-UP,[facility] ([address] RN d/c callback) [place] [address] Social History Tobacco Use Types Packs/Day Years [...] on filedocumented in this encounter Care Teams Type Rolling Machine Operator Relationship Specialty Start Date End Date Unassigned, Provider PCP - General 03/12/[address] [place] [address] documented as of this encounter
--- OUTSIDE RECORDS SUMMARY | 2022-05-18 04:00 | XMS_ITS | Encounter Summary ---
:1955 Author Organization Replaced by [facility] Address [address] [place] [address] Care Team Providers Name Role Phone Unassigned, Provider Primary Care Provider Unavailable Encounter Details Date Type Department Care Team Description 09/07/2003 Office Visit [facility] Margot Balderrama Physical Medicine [facility] [address] [place] [address] [place] [place] [address] [place] [address] Social History Tobacco Use Types Packs/Day Years [...] Notes Margot Balderrama - 09/07/2003 12:00 AM BOOM PUMP OPERATOR OUTPATIENT AQUATIC PHYSICAL THERAPY - DISCHARGE SUMMARY [...] PT#[id number] [phone] Transcribed: 10/01/2003 11:11:08 Doc #: [id number] cc: Sherry Winchester MD This document was electronically signed by Margot Balderrama PT#[id number] [phone] on 10/05/2003 18:30:14. Patient: KVNG FIFI Page 1 Date: PM&R THERAPY CONFIDENTIAL MEDICAL RECORD [address] [phone] Page 1 Patient: KVNG FIFI [facility] Date of : 1955 PM&R THERAPY PUMP OPERATOR Margot Balderrama - 09/07/2003 12:00 AM BOOM PUMP OPERATOR PUMP OPERATOR documented in this encounter Plan of Treatment Not on filedocumented as of this encounter Visit Diagnoses Not on filedocumented in this encounter Care Teams Child Nurse Relationship Specialty Start Date End Date Unassigned, Provider PCP - General 03/12/[address] [place] [address] documented as of this encounter
--- OUTSIDE RECORDS SUMMARY | 2022-05-18 04:00 | XMS_ITS | Encounter Summary ---
:1955 Author Organization [facility] Address [address] [place] [address] Care Team Providers Name Role Phone Unassigned, Provider Primary Care Provider Unavailable Reason for Visit Reason Comments BACK PAIN--ED chronic Encounter Details Date Type Department Care Team Description 02/02/2005 Emergency [facility] Preet Rahman, LOW BACK PAIN(ACUTE)<6 WEEKS ; [address] Karthik Carlson [place] [address] [phone] [id number] [place], [place] [address] Social History Tobacco Use Types Packs/Day Years [...] Dear Ms. Calderon, Thank you for choosing [facility] for your emergency medical needs. You have received emergency care only and your condition may change. Therefore, we highly recommend you follow-up with your physician as directed. For follow-up care contact: [facility] [phone] For follow-up care, you have an appointment at [facility] next saturday. When you see your doctor, [...] would like to be seen in a [facility] clinic, please call the [facility] Appointment Desk at [phone] anytime between 7:00 AM and 9:00 PM, [...] vomiting or sweats. ExitCare(R) Patient Information (C)2004 [employer]. \\[email or web address]\epic\ExitcareNonfieldFull\NonFields\di\Yemeni\[email or web address] documented in this encounter Medications at Time [...] Zimmerman PA-C - 02/02/2005 3:53 PM CDT [facility] Emergency Department Visit Note Patient [...] (10); prozac 40 mg qd - f/u [facility] on saturday Visit note has been dictated: see dictated note ( ) Condition on disposition: Stable This electronic signature covers the nursing and ancillary testing orders for this visit. Author: RODOLFO Rooney - 02/02/2005 2:27 PM Allie Cole - 02/02/2005 2:40 PM CDT F/u appt. arranged at [facility] for Saturday, 02/06 at 10:40 -pt. agrees to plan. Preet Rahman - 02/02/2005 2:32 PM CDT [facility] Emergency Department Attending Supervision Note [...] She did have the surgery done at [facility], bute states they are no longer following her. Previously seen at [facility] but states that's too far for [...] The patient was seen by Allie of social work associate and is set up for a followup appointment [facility] next Saturday. The patient is discharged to home. She is to continue with ibuprofen for baseline pain. I did give her 10 Vicodin for bad pain and put her on a trial of Medrol Dose Hunter. The patient was also given a refill of her depression med 40 mg q.d. with a 10 day supply. The patientwas offered social work associate here but declines at this time. She is currently hoping to get into [facility] in about the next week. FINAL ASSESSMENT 1. Back pain. 2. Depression. maira Dictated: 02/02/2005 15:51:30 Greg Harden PA-C Transcribed: 02/06/2005 11:56:09 Staff: Preet Rahman MD Doc #: [id number] cc: Yoselyn Strauss MD, Primary 1 Page 1 Patient Name: FIFI CALDERON Visit Date: 02/02/2005 EMERGENCY MEDICINE NOTE CONFIDENTIAL MEDICAL RECORD [address] [address] Page 1 Patient: FIF[facility] CALDERON [id number] Date of : 1955 Visit Date: 02/02/2005 EMERGENCY MEDICINE NOTE documented in this encounter Plan of Treatment Not on filedocumented as of this encounter Visit Diagnoses Diagnosis Lumbago Depressive disorder, not elsewhere class ified documented in this encounter Care Teams Billiard Table Repairer Relationship Specialty Start Date End Date Unassigned, Provider PCP - General 03/12/[address] [place] [address] documented as of this encounter
--- OUTSIDE RECORDS SUMMARY | 2022-05-18 04:00 | XMS_ITS | Encounter Summary ---
:1955 Author Organization [facility] Address [address] [place] [address] Care Team Providers Name Role Phone Unassigned, Provider Primary Care Provider Unavailable Encounter Details Date Type Department Care Team Description 09/07/2003 Scanned History None Unknown, Physici an [facility]- [address] [place] [address] (Wo rk) Social History Tobacco [...] Notes Unknown, Physician - 09/07/2003 12:00 AM EQUITY SALES ASSISTANT documented in this encounter Plan of Treatment Not on filedocumented as of this encounter Visit Diagnoses Not on filedocumented in this encounter Care Teams Inspector Ball Points Relationship Specialty Start Date End Date Unassigned, Provider PCP - General 03/12/03 [address] [place] [address] documented as of this encounter
--- OUTSIDE RECORDS SUMMARY | 2022-05-18 04:00 | XMS_ITS | Encounter Summary ---
:1955 [facility] Address [address] [place] [address] Care Team Providers Name Role Phone Unassigned, Provider Primary Care Provider Unavailable Encounter Details Date Type Department Care Team Description 01/05/2005 Correspondence None Unknown, [facility]ici an [facility] [address] disability [place], [place] [phone] (Wo rk) Social History Tobacco Use Types [...] on filedocumented in this encounter Care Teams Golf Club Weigher Relationship Specialty Start Date End Date Unassigned, Provider PCP - General 03/12/03 [address] [place] [address] documented as of this encounter
--- OUTSIDE RECORDS SUMMARY | 2022-05-18 04:00 | XMS_ITS | Encounter Summary ---
:1955 [facility] Address [address] [place] [address] Care Team Providers Name Role Phone Unassigned, [...] on filedocumented in this encounter Care Teams Lumber Stacker Operator Relationship Specialty Start Date End Date Unassigned, Provider PCP - General 03/12/03 [address] [place] [address] documented as of this encounter
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
--- OUTSIDE RECORDS SUMMARY | 2022-05-18 04:00 | XMS_ITS | Encounter Summary ---
:1955 Author Organization [facility] Address [address] [place] [address] Care Team Providers Name Role Phone Unassigned, Provider Primary Care Provider Unavailable Encounter Details Date Type Department Care Team Description 02/02/2005 Correspondence Emergency Dept Emergency, D/C Patient [address] [facility] [place] [address] Social History Tobacco Use Types Packs/Day Years [...] on filedocumented in this encounter Care Teams Campus Monitor Relationship Specialty Start Date End Date Unassigned, Provider PCP - General 03/12/03 [address] [place] [address] documented as of this encounter
--- OUTSIDE RECORDS SUMMARY | 2022-05-18 04:00 | XMS_ITS | Encounter Summary ---
:1955 Author Organization [facility] Address [address] [place] [address] Care Team Providers Name Role Phone Unassigned, Provider Primary Care Provider Unavailable Reason for Visit Reason Onset Date Comments Refill 01/11/2004 Encounter Details Date Type Department Care Team Description 01/11/2004 Refill [facility] Occupational and Sherry Winchester MD Refill Environmental [...] on filedocumented in this encounter Care Teams Psychiatric Security Nurse Relationship Specialty Start Date End Date Unassigned, Provider PCP - General 03/12/03 [address] [place] [address] documented as of this encounter
--- OUTSIDE RECORDS SUMMARY | 2022-05-18 04:00 | XMS_ITS | Encounter Summary ---
:1955 Author Organization [facility] Address [address] [place] [address] Care Team Providers Name Role Phone Unassigned, [...] Lumbago documented in this encounter Care Teams Mixed Crop And Livestock Farmer Relationship Specialty Start Date End Date Unassigned, Provider PCP - General 03/12/03 [address] [place] [address] documented as of this encounter
--- OUTSIDE RECORDS SUMMARY | 2022-05-18 04:00 | XMS_ITS | Encounter Summary ---
:1955 Author Organization [facility] Address [address] [place] [address] Care Team Providers Name Role Phone Unassigned, Provider Primary Care Provider Unavailable Encounter Details Date Type Department Care Team Description 08/26/2003 Office Visit [facility] Margot Balderrama Physical Medicine [facility] [address] [place] [address] [address] [facility] [phone] [place] [address] Social History Tobacco Use Types Packs/Day Years [...] Notes Margot Balderrama - 08/26/2003 12:00 AM ROPE SILICA MACHINE OPERATOR SILICA MACHINE OPERATOR documented in this encounter Plan of Treatment Not on filedocumented as of this encounter Visit Diagnoses Not on filedocumented in this encounter Care Teams [employer] Global Product Leadership Relationship Specialty Start Date End Date Unassigned, Provider PCP - General 03/12/03 [address] [place] [address] documented as of this encounter
--- OUTSIDE RECORDS SUMMARY | 2022-05-18 04:00 | XMS_ITS | Encounter Summary ---
:1955 Author Organization [facility] Address [address] [place] [address] Care Team Providers Name Role Phone Unassigned, Provider Primary Care Provider Unavailable Encounter Details Date Type Department Care Team Description 10/29/2003 Notes/Orders [facility] Occupational and [address], Juan J Medina MD Environmental Medicine [address] [place], [place] [address] (Wo rk) Social History [...] on filedocumented in this encounter Care Teams Head Men'S Golf Coach Relationship Specialty Start Date End Date Unassigned, Provider PCP - General 03/12/03 [address] [place] [address] documented as of this encounter
--- OUTSIDE RECORDS SUMMARY | 2022-05-18 04:00 | XMS_ITS | Encounter Summary ---
:1955 Author Organization [employer] Address [address] [place] [address] Care Team Providers Name Role Phone Unassigned, Provider Primary Care Provider Unavailable Encounter Details Date Type Department Care Team Description 12/23/2003 Office Visit [facility] Occupational and Sherry Winchester MD Environmental Medicine [...] [facility] from last month. [...] q.h.s. 5. The workability form for the [facility] was also filled, which said part-time job until the surgery. Limit lifting to 20 pounds. No bending. No prolonged sitting. 6. Follow with this clinic after the surgery or sooner if symptoms worsen. st1 Dictated: 12/23/2003 13:59:00 Sherry Winchester MD Transcribed: 12/28/2003 11:04:42 Doc #: [id number] cc: 1 Page 1 Patient Name: FIFI CALDERON Visit Date: 12/23/2003 OCCUPATIONAL/ENVIRONMENTAL CONFIDENTIAL MEDICAL RECORD [address] [phone] Page 1 Patient: FIFI CALDERON Location:[place] HPN: Date of : 1955 Visit Date: 12/23/2003 OCCUPATIONAL/ENVIRONMENTAL documented in this encounter Plan of Treatment Not on filedocumented as of this encounter Visit Diagnoses Not on filedocumented in this encounter Care Teams Trench Shovel Operator Relationship Specialty Start Date End Date Unassigned, Provider PCP - General 03/12/[address] [place] [address] documented as of this encounter
--- OUTSIDE RECORDS SUMMARY | 2022-05-18 04:00 | XMS_ITS | Encounter Summary ---
:1955 Author Organization [facility] Address [address] [place] [address] Care Team Providers Name Role Phone Unassigned, Provider Primary Care Provider Unavailable Encounter Details Date Type Department Care Team Description 11/18/2003 Correspondence None Unknown, Physici an [facility] PRIMITIVO TO SELF [address] [place], [place] [phone] (Wo rk) Social History Tobacco Use Types [...] on filedocumented in this encounter Care Teams Brim Ironer Hand Relationship Specialty Start Date End Date Unassigned, Provider PCP - General 03/12/03 [address] [place] [address] documented as of this encounter
--- OUTSIDE RECORDS SUMMARY | 2022-05-18 04:00 | XMS_ITS | Encounter Summary ---
:1955 Author Organization [employer] Address [address] [place] [address] Care Team Providers Name Role Phone Unassigned, Provider Primary Care Provider Unavailable Reason for Visit Reason Comments ALLERGIC REACTION--ED Encounter Details Date Type Department Care Team Description 05/18/2004 Hospital Encounter [facility] Harsh Cantu, ADVERSE EFFECT DRUG MED/BIO SUBST UNSPEIFIED; [address] Karthik Carlson MD SHORTNESS OF BREATH; [place], [place] [address] [employer] [facility] SWELLING IN HEAD & NECK [address] [phone] [place] [address] Social History Tobacco Use Types [...] reaction Lorenzo Akers - 05/18/2004 12:00 AM VETERINARY LABORATORY DIAGNOSTICIAN CHIEF COMPLAINT: Eyelid swelling and subjective feeling of shortness of breath. HISTORY OF PRESENT ILLNESS: The patient is a 49-year-old female who comes in this evening complaining that she felt short of breath at home as well as subjective feeling that her eyelids were swelling and that her eyes were itching after having taken metoprolol which was recently prescribed by a lead project engineer. She has a history of back pain for which she had workup for to undergo back surgery. During this workup at [facility], they discovered that she has a carotid artery stenosis of 70% on the right and is actually scheduled to undergo carotid endarterectomy tomorrow morning. Preoperatively, she was seen by a lead project engineer at [facility] who prescribed her both Lipitor and metoprolol, [...] which she had been prescribed by her lead project engineer she saw. Following that, she began to [...] I did advise her that this could self pay representative of an allergic reaction or could [...] metoprolol or Lipitor until she sees her lead project engineer again at [facility]. I advised her not to take these medications tomorrow morning presurgery. I did advise her to discuss this with the anesthesiologist who would be taking over her care at [facility] to advise that she may have had [...] 08:44:37 Staff: Harsh Cantu MD Doc #: [id number] cc: Yoselyn Strauss MD, Primary 1 Page 1 Patient Name: FIFI CALDERON Visit Date: 05/18/2004 EMERGENCY MEDICINE NOTE CONFIDENTIAL MEDICAL RECORD [address] [phone] Page 1 Patient: FIFI CALDERON Location: [facility] HPN: Date of : 1955 Visit Date: 05/18/2004 EMERGENCY MEDICINE NOTE RINARY LABORATORY DIAGNOSTICIAN documented in this encounter Plan of Treatment Not on filedocumented as of this encounter Visit Diagnoses Diagnosis Other and unspecified adverse effect of drug, medicinal and biological substance Shortness of breath Swelling, mass, or lump in head and neck documented in this encounter Care Teams Application Development Project Manager Relationship Specialty Start Date End Date Unassigned, Provider PCP - General 03/12/[address] [place] [address] documented as of this encounter
--- OUTSIDE RECORDS SUMMARY | 2022-05-18 04:00 | XMS_ITS | Encounter Summary ---
:1955 Author Organization [facility] Address [address] [place] [address] Care Team Providers Name Role Phone Unassigned, Provider Primary Care Provider Unavailable Reason for Visit Reason Comments DIZZINESS/VERTIGO--ED DENTAL FRACTURE--ED NAUSEA--ED Encounter Details Date Type Department Care Team Description 09/28/2005 Emergency [facility] Ketan Cortez, LEFT WITHOUT BEING [address] Carlson MD SEEN/FINISHED/[place] [address] D [phone] Social History Tobacco Use Types Packs/Day Years [...] Comments Blood Pressure 193/117 09/28/2005 4:26 PM [employer] Pulse 83 09/28/2005 4:26 PM [employer] Temperature 36.7 ??C (98 ??F) 09/28/2005 4:26 PM [employer] Respiratory Rate 98 09/28/2005 4:26 PM [employer] Oxygen Saturation - - Inhaled Oxygen Concentration [...] Notes Ketan Cortez - 09/28/2005 6:48 PM [employer] patient left prior to evaluation. [employer] Pam Kitchen - 09/28/2005 6:37 PM [employer] Pt called for rooming no answer, pt lwbs [employer] Cherelle Harry V - 09/28/2005 6:27 PM [employer] Pt called in triage to go back, no response. [employer] Karin Resendiz - 09/28/2005 4:19 PM [employer] Patient with with dizziness as if the room is spinning, also feels nuaseated. Nausea started after the dizziness today. Patient also has wisdom tooth that is broken. [employer] documented in this encounter Plan of Treatment Not on filedocumented as of this encounter Visit Diagnoses Diagnosis LEFT WITHOUT BEING SEEN/FINISHED/REGISTE RED documented in this encounter Care Teams Control Equipment Electrician Relationship Specialty Start Date End Date Unassigned, Provider PCP - General 03/12/[address] [place] [id number] documented as of this encounter
--- OUTSIDE RECORDS SUMMARY | 2022-05-18 04:00 | XMS_ITS | Encounter Summary ---
:1955 Author Organization [employer] Address [address] [place] [address] Care Team Providers Name Role Phone Unassigned, Provider Primary Care Provider Unavailable Reason for Visit Reason Comments CHEST PAIN--ED Encounter Details Date Type Department Care Team Description 07/28/2008 - Hospital Encounter RH C73 Elroy Fraire MD [facility] at Rest; 07/29/2008 [facility] Dilip Bird MD Depression; [place], [place] Unassigned, Provider [address] [place] [address] Anxiety; [address] Kostas Javier MD [address] [place] [address] HTN; [phone] Ajith Katz MD [address] [place], [place] [id number] ACS (Acute Coronary Syndrome) Social History Tobacco [...] Comments Blood Pressure 150/99 07/29/2008 3:15 PM GUSSET FOLDER Pulse 69 07/29/2008 12:00 PM GUSSET FOLDER Temperature 37.1 ??C (98.7 ??F) 07/29/2008 12:00 PM GUSSET FOLDER Respiratory Rate 16 07/29/2008 12:00 PM GUSSET FOLDER Oxygen Saturation 97% 07/29/2008 12:00 PM GUSSET FOLDER Inhaled Oxygen Concentration - - Weight 75.4 kg (166 lb 3.2 oz) 07/28/2008 5:08 PM GUSSET FOLDER Height 162.6 cm (5' 4) 07/28/2008 6:47 PM GUSSET FOLDER Body Mass Index 28.53 07/28/2008 5:08 PM GUSSET FOLDER documented in this encounter Discharge Summaries Ajith Katz - 07/29/2008 2:23 PM CST [facility] Hospital Discharge Summary Report (MD) Patient Name: [...] Cardiac Activity: As tolerated. Discharge Medications: Unchanged BUILDING SUPERINTENDENT meds that are or will be resumed [...] 30 minutes. --- End of Report --- ET FOLDER documented in this encounter Discharge Instructions Discharge InstructionsZayra Gardner Jay - 07/29/2008 3:48 PM CST Images from the original note were not included. [address] [place] [id number] Discharge Instructions for: Marissa Shepard Thank you for choosing [facility] as your hospital. A copy of [...] 30 0 Designated Pharmacy for Discharge Medications: [address] [26] If you were taking a [...] with usual methods [place] [address] For questions about your discharge instructions call the nursing unit : [phone] Emergency & Urgently Needed Care: For emergencies call 911 and/or get medical help right away. If you are a [facility] member and have medical needs after clinic hours you may call the CareLineat [phone] or . Smoking and second-hand smoke exposure: Smoking damages blood vessels, reduces the oxygen in your blood and makes your heart beat too fast. If you smoke you should quit. Everyone should avoid second- hand smoke. If you would like further assistance after your discharge, please contact [phone] or visit www.[employer] Quitting can offer further [...] weight will also be followed by the Surgical Appliances Salesperson when you go in for your treatment. [...] my discharge instructions: Marissa A Cross (or Contract Associate Manager) ET FOLDER documented in this encounter Medications at Time [...] Zayra Gardner - 07/29/2008 3:48 PM CST [facility] Discharge Note - Nursing Admission Date/Time: 07/28/2008 [...] Gardner RN --- End of Report --- ET FOLDER Amira Gonzalez - 07/29/2008 5:55 AM CST [facility] Progress Note (Nursing) Identify/Problem(s): Toothache S/P tooth [...] Gonzalez RN --- End of Report --- ET FOLDER Imtiaz Paige - 07/28/2008 5:03 PM CST [facility] Pharmacy Medication History Note Outpatient Medication History: [...] None Pharmacy (include contact number if available): Cristian--[phone] Allergy comments (include reaction if available): Lipitor [...] Lassiter D --- End of Report --- ET FOLDER documented in this encounter Procedure Notes Amira Gonzalez - 07/29/2008 7:08 AM CST [facility] Cardiac Stress Test Checklist Allergies: Lipitor and [facility] Librarian needed? No Caffeine has been withheld (including [...] Amira Gonzalez RN For questions, please call [facility] Charge Nurse at . --- End of Report --- ET FOLDER documented in this encounter OR Notes H&P [...] angioplasty done when she was 33. No ID at that time. Pt had some chest [...] I <0.030 0.0-0.049 (ng/ml) BB HOLD TUBE ([facility] ONLY) Component Value Range ??? BB HOLD [...] 50% Kostas Javier MD 07/28/2008 5:41 PM [phone] ET FOLDER H&P - King Schilling - 07/28/2008 5:01 PM CST [facility] Medicine History and Physical Date of [...] with CAD s/p CABG, Father with CHF, ID in early 50s. Social History Occupational History [...] d/c in AM. TEDs, ambulate, prevacid. A interpreter translator was not used during this exam. Report Completed by: King Schilling PA-C Pager: [phone] ET FOLDER documented in this encounter ED Notes Mark Kerr - 07/28/2008 4:01 PM CST Patient`s clothing and valuables taken home by family. ET FOLDER Mark Kerr - 07/28/2008 4:01 PM CST [facility] Patient's Valuables Patient Name: Marissa Shepard Paper [...] (not recorded) Dispostion of jewelry: Not applicable Pierce #: 0 Disposition of keys: Not applicable List items in possession of patient but belonging to others: Not applicable No items were sent to the Assistant Operations Manager's Office. I understand that I assume full responsibility for all clothing, personal items, or valuables retained by me in my hospital room. Any unclaimed personal items deposited into the custody of the hospital will be disposed of by the hospital if they are not claimed within 180 days of discharge. Patients' Signature Witness Management Advisor Contract Associate Manager's Signature Witness I authorize release of my valuables to the following: Relationship: Relationship: Relationship: Patient's Signature Patient Valuables taken by: Date: Signature: Relationship: Witness Name: Witness Signature: I have received my valuables as listed. Date: Patient's Signature: Witness: --- End of Report --- ET FOLDER Mark Kerr - 07/28/2008 4:01 PM CST [facility] Clothing List Patient Name: Marissa Thompson Cross [...] Nursing Unit) --- End of Report --- ET FOLDER Zoey Johnson - 07/28/2008 3:36 PM CST [facility] Emergency Department Visit Note Patient Name: Marissa Shepard Date of : 1955 Chief Complaint: Chief Complaint Patient presents with ??? CHEST PAIN--ED HPI: 53 yo female with PMH significant for anxiety and depression comes to [facility] with c/o CP; Patient states that she [...] hospitalist. Assessment: Unstable angina Anxiety Depression Plan: Integration Specialist Re-check Vitals ECG Imaging: Plain Radiograph(s): chest Laboratory: CBC, Chem 8 and Troponin Medication: Lovenox Ball Worker patient/family Re-evaluate patient Check response to treatment Planned Disposition: hospital observation Condition on disposition: Stable Patient seen with: Dilip Johnson DPM 07/28/2008, 4:26 PM ET FOLDER Cherelle Harry V - 07/28/2008 3:15 PM CST Pt states that she felt diaphoretic, nauseated and SOB with the CP - CP lasted approx 5 minutes. Thepain came and went again during side laster staple. Pt is smoker, hx HTN, probably has high cholesterol, family hx cardiac problems. Lungs are clear, S1S2 heard clearly. MD in room now to evaluate. Blood drawn and sent to lab. ET FOLDER Dilip Bird - 07/28/2008 3:10 PM CST [facility] Emergency Department Attending Supervision Note Patient [...] benign. Symmetric and equal pulses bilaterally. Plan: Integration Specialist ECG: NSR, rate of 70, LVH via voltage criteria. No acute ischemic changes or dysrhythmia Imaging: Plain Radiograph(s): chest Laboratory: CBC, Chem 8 and Troponin Medication: lovenox Planned Disposition: inpatient admission General radiology studies were reviewed by me. Author: Dilip Bird MD ET FOLDER Forest Rodriguez - 07/28/2008 2:54 PM CST Pt and daughter giggling and laughing while getting settled. ET FOLDER Forest Rodriguez - 07/28/2008 2:49 PM CST Developed CP while on the phone with the [employer]. Hung up and called 911. Currently [...] ASA prior to the ambulance getting there. ET FOLDER documented in this encounter Plan of Treatment Not on filedocumented as of this encounter Procedures Procedure Name Priority Date/Time Associated Diagnosis Comme nts NM CARD MYOCARD Routine 07/29/2008 11:22 AM Resul ts for this EXERCISE GUSSET FOLDER procedure are i n REST/STRESS SPECT the result s section. BASIC METABOLIC Routine 07/29/2008 5:35 AM Result s for this PANEL G[facility]SET FOLDER procedure are i n the results section. TROPONIN I STAT 07/29/2008 5:35 AM Results f or this GUSSET FOLDER procedure are i n the results section. LIPID PANEL, FAST > Routine 07/29/2008 5:35 AM Re sults for this 12 HOUR GUSSET FOLDER procedure are i n the results section. DRUG SCREEN, URINE Routine 07/28/2008 8:30 PM Res ults for this GUSSET FOLDER procedure are i n the results section. GOLD HOLD TUBE (OR Routine 07/28/2008 8:24 PM Res ults for this RED/GARCIA) GUSSET FOLDER procedure are i n the results section. TROPONIN I STAT 07/28/2008 8:24 PM Results f or this GUSSET FOLDER procedure are i n the results section. ECG 12-LEAD ROUTINE Routine 07/28/2008 8:01 PM Re sults for this GUSSET FOLDER procedure are i n the results section. GLUCOSE, WHOLE Routine 07/28/2008 4:07 PM Results for this BLOOD POCT GUSSET FOLDER procedure are i n the results section. ECG 12-LEAD ROUTINE STAT 07/28/2008 3:42 PM Re sults for this GUSSET FOLDER procedure are i n the results section. XR PORTABLE CHEST 1 STAT 07/28/2008 3:42 PM Re sults for this VIEW GUSSET FOLDER procedure are i n the results section. COAG HOLD (BLUE Routine 07/28/2008 3:10 PM Result s for this TUBE) GUSSET FOLDER procedure are i n the results section. BB HOLD TUBE Routine 07/28/2008 3:10 PM Results f or this ([place] ONLY) GUSSET FOLDER procedure are in the results section. BASIC METABOLIC STAT 07/28/2008 3:10 PM Result s for this PANEL GUSSET FOLDER procedure are i n the results section. TROPONIN I STAT 07/28/2008 3:10 PM Results f or this GUSSET FOLDER procedure are i n the results section. COMPLETE BLOOD STAT 07/28/2008 3:10 PM Results for this COUNT-NO DIFF GUSSET FOLDER procedure are in the results section. documented in this encounter Results NM CARDIAC EXERCISE CARDIOLITE STRESS TST (07/29/2008 11:22 AM GUSSET FOLDER) Anatomical Region Laterality Modality Chest, NM Cardiac Nuclear Medicine, Nu clear Medicine Specimen (Source) Anatomical Collection Method Collection Time Re ceived Time Location / / Volume Laterality 07/29/2008 11:22 AM GUSSET FOLDER Narrative 07/29/2008 12:35 PM GUSSET FOLDER NM MYOCARDIAL PERFUSION EXERCISE REST-STRESS SPECT SCAN [...] which thomas to 188/88 with double product 22215. Stress stoppe d because of chest discomfort. Abnormal EKG reported separately. access control specialist: Normal. FINDINGS: Wall motion and thickening is [...] protocol for 7:01 minutes. Work level ac [employer] MAC METS: 8.40. Baseline standing heart rate 78 bpm which thomas to 130 bpm representing 80% predicted. Baseline standing blood press ure 122/88 which thomas to 188/88 with double product 13569. Stress stoppe d because of chest discomfort. Abnormal EKG reported separately. access control specialist: Normal. FINDINGS: Wall motion and thickening is [...] adjust schedule as appropriate) (07/29/2008 5:35 AM GUSSET FOLDER) P athologist Signature Troponin I <0.030 0.0 - 0.049 [facility] ng/ml Comment: (0.000-0.049 ng/ml): Normal (0.050-0.770 ng/ml): Indeterminant for c linical definition of myocardial infarction (0.780 ng/ml): Cutoff indicating myocard ial infarction Specimen Anatomical Collection Method Collection Time Receive d Time (Source) Location / / Volume Laterality 07/29/2008 5:35 AM 9 5:38 GUSSET FOLDER AM GUSSET FOLDER King Schilling PA-C LAB_1 Performing Organization Address City/[facility]/ZIP [facility] Phon e Number [address] [address] [place], [place] [phone] (ABNORMAL) Cholesterol Lipid Panel Fast > 12 Hr (Chol, HDL, Trig, Calc LDL) (Must be fasting) (07/29/2008 5:35 AM GUSSET FOLDER) Patholo gist Method Time Signature Cholesterol 232 (H) 0 - 199 [facility] mg/dl Triglyceride 174 (H) 0 - 149 [facility] mg/dl HDL 37 (L) >40 mg/dl [facility] LDL, Calc. 160 (H) 0 - 129 REG[facility] mg/dl Hours Fasting Information Not hours REGIONS Given Specimen Anatomical Collection Method Collection Time Receive d Time (Source) Location / / Volume Laterality 07/29/2008 5:35 AM 9 5:38 GUSSET FOLDER AM GUSSET FOLDER King Schilling PA-C LAB_1 Performing Organization Address City/[facility] Phon e Number [address] [address] [place], [place] [phone] (ABNORMAL) Basic Metabolic Panel (K, Na, CO2, [...] Volume Laterality 07/29/2008 5:35 AM 9 5:38 GUSSET FOLDER AM GUSSET FOLDER King Schilling PA-C LAB_1 Performing Organization Address [facility]/ZIP [facility] Phon e Number [address] [address] [place], [place] [phone] (ABNORMAL) DRUG SCREEN, URINE (07/28/2008 8:30 PM GUSSET FOLDER) Component Value Ref Test Analysis Performed Pathologis [...] specimen 07/28/2008 8:30 PM 009 8:44 (specimen) GUSSET FOLDER PM GUSSET FOLDER King Schilling PA-C LAB_1 Performing Organization Address [facility] Phon e Number [address] [address] [place], [place] [phone] GOLD HOLD TUBE (OR RED/GARCIA) (07/28/2008 8:24 PM GUSSET FOLDER) Patholo gist Method Time Signature Gold Hold Held in REGIONS Tube Chemistry sample rack for 7 days Specimen Anatomical Collection Method Collection Time Receive d Time (Source) Location / / Volume Laterality 07/28/2008 8:24 PM 9 8:29 GUSSET FOLDER PM GUSSET FOLDER Kostas Javier MD LAB_1 Performing Organization Address [facility] Phon e Number [address] [address] [place], [place] [phone] Troponin I Q6H (check time done in ED, adjust schedule as appropriate) (07/28/2008 8:24 PM GUSSET FOLDER) athologist Signature Troponin I <0.030 0.0 - 0.049 [facility] ng/ml Comment: (0.000-0.049 ng/ml): Normal (0.050-0.770 ng/ml): Indeterminant for c linical definition of myocardial infarction (0.780 ng/ml): Cutoff indicating myocard ial infarction Specimen Anatomical Collection Method Collection Time Receive d Time (Source) Location / / Volume Laterality 07/28/2008 8:24 PM 9 8:25 GUSSET FOLDER PM GUSSET FOLDER King Schilling PA-C LAB_1 Performing Organization Address [facility] Phon e Number [address] [address] [place], [place] [phone] ECG 12-LEAD ROUTINE (07/28/2008 8:01 PM GUSSET FOLDER) athologist Signature Ventricular Rate 69 BPM MUSE Atrial Rate 69 BPM MUSE P-R Interval 154 ms MUSE QRS Duration 88 ms MUSE QT 438 ms MUSE QTc 469 ms MUSE P [place] 34 degrees MUSE R [place] 30 degrees MUSE T [place] 35 degrees MUSE URL Link MUSE Specimen (Source) Anatomical Collection Method Collection Time Re ceived Time Location / / Volume Laterality 07/28/2008 8:01 PM GUSSET FOLDER Narrative MUSE - 07/31/2008 11:31 AM GUSSET FOLDER Sinus rhythm Normal ECG When compared with ECG of 28-JUL-2008 15 :42, No significant change was found Procedure Note Darien Goncalves W - 07/31/2008 Sinus rhythm Normal ECG When compared with ECG of 28-JUL-2008 15 :42, No significant change was found Kostas Javier MD EKG Performing Organization Address City/[facility]/ZIP Code Phon e Number MUSE RHP MUSE GLUCOSE, WHOLE BLOOD POC (07/28/2008 4:07 PM GUSSET FOLDER) athologist Signature Glucose, Whole 104 70 - 180 REGIONS Blood mg/dl Comment: Point of Care Testing RN Notified Specimen Anatomical Collection Method Collection Time Receive d Time (Source) Location / / Volume Laterality 07/28/2008 4:07 PM 9 9:08 GUSSET FOLDER PM GUSSET FOLDER Elroy Fraire MD LAB_1 Performing Organization Address City/State/ZIP [facility] Phon e Number [address] [address] [place], [place] [phone] ECG 12-Lead (07/28/2008 3:42 PM GUSSET FOLDER) P athologist Signature Ventricular Rate 70 BPM MUSE Atrial Rate 70 BPM MUSE P-R Interval 152 ms MUSE QRS Duration 90 ms MUSE QT 454 ms MUSE QTc 490 ms MUSE P [place] 31 degrees MUSE R [place] 21 degrees MUSE T [place] 40 degrees MUSE URL Link MUSE Specimen (Source) Anatomical Collection Method Collection Time Re ceived Time Location / / Volume Laterality 07/28/2008 3:42 PM GUSSET FOLDER Narrative MUSE - 08/03/2008 1:40 PM GUSSET FOLDER Sinus rhythm Minimal voltage criteria for LVH, may be normal variant Prolonged QT Abnormal ECG No previous ECGs available Procedure Note Darien Goncalves - 08/03/2008 Sinus rhythm Minimal voltage criteria for LVH, may be normal variant Prolonged QT Abnormal ECG No previous ECGs available Dilip Bird MD EKG Performing Organization Address City/[facility]/ZIP Code Phon e Number MUSE RHP MUSE XR PORTABLE CHEST 1 VIEW (07/28/2008 3:42 PM GUSSET FOLDER) Anatomical Region Laterality Modality Chest, Lung Computed Radiography Specimen (Source) Anatomical Collection Method Collection Time Re ceived Time Location / / Volume Laterality 07/28/2008 3:42 PM GUSSET FOLDER Narrative 07/28/2008 3:52 PM GUSSET FOLDER [please fill in title of report and [...] COAG HOLD (BLUE TUBE) (07/28/2008 3:10 PM GUSSET FOLDER) athologist Signature Coag Hold Held in REGIONS Coag Rack for 8 hours Specimen Anatomical Collection Method Collection Time Receive d Time (Source) Location / / Volume Laterality 07/28/2008 3:10 PM 9 3:50 GUSSET FOLDER PM GUSSET FOLDER Elroy Fraire MD LAB_1 Performing Organization Address City/[facility] Phon e Number [address] [address] [place], [place] [phone] BB HOLD TUBE ([facility] ONLY) (07/28/2008 3:10 PM GUSSET FOLDER) [facility] Method Time Signature BB Hold Tube Blood Bank REGIONS save tube expires in 3 days Specimen Anatomical Collection Method Collection Time Receive d Time (Source) Location / / Volume Laterality 07/28/2008 3:10 PM 9 3:50 GUSSET FOLDER PM GUSSET FOLDER Elroy Fraire MD LAB_1 Performing Organization Address [facility] Phon e Number [address] [address] [place], [place] [phone] Troponin I (07/28/2008 3:10 PM GUSSET FOLDER) athologist Signature Troponin I <0.030 0.0 - 0.049 REGIONS ng/ml Comment: (0.000-0.049 ng/ml): Normal (0.050-0.770 ng/ml): Indeterminant for c linical definition of myocardial infarction (0.780 ng/ml): Cutoff indicating myocard ial infarction Specimen Anatomical Collection Method Collection Time Receive d Time (Source) Location / / Volume Laterality 07/28/2008 3:10 PM 9 3:41 GUSSET FOLDER PM GUSSET FOLDER Dilip Bird MD LAB_1 Performing Organization Address [facility]/ZIP [facility] Phon e Number [address] [address] [place], [place] [phone] (ABNORMAL) Basic Metabolic Panel (K, Na, CO2, [...] Volume Laterality 07/28/2008 3:10 PM 9 3:37 GUSSET FOLDER PM GUSSET FOLDER Dilip Bird MD LAB_1 Performing Organization Address City/State/ZIP Code Phon e Number [address] [address] [place], [place] [phone] Hemogram with Platelets (07/28/2008 3:10 PM GUSSET FOLDER) athologist Signature WBC 9.1 4.0 - 11.0 [...] Volume Laterality 07/28/2008 3:10 PM 9 3:37 GUSSET FOLDER PM GUSSET FOLDER Dilip Bird MD LAB_1 Performing Organization Address City/State/ZIP Code Phon e Number [address] [address] [place], [place] [phone] documented in this encounter Visit Diagnoses Diagnosis Angina at rest (HRC) Other and unspecified angina pectoris Depression Depressive disorder, not elsewhere class ified Anxiety ([facility]) Anxiety state, unspecified HTN Unspecified essential hypertension ACS (acute coronary syndrome) ([facility]) Intermediate coronary syndrome Chest pain, unspecified Initial Assessments - Mervin Malagon - 07/28/2008 6:51 PM CST [facility] Med-Surg / ICU / Rehab Initial Assessment [...] there Guardianship issues affecting care planning? No Spiritual/Cheondoism Is the nurse aware, at present, of any needs or issues for which support from the hospital vice president research might be helpful to patient and/or family? (e.g. need or desire for spiritual support, difficulty coping, end of life issues, grief/loss, etc.) No. ([facility] makes daily rounds to all uatsdin patients.) Cultural On the Best Care/Best Experience [...] alternatives.) See flowsheet documentation for additional information. ET FOLDER documented in this encounter Administered Medications Inactive Administered Medications - up to 3 most recent administrations Medication Order MAR Action Action Date Dose Rate Site amoxicillin (AMOXIL) capsule 500 Given 07/29/2008 2:00 PM GUSSET FOLDER 50 0 mg mg 500 mg, Oral, TID, First dose on Sat07/28/08 at 2000, For 7 days Given 07/29/2008 8:00 AM GUSSET FOLDER 500 mg Given 07/28/2008 8:00 PM GUSSET FOLDER 500 mg enoxaparin (LOVENOX) injection 70 mg Given 07/28/2008 4:30 PM GUSSET FOLDER 70 mg 70 mg, Subcutaneous, NOW, On Sat07/28/08 at 1619, For 1 dose, Recommended dose 1 mg/kg. Patient reports weight being 160lbs approx 70kgs hydrALAZINE (APRESOLINE) tablet 10 mg Given 07/28/2008 5:30 PM GUSSET FOLDER 10 mg 10 mg, Oral, Q4H PRN, Blood Pressure >, SBP > 180, Starting on Sat07/28/08 at 1712, Until Michelle 07/29/08 at 1835 hydrocodone/acetaminophen (VICODIN) 5-500 Given 07/28/2008 8 :30 PM GUSSET FOLDER 1 Tablet MG 1-2 Tab 1-2 Tablet, Oral, Q4H PRN, Pain, Starting on Sat07/28/08 at 1649, Maximum Daily Acetaminophen dose for patients > 53 k g/day Maximum Daily Acetaminophen dose for patients < 53 k mg/kg/day This product contains 500 mg Acetaminophen per tablet. lansoprazole (PREVACID) capsule 30 mg Given 07/29/2008 8:00 AM GUSSET FOLDER 30 mg 30 mg, Oral, DAILY, First dose on Sat07/28/08 at 1809, Until Discontinued Given 07/28/2008 8:00 PM GUSSET FOLDER 30 mg metoPROLOL tartrate (LOPRESSOR) oral tablet Given 07/15 8:00 AM GUSSET FOLDER 12.5 mg 12.5 mg 12.5 mg, Oral, BID, First dose on Sat07/28/08 at 2000, Until Discontinued, 12.5 mg = a prepackaged 1/2 tablet Take with food Given 07/28/2008 6:42 PM GUSSET FOLDER 12.5 mg zolpidem (AMBIEN) tablet 10 mg Given 07/28/2008 10:45 PM GUSSET FOLDER 10 mg 10 mg, Oral, HS PRN, Sleep, Starting on Sat07/28/08 at 1648, Until Michelle 07/29/08 at 1835 documented in this encounter Active and Recently Administered Medications Times are shown in GUSSET FOLDER. Scheduled Medication Order 07/27/2008 07/28/2008 07/29/2008 amoxicillin [...] ed documented in this encounter Care Teams Production Internship Relationship Specialty Start Date End Date Unassigned, Provider PCP - General 03/12/[address] [place] [id number] documented as of this encounter
--- OUTSIDE RECORDS SUMMARY | 2022-05-18 04:00 | XMS_ITS | Encounter Summary ---
:1955 Author Organization [facility] Address [address] [place] [address] Care Team Providers Name Role Phone Unassigned, Provider Primary Care Provider Unavailable Encounter Details Date Type Department Care Team Description 12/12/2004 Orders Only [facility] Unknown, Physician Cardiology [address] [place] [address] [phone] (Wo rk) Social History Tobacco Use Types [...] on filedocumented in this encounter Care Teams Press Worker Helper Relationship Specialty Start Date End Date Unassigned, Provider PCP - General 03/12/[address] [place] [id number] documented as of this encounter
--- OUTSIDE RECORDS SUMMARY | 2022-05-18 04:00 | XMS_ITS | Encounter Summary ---
:1955 Author Organization [facility] Address [address] [place] [address] Care Team Providers Name Role Phone Unassigned, Provider Primary Care Provider Unavailable Encounter Details Date Type Department Care Team Description 10/20/2004 Correspondence None Unknown, Physici an [facility] to [place] [address] disabiltiy [place], [place] [phone] (Wo rk) Social History Tobacco Use Types [...] on filedocumented in this encounter Care Teams End Stapler Relationship Specialty Start Date End Date Unassigned, Provider PCP - General 03/12/03 [address] [place] [address] documented as of this encounter
--- OUTSIDE RECORDS SUMMARY | 2022-05-18 04:00 | XMS_ITS | Encounter Summary ---
:1955 Author Organization [facility] Address [address] [place] [address] Care Team Providers Name Role Phone Unassigned, Provider Primary Care Provider Unavailable Encounter Details Date Type Department Care Team Description 10/05/2003 Notes/Orders [facility] Occupational and Radha Villalpando, Environmental Medicine TOWER HOIST OPERATOR Social History Tobacco Use Types Packs/Day Years [...] this encounter Progress Notes 10/05/2003 11:59 PM ASSISTANT PLANT CONTROL OPERATOR patient called requesting a refill of her [...] called into the 1st floor pharmacy at [facility]. Sasha Villalpando LPN documented in this encounter Plan of Treatment Not on filedocumented as of this encounter Visit Diagnoses Not on filedocumented in this encounter Care Teams Poultry Husbandman Relationship Specialty Start Date End Date Unassigned, Provider PCP - General 03/12/[address] [place] [address] documented as of this encounter
--- OUTSIDE RECORDS SUMMARY | 2022-05-18 04:00 | XMS_ITS | Encounter Summary ---
:1955 Author Organization [facility] Address [address] [place] [address] Care Team Providers Name Role Phone Unassigned, [...] on filedocumented in this encounter Care Teams Mat Gauger Relationship Specialty Start Date End Date Unassigned, Provider PCP - General 03/12/03 [address] [place] [address] documented as of this encounter
--- OUTSIDE RECORDS SUMMARY | 2022-05-18 04:00 | XMS_ITS | Encounter Summary ---
:1955 Author Organization [facility] Address [address] [place] [address] Care Team Providers Name Role Phone Unassigned, Provider Primary Care Provider Unavailable Encounter Details Date Type Department Care Team Description 11/22/2004 Correspondence None Unknown, Physici an [facility] TO [facility] [address] [place] [address] (Wo rk) Social History Tobacco [...] on filedocumented in this encounter Care Teams Long Haul Truck Driver Relationship Specialty Start Date End Date Unassigned, Provider PCP - General 03/12/03 [address] [place] [address] documented as of this encounter
--- OUTSIDE RECORDS SUMMARY | 2022-05-18 04:00 | XMS_ITS | Encounter Summary ---
:1955 Author Organization [facility] Address [address] [place] [address] Care Team Providers Name Role Phone Unassigned, [...] on filedocumented in this encounter Care Teams Candles Pourer Relationship Specialty Start Date End Date Unassigned, Provider PCP - General 03/12/03 [address] [place] [address] documented as of this encounter
--- OUTSIDE RECORDS SUMMARY | 2022-05-18 04:00 | XMS_ITS | Encounter Summary ---
:1955 Author Organization [facility] Address [address] [place] [address] Care Team Providers Name Role Phone Unassigned, Provider Primary Care Provider Unavailable Encounter Details Date Type Department Care Team Description 12/13/2004 Orders Only [facility] Unknown, Physician Cardiology [address] [place] [phone] (Wo rk) Social History Tobacco Use Types [...] on filedocumented in this encounter Care Teams Forestry Pilot Relationship Specialty Start Date End Date Unassigned, Provider PCP - General 03/12/[address] [place] [address] documented as of this encounter
--- OUTSIDE RECORDS SUMMARY | 2022-05-18 04:00 | XMS_ITS | Encounter Summary ---
:1955 Author Organization [facility] Address [address] [place] [address] Care Team Providers Name Role Phone Unassigned, Provider Primary Care Provider Unavailable Encounter Details Date Type Department Care Team Description 02/02/2005 Emergency Room [facility] Emergency Dept Emergency, [facility] Emergency [address] [facility] Provider Orders/[place] [address] Social History Tobacco Use Types Packs/Day Years [...] on filedocumented in this encounter Care Teams Ribbon Blockmaker Relationship Specialty Start Date End Date Unassigned, Provider PCP - General 03/12/03 [address] [place] [address] documented as of this encounter
--- OUTSIDE RECORDS SUMMARY | 2022-05-18 04:00 | XMS_ITS | Encounter Summary ---
:1955 Author Organization [employer] Address [address] [place] [address] Care Team Providers Name Role Phone Unassigned, [...] the surgery was denied. She has a community life director. Currently it is an aching pain, on [...] Winchester MD Transcribed: 11/16/2003 15:26:46 Doc #: [id number] cc: 1 Page 1 Patient Name: FIFI CALDERON Visit Date: 11/16/2003 OCCUPATIONAL/ENVIRONMENTAL CONFIDENTIAL MEDICAL RECORD [address] [address] Page 1 Patient: FIFI CALDERON Location:[place] HPN: Date of : 1955 Visit Date: 11/16/2003 OCCUPATIONAL/ENVIRONMENTAL Sherry Winchester - 11/16/2003 12:00 AM CDT documented in this encounter Plan of Treatment Not on filedocumented as of this encounter Visit Diagnoses Diagnosis Lumbago documented in this encounter Care Teams Solar Installer Technician Relationship Specialty Start Date End Date Unassigned, Provider PCP - General 03/12/[address] [place] [address] documented as of this encounter
--- OUTSIDE RECORDS SUMMARY | 2022-05-18 04:00 | XMS_ITS | Encounter Summary ---
:1955 Author Organization [facility] Address [address] [place] [address] Care Team Providers Name Role Phone Unassigned, Provider Primary Care Provider Unavailable Encounter Details Date Type Department Care Team Description 01/11/2004 Notes/Orders [facility] Occupational and Kwasi, Radha Blanc, Environmental Medicine B AND B GANG WORKER Social History Tobacco Use Types Packs/Day Years [...] on filedocumented in this encounter Care Teams Plunger Scoop Operator Relationship Specialty Start Date End Date Unassigned, Provider PCP - General 03/12/03 [address] [place] [address] documented as of this encounter
--- OUTSIDE RECORDS SUMMARY | 2022-05-18 04:00 | XMS_ITS | Encounter Summary ---
:1955 Author Organization [employer] Address [address] [place] [address] Care Team Providers Name Role Phone Unassigned, Provider Primary Care Provider Unavailable Encounter Details Date Type Department Care Team Description 07/28/2008 Imaging [facility] Radiology [address] [place], [place] [phone] Social History Tobacco Use Types Packs/Day Years [...] 3:42 PM Re sults for this VIEW LIVESTOCK FARMWORKER procedure are i n the results section. documented in this encounter Results XR PORTABLE CHEST 1 VIEW (07/28/2008 3:42 PM LIVESTOCK FARMWORKER) Anatomical Region Laterality Modality Chest, Lung Computed Radiography Specimen (Source) Anatomical Collection Method Collection Time Re ceived Time Location / / Volume Laterality 07/28/2008 3:42 PM LIVESTOCK FARMWORKER Narrative 07/28/2008 3:52 PM LIVESTOCK FARMWORKER [please fill in title of report and [...] on filedocumented in this encounter Care Teams Security Messenger Relationship Specialty Start Date End Date Unassigned, Provider PCP - General 03/12/[address] [place] [address] documented as of this encounter
--- OUTSIDE RECORDS SUMMARY | 2022-05-18 04:00 | XMS_ITS | Encounter Summary ---
:1955 Author Organization [facility] Address [address] [place] [address] Care Team Providers Name Role Phone Unassigned, Provider Primary Care Provider Unavailable Encounter Details Date Type Department Care Team Description 07/11/2005 Correspondence None [facility] Social History Tobacco Use Types Packs/Day Years [...] CORI GARSIA, PROVIDER - 07/11/2005 12:00 AM LABORER TAN HOUSE documented in this encounter Plan of Treatment Not on filedocumented as of this encounter Visit Diagnoses Not on filedocumented in this encounter Care Teams Flight Operations Dispatch Clerk Relationship Specialty Start Date End Date Unassigned, Provider PCP - General 03/12/03 [address] [place] [address] documented as of this encounter
--- OUTSIDE RECORDS SUMMARY | 2022-05-18 04:00 | XMS_ITS | Encounter Summary ---
:1955 Author Organization [facility] Address [address] [place] [address] Care Team Providers Name Role Phone Unassigned, Provider Primary Care Provider Unavailable Reason for Visit Reason Comments ALTERED MENTAL STATUS--ED SEIZURE--ED Encounter Details Date Type Department Care Team Description 12/12/2004 - Hospital Encounter [facility] C62 Arnol Talbot MD [address] [place] [address] OTHER GENERAL SYMPTOMS; 12/14/2004 [address] Charles De León MD AMPHETAMINE ABUSE UNSPECIFIED [place], [place] [phone] Social History Tobacco Use Types Packs/Day Years [...] treatment. She did talk with the social studies department chair and stated that she would follow up [...] 12/18/2004 12:17:17 Kristin Talbot MD Doc #: [id number] cc: Heaven Burcht, [facility] This document was electronically signed by Kristin Talbot MD on 12/25/2004 14:05:02. 1 Page 1 Patient Name: FIFI CALDERON DISCHARGE SUMMARY CONFIDENTIAL MEDICAL RECORD [address] [phone] Page 1 Patient: FIFI CALDERON Location: R-DIS [...] history. The patient was admitted here at [facility] approximately one month ago and stayed for about 8 days. At that time she was found to have depression, methamphetamine dependence and cocaine dependence. She was discharged to [facility] in order to undergo outpatient chemical dependency [...] was also on the psychiatry service at [facility] following a neurosurgery procedure for her back. [...] 2. Sodium 140, potassium 4.1, chloride 102, [id number], BUN 27, creatinine 1.3, calcium 9.1. Urine [...] 12/12/2004 14:29:25 Kristin Talbot MD Doc #: [id number] cc: Heaven Huynh MD, Primary This document was electronically signed by Kristin Talbot MD on 12/18/2004 08:05:43. 1 Page 2 Patient Name: FIFI CALDERON HISTORY & PHYSICAL CONFIDENTIAL MEDICAL RECORD [address] [address] Page 1 Patient: FIFI CALDERON Location: HPN: Admit Date: 12/12/2004 Date of : 1955 HISTORY & PHYSICAL documented in this encounter ED Notes Charles Trammell - 12/12/2004 11:05 AM CDT [facility] Emergency Department Attending Supervision [...] and sent to Nursing Unit Fifi Calderon [id number] 12/12/2004 Paper $: (not recorded) Coins $: (not recorded) Checkbook: No, First Number: (not recorded), Last Number: (not recorded) Name of Credit Cards: (not recorded), Number of Credit Cards: (not recorded), Social Security Card:No, Passport: No, Drivers' License: No, Government ID: No Watch: Yes Watch Brand: (not recorded) Glasses: No Hearing Aid: No Dentures: No Radom #: (not recorded) Cell Phone: No Pager: [...] and Witness signatures required. Signature (Patient or financial representative) Signature (Person taking valuables home) Signature Nighat Angelo Signature (Receiving Nursing Unit) Nicole Jean Carlos Jay - 12/12/2004 10:37 AM CDT [facility] Emergency Department Visit Note Patient Name: Fifi Calderon Date of : 1955 Chief Complaint: Patient presents with: ALTERED MENTAL STATUS--ED SEIZURE--ED HPI: 49 y.o. female present by EMS with AMS. Pt states, I was partying this weekend. I did a line of crank . Admits to taking excess Seroquel (amount unknown). Brought to [facility] by boyfriend, got out of car and laid on ground. EMS called for difficulty to arouse. Pt without complaint at this time. Aware she is at [facility] and knows date PMH: Previous Medical History: None on file There is no previous surgical history on file. Meds: No active medications on file as of 12/12/2004 Allergies: Review of patient's allergies indicates no known allergies. Social and Family History: Tobacco Use: Not Asked Alcohol Use: Not Asked Patient's Family History None on file Review of Systems: Please see [employer] flowsheet for review of systems. Physical Exam: [...] Ring MD Transcribed: 12/12/2004 11:38:27 Doc #: [id number] cc: Kristin Talbot MD, Attending Heaven Huynh MD, Primary KRISTIN TALBOT, Attending Physician HEAVEN HUYNH, Primary Physician This document was electronically signed by Spenser Ring MD on 12/12/2004 14:05:41. 1 Page 2 Patient Name: FIFI CALDERON Visit Date: 12/12/2004 EMERGENCY MEDICINE NOTE CONFIDENTIAL MEDICAL RECORD [address] [address] Page 1 Patient: FIFI CALDERON [...] Organization Address City/State/ZIP Code Phon e Number [address] [address] [place], [place] [phone] (ABNORMAL) BASIC METABOLIC PANEL (12/14/2004 6:10 AM [...] Arnol Talbot MD LAB_1 Performing Organization Address [facility] Phon e Number [address] [address] [place], [place] [phone] URIC ACID (12/14/2004 6:10 AM CDT) athologist Signature Uric Acid 4.0 2.5 - 6.5 [facility] mg/dl Specimen Anatomical Collection Method Collection Time Receive d Time (Source) Location / / Volume Laterality 12/14/2004 6:10 AM 5 6:16 CDT AM CDT Arnol Talbot MD LAB_1 Performing Organization Address [facility] Phon e Number [address] [address] [place], [place] [phone] MAGNESIUM (12/14/2004 6:10 AM CDT) P athologist Signature Magnesium 1.6 1.6 - 2.6 [facility] mg/dl Specimen Anatomical Collection Method Collection Time Receive d Time (Source) Location / / Volume Laterality 12/14/2004 6:10 AM 5 6:16 CDT AM CDT Arnol Talbot MD LAB_1 Performing Organization Address [facility] Phon e Number [address] [address] [place], [place] [phone] (ABNORMAL) CK, TOTAL (12/14/2004 6:10 AM CDT) athologist Signature CK, Total 6455 (H) 17 - 142 [facility] U/L Comment: Result Checked Specimen Anatomical Collection Method Collection Time Receive d Time (Source) Location / / Volume Laterality 12/14/2004 6:10 AM 5 6:16 CDT AM CDT Arnol Talbot MD LAB_1 Performing Organization Address [facility] Phon e Number [address] [address] [place], [place] [phone] (ABNORMAL) BASIC METABOLIC PANEL (12/13/2004 6:45 AM [...] Arnol Talbot MD LAB_1 Performing Organization Address City/[facility] Phon e Number [address] [address] [place], [place] [phone] (ABNORMAL) ALT (SGPT) (12/13/2004 6:45 AM CDT) athologist Signature ALT (SGPT) 116 (H) 0 - 55 U/L [facility] Specimen Anatomical Collection Method Collection Time Receive d Time (Source) Location / / Volume Laterality 12/13/2004 6:45 AM 5 7:01 CDT AM CDT Arnol Talbot MD LAB_1 Performing Organization Address City/[facility]/ZIP [facility] Phon e Number [address] [address] [place], [place] [phone] (ABNORMAL) PHOSPHORUS (12/13/2004 6:45 AM CDT) P athologist Signature Phosphorus 2.0 (L) 2.8 - 4.6 [facility] mg/dl Specimen Anatomical Collection Method Collection Time Receive d Time (Source) Location / / Volume Laterality 12/13/2004 6:45 AM 5 7:01 CDT AM CDT Arnol Talbot MD LAB_1 Performing Organization Address City/[facility] Code Phon e Number [address] [address] [place], [place] [phone] MAGNESIUM (12/13/2004 6:45 AM CDT) P athologist Signature Magnesium 1.9 1.6 - 2.6 [facility] mg/dl Specimen Anatomical Collection Method Collection Time Receive d Time (Source) Location / / Volume Laterality 12/13/2004 6:45 AM 5 7:01 CDT AM CDT Arnol Talbot MD LAB_1 Performing Organization Address City/[facility]/ZIP [facility] Phon e Number [address] [address] [place], [place] [phone] (ABNORMAL) CK, TOTAL (12/13/2004 6:45 AM CDT) P athologist Signature CK, Total 9971 (H) 17 - 142 [facility] U/L Specimen Anatomical Collection Method Collection Time Receive d Time (Source) Location / / Volume Laterality 12/13/2004 6:45 AM 5 7:01 CDT AM CDT Arnol Talbot MD LAB_1 Performing Organization Address City/[facility]/ZIP Code Phon e Number [address] [address] [place], [place] [phone] (ABNORMAL) HEMOGRAM+PLATELETS (12/13/2004 6:45 AM CDT) athologist [...] Arnol Talbot MD LAB_1 Performing Organization Address [facility] Phon e Number [address] [address] [place], [place] [phone] (ABNORMAL) GLUCOSE, WHOLE BLOOD POC (12/13/2004 12:03 AM CDT) athologist Signature Glucose, Whole 167 (H) 65 - 115 [facility] Blood mg/dl Comment: Point of Care Testing IV Insulin Specimen Anatomical Collection Method Collection Time Receive d Time (Source) Location / / Volume Laterality 12/13/2004 12:03 12/13/2004 6:56 AM CDT AM CDT Arnol Talbot MD LAB_1 Performing Organization Address [facility] Phon e Number [address] [address] [place], [place] [phone] (ABNORMAL) RAPID DRUG SCREEN (12/12/2004 9:33 AM [...] Charles Trammell MD LAB_1 Performing Organization Address [facility] Phon e Number [address] [address] [place], [place] [phone] (ABNORMAL) ACETAMINOPHEN (12/12/2004 9:33 AM CDT) P athologist Signature Acetaminophen <2 (L) 10 - 20 [facility] mcg/ml Specimen Anatomical Collection Method Collection Time Receive d Time (Source) Location / / Volume Laterality 12/12/2004 9:33 AM 5 9:39 CDT AM CDT Charles Trammell MD LAB_1 Performing Organization Address City/[facility] Phon e Number [address] [address] [place], [place] [phone] (ABNORMAL) BASIC METABOLIC PANEL (12/12/2004 9:33 AM [...] Charles Trammell MD LAB_1 Performing Organization Address [facility] Phon e Number [address] [address] [place], [place] [phone] BB HOLD TUBE (12/12/2004 9:30 AM CDT) [facility] gist Method Time Signature BB Hold Tube Blood Bank [facility] save tube expires in 3 days Specimen Anatomical Collection Method Collection Time Receive d Time (Source) Location / / Volume Laterality 12/12/2004 9:30 AM 5 9:41 CDT AM CDT Charles Trammell MD LAB_1 Performing Organization Address [facility] Phon e Number [address] [address] [place], [place] [phone] documented in this encounter Visit Diagnoses Diagnosis Other general symptoms(780.99) Other general symptoms 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
--- OUTSIDE RECORDS SUMMARY | 2022-05-18 04:00 | XMS_ITS | Encounter Summary ---
:1955 Author Organization [facility] Address [address] [place] [address] Care Team Providers Name Role Phone Unassigned, Provider Primary Care Provider Unavailable Encounter Details Date Type Department Care Team Description 11/01/2003 Telephone [facility] and Malka kapoor, Juan J Medina MD Environmental Medicine [address] [place], [place] [address] (Wo rk) Social History [...] her. I put in refills through the [facility] second floor pharmacy for: 1. Vicodin 5/500 [...] Swain MD Transcribed: 11/01/2003 13:16:37 Doc #: [id number] cc: This document was electronically signed by Juan J Swain MD on 11/02/2003 12:24:05. Page 1 Patient Name: FIFI CALDERON Encounter #: Visit Date: PHONE MESSAGE CONFIDENTIAL MEDICAL RECORD [address] [address] Page Patient: FIFI CALDERON Location: HPN: Date of : 1955 Visit Date: PHONE MESSAGE documented in this encounter Plan of Treatment Not on filedocumented as of this encounter Visit Diagnoses Not on filedocumented in this encounter Care Teams Business Support Administrator Relationship Specialty Start Date End Date Unassigned, Provider PCP - General 03/12/[address] [place] [address] documented as of this encounter
--- OUTSIDE RECORDS SUMMARY | 2022-05-18 04:00 | XMS_ITS | Encounter Summary ---
:1955 Author Organization [employer] Address [address] [place] [address] Care Team Providers Name Role Phone Unassigned, [...] open with an appointment to see her technical specialist cytogenetics tomorrow. No bladder or bowel dysfunction. She [...] Winchester MD Transcribed: 12/01/2003 15:22:03 Doc #: [id number] cc: Sherry Winchester MD, Primary Physician 1 Page 1 Patient Name: FIFI CALDERON Visit Date: 11/29/2003 OCCUPATIONAL/ENVIRONMENTAL CONFIDENTIAL MEDICAL RECORD [address] [address] Page 1 Patient: FIFI CALDERON Location:[place] HPN: Date of : 1955 Visit Date: 11/29/2003 OCCUPATIONAL/ENVIRONMENTAL Sherry Winchester - 11/29/2003 12:00 AM CDT Sherry Winchester - 11/29/2003 12:00 AM CDT documented in this encounter Plan of Treatment Not on filedocumented as of this encounter Visit Diagnoses Diagnosis Lumbago documented in this encounter Care Teams Manager Family Relationship Specialty Start Date End Date Unassigned, Provider PCP - General 03/12/[address] [place] [address] documented as of this encounter
--- OUTSIDE RECORDS SUMMARY | 2022-05-18 04:01 | XMS_ITS | Encounter Summary ---
:1955 [address] [facility] Address [address] [place] [address] Care Team Providers Name Role Phone Unavailable Primary Care Provider Unavailable Encounter Details Date Type Department Care Team Description 06/24/1999 Office Visit [facility] Emergency Dept SPRAIN/STRAIN OF ANKLE NOS; [address] [facility]. FALL ON LEVEL[place]TRIPPING [place], [place] [phone] Social History Tobacco Use Types Packs/Day Years [...]
--- OUTSIDE RECORDS SUMMARY | 2022-05-18 04:01 | XMS_ITS | Encounter Summary ---
:1955 Author Organization [facility] Address [address] [place] [address] Care Team Providers Name Role Phone Unassigned, Provider Primary Care Provider Unavailable Encounter Details Date Type Department Care Team Description 05/25/2003 Office Visit [facility] Jya Peterson Physical Medicine [facility] [address] [place] [address] [place] [address] [place] [address] Social History Tobacco Use Types Packs/Day Years [...] Notes Nithya Peterson - 05/25/2003 12:00 AM POWER HAMMER OPERATOR DATE: 07-27-2003 OUTPATIENT PHYSICAL THERAPY - INITIAL NOTE - AQUATIC THERAPY SUBJECTIVE Diagnosis/Onset Date: 724.2 LBP, 719.45 pelvic pain, onset 02/18/03. Complaint/History: Pt has a restart of LBP with bilateral intermittent anterior thigh pain. Pt was initially seen at [facility] [place] on 05/25/03. Please refer to initial evaluation [...] License [id number] Transcribed: 07/29/2003 10:47:31 Doc #: [id number] cc: Sherry Winchester MD (Requests no copies) DENICE KINSEY FAX This document was electronically signed by Nithya Peterson PT, License [id number] on 07/29/2003 14:50:15. Patient: FIFI SHEPARD Page 1 Date: PM&R THERAPY CONFIDENTIAL MEDICAL RECORD [address] [address] Page 1 Patient: FIFI SHEPARD Location: [facility] HPN: Date of : 1955 PM&R THERAPY R HAMMER OPERATOR documented in this encounter Plan of Treatment Not on filedocumented as of this encounter Visit Diagnoses Not on filedocumented in this encounter Care Teams Reservations Agent Relationship Specialty Start Date End Date Unassigned, Provider PCP - General 03/12/[address] [place] [address] documented as of this encounter
--- OUTSIDE RECORDS SUMMARY | 2022-05-18 04:01 | XMS_ITS | Encounter Summary ---
:1955 Author Organization [facility] Address [address] [place] [address] Care Team Providers Name Role Phone Unassigned, Provider Primary Care Provider Unavailable Encounter Details Date Type Department Care Team Description 06/08/2003 Notes/Orders [facility] Occupational and Kwasi, Radha Blanc, Environmental Medicine ROPE TWISTING MACHINE OPERATOR Social History Tobacco Use Types Packs/Day [...] this encounter Progress Notes 06/08/2003 11:59 PM DISTILLERY LABORER Per Dr. Winchester a refill was called into the 2nd floor pharmacy. it was vicodin 10 tabs with no refills, and motrin 800mg with no refills. 06/08/2003 Sasha Prieto LPN documented in this encounter Plan of Treatment Not on filedocumented as of this encounter Visit Diagnoses Not on filedocumented in this encounter Care Teams Qa Intern Relationship Specialty Start Date End Date Unassigned, Provider PCP - General 03/12/03 [address] [place] [address] documented as of this encounter
--- OUTSIDE RECORDS SUMMARY | 2022-05-18 04:01 | XMS_ITS | Encounter Summary ---
:1955 Author Organization [facility] Address [address] [place] [address] Care Team Providers Name Role Phone Unassigned, [...] Notes Sherry Winchester - 06/24/2003 12:00 AM PLASTIC MIXER CHIEF COMPLAINT: Low back pain, chronic low [...] Winchester MD Transcribed: 07/01/2003 13:25:12 Doc #: [id number] cc: 1 Page 2 Patient Name: FIFI CALDERON Visit Date: 06/24/2003 OCCUPATIONAL/ENVIRONMENTAL CONFIDENTIAL MEDICAL RECORD [address] [phone] Page 1 Patient: FIFI CALDERON Location:[place] HPN: Date of : 1955 Visit Date: 06/24/2003 OCCUPATIONAL/ENVIRONMENTAL TIC MIXER Sherry Winchester - 06/24/2003 12:00 AM PLASTIC MIXER TIC MIXER documented in this encounter Plan of Treatment Not on filedocumented as of this encounter Visit Diagnoses Diagnosis Lumbago documented in this encounter Care Teams Esthetician/Owner Relationship Specialty Start Date End Date Unassigned, Provider PCP - General 03/12/[address] [place] [address] documented as of this encounter
--- OUTSIDE RECORDS SUMMARY | 2022-05-18 04:01 | XMS_ITS | Encounter Summary ---
:1955 Author Organization [facility] Address [address] [place] [address] Care Team Providers Name Role Phone Unassigned, Provider Primary Care Provider Unavailable Encounter Details Date Type Department Care Team Description 06/08/2003 Correspondence External to Unknown, Mariahi bar[facility] [address] [place], [place] [address] Social History Tobacco Use Types Packs/Day Years [...] Notes Unknown, Physician - 06/08/2003 12:00 AM WATCH TRAIN ASSEMBLER documented in this encounter Plan of Treatment Not on filedocumented as of this encounter Visit Diagnoses Not on filedocumented in this encounter Care Teams Rn Delivery Relationship Specialty Start Date End Date Unassigned, Provider PCP - General 03/12/03 [address] [place] [address] documented as of this encounter
--- OUTSIDE RECORDS SUMMARY | 2022-05-18 04:01 | XMS_ITS | Encounter Summary ---
:1955 Author Organization [facility] Address [address] [place] [address] Care Team Providers Name Role Phone Unassigned, Provider Primary Care Provider Unavailable Encounter Details Date Type Department Care Team Description 07/06/2003 Correspondence None Unknown, Physici an [facility] PRIMITIVO TO DEPT. OF [address] [place] [address] (Wo rk) Social History Tobacco [...] Notes Unknown, Physician - 07/06/2003 12:00 AM DYE HOUSE HAND documented in this encounter Plan of Treatment Not on filedocumented as of this encounter Visit Diagnoses Not on filedocumented in this encounter Care Teams Regional Director Of Finance Relationship Specialty Start Date End Date Unassigned, Provider PCP - General 03/12/03 [address] [place] [address] documented as of this encounter
--- OUTSIDE RECORDS SUMMARY | 2022-05-18 04:01 | XMS_ITS | Encounter Summary ---
:1955 Author Organization [facility] [employer] [employer] Address [address] [place] [address] Care Team Providers Name Role Phone Unavailable Primary Care Provider Unavailable Encounter Details Date Type Department Care Team Description 05/25/2001 Office Visit [facility] LOW BACK PAIN(ACUTE)<6 WEEKS ; 640 [facility]. [facility] FROM OVEREXERTION [place], [place] [phone] Social History Tobacco Use Types Packs/Day Years [...] of the right and left hips. NEUROLOGIC: Organ Coma Scale 15. Motor and sensory within [...] was also given the number to the [facility] to call and inquire about financial services. She will need to follow up with a primary care physician for this back pain. DISPOSITION: She was discharged home in stable condition. [facility] Dictated: 05/25/2001 07:05:04 Sarthak Mccullough MD/Jose Sanchez MD Transcribed: 05/26/2001 16:56:08 Patient seen with Justyn Mcgrath MD Revised: 05/26/2001 17:34:00 /[id number] Doc #: [id number] cc: [facility], Primary 2 Page 2 Patient Name: FIFI CALDERON Visit Date: 05/25/2001 EMERGENCY MEDICINE NOTE CONFIDENTIAL MEDICAL RECORD [address] [address] Page 1 Patient: FIFI CALDERON Location: [facility] HPN: Date of : 1955 Visit Date: 05/25/2001 EMERGENCY MEDICINE NOTE OR BUSINESS DEVELOPMENT MANAGER documented in this encounter Plan of Treatment Not on filedocumented as of this encounter Procedures Procedure Name Priority Date/Time Associated Diagnosis Comme nts L-SPINE AP/LAT/CONE Routine 05/25/2001 7:25 AM Re sults for this DOWN SENIOR BUSINESS DEVELOPMENT MANAGER procedure are i n the results section. documented in this encounter Results L-SPINE AP/LAT/CONE DOWN (05/25/2001 7:25 AM SENIOR BUSINESS DEVELOPMENT MANAGER) [facility] gist Method Time Signature Lspine LUMBAR SPINE 05/25/2001, 0725 HOURS: [facility] Ap,Lat,[place] INDICATIONS: Pain. RADIOL OGY n L5-S1 FINDINGS: Normal. Anatomical Region Laterality Modality Other Specimen (Source) Anatomical Collection Method Collection Time Re ceived Time Location / / Volume Laterality 05/25/2001 7:25 AM SENIOR BUSINESS DEVELOPMENT MANAGER Justyn Mcgrath MD RAD GENERAL DIAGNOSTIC/[facility] documented in this encounter Visit Diagnoses Diagnosis Lumbago Overexertion and strenuous and repetitiv e movements or loads documented in this encounter
--- OUTSIDE RECORDS SUMMARY | 2022-05-18 04:01 | XMS_ITS | Encounter Summary ---
:1955 Author Organization [facility] Address [address] [place] [address] Care Team Providers Name Role Phone Unassigned, Provider Primary Care Provider Unavailable Encounter Details Date Type Department Care Team Description 07/29/2003 Office Visit [facility] Margot Balderrama Physical Medicine [facility] [address] [place] [address] [address] [facility] [phone] [place] [address] Social History Tobacco Use Types Packs/Day Years [...] Notes Margot Balderrama - 07/29/2003 12:00 AM SCENERY BUILDER ERY BUILDER documented in this encounter Plan of Treatment Not on filedocumented as of this encounter Visit Diagnoses Not on filedocumented in this encounter Care Teams Head Stock Transfer Clerk Relationship Specialty Start Date End Date Unassigned, Provider PCP - General 03/12/03 [address] [place] [address] documented as of this encounter
--- OUTSIDE RECORDS SUMMARY | 2022-05-18 04:01 | XMS_ITS | Encounter Summary ---
:1955 Author Organization [facility] Address [address] [place] [address] Care Team Providers Name Role Phone Unassigned, Provider Primary Care Provider Unavailable Encounter Details Date Type Department Care Team Description 06/22/2003 Correspondence None Unknown, Physici an [facility] PRIMIT[facility] TO COMPREHENSIVE [address] MANAGED CARE [place], [place] [phone] (Wo rk) Social History Tobacco Use Types [...] Notes Unknown, Physician - 06/22/2003 12:00 AM HOSPICE EXECUTIVE DIRECTOR documented in this encounter Plan of Treatment Not on filedocumented as of this encounter Visit Diagnoses Not on filedocumented in this encounter Care Teams Differential Specialist Relationship Specialty Start Date End Date Unassigned, Provider PCP - General 03/12/03 [address] [place] [address] documented as of this encounter
--- OUTSIDE RECORDS SUMMARY | 2022-05-18 04:01 | XMS_ITS | Encounter Summary ---
:[address] [facility] Address [address] [place] [address] Care Team Providers Name Role Phone Unassigned, Provider Primary Care Provider Unavailable Encounter Details Date Type Department Care Team Description 08/17/2003 Office Visit [facility] Albert Tovar, [facility] Neurosurgery [address] [place] [address] CLINIC [phone] [place] [phone] (Wo rk) Social History Tobacco [...] Comments Blood Pressure 143/81 08/17/2003 2:45 PM AERODYNAMICIST Pulse 92 08/17/2003 2:45 PM AERODYNAMICIST Temperature 36.8 ??C (98.3 ??F) 08/17/2003 2:45 PM AERODYNAMICIST Respiratory Rate - - Oxygen Saturation - - Inhaled Oxygen Concentration - - Weight - - Height - - Body Mass Index - - documented in this encounter Progress Notes 08/17/2003 2:45 PM AERODYNAMICIST Fifi Calderon is here today regarding 2nd [...] need to be completed first. [facility] 08/17/2003 12:00 AM AERODYNAMICIST This patient is seen in consultation at [...] Tovar MD Transcribed: 08/26/2003 08:24:56 Doc #: [id number] cc: Nallely Winchester MD, Primary and Referring Occ Med 1 Page 2 Patient Name: FIFI CALDERON Visit Date: 08/17/2003 NEUROSURGERY CONFIDENTIAL MEDICAL RECORD [address] [address] Page 1 Patient: FIFI CALDERON Location: [facility] HPN: Date of : 1955 Visit Date: 08/17/2003 NEUROSURGERY DYNAMICIST documented in this encounter Plan of Treatment Not on filedocumented as of this encounter Visit Diagnoses Not on filedocumented in this encounter Care Teams Veterinary Nurse Relationship Specialty Start Date End Date Unassigned, Provider PCP - General 03/12/[address] [place] [address] documented as of this encounter
--- OUTSIDE RECORDS SUMMARY | 2022-05-18 04:01 | XMS_ITS | Encounter Summary ---
:1955 Author Organization [employer] Address [address] [place] [address] Care Team Providers Name Role Phone Unassigned, [...] COMPLAINT: Exacerbation of low back pain. EMPLOYER: [employer]. 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 CHIEF COMPLAINT: Exacerbation of chronic back pain with right leg radicular symptoms. HISTORY OF PRESENT ILLNESS: Bwrzp-czsb-agy female presents to the occupational medicine clinic [...] notes that she was evaluated in the [facility]. She was assessed with a low [...] Winchester MD Transcribed: 03/23/2003 15:54:24 Doc #: [id number] cc: Sherry Winchester MD, Attending Physician This document was electronically signed by Sherry Winchester MD on 04/22/2003 16:51:09. 1 Page 2 Patient Name: FIFI CALDERON Visit Date: 03/17/2003 OCCUPATIONAL/ENVIRONMENTAL CONFIDENTIAL MEDICAL RECORD [address] [address] Page 1 Patient: FIFI CALDERON Location:[place] HPN: Date of : 1955 Visit Date: 03/17/2003 OCCUPATIONAL/ENVIRONMENTAL Sherry Winchester - 03/17/2003 12:00 AM CDT documented in this encounter Plan of Treatment Not on filedocumented as of this encounter Visit Diagnoses Diagnosis Lumbago documented in this encounter Care Teams Collar Stay Fuser Tender Relationship Specialty Start Date End Date Unassigned, Provider PCP - General 03/12/[address] [place] [address] documented as of this encounter
--- OUTSIDE RECORDS SUMMARY | 2022-05-18 04:01 | XMS_ITS | Encounter Summary ---
:1955 Author Organization [facility] Address [address] [place] [address] Care Team Providers Name Role Phone Unassigned, Provider Primary Care Provider Unavailable Encounter Details Date Type Department Care Team Description 08/10/2003 Office Visit [facility] Margot Balderrama Physical Medicine [facility] [address] [place] [address] [address] [place] [address] [place] [address] Social History Tobacco Use Types Packs/Day Years [...] Notes Margot Balderrama - 08/10/2003 12:00 AM CASINO CHANGE ATTENDANT DATE: 08-26-2003 OUTPATIENT PHYSICAL THERAPY - PROGRESS [...] lcd Dictated: 08/26/2003 13:50:36 Margot Balderrama PT#[id number] [phone] Transcribed: 09/01/2003 11:47:17 Doc #: [id number] cc: Sherry Winchester MD (Requests no copies) This document was electronically signed by Margot Balderrama PT#[id number] [phone] on 09/07/2003 18:13:43. Patient: FIFI CALDERON Page 1 Date: PM&R THERAPY CONFIDENTIAL MEDICAL RECORD [address] [address] Page 1 Patient: FIFI CALDERON Location: [facility] HPN: Date of : 1955 PM&R THERAPY NO CHANGE ATTENDANT documented in this encounter Plan of Treatment Not on filedocumented as of this encounter Visit Diagnoses Not on filedocumented in this encounter Care Teams Assistant Federal Public Defender Relationship Specialty Start Date End Date Unassigned, Provider PCP - General 03/12/[address] [place] [address] documented as of this encounter
--- OUTSIDE RECORDS SUMMARY | 2022-05-18 04:01 | XMS_ITS | Encounter Summary ---
:1955 Author Organization [facility] Address [address] [place] [address] Care Team Providers Name Role Phone Unassigned, Provider Primary Care Provider Unavailable Encounter Details Date Type Department Care Team Description 05/25/2003 Office Visit [facility] Margot Balderrama Physical Medicine [facility] [address] [place] [address] [place] [address] [place] [address] Social History Tobacco Use Types Packs/Day Years [...] Balderrama PT#[id number] Transcribed: 06/07/2003 13:15:39 Doc #: [id number] cc: Sherry Winchester MD (Requests no copies) [facility] FAX This document was electronically signed by Margot Balderrama PT#[id number] on 06/08/2003 17:36:58. Patient: FIFI CALDERON Page 2 Date: 05-25-2003 PM&R THERAPY CONFIDENTIAL MEDICAL RECORD [address] [address] Page 1 Patient: FIFI CALDERON Location: [facility] HPN: Date of : 1955 PM&R THERAPY OUT TOWER FIRE WATCHER Margot Balderrama - 05/25/2003 12:00 AM LOOK OUT TOWER FIRE WATCHER DATE: 07-01-2003 OUTPATIENT PHYSICAL THERAPY - PROGRESS SUMMARY - AQUATIC THERAPY SUBJECTIVE: Pt has been seen 1x for initial evaluation on 05/25/03. After one cancellation & one no show on 06/08/03 patient's work comp company called therapy [facility] to state that coverage for therapy was [...] PT#[id number] [phone] Transcribed: 07/09/2003 11:53:00 Doc #: [id number] cc: Sherry Winchester MD (Requests no copies) This document was electronically signed by Margot Balderarma PT#[id number] [phone] on 07/13/2003 15:26:13. Patient: FIFI CALDERON Page 2 Date: PM&R THERAPY CONFIDENTIAL MEDICAL RECORD [address] [address] Page 1 Patient: FIFI CALDERON Location: [facility] HPN: Date of : 1955 PM&R THERAPY OUT TOWER FIRE WATCHER documented in this encounter Plan of Treatment Not on filedocumented as of this encounter Visit Diagnoses Not on filedocumented in this encounter Care Teams Borematic Operator Relationship Specialty Start Date End Date Unassigned, Provider PCP - General 03/12/03 [address] [place] [address] documented as of this encounter
--- OUTSIDE RECORDS SUMMARY | 2022-05-18 04:01 | XMS_ITS | Encounter Summary ---
:1955 Author Organization [facility] Address [address] [place] [address] Care Team Providers Name Role Phone Unassigned, Provider Primary Care Provider Unavailable Encounter Details Date Type Department Care Team Description 08/13/2003 Correspondence None Unknown, Physici an [facility] PRIMITIVO TO COMPREHENSIVE [address] MANAGED CARE [place], [place] [phone] (Wo rk) Social History Tobacco Use Types [...] Notes Unknown, Physician - 08/13/2003 12:00 AM FOOD SCIENCE PROFESSOR documented in this encounter Plan of Treatment Not on filedocumented as of this encounter Visit Diagnoses Not on filedocumented in this encounter Care Teams Inside Contractor Sales Relationship Specialty Start Date End Date Unassigned, Provider PCP - General 03/12/03 [address] [place] [address] documented as of this encounter
--- OUTSIDE RECORDS SUMMARY | 2022-05-18 04:01 | XMS_ITS | Encounter Summary ---
:1955 Author Organization [employer] Address [address] [place] [address] Care Team Providers Name Role Phone Unassigned, [...] Angel MD Transcribed: 04/21/2003 16:27:49 Doc #: [id number] cc: [facility], Primary Physician This document was electronically signed by Deandre Angel MD on 08/02/2003 16:33:54. 1 Page 2 Patient Name: FIFI CALDERON Visit Date: 04/20/2003 OCCUPATIONAL/ENVIRONMENTAL CONFIDENTIAL MEDICAL RECORD [address] [phone] Page 1 Patient: FIFI CALDERON [place] HPN: Date of : 1955 Visit Date: 04/20/2003 OCCUPATIONAL/ENVIRONMENTAL Sherry Winchester - 04/20/2003 12:00 AM CDT documented in this encounter Plan of Treatment Not on filedocumented as of this encounter Visit Diagnoses Diagnosis Lumbago documented in this encounter Care Teams Construction Equipment Technician Relationship Specialty Start Date End Date Unassigned, Provider PCP - General 03/12/03 [address] [place] [address] documented as of this encounter
--- OUTSIDE RECORDS SUMMARY | 2022-05-18 04:01 | XMS_ITS | Encounter Summary ---
:1955 Author Organization [facility] Address [address] [place] [address] Care Team Providers Name Role Phone Unassigned, [...] Notes Sherry Winchester - 07/20/2003 12:00 AM CAR SEAT UPHOLSTERER SEAT UPHOLSTERER documented in this encounter Plan of Treatment Not on filedocumented as of this encounter Visit Diagnoses Not on filedocumented in this encounter Care Teams Environmental Services Project Manager Relationship Specialty Start Date End Date Unassigned, Provider PCP - General 03/12/03 [address] [place] [address] documented as of this encounter
--- OUTSIDE RECORDS SUMMARY | 2022-05-18 04:01 | XMS_ITS | Encounter Summary ---
:1955 Author Organization [facility] Address [address] [place] [address] Care Team Providers Name Role Phone Unassigned, Provider Primary Care Provider Unavailable Encounter Details Date Type Department Care Team Description 07/01/2003 Correspondence None Unknown, Physici an [facility] PRIMITIVO TO COMPREHENSIVE [address] MANAGED CARE [place], [place] [phone] (Wo rk) Social History Tobacco Use Types [...] Notes Unknown, Physician - 07/01/2003 12:00 AM BLINTZE ROLLER documented in this encounter Plan of Treatment Not on filedocumented as of this encounter Visit Diagnoses Not on filedocumented in this encounter Care Teams Underwriter Solicitation Director Relationship Specialty Start Date End Date Unassigned, Provider PCP - General 03/12/03 [address] [place] [address] documented as of this encounter
--- OUTSIDE RECORDS SUMMARY | 2022-05-18 04:01 | XMS_ITS | Encounter Summary ---
:1955 Author Organization [facility] Address [address] [place] [address] Care Team Providers Name Role Phone Unassigned, Provider Primary Care Provider Unavailable Encounter Details Date Type Department Care Team Description 07/15/1989 PN Conversion Only STRADDLE BUG DRIVER [address] [place] [address] Social History Tobacco Use Types Packs/Day Years [...] on filedocumented in this encounter Care Teams Banquet Kitchen Supervisor Relationship Specialty Start Date End Date Unassigned, Provider PCP - General 03/12/03 [address] [place] [address] documented as of this encounter
--- OUTSIDE RECORDS SUMMARY | 2022-05-18 04:01 | XMS_ITS | Encounter Summary ---
:1955 Author Organization [facility] Address [address] [place] [address] Care Team Providers Name Role Phone Unassigned, Provider Primary Care Provider Unavailable Encounter Details Date Type Department Care Team Description 07/23/2003 Correspondence None Unknown, Physici an [facility] PRIMITIVO TO COMPREHENSIVE [address] MANAGED CARE [place], [place] [phone] (Wo rk) Social History Tobacco Use Types [...] Notes Unknown, Physician - 07/23/2003 12:00 AM CIVIL DIVISION COMMANDER DEPUTY SHERIFF documented in this encounter Plan of Treatment Not on filedocumented as of this encounter Visit Diagnoses Not on filedocumented in this encounter Care Teams Graphic Art Technician Relationship Specialty Start Date End Date Unassigned, Provider PCP - General 03/12/03 [address] [place] [address] documented as of this encounter
--- OUTSIDE RECORDS SUMMARY | 2022-05-18 04:01 | XMS_ITS | Encounter Summary ---
:1955 Author Organization [employer] Address [address] [place] [address] Care Team Providers Name Role Phone Unassigned, [...] Notes Sherry Winchester - 05/18/2003 12:00 AM CELLOPHANE TESTER CHIEF COMPLAINT: Chronic low back pain flare-up. HISTORY OF PRESENT ILLNESS: Cuwfu-ujtn-ivt female returns to the Occupational Medicine Clinic [...] Winchester MD Transcribed: 05/24/2003 15:44:46 Doc #: [id number] cc: This document was electronically signed by Sherry Winchester MD on 08/02/2003 15:13:36. 1 Page 2 Patient Name: FIFI CALDERON Visit Date: 05/18/2003 OCCUPATIONAL/ENVIRONMENTAL CONFIDENTIAL MEDICAL RECORD [address] [phone] Page 1 Patient: FIFI CALDERON Location:[place] HPN: Date of : 1955 Visit Date: 05/18/2003 OCCUPATIONAL/ENVIRONMENTAL OPHANE TESTER Sherry Winchester - 05/18/2003 12:00 AM CELLOPHANE TESTER OPHANE TESTER documented in this encounter Plan of Treatment Not on filedocumented as of this encounter Visit Diagnoses Diagnosis Lumbago documented in this encounter Care Teams Laborer Wrecking And Salvaging Relationship Specialty Start Date End Date Unassigned, Provider PCP - General 03/12/[address] [place] [address] documented as of this encounter
--- OUTSIDE RECORDS SUMMARY | 2022-05-18 04:01 | XMS_ITS | Encounter Summary ---
:1955 Author Organization [facility] Address [address] [place] [address] Care Team Providers Name Role Phone Unassigned, Provider Primary Care Provider Unavailable Encounter Details Date Type Department Care Team Description 07/21/2003 Correspondence None Unknown, Physici an [facility]ions PRIMIT[facility]O to Comprehensive [address] Managed Care [place], [place] [id number] (Wo rk) Social History Tobacco Use Types [...] Notes Unknown, Physician - 07/21/2003 12:00 AM SOLAR INSTALLATION HELPER documented in this encounter Plan of Treatment Not on filedocumented as of this encounter Visit Diagnoses Not on filedocumented in this encounter Care Teams Political Theory Professor Relationship Specialty Start Date End Date Unassigned, Provider PCP - General 03/12/03 [address] [place] [address] documented as of this encounter
[2022-05-18 04:09] LABS: Slide Review Reflex No
[2022-05-18 04:10] LABS: Albumin* 4.8 g/dL (3.3-5.0); Chloride* 105 mmol/L (96-114); Potassium* 3.5 mmol/L (3.6-5.1); Sodium* 141 mmol/L (135-149)
[2022-05-18 04:12] LABS: Bilirubin Total* 0.2 mg/dL (0.1-1.5); Carbon Dioxide* 19 mmol/L (20-32); Creatinine* 0.6 mg/dL (0.5-1.5); Estimated Glomerular Filt Rate 97 ml/min
[2022-05-18 04:13] LABS: Alanine Aminotransferase* 30 U/L (4-35); Alkaline Phosphatase* 82 U/L (40-150); Aspartate Amino Transferase* 42 U/L (12-35); Blood Urea Nitrogen* 11 mg/dL (7-30); Calcium* 10.2 mg/dL (8.4-10.6); Lipase* 75 U/L (23-300); Total Protein* 7.4 g/dL (6.0-8.3)
[2022-05-18 04:14] LABS: Ethanol* 0.23 % (0.01-0.03)
[2022-05-18 04:20] LABS: Glucose* 84 mg/dL (60-115)
--- NOTE | 2022-05-18 04:57 | ED.NURSE ---
pt arrived via ems throwing body around on bed, [employer] PD entered room and was able to calm pt, pt then re-escalated shortly after, MD Tang in with pt and ordered medications. Pt stated she was willing to take meds to help her sleep and held both arms out, pt educated on injections in each thigh and verbally stated she was ready, EMS Ketan, EMS Harriet, GIULIA Alomnte, GIULIA Aparicio, Security Winston and [facility] PD officer at bedside PRN. Pt then paced around room, then became tired and slept, oximetry applied to finger and pt maintaining 95%.
[2022-05-18 05:00] VITALS: PULSE 77; RESP 16; O2SAT 96
[2022-05-18 06:36] VITALS: PULSE 71; RESP 16; O2SAT 96
--- NOTE | 2022-05-18 08:28 | ED.NURSE ---
Pt sleeping, repostitioning herself independenly. Sats 97% on monitor. Will allow pt to sleep.
[2022-05-18 08:30] VITALS: PULSE 73; O2SAT 97
--- NOTE | 2022-05-18 10:31 | ED.NURSE ---
Pt up to BR. Breakfast ordered.
[2022-05-18 10:37] VITALS: BP 140/79; PULSE 82; RESP 18; TEMP 37.1; O2SAT 97
[2022-05-18 12:16] VITALS: PULSE 85; O2SAT 95
--- NOTE | 2022-05-18 12:55 | PC.SOCIAL ---
Received a phone call from Zeinab at [facility] ([phone]). Zeinab was requesting information on pt because [facility] received a referral from last [facility] incident involving pt. Provided an update that pt was assessed and safely discharged back into the community with resources.
== END 2022-05-18 12:17 | disposition home or self-care (01) ==
PROVIDERS: Family Medicine; Emergency Provider Family Medicine; PCP Family Medicine
DX: F10.129 Alcohol abuse with intoxication, unspecified (principal); R45.851 Suicidal ideations
CPT/HCPCS: 36415; 80048; 80076; 82077; 83690; 85025; 96372; 99283; J1200; J1630; J2060

== ENCOUNTER 2022-05-22 02:56 | Outpatient (CLI) | payer MEDICARE, MEDICAID, SELFPAY ==
--- OUTSIDE RECORDS SUMMARY | 2022-05-24 14:33 | XMS_ITS | Clinical Summary ---
:1955 Author Organization [facility] [place] [address] Care Team Providers Name Role Phone Kurt Woodruff MD Primary Care Provider Leonardo Laguerre MD Unavailable Allergies Active Allergy Reactions Severity Noted Date Comments Codeine Nausea Only 05/23/2005 Atorvastatin Shortness Of Breath 12/07/2005 Patient has said she is able to tolerat e Crestor medication. She reported she has been on Crestor for the last 3 years and has had no issu es. [facility] pharmacy consul arielle 11-17-17 and said if weston camacho tolerates the m edication (per her report ), then to make a note in allergies, and it is ok to give. [place] Other - Describe In High 01/20/2019 Uncontro [...] Gout 10/18/2014 Pain medication agreement 04/27/2014 Overview: [place] on occasion. Acute pericarditis, unspecified 08/04/2013 Chest [...] having a balloon a ngioplasty at the [facility] in 1988 and being told that she [...] Encounters Date Type Specialty Care Team Description 05/22/2022 Orders Only Scanner <No scans attac hed> 05/22/2022 Orders Only Scanner <No scans attac hed> 05/16/2022 Refill Kurt Woodruff Refill R equest MD (Lisinopril-hyd rochlorot hiazide 10 Mg-1 2.5 Mg) 05/15/2022 Refill Kurt Woodruff Refill R equest MD (Lisinopril-hyd rochlorot hiazide 10 Mg-1 2.5 Mg) 05/01/2022 Orders Only Scanner <No scans attac hed> 04/19/2022 Refill Kurt Woodruff Refill R equest MD (Trazodone) 03/22/2022 Hospital Encounter C[place], [place], ronic pain of right knee 03/22/2022 Travel from Last 3 Months Immunizations Name Administration Dates Next Due COVID-19 vaccine (Moderna 100mcg/0.5mL) RORY, MDV 09/29/2020, 08/29/2020 Influenza Virus, Unspecified 03/26/2020 [...] congest margaret heart failure, had his first [place] in his 50's. She has 13 siblings, [...] progress No Dionne Hayes (05/04/2020 [place] personnel security assistant 8:55 AM CDT) Note: Formatting of this [...] Procedure Name Priority Date/Time Associated Comments Diagnosis SCAN-RADIOLOGY REPORT 05/22/2022 12:00 Re sults for this AM CREASING AND CUTTING PRESS FEEDER procedure are i n the results section. SCAN-RADIOLOGY REPORT 05/22/2022 12:00 Re sults for this AM CREASING AND CUTTING PRESS FEEDER procedure are i n the results section. SCAN-CT INTERPRETATION 05/01/2022 12:00 AM CDT MR KNEE RIGHT WO Routine 03/22/2022 10:38 Chronic pain of Resu lts for this AM CDT right knee procedure are i n the results section. from Last 3 Months Results SCAN-RADIOLOGY REPORT (05/22/2022 12:00 AM CREASING AND CUTTING PRESS FEEDER)Only the most recent of2 results within the time period is included. Narrative This result has an attachment that is no t available. Scanner OTHER SCAN-CT INTERPRETATION (05/01/2022 12:00 AM CDT) Narrative [...] report s are released immediately into your [facility] medical record. ??You may view this [...] provider. If you have questions, please contact [facility] care provider. HISTORY: Chronic knee pain. TECHNIQUE: [...] the lateral compartment. 4. Large joint effusion. [place] brizuela. Dictated by Tin Moeller MD @ 03/22/2022 4 :11:49 PM (Electronically Signed) King Cintron MD MR from Last 3 Months Insurance Payer Benefit Plan / Subscriber ID Effective Dates Phone Addre ss Type Group MEDICARE PART B MEDICARE PART B [id number] 2006-Present ATTN: CLAIMS - HB USE ONLY HB ONLY [address] [place] [address] MEDICARE PART A MEDICARE PART A [id number] 2006-Present ATTN: CLAIMS - HB USE ONLY HB ONLY [address] [place] [address] MEDICARE PART A MEDICARE PART A [id number] 2006-Present ATTN: CLAIMS - HB USE ONLY HB ONLY [address] [place] [address] MEDICARE - PB MEDICARE PB [id number] 2006-Present ATT N: CLAIMS USE ONLY ONLY [address] [place] [address] MEDICA MA MEDICA CHOICE [id number] 2013-Present [address] [address] [place] [address] [place] [id number] 2018-Present [address] [address] [place] [address] Marissa Shepard Personal/Family Self 1955 [address] [facility] (Home) [place] [address] Marissa Shepard [employer] Party Self 1955 [address] [facility] (Home) [place] [address] Advance Directives Latest Code Status on File [...] Code Status Discussion: Not Discussed Care Teams Senior Db2 Systems Programmer Relationship Specialty Start Date End Date Kurt Woodruff MD PCP - General Family Practice 08/05/13 [address] [facility] [address] Leonardo Laguerre MD Rheumatology Rheumatology 02/13/18 [address] [facility] [address] [place] [address]
--- OUTSIDE RECORDS SUMMARY | 2022-05-24 14:34 | XMS_ITS | Encounter Summary ---
:1955 Author Organization [employer] Address [address] [place] [address] Care Team Providers Name Role Phone Unassigned, Provider Primary Care Provider Unavailable Encounter Details Date Type Department Care Team Description 07/29/2008 Office Visit [facility] Unspecified Chest Pain [address] [place] [address] Social History Tobacco Use Types Packs/Day Years [...] 11:22 AM Resul ts for this EXERCISE GENETIC ENGINEER procedure are i n REST/STRESS SPECT the result s section. documented in this encounter Visit Diagnoses Diagnosis Chest pain, unspecified documented in this encounter Care Teams Hall Porter Relationship Specialty Start Date End Date Unassigned, Provider PCP - General 03/12/03 [address] [place] [address] documented as of this encounter
--- OUTSIDE RECORDS SUMMARY | 2022-05-24 14:34 | XMS_ITS | Encounter Summary ---
:1955 Author Organization [employer] Address [address] [place] [address] Care Team Providers Name Role Phone Unassigned, Provider Primary Care Provider Unavailable Reason for Visit Reason Onset Date Comments FOLLOW-UP,[facility] 08/04/2008 [facility] d/c callback Encounter Details Date Type Department Care Team Description 08/04/2008 Telephone Stephany Lindo, FOLLOW-UP,[facility] ([address] RN d/c callback) [place] [address] Social History Tobacco Use Types Packs/Day Years [...] on filedocumented in this encounter Care Teams Compliance Examiner Relationship Specialty Start Date End Date Unassigned, Provider PCP - General 03/12/[address] [place] [address] documented as of this encounter
--- OUTSIDE RECORDS SUMMARY | 2022-05-24 14:34 | XMS_ITS | Encounter Summary ---
:1955 Author Organization [employer] Address [address] [place] [address] Care Team Providers Name Role Phone Unassigned, Provider Primary Care Provider Unavailable Encounter Details Date Type Department Care Team Description 03/05/2009 Imaging [facility] [address] [place], [place] [id number] Social History Tobacco Use Types Packs/Day Years [...] been removed. Otherwise, no change. Federico Moy CULVERT INSTALLER, GARMENT FORM ASSEMBLER RAD GD documented in this encounter Visit Diagnoses Not on filedocumented in this encounter Care Teams Leave Specialist Relationship Specialty Start Date End Date Unassigned, Provider PCP - General 03/12/[address] [place] [address] documented as of this encounter
--- OUTSIDE RECORDS SUMMARY | 2022-05-24 14:34 | XMS_ITS | Encounter Summary ---
:1955 Author Organization [facility] Address [address] [place] [address] Care Team Providers Name Role Phone Unassigned, Provider Primary Care Provider Unavailable Reason for Visit Reason Onset Date Comments [facility] 08/05/2008 Encounter Details Date Type Department Care Team Description 08/05/2008 Telephone [facility] C[facility] Nola Brown V FOLLOW-UP,[address] [address] [place] [address] [phone] (Wo rk) Social History Tobacco Use Types [...] on filedocumented in this encounter Care Teams Librarian Relationship Specialty Start Date End Date Unassigned, Provider PCP - General 03/12/03 [address] [place] [address] documented as of this encounter
--- OUTSIDE RECORDS SUMMARY | 2022-05-24 14:34 | XMS_ITS | Encounter Summary ---
:1955 Author Organization [employer] Address [address] [place] [address] Care Team Providers Name Role Phone Unassigned, Provider Primary Care Provider Unavailable Encounter Details Date Type Department Care Team Description 07/29/2008 Imaging [facility] [address] [place] [phone] Social History Tobacco Use Types Packs/Day Years [...] 11:22 AM Resul ts for this EXERCISE VENEER GRADER procedure are i n REST/STRESS SPECT the result s section. documented in this encounter Results NM CARDIAC EXERCISE CARDIOLITE STRESS TST (07/29/2008 11:22 AM VENEER GRADER) Anatomical Region Laterality Modality Chest, NM Cardiac Nuclear Medicine, Nu clear Medicine Specimen (Source) Anatomical Collection Method Collection Time Re ceived Time Location / / Volume Laterality 07/29/2008 11:22 AM VENEER GRADER Narrative 07/29/2008 12:35 PM VENEER GRADER NM MYOCARDIAL PERFUSION EXERCISE REST-STRESS SPECT SCAN [...] which thomas to 188/88 with double product 99010. Stress stoppe d because of chest discomfort. Abnormal EKG reported separately. manager inventory control: Normal. FINDINGS: Wall motion and thickening is [...] which thomas to 188/88 with double product 66569. Stress stoppe d because of chest discomfort. Abnormal EKG reported separately. manager inventory control: Normal. FINDINGS: Wall motion and thickening is normal in all segments with the immediate post stress rest gated SPECT e jection fraction of 56%. The SPECT myocardial images show normal distributi on of the radionuclide with no suggestion for either fixed or stress in duced ischemia. CONCLUSION: Normal. No evidence for stress induced i schemia. King YI NM documented in this encounter Visit Diagnoses Not on filedocumented in this encounter Care Teams Hat Presser Relationship Specialty Start Date End Date Unassigned, Provider PCP - General 03/12/[address] [place] [address] documented as of this encounter
--- OUTSIDE RECORDS SUMMARY | 2022-05-24 14:34 | XMS_ITS | Encounter Summary ---
:1955 Author Organization [employer] Address [address] [place] [address] Care Team Providers Name Role Phone Unassigned, Provider Primary Care Provider Unavailable Encounter Details Date Type Department Care Team Description 07/29/2008 Imaging [facility] [address] [place] [phone] Social History Tobacco Use Types Packs/Day Years [...] 11:22 AM Resul ts for this EXERCISE BREAKDOWN WORKER procedure are i n REST/STRESS SPECT the result s section. documented in this encounter Results NM CARDIAC EXERCISE CARDIOLITE STRESS TST (07/29/2008 11:22 AM BREAKDOWN WORKER) Anatomical Region Laterality Modality Chest, NM Cardiac Nuclear Medicine, Nu clear Medicine Specimen (Source) Anatomical Collection Method Collection Time Re ceived Time Location / / Volume Laterality 07/29/2008 11:22 AM BREAKDOWN WORKER Narrative 07/29/2008 12:35 PM BREAKDOWN WORKER NM MYOCARDIAL PERFUSION EXERCISE REST-STRESS SPECT SCAN [...] which thomas to 188/88 with double product 89122. Stress stoppe d because of chest discomfort. Abnormal EKG reported separately. process control supervisor: Normal. FINDINGS: Wall motion and [...] which thomas to 188/88 with double product 36092. Stress stoppe d because of chest discomfort. Abnormal EKG reported separately. process control supervisor: Normal. FINDINGS: Wall motion and [...] on filedocumented in this encounter Care Teams Waste Management Engineer Relationship Specialty Start Date End Date Unassigned, Provider PCP - General 03/12/[address] [place] [address] documented as of this encounter
--- OUTSIDE RECORDS SUMMARY | 2022-05-24 14:34 | XMS_ITS | Encounter Summary ---
:1955 Author Organization [facility] Address [address] [place] [address] Care Team Providers Name Role Phone Unassigned, Provider Primary Care Provider Unavailable Encounter Details Date Type Department Care Team Description 07/29/2008 Orders Only [facility] King Schilling, Cardiology ANALILIA [address] [facility] [address] [place] [address] [place] [address] [phone] (Wo rk) Social History Tobacco Use Types [...] 07/29/2008 12:00 AM R esults for this RECORD SEARCHER procedure are i n the results section. documented in this encounter Results CARDIAC STRESS TEST (07/29/2008 12:00 AM RECORD SEARCHER) Specimen (Source) Anatomical Location Collection Method / Collectio n Time Received Time / Laterality Volume 07/29/2008 Narrative This result has an attachment that is no t available. Transcriptions [facility], PROVIDER - 9 12:00 AM RECORD SEARCHER King Schilling PA-C DUMMY/OTHER/AR documented in this encounter Visit Diagnoses Not on filedocumented in this encounter Care Teams [employer]ion Essbase Developer Relationship Specialty Start Date End Date Unassigned, Provider PCP - General 03/12/[address] [place] [address] documented as of this encounter
--- OUTSIDE RECORDS SUMMARY | 2022-05-24 14:34 | XMS_ITS | Clinical Summary ---
:1955 Author Organization [facility] Address [address] [place] [address] Care Team Providers Name Role Phone Unassigned, [...] for each transition of care or referral. [facility] Allergies Active Allergy Reactions Severity Noted Date Comments Atorvastatin Calcium 02/02/2005 [place] 05/12/2020 Morphine And Related Vomiting 02/02/2005 Medications [...] Blood Pressure 123/70 05/23/2020 8:14 AM SENIOR DATA INTEGRATION DEVELOPER Pulse 65 05/23/2020 8:14 AM SENIOR DATA INTEGRATION DEVELOPER Temperature 35.9 ??C (96.7 ??F) 05/23/2020 8:14 AM SENIOR DATA INTEGRATION DEVELOPER Respiratory Rate 18 05/23/2020 8:14 AM SENIOR DATA INTEGRATION DEVELOPER Oxygen Saturation 97% 05/22/2020 8:34 AM SENIOR DATA INTEGRATION DEVELOPER Inhaled Oxygen Concentration - - Weight 74.5 kg (164 lb 3.2 oz) 05/19/2020 7:58 AM SENIOR DATA INTEGRATION DEVELOPER Height 157.5 cm (5' 2.01) 05/13/2020 1:00 [...] Address T ype Group Dates MEDICARE MEDICARE [id number] 2006-Pre Medic are sent [facility] [id number] 2008-Pre PO BOX Medi caid sent [id number] [place] SWEAT [place] ATTENDANT [place] [address] COMPREHENSIVE COMPREHENSIVE 2003-Pre PO BOX Workers MGD. MANAGED CARE sent [id number] [place] [address] Marissa Shepard Personal/Family Self [phone] (Home) [place] [address] Marissa Shepard Personal/Family Self 1955 [address] [place] [address] Marissa Shepard Workers Comp Self 1955 [address] ([address] [place] [address] Marissa Shepard Workers Comp Self 1955 [address] ([address]) [address] [place] [address] Advance Directives Latest Code Status on File Code Status Date Activated Date Inactivated Comments Full Code 05/12/2020 4:42 PM 05/23/2020 1:18 PM Code Status History Code Status Date Activated Date Inactivated Comments Full Code 02/23/2009 3:53 PM 03/07/2009 12:10 PM Full Code 02/03/2009 6:00 PM 02/10/2009 5:38 PM Full Code 07/28/2008 4:50 PM 07/29/2008 6:35 PM Care Teams Shipping Packer Relationship Specialty Start Date End Date Unassigned, Provider PCP - General 03/12/[address] [place] [address]
--- OUTSIDE RECORDS SUMMARY | 2022-05-24 14:34 | XMS_ITS | Encounter Summary ---
:1955 Author Organization [employer] Address [address] [place] [address] Care Team Providers Name Role Phone Unassigned, Provider Primary Care Provider Unavailable Reason for Visit Reason Comments DEPRESSED--ED Encounter Details Date Type Department Care Team Description 02/23/2009 - Hospital Encounter RH E4 Winston Garcia MD [address] [place] [address] Depressive Disorder, not Elsewhere Class ified (Primary Dx); 03/07/2009 640 [facility] Nathan Alvarado MD Comb Drug Depend NEC, Continuous [id number] [place] [address] Social History Tobacco Use Types Packs/Day Years [...] 03/07/2009 3:57 PM CDT D/c summary done stat#[id number]..Tevin Saravia, RN/MSN Saravia, Roger Donny - 03/07/2009 3:57 PM CDT ADMIT DATE: [...] are poor. She was seen by social work associate, who initiated chemical dependency evaluation. She's been involved with [facility] intake team. Over the course [...] 80 mg p.r.n. She was referred to [facility] for possible placement. She continues to be willing to undergo CD treatment. She began denying suicidal thoughts, homicidal thoughts, and other psychotic symptoms. She was more engaged and cooperative on the unit. Insight and judgment were improving. She had no major complaints of side effects. It appears that case management will continue to explore CD options possibly at the [facility]. Patient is in agreement with the discharge plan. FINAL DIAGNOSIS: [place] I: 1. Depressive disorder NOS. 2. Dysthymia. 3. Polysubstance abuse with THC and methamphetamine. 4. Alcohol abuse, rule out alcohol dependence, rule out PTSD. [place] II: Deferred. [place] III: 1. Hypertension. 2. Hypercholesterolemia. 3. CAD. 4. Status post hysterectomy. 5. ALLERGIES: LIPITOR AND CODEINE. [place] IV: Moderate. [place] V: GAF at time of discharge 54. DISCHARGE PLAN: As noted, she's discharged to [facility]. She's to avoid alcohol and mood-altering substances. Regular diet. She's free of communicable diseases. She will be seen at the [facility] in [place] by Dr. Fernandes 03/14/09 at 9:15 a.m. [...] 03/07/2009 15:57:11 Transcribed: 03/07/2009 18:11:44 Doc #: [id number] cc: 1 Page 2 Patient Name: FIFI SHEPARD DISCHARGE SUMMARY CONFIDENTIAL MEDICAL RECORD [address] [id number] Page 1 Patient: FIFI SHEPARD Location: E4 HPN: [id number] Admit Date: 02/23/2009 Date of : 1955 Discharge Date: 03/07/2009 Age: 54Y DISCHARGE SUMMARY documented in this encounter Discharge Instructions Discharge InstructionsPatsy Burns - 03/07/2009 7:11 AM CDT Images from the original note were not included. [address] [place] [address] Discharge Instructions for: Fifi Shepard Thank you for choosing [facility] as your hospital. A copy of [...] Primary care provider: Provider Unassigned Discharge Disposition [facility] Medications UpToDate Carefully read the medication handouts [...] doctor. Additional Orders DISCHARGE CLINIC REFERRAL CLINIC: [facility]; [phone]; [address], [place], [place] DOCTORS NAME: Dr. Yareli Aguilar WHEN TO [...] of care, I can be reached at [phone]. Discharge Diagnosis [place] I: Depressive Disorder NOS 311.00; Dysthymia, Polysubstance abuse: THC and Methamphetamine, Alcohol abuse, R/0 Alcohol dependence. R/0 PTSD [place] II: Deferred [place] III: HTN, Hypercholesterolemia, CAD, S/P Hysterectomy. She [...] information has been faxed or sent to: [facility] Date: 03/07/2009, Time:NA [...] side effects not tolerable. Resources 1. [facility] [address], [address], [place] [address]. or toll free at 1- [phone] 2. Online go to: www.[facility].info Crisis Line Numbers 1. [facility] [phone] 2. [facility] [phone] 3. [facility] [phone] 4. [facility] [phone] or [phone] Contact Information [address] [address] For questions about your discharge instructions call the nursing unit : E4 Emergency & Urgently Needed Care: For emergencies call 911 and/or get medical help right away. If you are a [facility] member and have medical needs after clinic hours you may call the CareLineat [phone] or . All medical devices (telemetry/IV/etc) unless otherwise ordered, have been removed before discharge. Smoking and Second-hand Smoke Exposure: Smoking damages blood vessels, reduces the oxygen in your blood and makes your heart beat too fast. If you smoke you should quit. Everyone should avoid second- hand smoke. If you would like further assistance after your discharge, please contact [phone] or visit www.[facility] [facility] can offer further information and assistance. We hope you had a positive experience and that you can definitely recommend [facility] to yourfamily and friends. You???ll be receiving a survey in the mail in about 2 weeks and we look forward to hearing your feedback. When leaving your room at discharge, please stop at the nursing unit desk to check out. I understand my discharge instructions: Fifi A Cross (or Unix Developer) documented in this encounter Medications at Time [...] Dorys King - 03/07/2009 7:29 AM CDT [facility] OT Progress Note Assessments Initial [...] pursue post discharge Verbalize problem areas experienced IS TECHNICIAN to increase insight and self-awareness 03/03/09 0700 [...] Luna Pedraza - 03/07/2009 7:19 AM CDT [facility] Progress Note (Nursing) Identify/Problem(s): Disturbance [...] Katia Lozano - 2009 5:35 PM CDT [facility] Progress Note (Nursing) Identify/Problem(s): Mood [...] Nathan Alvarado - 2009 11:58 AM CDT [facility] Psychiatry Staff Physician Progress Note Date of Service: 2009 Subjective: today is pt's birthday and states that she is more hopefull about her future. She admitsthat she has been her worse critic and that she plans with therapy and with new friends from [employer], to work re framing her self-concept. Pt is without any complaints at this time. She states that she is willing to undergo CD tx. She denies any perceptual disturbance, paranoia, or delusional thoughtprocesses; denies any HI or SI/intent or plan. She states that she is looking forward to being discharged to a [facility] in [place], [place]. Objective: Mental Status Exam Appearance: alert [...] by a transport hold signed by CM containers sales representative Annemarie Andujar. CM currently expl oring CD options. Impression (Diagnoses) [place] I: Depressive Disorder NOS 311.00; Dysthymia, Polysubstance abuse: THC and Methamphetamine, Alcohol abuse, R/0 Alcohol dependence. R/0 PTSD [place] II: Deferred [place] III: HTN, Hypercholesterolemia, CAD, S/P Hysterectomy. She is allergic to Lipitor and Codeine. [place] IV: Severe: homeless, limited support system. [place] V: GAF = 54 Serious symptoms, or any serious impairment in social, occupational or school functioning Legal Status: Voluntary Acuity Level: Yellow (pt following treatment, improving) Plan: Continue current pharmacological tx regimen. SW: regarding disposition plans. Pt per SW reportis to be discharged this upcoming Saturday. prognosis : guarded. Summary: Follow-up hospital care Nathan Alvarado MD Easton Palomo - 2009 9:47 AM CDT [facility] Hospital Progress Note (Nursing) Identify/Problem(s): Mood, [...] 650mg tylenol for back and knee pain 5/10 with relieved stated. 1430, pt c/o of still passing lots of gas. Cigarette Paper Tester page on-call Dr. Hough who said pt could have Maalox. Pt received 30ml. 1455, pt requested for 5mg haldol for anxiety and agitation. Pt said that she feels anxiety about d/c tomorrow to CD tx. Pt said that she does not know she is going to cope with having room mates. Pt said that she will like to have her own space. Cigarette Paper Tester encourage pt to do her CD tx and pt was accepting. Pt asked to go on a green code walk to the gift shop before it closes and NA took pt at 1457 and came back at 1513. Cigarette Paper Tester asked pt about the effect of the Maalox and pt said it seems to be working. Cigarette Paper Tester informed pt to report to PM nurse it improving or not. Plan: Will continue to monitor for any symptoms. Easton Burnham RN --- End of Report --- Luna Pedraza - 2009 6:28 AM CDT [facility] Hospital Progress Note (Nursing) Identify/Problem(s): Mood [...] Pedraza RN --- End of Report --- ELT Federico Moy - 03/05/2009 6:27 PM CDT Follow-up Labs [...] INDICATION: Pain. TECHNIQUE: Ultrasound examination performed by airplane inspector. FINDINGS: Liver is of normal size, configuration [...] kidney measures 10.9 cm, left 11.8 cm [id number]. Abdominal aorta contains atherosclerotic plaque distally and [...] for a baseline for continued care. Federico Moy DNP, [facility] Katia Lozano - 03/05/2009 5:27 PM CDT [facility] Progress Note (Nursing) Identify/Problem(s): Mood [...] Seroquel and Benadryl for sleep and received @2057. Pt did not c/o chest pain through out the shift and vitals are stable. Plan: Monitor mood improvement and encourage verbalization of feelings. Katia Lozano RN --- End of Report --- Federico Moy P - 03/05/2009 11:52 AM CDT [facility] [...] BMP 10. LFT's Federico Moy DNP Kenton Ascencion Burnhamnorberto Blanc - 03/05/2009 9:53 AM CDT [facility] Hospital Progress Note (Nursing) Identify/Problem(s): Mood [...] pt's daughter and BF came to visit. Cigarette Paper Tester and charge nurse physically assisted/walked with pt to walk to the exam room as pt's gait was unstable. Pt rated pain 9/10 and sharp. Pt stated that pain radiated across her rib cage to her neck. Pt said that she had a pain r/t heartburn last July but not as bad as this pain. PA/DIRECTOR FINANCIAL PLANNING Ralph Moy was paged who saw pt. [...] Pt can have meds with sips of automobile and property underwriter but to hold on to nicotine gum still afterthe US. [id number], pt requested/received 650mg tylenol for back and knee pain 12/22 with relieved stated. Pt is now stable at this time, stated she feels okay, chest pain is gone. Plan: Will continue to monitor for chest pain, and other symptoms. Easton Burnham RN --- End of Report --- Luna Pedraza - 03/05/2009 7:11 AM CDT [facility] Progress Note (Nursing) Identify/Problem(s): Mood [...] Katia Lozano - 03/04/2009 5:35 PM CDT [facility] Progress Note (Nursing) Identify/Problem(s): Mood Desired Outcome(s): Mood will improve Evaluation: Pt was out in the unit and social with peers. Pleasant with approach, denies psych symptoms. C/o back pain and rated the pain /10. Pt received Tylenol 650 mg and Atarax 25 mg per request @ 1831. Pain reassessed and Pt reported relief. Pt rated her mood 02/21. Pt stated, I am happy now I will be discharged on Saturday to [facility]. Pt requested Seroquel and Benadryl for sleep and received @2033. Pt was out with her Green code pass. Affect WNL, calm and controlled. Complaint with medication. Plan: Monitor mood improvement and encourage verbalization of feelings Katia Lozano RN --- End of Report --- Arlet Ennis - 03/04/2009 1:35 PM CDT [facility] Progress Note (Nursing) Identify/Problem(s): Altered mood Desired Outcome(s): Mood will improve Evaluation: Pt out on unit, social with peers, attending groups appropriately. Pt states she slept much better last night, as she stayed up all day yesterday and didn't take a nap. Pt jokes appropriately with automobile and property underwriter and other staff. Pt is calm and [...] Nathan Alvarado - 03/04/2009 1:16 PM CDT [facility] Psychiatry Staff Physician Progress Note Date of Service: 03/04/2009 Subjective: Pt is without any complaints at this time. She states that she is willing to undergo CD tx. She denies any perceptual disturbance, paranoia, or delusional thought processes; denies any HI or SI/intent or plan. She states that she is looking forward to being discharged to a [facility] in [place]. Objective: Mental Status Exam Appearance: alert [...] by a transport hold signed by CM containers sales representative Annemarie Andujar. CM currently expl oring CD options. Impression (Diagnoses) [place] I: Depressive Disorder NOS 311.00; Dysthymia, Polysubstance abuse: THC and Methamphetamine, Alcohol abuse, R/0 Alcohol dependence. R/0 PTSD [place] II: Deferred [place] III: HTN, Hypercholesterolemia, CAD, S/P Hysterectomy. She is allergic to Lipitor and Codeine. [place] IV: Severe: homeless, limited support system. [place] V: GAF = 54 Serious symptoms, or any serious impairment in social, occupational or school functioning Legal Status: Voluntary Acuity Level: Yellow (pt following treatment, improving) Plan: Continue current pharmacological tx regimen. SW: regarding disposition plans. ADAP/pending. prognosis : guarded. Summary: Follow-up hospital care Nathan Alvarado MD Guille Thomas - 03/04/2009 11:43 AM CDT [facility] Social Work Progress Note Data: Rcvd call back from MANISH Sharpe, she states, she is not recommending inpt CD treatment. She is recommending pt reside at [facility] and do CD treatment at [facility]. Cigarette Paper Tester met with pt she is accepting of this plan. States she likes [facility]. Cigarette Paper Tester contacted Nahomi at [facility], pt is able to come, but no bed available till Saturday.Pt signed PRIMITIVO, faxed requested records. Risk Assessment/Clinical Summary: Patient continues to stabilize on unit. Plan: Primary Disposition: [facility] Alternative Disposition Options: [facility]: Saturday Report completed by ELDA Pugh,[facility], Pager Number [phone] --- End of Report --- FROILAN spoke with Annemarie Daugherty, she can pick pt up for transport no later than 8am. FROILAN called unit [facility] who said this would be fine. Plan for CM to pick pt up at 8am on Saturday for d/c. CHELLE Dunbar Rhiannon Kearney - 03/04/2009 7:19 AM CDT [facility] OT Progress Note Assessments Initial Assessment [...] pursue post discharge Verbalize problem areas experienced IS TECHNICIAN to increase insight and self-awareness 03/03/09699 - [...] Cari Shaw - 03/04/2009 4:55 AM CDT [facility] Progress Note (Nursing) Identify/Problem(s): Mood Desired Outcome(s): Will be stable Evaluation: Pt was observed to have slept throughout the shift, no incident was observed. Plan: Will continue to assess pt's mood and document. Cari Shaw --- End of Report --- Nafisa Chester - 03/03/2009 5:15 PM CDT [facility] Progress Note (Nursing) Identify/Problem(s): Mood [...] Chester RN --- End of Report --- Arturo Nathan Francisco - 03/03/2009 4:19 PM CDT [facility] Psychiatry Staff Physician Progress Note [...] by a transport hold signed by CM containers sales representative Annemarie Andujar. CM currently expl oring CD options. Impression (Diagnoses) [place] I: Depressive Disorder NOS 311.00; Dysthymia, Polysubstance abuse: THC and Methamphetamine, Alcohol abuse, R/0 Alcohol dependence. R/0 PTSD [place] II: Deferred [place] III: HTN, Hypercholesterolemia, CAD, S/P Hysterectomy. She is allergic to Lipitor and Codeine. [place] IV: Severe: homeless, limited support system. [place] V: GAF = 54 Serious symptoms, or any serious impairment in social, occupational or school functioning Legal Status: Voluntary Acuity Level: Yellow (pt following treatment, improving) Plan: Continue current pharmacological tx regimen. SW: regarding disposition plans. ADAP/pending. prognosis : guarded. Summary: Follow-up hospital care Nathan Alvarado MD Arlet Ennis - 03/03/2009 9:36 AM CDT [facility] Progress Note (Nursing) Identify/Problem(s): Altered [...] storage garage.Pt laughs and jokes appropriately with automobile and property underwriter. Plan: Continue with treatment plan, document/monitor mood, Discussed plan of care with patient and treatment team. Arlet Ennis RN --- End of Report --- Rhiannon Kearney - 03/03/2009 7:08 AM CDT [facility] OT Progress Note Assessments Initial Assessment [...] achieving this goal with assistance from this automobile and property underwriter. Her short term goal was: Research realistic/available housing for seniors and/or disabled in the [facility]. Patient's steps included: 1. Look in newspaper and make a list of potential housing options with contact/phone numbers. 2. Make a list of relevant questions to ask potential housing prospects she locates in the paper, and/or questions she could ask [place] [facility] housing information. 3/ Call [facility] regarding housing options. 4. Call [facility] regarding housing options available. Patient was pleasant and cooperative throughout conversation. Cigarette Paper Tester will follow-up with support for the goal [...] use of Sensory Integration Intervention, patient exhibited 03/03/09699 Brain gym;Movement/exercise 7 5 More relaxed - - - Movement Group Patient Movement/ Exercise & Brain Gym Group in the past 12 hrs: Attended (minutes) + Reason if Absent Ex. Social Behavior Ex. Thought Process/Tracking Ex. Investment/Participation Energy Level 03/03/09699 15 - 5 5 5 5 Movement [...] pursue post discharge Verbalize problem areas experienced IS TECHNICIAN to increase insight and self-awareness 03/03/09699 - [...] Cari Shaw - 03/03/2009 6:13 AM CDT [facility] Progress Note (Nursing) Identify/Problem(s): Mood [...] Nafisa Chester - 03/02/2009 5:51 PM CDT [facility] Progress Note (Nursing) Identify/Problem(s): Mood [...] hallucinations. Received prn Benadryl and Seroquel at [facility] for sleep. New order for nicotrol inhaler this evening and patient has been using this appropriately. Controlled behavior. Med compliant. Plan: Monitor mood, encourage activity, document findings. Nafisa Chester RN --- End of Report --- Nathan Alvarado - 03/02/2009 2:31 PM CDT [facility] Psychiatry Staff Physician Progress Note [...] by a transport hold signed by CM containers sales representative Annemarie Andujar. CM currently expl oring CD options. Impression (Diagnoses) [place] I: Depressive Disorder NOS 311.00; Dysthymia, Polysubstance abuse: THC and Methamphetamine, Alcohol abuse, R/0 Alcohol dependence. R/0 PTSD [place] II: Deferred [place] III: HTN, Hypercholesterolemia, CAD, S/P Hysterectomy. She is allergic to Lipitor and Codeine. [place] IV: Severe: homeless, limited support system. [place] V: GAF = 48 Serious symptoms, or any serious impairment in social, occupational or school functioning Legal Status: Voluntary Acuity Level: Yellow (pt following treatment, improving) Plan: Continue current pharmacological tx regimen. SW: regarding disposition plans. Rule 25/CD tx prognosis : guarded. Summary: Follow-up hospital care Nathan Alvaardo MD Brynn Bautista - 03/02/2009 11:17 AM CDT [facility] Progress Note (Nursing) Identify/Problem(s): Behavior [...] Hortencia Fernandez - 03/02/2009 9:15 AM CDT [facility] Social Work Progress Note Data: vd call back from Ella- Rule [address] [facility], she states that at this point pt would need a Rule 25 to complete the funding for CD treatment. Cigarette Paper Tester contacted MANISH Daugherty [phone] to request Rule 25 assessment. Await call back. Risk Assessment/Clinical Summary: Patient continues to stabilize on unit. Plan: Primary Disposition: CD treatment Alternative Disposition Options: CD treatment ELOS: 2-4 days Report completed by ELDA uPgh,[facility], Pager Number [phone] --- End of Report --- Rhiannon Kearney - 03/02/2009 7:10 AM CDT [facility] OT Progress Note Assessments Initial Assessment [...] IM&R Thought Process/Tracking OT IM&R Investment/Participation 03/02/09 07 45 - Other (see comments) 5 5 [...] of Sensory Integration Intervention, patient exhibited 03/02/09 07 Brain gym;Movement/exercise 2 2 - - - [...] LIZZ Ziegler --- End of Report --- ELLuna Jaramillo - 03/02/2009 6:44 AM CDT [facility] Progress Note (Nursing) Identify/Problem(s): Mood [...] Pedraza RN --- End of Report --- ELT Suyapa Mcclain - 03/01/2009 8:16 PM CDT [facility] Progress Note (Nursing) Identify/Problem(s): Mood, behavior Desired Outcome(s): Mood will improve and will be safe on the unit. Evaluation: Pt reports she is doing OK this shift. Went out on the [employer] walk with the staff and enjoyed that. Pt had her CD eval today and thinks she will either go to [facility] or [facility] for a 30 day program. [...] Mcclain RN --- End of Report --- ELT Hortencia Fernandez - 03/01/2009 3:03 PM CDT [facility] Social Work Progress Note Data: CD consult completed, see consults. ADAP states that pt's whose primary funding source is Medicare, then ADAP needs RULE 25 approval before can start program. Rule 25 asks we fax our consult over for them to review and possibly authorize remaining part of treatment. Faxed to Ella at [place] Rule 25 for review fax [phone], # [phone]. Risk Assessment/Clinical Summary: Pt stabilizing on unit. Plan: Primary Disposition: CD treatment Alternative Disposition Options: Half-Way ELOS: 3-5 days Report completed by ELDA Pugh,[facility], Pager Number [phone] --- End of Report --- Nathan Alvarado Nolan - 03/01/2009 12:05 PM CDT [facility] Psychiatry Staff Physician Progress Note [...] by a transport hold signed by CM containers sales representative Annemarie Andujar. CM currently expl oring CD options. Impression (Diagnoses) [place] I: Depressive Disorder NOS 311.00; Dysthymia, Polysubstance abuse: THC and Methamphetamine, Alcohol abuse, R/0 Alcohol dependence. R/0 PTSD [place] II: Deferred [place] III: HTN, Hypercholesterolemia, CAD, S/P Hysterectomy. She is allergic to Lipitor and Codeine. [place] IV: Severe: homeless, limited support system. [place] V: GAF = 48 Serious symptoms, or any serious impairment in social, occupational or school functioning Legal Status: Voluntary Acuity Level: Yellow (pt following treatment, improving) Plan: Continue current pharmacological tx regimen. SW: regarding disposition plans. Rule 25/CD tx prognosis : guarded. Summary: Follow-up hospital care Nathan Alvarado MD Arlet Ennis - 03/01/2009 10:41 AM CDT [facility] Progress Note (Nursing) Identify/Problem(s): Altered [...] Rhiannon Kearney - 03/01/2009 7:22 AM CDT [facility] OT Progress Note Assessments Initial Assessment [...] Luna Pedraza - 03/01/2009 7:21 AM CDT [facility] Progress Note (Nursing) Identify/Problem(s): Depressed/ [...] Suyapa Mcclain - 02/28/2009 7:24 PM CDT [facility] Progress Note (Nursing) Identify/Problem(s): Mood, [...] CDT As of 02/24/09, per Carolyn at [facility].-[phone]- this pt. Does not have a case planner in [facility]...Mane Sanchez Nathan Alvarado - 02/28/2009 12:31 PM CDT [facility] Psychiatry Staff Physician Progress Note [...] by a transport hold signed by CM containers sales representative Annemarie Andujar. Impression (Diagnoses) [place] I: Depressive Disorder NOS 311.00; Dysthymia, Polysubstance abuse: THC and Methamphetamine, Alcohol abuse, R/0 Alcohol dependence. R/0 PTSD [place] II: Deferred [place] III: HTN, Hypercholesterolemia, CAD, S/P Hysterectomy. She is allergic to Lipitor and Codeine. [place] IV: Severe: homeless, limited support system. [place] V: GAF = 41-50 Serious symptoms, or any serious impairment in social, occupational or school functioning Legal Status: Voluntary Acuity Level: Yellow (pt following treatment, improving) Plan: Continue current pharmacological tx regimen. SW: regarding disposition plans. Rule 25/CD tx prognosis : guarded. Summary: Follow-up hospital care Nathan Alvarado MD Hortencia Fernandez - 02/28/2009 9:07 AM CDT [facility] Social Work Progress Note Data: Rcvd call back from MANISH Sharpe, she states that she met with her intake team and supervisor instrument repair. CM does not have current housing options for pt. Can give information regarding a subcity housing, but not current independent living options, which is what pt is requesting. Cm inquired if pt interested in CD patti atment, pt refusing. CM stated that pt's options would be a mcfp. Cm will look into female shelters.[facility], . Risk Assessment/Clinical Summary: Pt on unit, does not want CD treatment, focused on own apt. Plan: Primary Disposition: Half-Way Alternative Disposition Options: Half-Way ELOS: 2 days Report completed by ELDA Pugh,[facility], Pager Number [phone] --- End of Report --- Arlet Ennis - 02/28/2009 8:26 AM CDT [facility] Progress Note (Nursing) Identify/Problem(s): Altered [...] --- End of Report --- Cristine Sanchez - 02/28/2009 7:08 AM CDT [facility] OT Progress Note Assessments Initial Assessment [...] conversation with peers

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
--- OUTSIDE RECORDS SUMMARY | 2022-05-24 14:34 | XMS_ITS | Encounter Summary ---
:1955 Author Organization [facility] Address [address] [place] [address] Care Team Providers Name Role Phone Unassigned, Provider Primary Care Provider Unavailable Encounter Details Date Type Department Care Team Description 03/05/2009 Imaging [facility] Radiology Ul trasound [address] [place], [place] [id number] Social History Tobacco Use Types Packs/Day Years [...] Pain. TECHNIQUE: Ultrasound examination perfor med by monument carver. FINDINGS: Liver is of normal size, confi [...] measures 10.9 cm , left 11.8 cm [id number]. Abdominal aorta contains atherosclerotic plaque distally and [...] Pain. TECHNIQUE: Ultrasound examination perfor med by monument carver. FINDINGS: Liver is of normal size, confi [...] measures 10.9 cm , left 11.8 cm [id number]. Abdominal aorta contains atherosclerotic plaque distally and [...] normal caliber aorta. Remainder normal. Federico Moy CHAR HOUSE SUPERVISOR, SHAKER OPERATOR RAD US documented in this encounter Visit Diagnoses Not on filedocumented in this encounter Care Teams Production Manufacturing Worker Relationship Specialty Start Date End Date Unassigned, Provider PCP - General 03/12/[address] [place] [address] documented as of this encounter
--- OUTSIDE RECORDS SUMMARY | 2022-05-24 14:35 | XMS_ITS | Encounter Summary ---
:1955 Author Organization [facility] Address [address] [place] [address] Care Team Providers Name Role Phone Unassigned, Provider Primary Care Provider Unavailable Encounter Details Date Type Department Care Team Description 02/02/2005 Correspondence Emergency Dept Emergency, D/C Patient [address] [facility] [place] [address] Social History Tobacco Use Types Packs/Day Years [...] on filedocumented in this encounter Care Teams Contract Clerk Automobile Relationship Specialty Start Date End Date Unassigned, Provider PCP - General 03/12/03 [address] [place] [address] documented as of this encounter
--- OUTSIDE RECORDS SUMMARY | 2022-05-24 14:35 | XMS_ITS | Encounter Summary ---
:1955 Author Organization [facility] Address [address] [place] [address] Care Team Providers Name Role Phone Unassigned, Provider Primary Care Provider Unavailable Encounter Details Date Type Department Care Team Description 07/11/2005 Correspondence None [facility] o [facility] Social History Tobacco Use Types Packs/Day [...] documented as of this encounter Progress Notes ADY, PROVIDER - 07/11/2005 12:00 AM SENIOR ELECTRICAL DESIGN ENGINEER documented in this encounter Plan of Treatment Not on filedocumented as of this encounter Visit Diagnoses Not on filedocumented in this encounter Care Teams Medical Educator Relationship Specialty Start Date End Date Unassigned, Provider PCP - General 03/12/03 [address] [place] [address] documented as of this encounter
--- OUTSIDE RECORDS SUMMARY | 2022-05-24 14:35 | XMS_ITS | Encounter Summary ---
:1955 [facility] Address [address] [place] [address] Care Team Providers Name Role Phone Unassigned, Provider Primary Care Provider Unavailable Encounter Details Date Type Department Care Team Description 02/02/2005 Emergency Room [facility] Emergency Dept Emergency, [facility] Emergency [address] [place] [address] Provider Orders/[place] [address] Social History Tobacco Use Types Packs/Day Years [...] on filedocumented in this encounter Care Teams Assortment Planner Relationship Specialty Start Date End Date Unassigned, Provider PCP - General 03/12/03 [address] [place] [address] documented as of this encounter
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
--- OUTSIDE RECORDS SUMMARY | 2022-05-24 14:35 | XMS_ITS | Encounter Summary ---
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
--- OUTSIDE RECORDS SUMMARY | 2022-05-24 14:35 | XMS_ITS | Encounter Summary ---
:1955 Author Organization [facility] Address [address] [place] [address] Care Team Providers Name Role Phone Unassigned, Provider Primary Care Provider Unavailable Encounter Details Date Type Department Care Team Description 10/20/2004 Correspondence None Unknown, Physici an [facility] [place] to [place] [address] disabiltiy [place], [place] [address] (Wo rk) Social History Tobacco Use Types [...] on filedocumented in this encounter Care Teams Automated Weaver Relationship Specialty Start Date End Date Unassigned, Provider PCP - General 03/12/03 [address] [place] [address] documented as of this encounter
--- OUTSIDE RECORDS SUMMARY | 2022-05-24 14:35 | XMS_ITS | Encounter Summary ---
:1955 Author Organization [employer] Address [address] [address] Care Team Providers Name Role Phone Unassigned, Provider Primary Care Provider Unavailable Reason for Visit Reason Comments CHEST PAIN--ED Encounter Details Date Type Department Care Team Description 07/28/2008 - Hospital Encounter RH C73 Elroy Fraire MD Angina at Rest; 07/29/2008 [address] [facility] Dilip Bird MD Depression; [place], [place] Unassigned, Provider [address] [place] [address] Anxiety; [address] Kostas Javier MD [address] [place] [address] HTN; [phone] Ajith Katz MD [address] [place], [place] [id number] ACS (Acute Coronary Syndrome) Social History Tobacco [...] Comments Blood Pressure 150/99 07/29/2008 3:15 PM WING COMMANDER Pulse 69 07/29/2008 12:00 PM WING COMMANDER Temperature 37.1 ??C (98.7 ??F) 07/29/2008 12:00 PM WING COMMANDER Respiratory Rate 16 07/29/2008 12:00 PM WING COMMANDER Oxygen Saturation 97% 07/29/2008 12:00 PM WING COMMANDER Inhaled Oxygen Concentration - - Weight 75.4 kg (166 lb 3.2 oz) 07/28/2008 5:08 PM WING COMMANDER Height 162.6 cm (5' 4) 07/28/2008 6:47 PM WING COMMANDER Body Mass Index 28.53 07/28/2008 5:08 PM WING COMMANDER documented in this encounter Discharge Summaries Ajith Katz - 07/29/2008 2:23 PM CST [facility] Discharge Summary Report (MD) Patient Name: [...] She was on the phone with social [employer] which was stressing her out when the [...] ??? GLUCOSE 96 07/29/0835 ??? CHLORIDE 106* 07/29/08534 ??? SODIUM 138 07/29/0835 ??? CO2 25 07/29/08534 Lab Results Basename Value Date/Time ??? HGB 13.4 07/28/08 1510 ??? WBC 9.1 07/28/08 1510 ??? PLTS 373 07/28/08 1510 ??? PLTS 283 12/13/04 0645 Discharge Disposition: Home Diet: Low fat Cardiac Activity: As tolerated. Discharge Medications: Unchanged WAREHOUSE COORDINATOR meds that are or will be resumed [...] 30 minutes. --- End of Report --- COMMANDER documented in this encounter Discharge Instructions Discharge InstructionsChaloZyara petersen Jay - 07/29/2008 3:48 PM CST Images from the original note were not included. [address] [place], [place] [id number] Discharge Instructions for: Marissa Shepard Thank you for choosing [facility] as your hospital. A copy [...] 30 0 Designated Pharmacy for Discharge Medications: [address] [26] If you were taking a [...] with usual methods shortness of [place] [address] For questions about your discharge instructions call the nursing unit : [phone] Emergency & Urgently Needed Care: For emergencies call 911 and/or get medical help right away. If you are a [facility] [employer] member and have medical needs after clinic hours you may call the CareLineat [phone] or . Smoking and second-hand smoke exposure: Smoking damages blood vessels, reduces the oxygen in your blood and makes your heart beat too fast. If you smoke you should quit. Everyone should avoid second- hand smoke. If you would like further assistance after your discharge, please contact [phone] or visit [email or web address] can offer further [...] weight will also be followed by the Self Contained Behavior Unit Teacher when you go in for your treatment. [...] my discharge instructions: Marissa A Cross (or Pure Culture Operator) COMMANDER documented in this encounter Medications at Time [...] Zayra Gardner - 07/29/2008 3:48 PM CST [facility] Discharge Note - Nursing Admission Date/Time: [...] Gardner RN --- End of Report --- COMMANDER Amira Gonzalez - 07/29/2008 5:55 AM CST [facility] Progress Note (Nursing) Identify/Problem(s): Toothache S/P [...] Gonzalez RN --- End of Report --- COMMANDER Imtiaz Paige - 07/28/2008 5:03 PM CST [facility] Pharmacy Medication History Note Outpatient Medication [...] None Pharmacy (include contact number if available): [facility]--[phone] Allergy comments (include reaction if available): Lipitor [...] Saturday. This document completed by: Kentrell Lassiter --- End of Report --- COMMANDER documented in this encounter Procedure Notes Amira oGnzalez - 07/29/2008 7:08 AM CST [facility] Cardiac Stress Test Checklist Allergies: Lipitor and Codeine General Guide Dog Trainer needed? No Caffeine has been withheld (including [...] Results Basename Value Date/Time ??? K 3.8 07/29/0835 1. Is the potassium level >3.5 or [...] Amira Gonzalez RN For questions, please call [facility] Charge Nurse at . --- End of Report --- COMMANDER documented in this encounter OR Notes H&P - Kostas Javier S - 07/28/2008 5:33 PM CST Please see the PA-C Dion Couch note for the details. CC- chest [...] angioplasty done when she was 33. No [place] at that time. Pt had some chest [...] I <0.030 0.0-0.049 (ng/ml) BB HOLD TUBE ([facility] ONLY) Component Value Range ??? BB HOLD [...] 50% Kostas Javier MD 07/28/2008 5:41 PM [phone] COMMANDER H&P - King Schilling - 07/28/2008 5:01 PM CST [facility] Medicine History and Physical Date of [...] with CAD s/p CABG, Father with CHF, [place] in early 50s. Social History Occupational History [...] Says that she last used at a green party about two weeks ago, but feels that she is able to continue quitting on her own. Has never had treatment for meth. Primary team can readdress needfor CD consult with pt prior to d/c. 5)Tobacco abuse: Pt smokes 1/2 ppd x 30 years. Encouraged cessation. 6)DVT/GI prophylaxis: Given therapeutic lovenox in ED. Will d/c in AM. TEDs, ambulate, prevacid. A science interpreter was not used during this exam. Report Completed by: King Schilling PA-C Pager: [phone] COMMANDER documented in this encounter ED Notes Makr Kerr - 07/28/2008 4:01 PM CST Patient`s clothing and valuables taken home by family. COMMANDER Mark Kerr - 07/28/2008 4:01 PM CST [facility] Patient's Valuables Patient Name: Marissa Shepard [...] (not recorded) Dispostion of jewelry: Not applicable [place] #: 0 Disposition of keys: Not applicable List items in possession of patient but belonging to others: Not applicable No items were sent to the Bilingual Executive Assistant's Office. I understand that I assume full responsibility for all clothing, personal items, or valuables retained by me in my hospital room. Any unclaimed personal items deposited into the custody of the hospital will be disposed of by the hospital if they are not claimed within 180 days of discharge. Patients' Signature Witness Seed Cleaning Manager Pure Culture Operator's Signature Witness I authorize release of my valuables to the following: Relationship: Relationship: Relationship: Patient's Signature Patient Valuables taken by: Date: Signature: Relationship: Witness Name: Witness Signature: I have received my valuables as listed. Date: Patient's Signature: Witness: --- End of Report --- COMMANDER Mark Kerr - 07/28/2008 4:01 PM CST [facility] Clothing List Patient Name: Marissa Thompson [...] Nursing Unit) --- End of Report --- COMMANDER Zoey Johnson - 07/28/2008 3:36 PM CST [facility] Emergency Department Visit Note Patient Name: Marissa Shepard Date of : 1955 Chief Complaint: Chief Complaint Patient presents with ??? CHEST PAIN--ED HPI: 53 yo female with PMH significant for anxiety and depression comes to [facility] with c/o CP; Patient states [...] hospitalist. Assessment: Unstable angina Anxiety Depression Plan: Beveller Operator Re-check Vitals ECG Imaging: Plain Radiograph(s): chest Laboratory: CBC, Chem 8 and Troponin Medication: Lovenox Roving Sizer patient/family Re-evaluate patient Check response to treatment Planned Disposition: hospital observation Condition on disposition: Stable Patient seen with: Dilip Johnson DPM 07/28/2008, 4:26 PM COMMANDER Cherelle Harry V - 07/28/2008 3:15 PM CST Pt states that she felt diaphoretic, nauseated and SOB with the CP - CP lasted approx 5 minutes. Thepain came and went again during work counselor. Pt is smoker, hx HTN, probably has high cholesterol, family hx cardiac problems. Lungs are clear, S1S2 heard clearly. MD in room now to evaluate. Blood drawn and sent to lab. COMMANDER Dilip Bird - 07/28/2008 3:10 PM CST [facility] Emergency Department Attending Supervision Note Patient [...] benign. Symmetric and equal pulses bilaterally. Plan: Beveller Operator ECG: NSR, rate of 70, LVH via voltage criteria. No acute ischemic changes or dysrhythmia Imaging: Plain Radiograph(s): chest Laboratory: CBC, Chem 8 and Troponin Medication: lovenox Planned Disposition: inpatient admission General radiology studies were reviewed by me. Author: Dilip Bird MD COMMANDER Forest Rodriguez - 07/28/2008 2:54 PM CST Pt and daughter giggling and laughing while getting settled. COMMANDER Forest Rodriguez - 07/28/2008 2:49 PM CST Developed CP while on the phone with the [employer]. Hung up and called 911. Currently [...] ASA prior to the ambulance getting there. COMMANDER documented in this encounter Plan of Treatment Not on filedocumented as of this encounter Procedures Procedure Name Priority Date/Time Associated Diagnosis Comme nts NM CARD MYOCARD Routine 07/29/2008 11:22 AM Resul ts for this EXERCISE WING COMMANDER procedure are i n REST/STRESS SPECT the result s section. BASIC METABOLIC Routine 07/29/2008 5:35 AM Result s for this PANEL WING COMMANDER procedure are i n the results section. TROPONIN I STAT 07/29/2008 5:35 AM Results f or this WING COMMANDER procedure are i n the results section. LIPID PANEL, FAST > Routine 07/29/2008 5:35 AM Re sults for this 12 HOUR WING COMMANDER procedure are i n the results section. DRUG SCREEN, URINE Routine 07/28/2008 8:30 PM Res ults for this WING COMMANDER procedure are i n the results section. GOLD HOLD TUBE (OR Routine 07/28/2008 8:24 PM Res ults for this RED/GARCIA) WING COMMANDER procedure are i n the results section. TROPONIN I STAT 07/28/2008 8:24 PM Results f or this WING COMMANDER procedure are i n the results section. ECG 12-LEAD ROUTINE Routine 07/28/2008 8:01 PM Re sults for this WING COMMANDER procedure are i n the results section. GLUCOSE, WHOLE Routine 07/28/2008 4:07 PM Results for this BLOOD POCT WING COMMANDER procedure are i n the results section. ECG 12-LEAD ROUTINE STAT 07/28/2008 3:42 PM Re sults for this WING COMMANDER procedure are i n the results section. XR PORTABLE CHEST 1 STAT 07/28/2008 3:42 PM Re sults for this VIEW WING COMMANDER procedure are i n the results section. COAG HOLD (BLUE Routine 07/28/2008 3:10 PM Result s for this TUBE) WING COMMANDER procedure are i n the results section. BB HOLD TUBE Routine 07/28/2008 3:10 PM Results f or this ([place] ONLY) WING COMMANDER procedure are in the results section. BASIC METABOLIC STAT 07/28/2008 3:10 PM Result s for this PANEL WING COMMANDER procedure are i n the results section. TROPONIN I STAT 07/28/2008 3:10 PM Results f or this WING COMMANDER procedure are i n the results section. COMPLETE BLOOD STAT 07/28/2008 3:10 PM Results for this COUNT-NO DIFF WING COMMANDER procedure are in the results section. documented in this encounter Results NM CARDIAC EXERCISE CARDIOLITE STRESS TST (07/29/2008 11:22 AM WING COMMANDER) Anatomical Region Laterality Modality Chest, NM Cardiac Nuclear Medicine, Nu clear Medicine Specimen (Source) Anatomical Collection Method Collection Time Re ceived Time Location / / Volume Laterality 07/29/2008 11:22 AM WING COMMANDER Narrative 07/29/2008 12:35 PM WING COMMANDER NM MYOCARDIAL PERFUSION EXERCISE REST-STRESS SPECT SCAN [...] which thomas to 188/88 with double product [id number]. Stress stoppe d because of chest discomfort. Abnormal EKG reported separately. yardage control operator forming: Normal. FINDINGS: Wall motion and thickening is [...] protocol for 7:01 minutes. Work level ac [employer] MAC METS: 8.40. Baseline standing heart rate 78 bpm which thomas to 130 bpm representing 80% predicted. Baseline standing blood press ure 122/88 which thomas to 188/88 with double product [id number]. Stress stoppe d because of chest discomfort. Abnormal EKG reported separately. yardage control operator forming: Normal. FINDINGS: Wall motion and thickening is [...] adjust schedule as appropriate) (07/29/2008 5:35 AM WING COMMANDER) P athologist Signature Troponin I <0.030 0.0 - 0.049 [facility] ng/ml Comment: (0.000-0.049 ng/ml): Normal (0.050-0.770 ng/ml): Indeterminant for c linical definition of myocardial infarction (0.780 ng/ml): Cutoff indicating myocard ial infarction Specimen Anatomical Collection Method Collection Time Receive d Time (Source) Location / / Volume Laterality 07/29/2008 5:35 AM 9 5:38 WING COMMANDER AM WING COMMANDER King Schilling PA-C LAB_1 Performing Organization Address City/[facility] Phon e Number [address] [address] [place], [place] [phone] (ABNORMAL) Cholesterol Lipid Panel Fast > 12 Hr (Chol, HDL, Trig, Calc LDL) (Must be fasting) (07/29/2008 5:35 AM WING COMMANDER) Patholo gist Method Time Signature Cholesterol 232 (H) 0 - 199 [facility] mg/dl Triglyceride 174 (H) 0 - 149 [facility] mg/dl HDL 37 (L) >40 mg/dl [facility] LDL, Calc. 160 (H) 0 - 129 [facility] mg/dl Hours Fasting Information Not hours REG[facility] Given Specimen Anatomical Collection Method Collection Time Receive d Time (Source) Location / / Volume Laterality 07/29/2008 5:35 AM 9 5:38 WING COMMANDER AM WING COMMANDER King Schilling PA-C LAB_1 Performing Organization Address City/[facility] Phon e Number [address] [address] [place], [place] [phone] (ABNORMAL) Basic Metabolic Panel (K, Na, CO2, [...] Volume Laterality 07/29/2008 5:35 AM 9 5:38 WING COMMANDER AM WING COMMANDER King Schilling PA-C LAB_1 Performing Organization Address [facility] Phon e Number [address] [address] [place], [place] [phone] (ABNORMAL) DRUG SCREEN, URINE (07/28/2008 8:30 PM WING COMMANDER) Component Value Ref Test Analysis Performed Pathologis [...] specimen 07/28/2008 8:30 PM 009 8:44 (specimen) WING COMMANDER PM WING COMMANDER King Schilling PA-C LAB_1 Performing Organization Address [facility] Phon e Number [address] [address] [place], [place] [phone] GOLD HOLD TUBE (OR RED/GARCIA) (07/28/2008 8:24 PM WING COMMANDER) Patholo gist Method Time Signature Gold Hold Held in [facility] Tube Chemistry sample rack for 7 days Specimen Anatomical Collection Method Collection Time Receive d Time (Source) Location / / Volume Laterality 07/28/2008 8:24 PM 9 8:29 WING COMMANDER PM WING COMMANDER Kostas Javier MD LAB_1 Performing Organization Address [facility] Phon e Number [address] [address] [place], [place] [phone] Troponin I Q6H (check time done in ED, adjust schedule as appropriate) (07/28/2008 8:24 PM WING COMMANDER) athologist Signature Troponin I <0.030 0.0 - 0.049 [facility] ng/ml Comment: (0.000-0.049 ng/ml): Normal (0.050-0.770 ng/ml): Indeterminant for c linical definition of myocardial infarction (0.780 ng/ml): Cutoff indicating myocard ial infarction Specimen Anatomical Collection Method Collection Time Receive d Time (Source) Location / / Volume Laterality 07/28/2008 8:24 PM 8:25 WING COMMANDER PM WING COMMANDER King Schilling PA-C LAB_1 Performing Organization Address [facility] Phon e Number [address] [address] [place], [place] [phone] ECG 12-LEAD ROUTINE (07/28/2008 8:01 PM WING COMMANDER) athologist Signature Ventricular Rate 69 BPM MUSE Atrial Rate 69 BPM MUSE P-R Interval 154 ms MUSE QRS Duration 88 ms MUSE QT 438 ms MUSE QTc 469 ms MUSE P [place] 34 degrees MUSE R [place] 30 degrees MUSE T [place] 35 degrees MUSE URL Link MUSE Specimen (Source) Anatomical Collection Method Collection Time Re ceived Time Location / / Volume Laterality 07/28/2008 8:01 PM WING COMMANDER Narrative MUSE - 07/31/2008 11:31 AM WING COMMANDER Sinus rhythm Normal ECG When compared with ECG of 28-JUL-2008 15 :42, No significant change was found Procedure Note Darien Goncalves - 07/31/2008 Sinus rhythm Normal ECG When compared with ECG of 28-JUL-2008 15 :42, No significant change was found Kostas Javier MD EKG Performing Organization Address City/[facility]/ZIP [facility] Phon e Number MUSE RHP MUSE GLUCOSE, WHOLE BLOOD POC (07/28/2008 4:07 PM WING COMMANDER) athologist Signature Glucose, Whole 104 70 - 180 [facility] Blood mg/dl Comment: Point of Care Testing RN Notified Specimen Anatomical Collection Method Collection Time Receive d Time (Source) Location / / Volume Laterality 07/28/2008 4:07 PM 9 9:08 WING COMMANDER PM WING COMMANDER Elroy Fraire MD LAB_1 Performing Organization Address City/State/ZIP Code Phon e Number [address] [address] [place], [place] [phone] ECG 12-Lead (07/28/2008 3:42 PM WING COMMANDER) P athologist Signature Ventricular Rate 70 BPM MUSE Atrial Rate 70 BPM MUSE P-R Interval 152 ms MUSE QRS Duration 90 ms MUSE QT 454 ms MUSE QTc 490 ms MUSE P [place] 31 degrees MUSE R [place] 21 degrees MUSE T [place] 40 degrees MUSE URL Link MUSE Specimen (Source) Anatomical Collection Method Collection Time Re ceived Time Location / / Volume Laterality 07/28/2008 3:42 PM WING COMMANDER Narrative MUSE - 08/03/2008 1:40 PM WING COMMANDER Sinus rhythm Minimal voltage criteria for LVH, may be normal variant Prolonged QT Abnormal ECG No previous ECGs available Procedure Note Ivanna Darien W - 08/03/2008 Sinus rhythm Minimal voltage criteria for LVH, may be normal variant Prolonged QT Abnormal ECG No previous ECGs available Dilip Bird MD EKG Performing Organization Address City/State/ZIP Code Phon e Number MUSE RHP MUSE XR PORTABLE CHEST 1 VIEW (07/28/2008 3:42 PM WING COMMANDER) Anatomical Region Laterality Modality Chest, Lung Computed Radiography Specimen (Source) Anatomical Collection Method Collection Time Re ceived Time Location / / Volume Laterality 07/28/2008 3:42 PM WING COMMANDER Narrative 07/28/2008 3:52 PM WING COMMANDER [please fill in title of report and [...] COAG HOLD (BLUE TUBE) (07/28/2008 3:10 PM WING COMMANDER) athologist Signature Coag Hold Held in [facility] Coag Rack for 8 hours Specimen Anatomical Collection Method Collection Time Receive d Time (Source) Location / / Volume Laterality 07/28/2008 3:10 PM 9 3:50 WING COMMANDER PM WING COMMANDER Elroy Fraire MD LAB_1 Performing Organization Address City/[facility] Phon e Number [address] [address] [place], [place] [phone] BB HOLD TUBE ([facility] ONLY) (07/28/2008 3:10 PM WING COMMANDER) [facility] Method Time Signature BB Hold Tube Blood Bank REG[facility] save tube expires in 3 days Specimen Anatomical Collection Method Collection Time Receive d Time (Source) Location / / Volume Laterality 07/28/2008 3:10 PM 9 3:50 WING COMMANDER PM WING COMMANDER Elroy Fraire MD LAB_1 Performing Organization Address [facility] Phon e Number [address] [address] [place], [place] [phone] Troponin I (07/28/2008 3:10 PM WING COMMANDER) athologist Signature Troponin I <0.030 0.0 - 0.049 [place] ng/ml Comment: (0.000-0.049 ng/ml): Normal (0.050-0.770 ng/ml): Indeterminant for c linical definition of myocardial infarction (0.780 ng/ml): Cutoff indicating myocard ial infarction Specimen Anatomical Collection Method Collection Time Receive d Time (Source) Location / / Volume Laterality 07/28/2008 3:10 PM 9 3:41 WING COMMANDER PM WING COMMANDER Dilip Bird MD LAB_1 Performing Organization Address [facility] Phon e Number [address] [address] [place], [place] [phone] (ABNORMAL) Basic Metabolic Panel (K, Na, CO2, [...] Volume Laterality 07/28/2008 3:10 PM 9 3:37 WING COMMANDER PM WING COMMANDER Dilip Bird MD LAB_1 Performing Organization Address City/State/ZIP Code Phon e Number [address] [address] [place], [place] [phone] Hemogram with Platelets (07/28/2008 3:10 PM WING COMMANDER) athologist [facility] WBC 9.1 4.0 - 11.0 [facility] k/ul [...] Volume Laterality 07/28/2008 3:10 PM 9 3:37 WING COMMANDER PM WING COMMANDER Dilip Bird MD LAB_1 Performing Organization Address City/State/ZIP Code Phon e Number [address] [address] [place], [place] [phone] documented in this encounter Visit Diagnoses Diagnosis Angina at rest (HRC) Other and unspecified angina pectoris Depression Depressive disorder, not elsewhere class ified Anxiety (HRC) Anxiety state, unspecified HTN Unspecified essential hypertension ACS (acute coronary syndrome) (HRC) Intermediate coronary syndrome Chest pain, unspecified Initial Assessments - Mervin Malagon - 07/28/2008 6:51 PM CST [facility] Med-Surg / ICU / Rehab Initial [...] there Guardianship issues affecting care planning? No Spiritual/Jewish Is the nurse aware, at present, of any needs or issues for which support from the hospital mmi teacher might be helpful to patient and/or family? (e.g. need or desire for spiritual support, difficulty coping, end of life issues, grief/loss, etc.) No. ([facility] makes daily rounds to all oriental orthodox patients.) Cultural On the Best Care/Best Experience [...] alternatives.) See flowsheet documentation for additional information. COMMANDER documented in this encounter Administered Medications Inactive Administered Medications - up to 3 most recent administrations Medication Order MAR Action Action Date Dose Rate Site amoxicillin (AMOXIL) capsule 500 Given 07/29/2008 2:00 PM WING COMMANDER 50 0 mg mg 500 mg, Oral, TID, First dose on Sat07/28/08 at 2000, For 7 days Given 07/29/2008 8:00 AM WING COMMANDER 500 mg Given 07/28/2008 8:00 PM WING COMMANDER 500 mg enoxaparin (LOVENOX) injection 70 mg Given 07/28/2008 4:30 PM WING COMMANDER 70 mg 70 mg, Subcutaneous, NOW, On Sat07/28/08 at 1619, For 1 dose, Recommended dose 1 mg/kg. Patient reports weight being 160lbs approx 70kgs hydrALAZINE (APRESOLINE) tablet 10 mg Given 07/28/2008 5:30 PM WING COMMANDER 10 mg 10 mg, Oral, Q4H PRN, Blood Pressure >, SBP > 180, Starting on Sat07/28/08 at 1712, Until Michelle 07/29/08 at 1835 hydrocodone/acetaminophen (VICODIN) 5-500 Given 07/28/2008 8 :30 PM WING COMMANDER 1 Tablet MG 1-2 Tab 1-2 Tablet, Oral, Q4H PRN, Pain, Starting on Sat07/28/08 at 1649, Maximum Daily Acetaminophen dose for patients > 53 k g/day Maximum Daily Acetaminophen dose for patients < 53 k mg/kg/day This product contains 500 mg Acetaminophen per tablet. lansoprazole (PREVACID) capsule 30 mg Given 07/29/2008 8:00 AM WING COMMANDER 30 mg 30 mg, Oral, DAILY, First dose on Sat07/28/08 at 1809, Until Discontinued Given 07/28/2008 8:00 PM WING COMMANDER 30 mg metoPROLOL tartrate (LOPRESSOR) oral tablet Given 07/15 8:00 AM WING COMMANDER 12.5 mg 12.5 mg 12.5 mg, Oral, BID, First dose on Sat07/28/08 at 2000, Until Discontinued, 12.5 mg = a prepackaged 1/2 tablet Take with food Given 07/28/2008 6:42 PM WING COMMANDER 12.5 mg zolpidem (AMBIEN) tablet 10 mg Given 07/28/2008 10:45 PM WING COMMANDER 10 mg 10 mg, Oral, HS PRN, Sleep, Starting on Sat07/28/08 at 1648, Until Michelle 07/29/08 at 1835 documented in this encounter Active and Recently Administered Medications Times are shown in WING COMMANDER. Scheduled Medication Order 07/27/2008 07/28/2008 07/29/2008 amoxicillin [...] inued zolpidem (AMBIEN) tablet 10 mg (CANCELED) 2244 (Given - Provider: Amira Gonzalez) 10 mg, Oral, HS PRN, Starting 07/28 at 1648, Until Discontinu ed documented in this encounter Care Teams Second Watch Sergeant Relationship Specialty Start Date End Date Unassigned, Provider PCP - General 03/12/03 [address] [place] [place] [address] documented as of this encounter
--- OUTSIDE RECORDS SUMMARY | 2022-05-24 14:35 | XMS_ITS | Encounter Summary ---
:1955 Author Organization [facility] Address [address] [place] [address] Care Team Providers Name Role Phone Unassigned, Provider Primary Care Provider Unavailable Encounter Details Date Type Department Care Team Description 07/28/2008 Imaging [facility] [address] [place], [place] [id number] Social History Tobacco Use Types Packs/Day Years [...] 3:42 PM Re sults for this VIEW SNOW RANGER procedure are i n the results section. documented in this encounter Results XR PORTABLE CHEST 1 VIEW (07/28/2008 3:42 PM SNOW RANGER) Anatomical Region Laterality Modality Chest, Lung Computed Radiography Specimen (Source) Anatomical Collection Method Collection Time Re ceived Time Location / / Volume Laterality 07/28/2008 3:42 PM SNOW RANGER Narrative 07/28/2008 3:52 PM SNOW RANGER [please fill in title of report and indication as they were not dictated. thank you] FINDINGS: Cardiac silhouette upper limit s of normal. Pulmonary vasculature within normal limits. Lungs well-inflate d without focal abnormality. CONCLUSION: No acute disease of the ches t. Procedure Note Ligia Sparks Jay - 07/30/2008Formatting o f this note [...] on filedocumented in this encounter Care Teams Information Services Vice President Relationship Specialty Start Date End Date Unassigned, Provider PCP - General 03/12/[address] [place] [address] documented as of this encounter
--- OUTSIDE RECORDS SUMMARY | 2022-05-24 14:35 | XMS_ITS | Encounter Summary ---
:1955 [facility] Address [address] [place] [address] Care Team Providers Name Role Phone Unassigned, [...] on filedocumented in this encounter Care Teams Bead Worker Sewing Relationship Specialty Start Date End Date Unassigned, Provider PCP - General 03/12/03 [address] [place] [address] documented as of this encounter
--- OUTSIDE RECORDS SUMMARY | 2022-05-24 14:35 | XMS_ITS | Encounter Summary ---
:1955 Author Organization [facility] [address] [place] [address] Care Team Providers Name Role Phone Unassigned, Provider Primary Care Provider Unavailable Encounter Details Date Type Department Care Team Description 12/12/2004 Orders Only [facility] Unknown, Physician Cardiology [address] [place] [address] [phone] (Wo rk) Social History Tobacco Use Types [...] on filedocumented in this encounter Care Teams Special Forces Engineer Sergeant Relationship Specialty Start Date End Date Unassigned, Provider PCP - General 03/12/[address] [place] [address] documented as of this encounter
--- OUTSIDE RECORDS SUMMARY | 2022-05-24 14:35 | XMS_ITS | Encounter Summary ---
:1955 Author Organization [facility] Address [address], [place] [address] Care Team Providers Name Role Phone Unassigned, Provider Primary Care Provider Unavailable Reason for Visit Reason Comments ALTERED MENTAL STATUS--ED SEIZURE--ED Encounter Details Date Type Department Care Team Description 12/12/2004 - Hospital Encounter RH C62 Arnol Talbot MD [address] [place], [place] [address] OTHER GENERAL SYMPTOMS; 12/14/2004 [address] Charles De León MD AMPHETAMINE ABUSE UNSPECIFIED [place], [place] [id number] Social History Tobacco Use Types Packs/Day Years [...] treatment. She did talk with the social professionals and stated that she would follow up [...] 12/18/2004 12:17:17 Kristin Talbot MD Doc #: [id number] cc: Heaven Del Torohart, [facility] This document was electronically signed by Kristin Talbot MD on 12/25/2004 14:05:02. 1 Page 1 Patient Name: FIFI SHEPARD DISCHARGE SUMMARY CONFIDENTIAL MEDICAL RECORD [address] [phone] Page 1 Patient: FIFI SHPEARD Location: R-DIS HPN: Admit Date: 12/12/2004 Date [...] One tab po q 6-8 20 0 /2 03/200407/28/2008 hours prn severe low back pain. [...] The patient was admitted here at [facility] approximately one month ago and stayed for about 8 days. At that time she was found to have depression, methamphetamine dependence and cocaine dependence. She was discharged to [facility] in order to undergo outpatient chemical dependency treatment. Unclear on what happened after the discharge and how much of the program she went through. PAST MEDICAL HISTORY 1. Poly substance abuse. Patient has used methamphetamine off and on for the past several [facility]. She has also used cocaine in that time period. She also has been a heavy alcoholdrinker in the distant past. She has been through chemical dependency treatment on several occasions. 2. Depression. As noted above, the patient was on the psychiatry service here one month ago. She was also on the psychiatry service at [facility] following a neurosurgery procedure for her back. [...] 2. Sodium 140, potassium 4.1, chloride 102, [id number], BUN 27, creatinine 1.3, calcium 9.1. Urine [...] 12/12/2004 14:29:25 Kristin Talbot MD Doc #: [id number] cc: Heaven Huynh MD, Primary This document was electronically signed by Kristin Talbot MD on 12/18/2004 08:05:43. 1 Page 2 Patient Name: FIFI SHEPARD HISTORY & PHYSICAL CONFIDENTIAL MEDICAL RECORD [address] [phone] Page 1 Patient: FIFI SHEPARD Location: HPN: Admit Date: 12/12/2004 Date of : 1955 HISTORY & PHYSICAL documented in this encounter ED Notes Charles Trammell - 12/12/2004 11:[address] [facility] Emergency Department Attending Supervision Note Patient Name: Fifi Shepard Date of : 1955 I certify that [...] Charles Trammell MD - 12/12/2004 11:05 AM Gi Nighat Medina - 12/12/2004 11:00 AM CDT Patient Valuables Collected on Admission and sent to Nursing Unit Fifi Shepard [id number] 12/12/2004 Paper $: (not recorded) Coins $: (not recorded) Checkbook: No, First Number: (not recorded), Last Number: (not recorded) Name of Credit Cards: (not recorded), Number of Credit Cards: (not recorded), Social Security Card:No, Passport: No, Drivers' License: No, Government ID: No Watch: Yes Watch Brand: (not recorded) Glasses: No Hearing Aid: No Dentures: No [place] #: (not recorded) Cell Phone: No Pager: [...] and Witness signatures required. Signature (Patient or representative personal service) Signature (Person taking valuables home) Signature Nighat Angelo Signature (Receiving Nursing Unit) Jean Carlos Rivera - 12/12/2004 10:[address] [facility] Emergency Department Visit Note Patient Name: Fifi Shepard Date of : 1955 Chief Complaint: Patient presents with: ALTERED MENTAL STATUS--ED SEIZURE--ED HPI: 49 y.o. female present by EMS with AMS. Pt states, I was partying this weekend. I did a line of crank . Admits to taking excess Seroquel (amount unknown). Brought to [facility] by boyfriend, got out of car and laid on ground. EMS called for difficulty to arouse. Pt without complaint at this time. Aware she is at [facility] and knows date PMH: Previous Medical History: None on file There is no previous surgical history on file. Meds: No active medications on file as of 12/12/2004 Allergies: Review of patient's allergies indicates no known allergies. Social and Family History: Tobacco Use: Not Asked Alcohol Use: Not Asked Patient's Family History None on file Review of Systems: Please see [employer] flowsheet for review of systems. Physical Exam: [...] 12/12/2004 9:43 AM CDT received pt decrease grant desai 12, denies trauma, states drinking and partying [...] Ring MD Transcribed: 12/12/2004 11:38:27 Doc #: [id number] cc: Kristin Talbot MD, Attending Heaven Huynh MD, Primary KRISTIN TALBOT, Attending Physician HEAVEN HUYNH, Primary Physician This document was electronically signed by Spenser Ring MD on 12/12/2004 14:05:41. 1 Page 2 Patient Name: FIFI SHEPARD Visit Date: 12/12/2004 EMERGENCY MEDICINE NOTE CONFIDENTIAL MEDICAL RECORD [address] [phone] Page 1 Patient: FIFI SHEPARD Location: HPN: Date of : 1955 Visit [...] Organization Address City/State/ZIP Code Phon e Number [address] [address] [place], [place] [phone] (ABNORMAL) BASIC METABOLIC PANEL (12/14/2004 6:10 AM [...] Arnol Talbot MD LAB_1 Performing Organization Address [facility] Phon e Number [address] [address] [place], [place] [phone] URIC ACID (12/14/2004 6:10 AM CDT) P athologist Signature Uric Acid 4.0 2.5 - 6.5 [facility] mg/dl Specimen Anatomical Collection Method Collection Time Receive d Time (Source) Location / / Volume Laterality 12/14/2004 6:10 AM 5 6:16 CDT AM CDT Arnol Talbot MD LAB_1 Performing Organization Address [facility] Phon e Number [address] [address] [place], [place] [phone] MAGNESIUM (12/14/2004 6:10 AM CDT) P athologist Signature Magnesium 1.6 1.6 - 2.6 [facility] mg/dl Specimen Anatomical Collection Method Collection Time Receive d Time (Source) Location / / Volume Laterality 12/14/2004 6:10 AM 5 6:16 CDT AM CDT Arnol Talbot MD LAB_1 Performing Organization Address [facility] Phon e Number [address] [address] [place], [place] [phone] (ABNORMAL) CK, TOTAL (12/14/2004 6:10 AM CDT) athologist Signature CK, Total 6455 (H) 17 - 142 [facility] U/L Comment: Result Checked Specimen Anatomical Collection Method Collection Time Receive d Time (Source) Location / / Volume Laterality 12/14/2004 6:10 AM 5 6:16 CDT AM CDT Arnol Talbot MD LAB_1 Performing Organization Address [facility]/ZIP [facility] Phon e Number [address] [address] [place], [place] [phone] (ABNORMAL) BASIC METABOLIC PANEL (12/13/2004 6:45 AM [...] Arnol Talbot MD LAB_1 Performing Organization Address City/[facility]/ZIP [facility] Phon e Number [address] [address] [place], [place] [phone] (ABNORMAL) ALT (SGPT) (12/13/2004 6:45 AM CDT) athologist Signature ALT (SGPT) 116 (H) 0 - 55 U/L [facility] Specimen Anatomical Collection Method Collection Time Receive d Time (Source) Location / / Volume Laterality 12/13/2004 6:45 AM 5 7:01 CDT AM CDT Arnol Talbot MD LAB_1 Performing Organization Address City/[facility]/ZIP [facility] Phon e Number [address] [address] [place], [place] [phone] (ABNORMAL) PHOSPHORUS (12/13/2004 6:45 AM CDT) P athologist Signature Phosphorus 2.0 (L) 2.8 - 4.6 [facility] mg/dl Specimen Anatomical Collection Method Collection Time Receive d Time (Source) Location / / Volume Laterality 12/13/2004 6:45 AM 5 7:01 CDT AM CDT Arnol Talbot MD LAB_1 Performing Organization Address [facility] Phon e Number [address] [address] [place], [place] [phone] MAGNESIUM (12/13/2004 6:45 AM CDT) P athologist Signature Magnesium 1.9 1.6 - 2.6 [facility] mg/dl Specimen Anatomical Collection Method Collection Time Receive d Time (Source) Location / / Volume Laterality 12/13/2004 6:45 AM 5 7:01 CDT AM CDT Arnol Talbot MD LAB_1 Performing Organization Address City/[facility]/ZIP [facility] Phon e Number [address] [address] [place], [place] [phone] (ABNORMAL) CK, TOTAL (12/13/2004 6:45 AM CDT) P athologist Signature CK, Total 9971 (H) 17 - 142 [facility] U/L Specimen Anatomical Collection Method Collection Time Receive d Time (Source) Location / / Volume Laterality 12/13/2004 6:45 AM 5 7:01 CDT AM CDT Arnol Talbot MD LAB_1 Performing Organization Address City/[facility]/ZIP [facility] Phon e Number [address] [address] [place], [place] [phone] (ABNORMAL) HEMOGRAM+PLATELETS (12/13/2004 6:45 AM CDT) athologist [...] Arnol Talbot MD LAB_1 Performing Organization Address [facility] Phon e Number [address] [address] [place], [place] [phone] (ABNORMAL) GLUCOSE, WHOLE BLOOD POC (12/13/2004 12:03 AM CDT) athologist [facility] Glucose, Whole 167 (H) 65 - 115 [facility] Blood mg/dl Comment: Point of Care Testing IV Insulin Specimen Anatomical Collection Method Collection Time Receive d Time (Source) Location / / Volume Laterality 12/13/2004 12:03 12/13/2004 6:56 AM CDT AM CDT Arnol Talbot MD LAB_1 Performing Organization Address [facility] Phon e Number [address] [address] [place], [place] [phone] (ABNORMAL) RAPID DRUG SCREEN (12/12/2004 9:33 AM [...] Charles Trammell MD LAB_1 Performing Organization Address [facility] Phon e Number [address] [address] [place], [place] [phone] (ABNORMAL) ACETAMINOPHEN (12/12/2004 9:33 AM CDT) P athologist Signature Acetaminophen <2 (L) 10 - 20 [facility] mcg/ml Specimen Anatomical Collection Method Collection Time Receive d Time (Source) Location / / Volume Laterality 12/12/2004 9:33 AM 5 9:39 CDT AM CDT Charles Trammell MD LAB_1 Performing Organization Address [facility] Phon e Number [address] [address] [place], [place] [phone] (ABNORMAL) BASIC METABOLIC PANEL (12/12/2004 9:33 AM [...] Charles Trammell MD LAB_1 Performing Organization Address [facility] Phon e Number [address] [address] [place], [place] [phone] BB HOLD TUBE (12/12/2004 9:30 AM CDT) [facility] gist Method Time Signature BB Hold Tube Blood Bank [facility] save tube expires in 3 days Specimen Anatomical Collection Method Collection Time Receive d Time (Source) Location / / Volume Laterality 12/12/2004 9:30 AM 5 9:41 CDT AM CDT Charles Trammell MD LAB_1 Performing Organization Address [facility] Phon e Number [address] [address] [place] [phone] documented in this encounter Visit Diagnoses Diagnosis Other general symptoms(780.99) Other general symptoms 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
--- OUTSIDE RECORDS SUMMARY | 2022-05-24 14:35 | XMS_ITS | Encounter Summary ---
:1955 Author Organization [facility] Address [address] [place] [address] Care Team Providers Name Role Phone Unassigned, Provider Primary Care Provider Unavailable Encounter Details Date Type Department Care Team Description 12/13/2004 Orders Only [facility] Unknown, Physician Cardiology [address] [place] [address] [phone] (Wo rk) Social History Tobacco Use Types [...] on filedocumented in this encounter Care Teams Mass Spectrometry Manager Relationship Specialty Start Date End Date Unassigned, Provider PCP - General 03/12/[address] [place] [address] documented as of this encounter
--- OUTSIDE RECORDS SUMMARY | 2022-05-24 14:35 | XMS_ITS | Encounter Summary ---
:1955 Author Organization [facility] Address [address] [place] [address] Care Team Providers Name Role Phone Unassigned, [...] on filedocumented in this encounter Care Teams Chief Deputy Coroner Relationship Specialty Start Date End Date Unassigned, Provider PCP - General 03/12/03 [address] [place] [address] documented as of this encounter
--- OUTSIDE RECORDS SUMMARY | 2022-05-24 14:35 | XMS_ITS | Encounter Summary ---
:1955 Author Organization [facility] Address [address] [place] [address] Care Team Providers Name Role Phone Unassigned, Provider Primary Care Provider Unavailable Encounter Details Date Type Department Care Team Description 11/18/2003 Correspondence None Unknown, Physici an [facility] PRIMITIVO TO SELF [address] [place] [address] (Wo rk) Social History Tobacco [...] on filedocumented in this encounter Care Teams Biomass Technician Relationship Specialty Start Date End Date Unassigned, Provider PCP - General 03/12/03 [address] [place] [address] documented as of this encounter
--- OUTSIDE RECORDS SUMMARY | 2022-05-24 14:35 | XMS_ITS | Encounter Summary ---
:1955 Author Organization [facility] Address [address] [place] [address] Care Team Providers Name Role Phone Unassigned, Provider Primary Care Provider Unavailable Reason for Visit Reason Onset Date Comments Refill 01/11/2004 Encounter Details Date Type Department Care Team Description 01/11/2004 Refill [facility] Occupational and Sherry Winchester MD Refill Environmental [...] on filedocumented in this encounter Care Teams Fisheries Officer Relationship Specialty Start Date End Date Unassigned, Provider PCP - General 03/12/03 [address] [place] [address] documented as of this encounter
--- OUTSIDE RECORDS SUMMARY | 2022-05-24 14:35 | XMS_ITS | Encounter Summary ---
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 No bladder or bowel dysfunction. She [...] Winchester MD Transcribed: 12/01/2003 15:22:03 Doc #: [id number] cc: Sherry Winchester MD, Primary Physician 1 Page 1 Patient Name: FIFI CALDERON Visit Date: 11/29/2003 OCCUPATIONAL/ENVIRONMENTAL CONFIDENTIAL MEDICAL RECORD [address] [phone] Page 1 Patient: FIFI CALDERON Location:[place] HPN: Date of : 1955 Visit Date: 11/29/2003 OCCUPATIONAL/ENVIRONMENTAL Sherry Winchester - 11/29/2003 12:00 AM CDT Sherry Winchester - 11/29/2003 12:00 AM CDT documented in this encounter Plan of Treatment Not on filedocumented as of this encounter Visit Diagnoses Diagnosis Lumbago documented in this encounter Care Teams Windows Application Packager Relationship Specialty Start Date End Date Unassigned, Provider PCP - General 03/12/[address] [place] [address] documented as of this encounter
--- OUTSIDE RECORDS SUMMARY | 2022-05-24 14:35 | XMS_ITS | Encounter Summary ---
:1955 Author Organization [facility] [facility] Address [address] [place] [address] Care Team Providers Name Role Phone Unassigned, Provider Primary Care Provider Unavailable Encounter Details Date Type Department Care Team Description 12/23/2003 Office Visit [facility] Occupational Abrar, Sherry A, L OW BACK and Environmental MD PAIN(ACUTE [...] Lumbago documented in this encounter Care Teams Meat Counter Worker Relationship Specialty Start Date End Date Unassigned, Provider PCP - General 03/12/03 [address] [place] [address] documented as of this encounter
--- OUTSIDE RECORDS SUMMARY | 2022-05-24 14:35 | XMS_ITS | Encounter Summary ---
:1955 Author [facility] Address [address] [place] [address] Care Team Providers Name Role Phone Unassigned, Provider Primary Care Provider Unavailable Encounter Details Date Type Department Care Team Description 11/22/2004 Correspondence None Unknown, Physici barbara [facility] PRIMITIVO TO NAHUM LAIRD [address] [address] (Wo rk) Social History Tobacco [...] on filedocumented in this encounter Care Teams Salad Chef Relationship Specialty Start Date End Date Unassigned, Provider PCP - General 03/12/03 [address] [place] [address] documented as of this encounter
--- OUTSIDE RECORDS SUMMARY | 2022-05-24 14:35 | XMS_ITS | Encounter Summary ---
:1955 Author Organization [facility] Address [address] [place] [address] Care Team Providers Name Role Phone Unassigned, [...] on filedocumented in this encounter Care Teams Bioinformatics Computer Scientist Relationship Specialty Start Date End Date Unassigned, Provider PCP - General 03/12/03 [address] [place] [address] documented as of this encounter
--- OUTSIDE RECORDS SUMMARY | 2022-05-24 14:35 | XMS_ITS | Encounter Summary ---
:1955 [facility] Address [address] [place] [address] Care Team Providers Name Role Phone Unassigned, Provider Primary Care Provider Unavailable Encounter Details Date Type Department Care Team Description 01/05/2005 Correspondence None Unknown, Physici an [facility] PRIMIT[place] to [place] [address] disability [place], [place] [address] (Wo rk) Social History Tobacco Use Types [...] filedocumented in this encounter Care Teams Fire Dispatcher Relationship Specialty Start Date End Date Unassigned, Provider PCP - General 03/12/03 [address] [place] [address] documented as of this encounter
--- OUTSIDE RECORDS SUMMARY | 2022-05-24 14:35 | XMS_ITS | Encounter Summary ---
:1955 Author Organization [employer] Address [address] [place] [address] Care Team Providers Name Role Phone Unassigned, Provider Primary Care Provider Unavailable Reason for Visit Reason Comments BACK PAIN--ED chronic Encounter Details Date Type Department Care Team Description 02/02/2005 Emergency [facility] Emergency Dept Preet Rahman, LOW BACK PAIN(ACUTE)<6 WEEKS ; [address] Karthik Carlson MD [place] [address] [phone] [id number] [place] [address] Social History Tobacco Use Types Packs/Day Years [...] Dear Ms. Calderon, Thank you for choosing [facility] for your emergency medical needs. You have received emergency care only and your condition may change. Therefore, we highly recommend you follow-up with your physician as directed. For follow-up care contact: [facility] [phone] For follow-up care, you have an appointment at [facility] next saturday. When you see your doctor, [...] would like to be seen in a [facility] clinic, please call the [facility] Appointment Desk at [phone] anytime between 7:00 AM and 9:00 PM, 7 days a week, 365 days a year (Hearing Impaired: [phone]). Please bring these instructions with you when [...] vomiting or sweats. ExitCare(R) Patient Information (C)2004 [employer]. \\\epic\ExitcareNonfieldFull\NonFields\di\Uzbek\1432.htm documented in this encounter Medications at Time of Discharge Medication Sig Dispensed Refills Start Date End Date CYCLOBENZAPRINE HCL 1 tab po qhs 10 0 12/23/2003 (FLEXERIL) 10MG ORAL TABS FLEXERIL 10MG ORAL TABS 1 tab po qhs prn 20 1 200307/28/2008 low back spasm. IBUPROFEN 800MG ORAL TABS 1 tab po q 8hrly 30 0 /07/28/2008 prn IBUPROFEN 800MG ORAL TABS 1 tablet [...] Zimmerman PA-C - 02/02/2005 3:53 PM CDT [facility] Emergency Department Visit Note Patient Name: Fifi [...] (10); prozac 40 mg qd - f/u [facility] on saturday Visit note has been dictated: see dictated note ( ) Condition on disposition: Stable This electronic signature covers the nursing and ancillary testing orders for this visit. Author: RODOLFO Rooney - 02/02/2005 2:27 PM Allie Cole - 02/02/2005 2:40 PM CDT F/u appt. arranged at [facility] for 02/06 at 10:40 -pt. agrees to plan. Preet Rahman 02/02/2005 2:32 PM CDT [facility] Emergency Department Attending Supervision Note Patient Name: [...] She did have the [facility]. Previously seen at [facility] but states that's too far for [...] was seen by Allie of social work coordinator and is set up for a followup appointment [facility] next Saturday. The patient is discharged to home. She is to continue with ibuprofen for baseline pain. I did give her 10 Vicodin for bad pain and put her on a trial of Medrol Dose Hunter. The patient was also given a refill of her depression med 40 mg q.d. with a 10 day supply. The patientwas offered social work coordinator here but declines at this time. She is currently [place] [facility] the [place]. FINAL ASSESSMENT 1. Back pain. 2. Depression. maira Dictated: 02/02/2005 15:51:30 Greg Harden PA-C Transcribed: 02/06/2005 11:56:09 Staff: Preet Rahman MD Doc #: [id number] cc: Yoselyn Strauss MD, Primary 1 Page 1 Patient Name: FIFI CALDERON Visit Date: 02/02/2005 EMERGENCY MEDICINE NOTE CONFIDENTIAL MEDICAL RECORD [address] [address] Page 1 Patient: FIFI CALDERON [id number] Date [facility] : 1955 Visit Date: 02/02/2005 EMERGENCY MEDICINE NOTE documented in this encounter Plan of Treatment Not on filedocumented as of this encounter Visit Diagnoses Diagnosis Lumbago Depressive disorder, not elsewhere class ified documented in this encounter Care Teams Catalytic Converter Operator Relationship Specialty Start Date End Date Unassigned, Provider PCP - General 03/12/[address] [place] [address] documented as of this encounter
--- OUTSIDE RECORDS SUMMARY | 2022-05-24 14:35 | XMS_ITS | Encounter Summary ---
:1955 Author Organization [employer] Address [address] [place] [address] Care Team Providers Name Role Phone Unassigned, Provider Primary Care Provider Unavailable Encounter Details Date Type Department Care Team Description 12/23/2003 Office Visit [facility] Occupational and Sherry Winchester MD Environmental [...] been prescribed by us seen in the [facility] Vicodin 20 tablets from last month. She [...] q.h.s. 5. The workability form for the [facility] was also filled, which said part-time job until the surgery. Limit lifting to 20 pounds. No bending. No prolonged sitting. 6. Follow with this clinic after the surgery or sooner if symptoms worsen. st1 Dictated: 12/23/2003 13:59:00 Sherry Winchester MD Transcribed: 12/28/2003 11:04:42 Doc #: [id number] cc: 1 Page 1 Patient Name: FIFI CALDERON Visit Date: 12/23/2003 OCCUPATIONAL/ENVIRONMENTAL CONFIDENTIAL MEDICAL RECORD [address] [address] Page 1 Patient: FIFI CALDERON Location:[place] HPN: Date of : 1955 Visit Date: 12/23/2003 OCCUPATIONAL/ENVIRONMENTAL documented in this encounter Plan of Treatment Not on filedocumented as of this encounter Visit Diagnoses Not on filedocumented in this encounter Care Teams Emotional Support Teacher Relationship Specialty Start Date End Date Unassigned, Provider PCP - General 03/12/[address] [place] [address] documented as of this encounter
--- OUTSIDE RECORDS SUMMARY | 2022-05-24 14:35 | XMS_ITS | Encounter Summary ---
:1955 Author Organization [employer] Address [address] [place] [address] Care Team Providers Name Role Phone Unassigned, Provider Primary Care Provider Unavailable Reason for Visit Reason Comments ALLERGIC REACTION--ED Encounter Details Date Type Department Care Team Description 05/18/2004 Hospital Encounter [facility] Emergency Dept Harsh Cantu, ADVERSE EFFECT DRUG MED/BIO SUBST UNSPEIFIED; [address] Karthik Carlson MD SHORTNESS OF BREATH; [place], [place] [address] SWELLING IN HEAD & NECK [address] [address] [phone] [place] [address] Social History Tobacco Use Types [...] 1 tab po q 8hrly 30 0 0607/28/2008 prn IBUPROFEN 800MG ORAL TABS 1 tablet [...] reaction Lorenzo Akers - 05/18/2004 12:00 AM TOBACCO CUTTER CHIEF COMPLAINT: Eyelid swelling and subjective feeling of shortness of breath. HISTORY OF PRESENT ILLNESS: The patient is a 49-year-old female who comes in this evening complaining that she felt short of breath at home as well as subjective feeling that her eyelids were swelling and that her eyes were itching after having taken metoprolol which was recently prescribed by a transcribing operator head. She has a history of back pain for which she had workup for to undergo back surgery. During this workup at [facility], they discovered that she has a carotid artery stenosis of 70% on the right and is actually scheduled to undergo carotid endarterectomy tomorrow morning. Preoperatively, she was seen by a transcribing operator head at [facility] who prescribed her both Lipitor and metoprolol, [...] which she had been prescribed by her transcribing operator head she saw. Following that, she began to [...] I did advise her that this could training representative of an allergic reaction or could [...] metoprolol or Lipitor until she sees her transcribing operator head again at [facility]. I advised her not to take these medications tomorrow morning presurgery. I did advise her to discuss this with the anesthesiologist who would be taking over her care at [facility] to advise that she may have had [...] 08:44:37 Staff: Harsh Cantu MD Doc #: [id number] cc: Yoselyn Strauss MD, Primary 1 Page 1 Patient Name: FIFI CALDERON Visit Date: 05/18/2004 EMERGENCY MEDICINE NOTE CONFIDENTIAL MEDICAL RECORD [address] [phone] Page 1 Patient: FIFI CALDERON Location: [facility] HPN: Date of : 1955 Visit Date: 05/18/2004 EMERGENCY MEDICINE NOTE CCO CUTTER documented in this encounter Plan of Treatment Not on filedocumented as of this encounter Visit Diagnoses Diagnosis Other and unspecified adverse effect of drug, medicinal and biological substance Shortness of breath Swelling, mass, or lump in head and neck documented in this encounter Care Teams Floor Technician Relationship Specialty Start Date End Date Unassigned, Provider PCP - General 03/12/[address] [place] [address] documented as of this encounter
--- OUTSIDE RECORDS SUMMARY | 2022-05-24 14:36 | XMS_ITS | Encounter Summary ---
:1955 Author Organization [facility] Address [address] [place] [address] Care Team Providers Name Role Phone Unassigned, Provider Primary Care Provider Unavailable Encounter Details Date Type Department Care Team Description 08/10/2003 Office Visit [facility] Margot Balderrama Physical Medicine [facility] [address] [place] [address] [place] [address] [place] [address] Social History Tobacco Use Types Packs/Day Years [...] Notes Margot Balderrama - 08/10/2003 12:00 AM BUS TRANSPORTATION MANAGER DATE: 08-26-2003 OUTPATIENT PHYSICAL THERAPY - PROGRESS [...] lcd Dictated: 08/26/2003 13:50:36 Margot Balderrama PT#[id number] Transcribed: 09/01/2003 11:47:17 Doc #: [id number] cc: Sherry Winchester MD (Requests no copies) This document was electronically signed by Margot Balderrama PT#[id number] on 09/07/2003 18:13:43. Patient: FIFI CALDERON Page 1 Date: PM&R THERAPY CONFIDENTIAL MEDICAL RECORD [address] [address] Page 1 Patient: FIFI CALDERON Location: [place] HPN: Date of : 1955 PM&R THERAPY TRANSPORTATION MANAGER documented in this encounter Plan of Treatment Not on filedocumented as of this encounter Visit Diagnoses Not on filedocumented in this encounter Care Teams Bullet Slug Casting Machine Operator Relationship Specialty Start Date End Date Unassigned, Provider PCP - General 03/12/[address] [place] [address] documented as of this encounter
--- OUTSIDE RECORDS SUMMARY | 2022-05-24 14:36 | XMS_ITS | Encounter Summary ---
:1955 Author Organization [employer] Address [address] [place] [address] Care Team Providers Name Role Phone Unassigned, [...] Notes Sherry Winchester - 06/24/2003 12:00 AM AEROSPACE ENGINEER OFFICER ARMAMENT CHIEF COMPLAINT: Low back pain, chronic low [...] Winchester MD Transcribed: 07/01/2003 13:25:12 Doc #: [id number] cc: 1 Page 2 Patient Name: FIFI CALDERON Visit Date: 06/24/2003 OCCUPATIONAL/ENVIRONMENTAL CONFIDENTIAL MEDICAL RECORD [address] [address] Page 1 Patient: FIFI CALDERON Location:[place] HPN: Date of : 1955 Visit Date: 06/24/2003 OCCUPATIONAL/ENVIRONMENTAL SPACE ENGINEER OFFICER ARMAMENT Sherry Winchester - 06/24/2003 12:00 AM AEROSPACE ENGINEER OFFICER ARMAMENT SPACE ENGINEER OFFICER ARMAMENT documented in this encounter Plan of Treatment Not on filedocumented as of this encounter Visit Diagnoses Diagnosis Lumbago documented in this encounter Care Teams Nuclear Control Room Operator Relationship Specialty Start Date End Date Unassigned, Provider PCP - General 03/12/[address] [place] [address] documented as of this encounter
--- OUTSIDE RECORDS SUMMARY | 2022-05-24 14:36 | XMS_ITS | Encounter Summary ---
:1955 Author Organization [employer] Address [address] [place] [address] Care Team Providers Name Role Phone Unassigned, [...] Notes Sherry Winchester - 05/18/2003 12:00 AM RAMP BOSS CHIEF COMPLAINT: Chronic low back pain flare-up. HISTORY OF PRESENT ILLNESS: [id number] female returns to the [facility]ational Medicine [facility] [...] Winchester MD Transcribed: 05/24/2003 15:44:46 Doc #: [id number] cc: This document was electronically signed by Sherry Winchester MD on 08/02/2003 15:13:36. 1 Page 2 Patient Name: FIFI CALDERON Visit Date: 05/18/2003 OCCUPATIONAL/ENVIRONMENTAL CONFIDENTIAL MEDICAL RECORD [address] [phone] Page 1 Patient: FIFI CALDERON Location:[place] HPN: Date of : 1955 Visit Date: 05/18/2003 OCCUPATIONAL/ENVIRONMENTAL BOSS Sherry Winchester - 05/18/2003 12:00 AM RAMP BOSS BOSS documented in this encounter Plan of Treatment Not on filedocumented as of this encounter Visit Diagnoses Diagnosis Lumbago documented in this encounter Care Teams Churn Driller Helper Relationship Specialty Start Date End Date Unassigned, Provider PCP - General 03/12/[address] [place] [address] documented as of this encounter
--- OUTSIDE RECORDS SUMMARY | 2022-05-24 14:36 | XMS_ITS | Encounter Summary ---
:1955 [facility] Organization [facility] Address [address] [place] [address] Care Team Providers Name Role Phone Unassigned, Provider Primary Care Provider Unavailable Encounter Details Date Type Department Care Team Description 07/23/2003 Correspondence None Unknown, Physici an [facility]IVE [address] [employer] [facility] [place], [place] [address] (Wo rk) Social History Tobacco Use Types [...] Notes Unknown, Physician - 07/23/2003 12:00 AM BOOK COVERER documented in this encounter Plan of Treatment Not on filedocumented as of this encounter Visit Diagnoses Not on filedocumented in this encounter Care Teams Radial Drill Press Set Up Operator Relationship Specialty Start Date End Date Unassigned, Provider PCP - General 03/12/03 [address] [place] [address] documented as of this encounter
--- OUTSIDE RECORDS SUMMARY | 2022-05-24 14:36 | XMS_ITS | Encounter Summary ---
:1955 Author Organization [facility] Address [address] [place] [address] Care Team Providers Name Role Phone Unassigned, Provider Primary Care Provider Unavailable Encounter Details Date Type Department Care Team Description 06/08/2003 Correspondence External to Unknown, Ava jimenez [facility] [address] [place], [place] [address] Social History Tobacco Use Types Packs/Day Years [...] Notes Unknown, Physician - 06/08/2003 12:00 AM WATER JET OPERATOR documented in this encounter Plan of Treatment Not on filedocumented as of this encounter Visit Diagnoses Not on filedocumented in this encounter Care Teams Quantitative Manager Relationship Specialty Start Date End Date Unassigned, Provider PCP - General 03/12/03 [address] [place] [address] documented as of this encounter
--- OUTSIDE RECORDS SUMMARY | 2022-05-24 14:36 | XMS_ITS | Encounter Summary ---
:1955 Author Organization [facility] Address [address] [place] [address] Care Team Providers Name Role Phone Unassigned, Provider Primary Care Provider Unavailable Encounter Details Date Type Department Care Team Description 07/21/2003 Correspondence None Unknown, Physici an [facility] to Comprehensive [address] [facility] [place], [place] [address] (Wo rk) Social History Tobacco Use Types [...] Notes Unknown, Physician - 07/21/2003 12:00 AM TERRA COTTA ROOFER documented in this encounter Plan of Treatment Not on filedocumented as of this encounter Visit Diagnoses Not on filedocumented in this encounter Care Teams Station Cleaning Porter Relationship Specialty Start Date End Date Unassigned, Provider PCP - General 03/12/03 [address] [place] [address] documented as of this encounter
--- OUTSIDE RECORDS SUMMARY | 2022-05-24 14:36 | XMS_ITS | Encounter Summary ---
:1955 Author Organization [facility] Address [address] [place] [address] Care Team Providers Name Role Phone Unassigned, Provider Primary Care Provider Unavailable Encounter Details Date Type Department Care Team Description 08/26/2003 Office Visit [facility] Margot Balderrama Physical Medicine [facility] [address] [place] [address] [address] [facility] [phone] [place] [address] Social History Tobacco Use Types Packs/Day Years [...] Notes Margot Balderrama - 08/26/2003 12:00 AM FRUIT PICKER T PICKER documented in this encounter Plan of Treatment Not on filedocumented as of this encounter Visit Diagnoses Not on filedocumented in this encounter Care Teams Brush Loader And Handle Attacher Relationship Specialty Start Date End Date Unassigned, Provider PCP - General 03/12/03 [address] [place] [address] documented as of this encounter
--- OUTSIDE RECORDS SUMMARY | 2022-05-24 14:36 | XMS_ITS | Encounter Summary ---
:1955 Author Organization [facility] Address [address] [place] [address] Care Team Providers Name Role Phone Unavailable Primary Care Provider Unavailable Encounter Details Date Type Department Care Team Description 06/24/1999 Office Visit [facility] Emergency Dept SPRAIN/STRAIN OF ANKLE NOS; [address] [facility]. FALL ON LEVEL-TRIPPING [place], [place] [id number] Social History Tobacco Use Types Packs/Day Years [...]
--- OUTSIDE RECORDS SUMMARY | 2022-05-24 14:36 | XMS_ITS | Encounter Summary ---
:1955 Author Organization [facility] Address [address] [place] [address] Care Team Providers Name Role Phone Unassigned, Provider Primary Care Provider Unavailable Encounter Details Date Type Department Care Team Description 06/08/2003 Notes/Orders [facility] Occupational and Radha Villalpando, Environmental Medicine BUILDING GUARD DEPUTY SHERIFF Social History Tobacco Use Types Packs/Day Years [...] this encounter Progress Notes 06/08/2003 11:[address] Winchester a refill was called into the 2nd floor pharmacy. it was vicodin 10 tabs with no refills, and motrin 800mg with no refills. 06/08/2003 Sasha Villalpando LPN documented in this encounter Plan of Treatment Not on filedocumented as of this encounter Visit Diagnoses Not on filedocumented in this encounter Care Teams Casing Finisher And Stuffer Relationship Specialty Start Date End Date Unassigned, Provider PCP - General 03/12/03 [address] [place] [address] documented as of this encounter
--- OUTSIDE RECORDS SUMMARY | 2022-05-24 14:36 | XMS_ITS | Encounter Summary ---
:1955 Author Organization [facility] Address [address] [place] [address] Care Team Providers Name Role Phone Unassigned, Provider Primary Care Provider Unavailable Encounter Details Date Type Department Care Team Description 08/13/2003 Correspondence None Unknown, Physici an [facility] TO COMPREHENSIVE [address] [facility] [place], [place] [phone] (Wo rk) Social History Tobacco Use Types [...] Notes Unknown, Physician - 08/13/2003 12:00 AM HEALTH PSYCHOLOGIST documented in this encounter Plan of Treatment Not on filedocumented as of this encounter Visit Diagnoses Not on filedocumented in this encounter Care Teams Division Field Inspector Relationship Specialty Start Date End Date Unassigned, Provider PCP - General 03/12/03 [address] [place] [address] documented as of this encounter
--- OUTSIDE RECORDS SUMMARY | 2022-05-24 14:36 | XMS_ITS | Encounter Summary ---
:1955 Author Organization [facility] Address [address] [place] [address] Care Team Providers Name Role Phone Unassigned, Provider Primary Care Provider Unavailable Encounter Details Date Type Department Care Team Description 07/15/1989 PN Conversion Only DEALER RELATIONSHIP MANAGER [address] [place] [address] Social History Tobacco Use Types Packs/Day Years [...] on filedocumented in this encounter Care Teams Hog Dropper Relationship Specialty Start Date End Date Unassigned, Provider PCP - General 03/12/03 [address] [place] [address] documented as of this encounter
--- OUTSIDE RECORDS SUMMARY | 2022-05-24 14:36 | XMS_ITS | Encounter Summary ---
:1955 Author Organization [facility] Address [address] [place] [address] Care Team Providers Name Role Phone Unassigned, Provider Primary Care Provider Unavailable Encounter Details Date Type Department Care Team Description 10/29/2003 Notes/Orders [facility] Occupational and [address], Juan J Medina MD Environmental Medicine [address] [place], [place] [address] (Wo rk) Social History [...] filedocumented in this encounter Care Teams Loan Documentation Specialist Relationship Specialty Start Date End Date Unassigned, Provider PCP - General 03/12/03 [address] [place] [address] documented as of this encounter
--- OUTSIDE RECORDS SUMMARY | 2022-05-24 14:36 | XMS_ITS | Encounter Summary ---
:1955 Author Organization [facility] Address [address] [place] [address] Care Team Providers Name Role Phone Unassigned, Provider Primary Care Provider Unavailable Encounter Details Date Type Department Care Team Description 09/07/2003 Scanned History None Unknown, Mariahi an [facility]- [address] Work [place], [place] [address] (Wo rk) Social History Tobacco Use Types [...] Notes Unknown, Physician - 09/07/2003 12:00 AM PAGE MAKEUP SYSTEM OPERATOR documented in this encounter Plan of Treatment Not on filedocumented as of this encounter Visit Diagnoses Not on filedocumented in this encounter Care Teams Diamond Sorter Relationship Specialty Start Date End Date Unassigned, Provider PCP - General 03/12/03 [address] [place] [address] documented as of this encounter
--- OUTSIDE RECORDS SUMMARY | 2022-05-24 14:36 | XMS_ITS | Encounter Summary ---
:1955 Author Organization [employer] Address [address] [place] [address] Care Team Providers Name Role Phone Unassigned, [...] COMPLAINT: Exacerbation of low back pain. EMPLOYER: [employer]. 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 CHIEF COMPLAINT: Exacerbation of chronic back pain with right leg radicular symptoms. HISTORY OF PRESENT ILLNESS: [id number]-[id number] female presents to the occupational medicine clinic [...] notes that she was evaluated in the [facility]. She was assessed with a low [...] treatment plan. st1 Dictated: 03/17/2003 09:14:00 Sherry iWnchester MD Transcribed: 03/23/2003 15:54:24 Doc #: [id number] cc: Sherry Winchester MD, Attending Physician This document was electronically signed by Sherry Winchester MD on 04/22/2003 16:51:09. 1 Page 2 Patient Name: FIFI CALDERON Visit Date: 03/17/2003 OCCUPATIONAL/ENVIRONMENTAL CONFIDENTIAL MEDICAL RECORD [facility] [address] [place] [address] Page 1 Patient: FIFI CALDERON Location:[place] HPN: Date of : 1955 Visit Date: 03/17/2003 OCCUPATIONAL/ENVIRONMENTAL Sherry Winchester - 03/17/2003 12:00 AM CDT documented in this encounter Plan of Treatment Not on filedocumented as of this encounter Visit Diagnoses Diagnosis Lumbago documented in this encounter Care Teams Turbine Operator Relationship Specialty Start Date End Date Unassigned, Provider PCP - General 03/12/[address] [place] [address] documented as of this encounter
--- OUTSIDE RECORDS SUMMARY | 2022-05-24 14:36 | XMS_ITS | Encounter Summary ---
:1955 Author Organization [facility] Address [address] [place] [address] Care Team Providers Name Role Phone Unassigned, Provider Primary Care Provider Unavailable Encounter Details Date Type Department Care Team Description 08/17/2003 Office Visit [facility] Albert Tovar, [facility] Neurosurgery [address] [place] [address] CLINIC [phone] [place] [phone] (Wo rk) Social History Tobacco [...] Comments Blood Pressure 143/81 08/17/2003 2:45 PM SPEAR FISHER Pulse 92 08/17/2003 2:45 PM SPEAR FISHER Temperature 36.8 ??C (98.3 ??F) 08/17/2003 2:45 PM SPEAR FISHER Respiratory Rate - - Oxygen Saturation - - Inhaled Oxygen Concentration - - Weight - - Height - - Body Mass Index - - documented in this encounter Progress Notes 08/17/2003 2:45 PM SPEAR FISHER Fifi Calderon is here today regarding 2nd [...] need to be completed first. [facility] [place] [facility]17/2003 12:00 AM SPEAR FISHER This patient is seen in consultation at [...] Tovar MD Transcribed: 08/26/2003 08:24:56 Doc #: [id number] cc: Nallely Winchester MD, Primary and Referring Occ Med 1 Page 2 Patient Name: FIFI CALDERON Visit Date: 08/17/2003 NEUROSURGERY CONFIDENTIAL MEDICAL RECORD [address] [address] Page 1 Patient: FIFI CALDERON Location: [facility] HPN: Date of : 1955 Visit Date: 08/17/2003 NEUROSURGERY R FISHER documented in this encounter Plan of Treatment Not on filedocumented as of this encounter Visit Diagnoses Not on filedocumented in this encounter Care Teams Pals Nurse Relationship Specialty Start Date End Date Unassigned, Provider PCP - General 03/12/[address] [place] [address] documented as of this encounter
--- OUTSIDE RECORDS SUMMARY | 2022-05-24 14:36 | XMS_ITS | Encounter Summary ---
:1955 Author Organization [facility] Address [address] [place] [address] Care Team Providers Name Role Phone Unassigned, Provider Primary Care Provider Unavailable Encounter Details Date Type Department Care Team Description 07/01/2003 Correspondence None Unknown, Physici an [facility] PRIMITIVO TO COMPREHENSIVE [address] [facility] [place], [place] [address] (Wo rk) Social History Tobacco Use Types [...] Notes Unknown, Physician - 07/01/2003 12:00 AM MARKET SUPERINTENDENT documented in this encounter Plan of Treatment Not on filedocumented as of this encounter Visit Diagnoses Not on filedocumented in this encounter Care Teams Senior Ui Ux Developer Relationship Specialty Start Date End Date Unassigned, Provider PCP - General 03/12/03 [address] [place] [address] documented as of this encounter
--- OUTSIDE RECORDS SUMMARY | 2022-05-24 14:36 | XMS_ITS | Encounter Summary ---
:1955 Author Organization [facility] Address [address] [place] [address] Care Team Providers Name Role Phone Unassigned, Provider Primary Care Provider Unavailable Encounter Details Date Type Department Care Team Description 05/25/2003 Office Visit [facility] Margot Balderrama Physical Medicine [facility] [address] [place] [address] [place] [address] [place] [address] Social History Tobacco Use Types Packs/Day Years [...] Balderrama PT#[id number] Transcribed: 06/07/2003 13:15:39 Doc #: [id number] cc: Sherry Winchester MD (Requests no copies) AMELIE [facility] FAX This document was electronically signed by Margot Balderrama PT#[id number] on 06/08/2003 17:36:58. Patient: FIFI CALDERON Page 2 Date: 05-25-2003 PM&R THERAPY CONFIDENTIAL MEDICAL RECORD [address] [address] Page 1 Patient: FIFI CALDERON Location: [facility]PN: Date of : 1955 PM&R THERAPY OR SALES OPERATIONS ANALYST Margot Balderrama - 05/25/2003 12:00 AM SENIOR SALES OPERATIONS ANALYST DATE: 07-01-2003 OUTPATIENT PHYSICAL THERAPY - PROGRESS SUMMARY - AQUATIC THERAPY SUBJECTIVE: Pt has been seen 1x for initial evaluation on 05/25/03. After one cancellation & one no show on 06/08/03 patient's work comp company called therapy pool to state that coverage for therapy was [...] PT#[id number] [phone] Transcribed: 07/09/2003 11:53:00 Doc #: [id number] cc: Sherry Winchester MD (Requests no copies) This document was electronically signed by Margot Balderrama PT#[id number] [phone] on 07/13/2003 15:26:13. Patient: FIFI CALDERON Page 2 Date: PM&R THERAPY CONFIDENTIAL MEDICAL RECORD [address] [address] Page 1 Patient: FIFI CALDERON Location: [facility] HPN: Date of : 1955 PM&R THERAPY OR SALES OPERATIONS ANALYST documented in this encounter Plan of Treatment Not on filedocumented as of this encounter Visit Diagnoses Not on filedocumented in this encounter Care Teams Career Development Director Relationship Specialty Start Date End Date Unassigned, Provider PCP - General 03/12/03 [address] [place] [address] documented as of this encounter
--- OUTSIDE RECORDS SUMMARY | 2022-05-24 14:36 | XMS_ITS | Encounter Summary ---
:1955 Author Organization [facility] [facility] Address [address] [place] [address] Care Team Providers Name Role Phone Unassigned, [...] Notes Sherry Winchester - 07/20/2003 12:00 AM ELECTRIC MULE DRIVER CHIEF COMPLAINT: Exacerbation of chronic low back pain, minimal to some improvement. WORK-RELATED: Yes. EMPLOYER: [employer]. HISTORY OF PRESENT ILLNESS: [id number] female presents to the clinic for evaluation of chronic low back pain. The patient has been referred to pool therapy. Noted that after 2 sessions her pool therapy was terminated because of insurance problems. The [facility] is here today and pool therapy will [...] Winchester MD Transcribed: 07/21/2003 12:34:01 Doc #: [id number] cc: 1 Page 2 Patient Name: FIFI CALDERON Visit Date: 07/20/2003 OCCUPATIONAL/ENVIRONMENTAL CONFIDENTIAL MEDICAL RECORD [address] [address] Page 1 Patient: FIFI CALDERON Location:[facility] HPN: Date of : 1955 Visit Date: 07/20/2003 OCCUPATIONAL/ENVIRONMENTAL TRIC MULE DRIVER documented in this encounter Plan of Treatment Not on filedocumented as of this encounter Visit Diagnoses Diagnosis Lumbago documented in this encounter Care Teams Pipe Crew Foreman Relationship Specialty Start Date End Date Unassigned, Provider PCP - General 03/12/[address] [place] [address] documented as of this encounter
--- OUTSIDE RECORDS SUMMARY | 2022-05-24 14:36 | XMS_ITS | Encounter Summary ---
:1955 Author Organization [facility] Address [address] [place] [address] Care Team Providers Name Role Phone Unassigned, [...] the surgery was denied. She has a debubblizer. Currently it is an aching pain, on [...] Winchester MD Transcribed: 11/16/2003 15:26:46 Doc #: [id number] cc: 1 Page 1 Patient Name: FFII CALDERON Visit Date: 11/16/2003 OCCUPATIONAL/ENVIRONMENTAL CONFIDENTIAL MEDICAL RECORD [address] [address] Page 1 Patient: FIFI CALDERON Location:[place] HPN: Date of : 1955 Visit Date: 11/16/2003 OCCUPATIONAL/ENVIRONMENTAL Sherry Winchester - 11/16/2003 12:00 AM CDT documented in this encounter Plan of Treatment Not on filedocumented as of this encounter Visit Diagnoses Diagnosis Lumbago documented in this encounter Care Teams Biodiesel Technology Manager Relationship Specialty Start Date End Date Unassigned, Provider PCP - General 03/12/[address] [place] [address] documented as of this encounter
--- OUTSIDE RECORDS SUMMARY | 2022-05-24 14:36 | XMS_ITS | Encounter Summary ---
:1955 Author Organization [facility] Address [address] [place] [address] Care Team Providers Name Role Phone Unassigned, Provider Primary Care Provider Unavailable Encounter Details Date Type Department Care Team Description 07/06/2003 Correspondence None Unknown, Physici an [facility] PRIMITIVO TO DEPT. OF [address] EMPLOYEE RELATIONS [place], [place] [phone] (Wo rk) Social History Tobacco Use Types [...] Notes Unknown, Physician - 07/06/2003 12:00 AM CORPORATE TREASURY ANALYST documented in this encounter Plan of Treatment Not on filedocumented as of this encounter Visit Diagnoses Not on filedocumented in this encounter Care Teams Accounts Receivable Supervisor Relationship Specialty Start Date End Date Unassigned, Provider PCP - General 03/12/03 [address] [place] [address] documented as of this encounter
--- OUTSIDE RECORDS SUMMARY | 2022-05-24 14:36 | XMS_ITS | Encounter Summary ---
:1955 Author Organization [facility] Address [address] [place] [address] Care Team Providers Name Role Phone Unavailable Primary Care Provider Unavailable Encounter Details Date Type Department Care Team Description 05/25/2001 Office Visit [facility] LOW BACK PAIN(ACUTE)<6 WEEKS ; [address] [facility] FROM OVEREXERTION [place], [place] [id number] Social History Tobacco Use Types Packs/Day Years [...] documented as of this encounter ED Notes Sarthak Mccullough - 05/25/2001 12:00 AM CSTREVISED Log Number: [...] of the right and left hips. NEUROLOGIC: [place] Coma Scale 15. Motor and sensory within [...] was also given the number to the [facility] to call and inquire about financial services. She will need to follow up with a primary care physician for this back pain. DISPOSITION: She was discharged home in stable condition. [facility] Dictated: 05/25/2001 07:05:04 Sarthak Mccullough MD/Jose Sanchez MD Transcribed: 05/26/2001 16:56:08 Patient seen with Justyn Mcgrath MD Revised: 05/26/2001 17:34:00 /[id number] Doc #: [id number] cc: [facility], Primary 2 Page 2 Patient Name: FIFI CALDERON Visit Date: 05/25/2001 EMERGENCY MEDICINE NOTE CONFIDENTIAL MEDICAL RECORD [address] [address] Page 1 Patient: FIFI CALDERON Location: [facility] HPN: Date of : 1955 Visit Date: 05/25/2001 EMERGENCY MEDICINE NOTE OBIOLOGICAL LABORATORY TECHNICIAN documented in this encounter Plan of Treatment Not on filedocumented as of this encounter Procedures Procedure Name Priority Date/Time Associated Diagnosis Comme nts L-SPINE AP/LAT/CONE Routine 05/25/2001 7:25 AM Re sults for this DOWN MICROBIOLOGICAL LABORATORY TECHNICIAN procedure are i n the results section. documented in this encounter Results L-SPINE AP/LAT/CONE DOWN (05/25/2001 7:25 AM MICROBIOLOGICAL LABORATORY TECHNICIAN) [facility] gist Method Time Signature Lspine LUMBAR SPINE 05/25/2001, 0725 HOURS: [facility] Ap,Lat,[place] INDICATIONS: Pain. RADIOL OGY n L5-S1 FINDINGS: Normal. Anatomical Region Laterality Modality Other Specimen (Source) Anatomical Collection Method Collection Time Re ceived Time Location / / Volume Laterality 05/25/2001 7:25 AM MICROBIOLOGICAL LABORATORY TECHNICIAN Justyn Mcgrath MD RAD GENERAL DIAGNOSTIC/[facility] documented in this encounter Visit Diagnoses Diagnosis Lumbago Overexertion and strenuous and repetitiv e movements or loads documented in this encounter
--- OUTSIDE RECORDS SUMMARY | 2022-05-24 14:36 | XMS_ITS | Encounter Summary ---
:1955 Author Organization [facility] Address [address] [place] [address] Care Team Providers Name Role Phone Unassigned, [...] Notes Sherry Winchester - 07/20/2003 12:00 AM GOLD FRAME ASSEMBLER FRAME ASSEMBLER documented in this encounter Plan of Treatment Not on filedocumented as of this encounter Visit Diagnoses Not on filedocumented in this encounter Care Teams Dolphin Trainer Relationship Specialty Start Date End Date Unassigned, Provider PCP - General 03/12/03 [address] [place] [address] documented as of this encounter
--- OUTSIDE RECORDS SUMMARY | 2022-05-24 14:36 | XMS_ITS | Encounter Summary ---
:1955 Author Organization [facility] Address [address] [place] [address] Care Team Providers Name Role Phone Unassigned, Provider Primary Care Provider Unavailable Encounter Details Date Type Department Care Team Description 07/29/2003 Office Visit [facility] Margot Balderrama Physical Medicine [facility] [address] [place] [address] [address] [facility] [phone] [place] [address] Social History Tobacco Use Types Packs/Day Years [...] Notes Margot Balderrama - 07/29/2003 12:00 AM BANQUET KITCHEN SUPERVISOR UET KITCHEN SUPERVISOR documented in this encounter Plan of Treatment Not on filedocumented as of this encounter Visit Diagnoses Not on filedocumented in this encounter Care Teams Office Administrator Relationship Specialty Start Date End Date Unassigned, Provider PCP - General 03/12/03 [address] [place] [address] documented as of this encounter
--- OUTSIDE RECORDS SUMMARY | 2022-05-24 14:36 | XMS_ITS | Encounter Summary ---
:1955 Author Organization [facility] Address [address] [place] [address] Care Team Providers Name Role Phone Unassigned, Provider Primary Care Provider Unavailable Encounter Details Date Type Department Care Team Description 06/22/2003 Correspondence None Unknown, Physici an [facility] PRIMITIVO TO COMPREHENSIVE [address] [facility] [place], [place] [address] (Wo rk) Social History Tobacco Use Types [...] Notes Unknown, Physician - 06/22/2003 12:00 AM TAR WORKER documented in this encounter Plan of Treatment Not on filedocumented as of this encounter Visit Diagnoses Not on filedocumented in this encounter Care Teams Painter Supervisor Relationship Specialty Start Date End Date Unassigned, Provider PCP - General 03/12/03 [address] [place] [address] documented as of this encounter
--- OUTSIDE RECORDS SUMMARY | 2022-05-24 14:36 | XMS_ITS | Encounter Summary ---
:1955 Author Organization [facility] Address [address] [place] [address] Care Team Providers Name Role Phone Unassigned, Provider Primary Care Provider Unavailable Encounter Details Date Type Department Care Team Description 09/07/2003 Office Visit [facility] Margot Balderrama Physical Medicine [facility] [address] [place] [address] [place] [address] [place] [address] Social History Tobacco Use Types Packs/Day Years [...] Notes Margot Balderrama - 09/07/2003 12:00 AM QUANTITATIVE SOFTWARE ENGINEER OUTPATIENT AQUATIC PHYSICAL THERAPY - DISCHARGE SUMMARY [...] PT#[id number] [phone] Transcribed: 10/01/2003 11:11:08 Doc #: [id number] cc: Sherry Winchester MD This document was electronically signed by Margot Balderrama PT#[id number] [phone] on 10/05/2003 18:30:14. Patient: FIFI CALDERON Page 1 Date: PM&R THERAPY CONFIDENTIAL MEDICAL RECORD [address] [address] Page 1 Patient: [id number] [facility] : 1955 PM&R THERAPY TITATIVE SOFTWARE ENGINEER Margot Balderrama - 09/07/2003 12:00 AM QUANTITATIVE SOFTWARE ENGINEER TITATIVE SOFTWARE ENGINEER documented in this encounter Plan of Treatment Not on filedocumented as of this encounter Visit Diagnoses Not on filedocumented in this encounter Care Teams Wire Tinner Relationship Specialty Start Date End Date Unassigned, Provider PCP - General 03/12/[address] [place] [address] documented as of this encounter
--- OUTSIDE RECORDS SUMMARY | 2022-05-24 14:36 | XMS_ITS | Encounter Summary ---
:1955 Author Organization [facility] Address [address] [place] [address] Care Team Providers Name Role Phone Unassigned, Provider Primary Care Provider Unavailable Encounter Details Date Type Department Care Team Description 11/01/2003 Telephone [facility] Occupational and Malka kapoor, Juan J Medina MD Environmental Medicine [address] [place], [place] [address] (Wo rk) Social History [...] her. I put in refills through the [facility] second floor pharmacy for: 1. Vicodin [...] Swain MD Transcribed: 11/01/2003 13:16:37 Doc #: [id number] cc: This document was electronically signed by Juan J Swain MD on 11/02/2003 12:24:05. Page 1 Patient Name: FIFI CALDERON Encounter #: Visit Date: PHONE MESSAGE CONFIDENTIAL MEDICAL RECORD [address] [address] Page Patient: FIFI CALDERON Location: HPN: Date of : 1955 Visit Date: PHONE MESSAGE documented in this encounter Plan of Treatment Not on filedocumented as of this encounter Visit Diagnoses Not on filedocumented in this encounter Care Teams Filbert Grower Relationship Specialty Start Date End Date Unassigned, Provider PCP - General 03/12/[address] [place] [address] documented as of this encounter
--- OUTSIDE RECORDS SUMMARY | 2022-05-24 14:36 | XMS_ITS | Encounter Summary ---
:1955 Author Organization [facility] Address [address] [place] [address] Care Team Providers Name Role Phone Unassigned, Provider Primary Care Provider Unavailable Encounter Details Date Type Department Care Team Description 05/25/2003 Office Visit [facility] Jay Peterson Physical Medicine [facility] [address] [place] [address] [place] [address] [place] [address] Social History Tobacco Use Types Packs/Day Years [...] Notes Nithya Peterson - 05/25/2003 12:00 AM SENIOR HEALTH EDUCATOR DATE: 07-27-2003 OUTPATIENT PHYSICAL THERAPY - INITIAL NOTE - AQUATIC THERAPY SUBJECTIVE Diagnosis/Onset Date: 724.2 LBP, 719.45 pelvic pain, onset 02/18/03. Complaint/History: Pt has a restart of LBP with bilateral intermittent anterior thigh pain. Pt was initially seen at [facility] [place] on 05/25/03. Please refer to initial evaluation [...] License [id number] Transcribed: 07/29/2003 10:47:31 Doc #: [id number] cc: Sherry Winchester MD (Requests no copies) [facility] FAX This document was electronically signed by Nithya Peterson PT, License [id number] on 07/29/2003 14:50:15. Patient: FIFI SHEPARD Page 1 Date: PM&R THERAPY CONFIDENTIAL MEDICAL RECORD [address] [address] Page 1 Patient: FIFI SHEPARD Location: [place] HPN: Date of : 1955 PM&R THERAPY OR HEALTH EDUCATOR documented in this encounter Plan of Treatment Not on filedocumented as of this encounter Visit Diagnoses Not on filedocumented in this encounter Care Teams Ship'S Cook Relationship Specialty Start Date End Date Unassigned, Provider PCP - General 03/12/[address] [place] [address] documented as of this encounter
--- OUTSIDE RECORDS SUMMARY | 2022-05-24 14:36 | XMS_ITS | Encounter Summary ---
:1955 Author Organization [facility] Address [address] [place] [address] Care Team Providers Name Role Phone Unassigned, Provider Primary Care Provider Unavailable Encounter Details Date Type Department Care Team Description 10/05/2003 Notes/Orders [facility] Occupational and Radha Villalpando, Environmental Medicine STEEL CRANE OPERATOR Social History Tobacco Use Types Packs/Day [...] this encounter Progress Notes 10/05/2003 11:59 PM CHEMISTRY INTERN patient called requesting a refill of her [...] called into the 1st floor pharmacy at [facility]. Sasha Villalpando LPN documented in this encounter Plan of Treatment Not on filedocumented as of this encounter Visit Diagnoses Not on filedocumented in this encounter Care Teams Coat Fitter Relationship Specialty Start Date End Date Unassigned, Provider PCP - General 03/12/03 [address] [place] [address] documented as of this encounter
== END 2022-05-22 02:57 | disposition home or self-care (01) ==
LOC: AMB 05-24 14:28
PROVIDERS: PCP Family Medicine; Visit Provider Family Medicine
DX: R07.89 Other chest pain (principal)
CPT/HCPCS: A0425; A0427

== ENCOUNTER 2022-05-22 03:20 | Emergency (ER) | payer MEDICARE, MEDICAID, SELFPAY ==
[2022-05-22] VITALS (9 sets, daily range): BP systolic 95–135; BP diastolic 54–81; PULSE 95–105; RESP 20; TEMP 36.8; O2SAT 97–99; BMI 23.0
--- NOTE | 2022-05-22 03:34 | CRLHL7_ITS ---
For Patients: As a result of the Century Cures Act, medical imaging exams and procedure reports are released immediately into your electronic medical record. You may view this report before your referring provider. If you have questions, please contact your health care provider. INDICATION: Chest pain. TECHNIQUE: Chest 1 view. COMPARISON: 02/04/2022. FINDINGS: Cardiovascular and mediastinum: Heart size and vasculature are normal in caliber and appearance. Median sternotomy wires and mediastinal clips, unchanged. Lungs and pleural spaces: Lungs are clear. No sign of infiltrate or mass. No sign of pleural effusion. No pneumothorax. Bones and soft tissues: No significant findings. IMPRESSION: No acute abnormality or significant interval change. Dictated by Balaji Tavares MD @ 05/22/2022 4:03:34 AM (Electronically Signed)
[2022-05-22] MEDS: PANTOPRAZOLE SODIUM 40 MG INJ IVP (03:35)
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
[2022-05-22 03:42] LABS: Eosinophils Percent Auto 0.1 % (0.0-7.0); Hematocrit 33.6 % (33.0-51.0); Hemoglobin* 11.5 gm/dL (12.0-16.0); Immature Granulocytes Pct Auto 0.1 %; Lymphocytes Percent Auto 35.7 % (20-44); Mean Corpuscular HGB Conc 34 gm/dL (32-36); Mean Corpuscular Hemoglobin 30 pg (26-34); Mean Corpuscular Volume 87 fL (80-100); Monocytes Percent Auto 3.7 % (0.0-11.0); Neutrophils Percent Auto 59.4 % (42.0-72.0); Platelet Count* 409 K/uL (140-440); RDW Coefficient of Variation % 14.8 % (11.5-15.5); Red Blood Count 3.88 m/uL (4.00-5.20); Slide Review Reflex No; White Blood Count* 11.17 K/uL (4.50-11.00)
[2022-05-22] MEDS: GI COCKTAIL (VISC LIDO/ANTACID) 30 ML PO (03:44)
[2022-05-22 03:47] LABS: Troponin, Point-of-Care* 0.03 ng/ml (0.01-0.04)
[2022-05-22 03:54] LABS: Albumin* 4.6 g/dL (3.3-5.0); Chloride* 105 mmol/L (96-114); Sodium* 143 mmol/L (135-149)
--- OUTSIDE RECORDS SUMMARY | 2022-05-22 03:54 | XMS_ITS | Clinical Summary ---
:1955 Author Organization [facility] [place] [address] Care Team Providers Name Role Phone Kurt Woodruff MD Primary Care Provider Leonardo Laguerre MD Unavailable Allergies Active Allergy Reactions Severity Noted Date Comments Codeine Nausea Only 05/23/2005 Atorvastatin Shortness Of Breath 12/07/2005 Patient has said she is able to tolerat e Crestor medication. She reported she has been on Crestor for the last 3 years and has had no issu es. [facility] pharmacy consul arielle 11-17-17 and said if weston camacho tolerates the m edication (per her report ), then to make a note in allergies, and it is ok to give. [place] Other - Describe In High 01/20/2019 Uncontro [...] mg) tablet (PRINZIDE; ZESTORETIC)Indicat ions: HTN (hypertension) lisinopril-hydroch TAKE 1 TABLET BY 90 Tablet [...] Gout 10/18/2014 Pain medication agreement 04/27/2014 Overview: [place] on occasion. Acute pericarditis, unspecified 08/04/2013 Chest [...] having a balloon a ngioplasty at [facility] in 1988 and being told that [...] Date Type Specialty Care Team Description 05/16/2022 Kurt Ribera Refill R equest MD (Lisinopril-hyd rochlorot hiazide 10 Mg-1 2.5 Mg) 05/15/2022 Refill Kurt Woodruff Refill R equest MD (Lisinopril-hyd rochlorot hiazide 10 Mg-1 2.5 Mg) 05/01/2022 Orders Only Scanner <No scans attac hed> 04/19/2022 Refill Kurt Woodruff Refill R equest MD (Trazodone) 03/22/2022 Hospital Encounter [place], ronic pain of right MD knee 03/22/2022 Travel from Last 3 Months Immunizations Name Administration Dates Next Due COVID-19 vaccine (Moderna 100mcg/0.5mL) RADHA VALADEZ 09/29/2020, 08/29/2020 Influenza Virus, Unspecified 03/26/2020 Influenza, [...] congest margaret heart failure, had his first AR in his 50's. She has 13 siblings, [...] No Dionne Hayes (05/04/2020 [place] information systems security specialist 8:55 AM CDT) Note: Formatting [...] Increase General In progress (05/04/20 20 No Hoeny Hayes, reliability 8:55 AM CDT) RN Note: Formatting of this note might be d ifferent from the original. Goal identified during: Initial Screenin g Status: In Progress Barriers to goal achievement: Limited In come Patient steps toward goal achievement: W ork with [facility] and review resources Navigator steps to support goal achievem ent: Refer to [employer] [facility] Proposed timeline for goal completion: 2 weeks [...] For Patients: ??As a result of the Cures Act, medical imaging exams and procedure report s are released immediately into [facility]. ??You may view this report [...] provider. If you have questions, please contact yo health care provider. HISTORY: Chronic knee pain. [...] Group MEDICARE PART B MEDICARE PART B [id number] 2006-Present ATTN: CLAIMS - HB USE ONLY HB ONLY [address] [place] [address] MEDICARE PART A MEDICARE PART A [id number] 2006-Present ATTN: CLAIMS - HB USE ONLY HB ONLY [address] [place] [address] MEDICARE PART A MEDICARE PART A [id number] 2006-Present ATTN: CLAIMS - HB USE ONLY HB ONLY [address] [place] [address] MEDICARE - PB MEDICARE PB [id number] 2006-Present ATT N: CLAIMS USE ONLY ONLY [address] [place] [address] MEDICA [place] MEDICA CHOICE [id number] 2013-Present [address] [place] [address] MEDICAID [place] MEDICA[place] [id number] 2018-Present [address] [address] [place] [address] Advance Directives Latest Code Status on File [...] Code Status Discussion: Not Discussed Care Teams [employer]iconductor Wafers Etch Operator Relationship Specialty Start Date End Date Kurt Woodruff MD PCP - General Family Practice 08/05/[address] [place] [address] RIKA Suggs [address] Leonardo Laguerre MD Rheumatology Rheumatology 02/13/18 [address] [facility] [address] [place] [address]
--- OUTSIDE RECORDS SUMMARY | 2022-05-22 03:54 | XMS_ITS | Clinical Summary ---
:1955 Author Organization [facility] Address [address] [place] [address] Care Team Providers Name Role Phone Unassigned, [...] for each transition of care or referral. [facility] Allergies Active Allergy Reactions Severity Noted Date Comments Atorvastatin Calcium 02/02/2005 [place] 05/12/2020 Morphine And Related Vomiting 02/02/2005 Medications [...] Comments Blood Pressure 123/70 05/23/2020 8:14 AM GARMENT FOLDER Pulse 65 05/23/2020 8:14 AM GARMENT FOLDER Temperature 35.9 ??C (96.7 ??F) 05/23/2020 8:14 AM GARMENT FOLDER Respiratory Rate 18 05/23/2020 8:14 AM GARMENT FOLDER Oxygen Saturation 97% 05/22/2020 8:34 AM GARMENT FOLDER Inhaled Oxygen Concentration - - Weight 74.5 kg (164 lb 3.2 oz) 05/19/2020 7:58 AM GARMENT FOLDER Height 157.5 cm (5' 2.01) 05/13/2020 1:00 [...] Address T ype Group Dates MEDICARE MEDICARE [id number] 2006-Pre Medic are sent RAHUL SAUER [place] [id number] 2008-Pre PO BOX Medi caid sent [id number] [place] TELEPHONE OPERATOR [place] [address] COMPREHENSIVE COMPREHENSIVE 2003-Pre PO BOX Workers MGD. MANAGED CARE sent [id number] [place] [address] Marissa Shepard Personal/Family Self [phone] (Home) [place] [address] Marissa Shepard Personal/Family Self 1955 [address] [place] [address] Marissa Shepard Workers Comp Self 1955 [address] [place] [address] Marissa Shepard Workers Comp Self 1955 [address] ([address] [place] [address] Advance Directives Latest Code Status on File Code Status Date Activated Date Inactivated Comments Full Code 05/12/2020 4:42 PM 05/23/2020 1:18 PM Full Code 02/23/2009 3:53 PM 03/07/2009 12:10 PM Full Code 02/03/2009 6:00 PM 02/10/2009 5:38 PM Full Code 07/28/2008 4:50 PM 07/29/2008 6:35 PM Care Teams Contract Attorney Relationship Specialty Start Date End Date Unassigned, Provider PCP - General 03/12/[address] [place] [address]
[2022-05-22 03:55] LABS: Potassium* 3.5 mmol/L (3.6-5.1)
--- OUTSIDE RECORDS SUMMARY | 2022-05-22 03:55 | XMS_ITS | Encounter Summary ---
:1955 Author Organization [facility] Address [address] [place] [address] Care Team Providers Name Role Phone Unassigned, Provider Primary Care Provider Unavailable Encounter Details Date Type Department Care Team Description 07/11/2005 Correspondence None [facility] Social History Tobacco Use Types Packs/Day Years [...] CORI GARSIA, PROVIDER - 07/11/2005 12:00 AM TUGGER OPERATOR documented in this encounter Plan of Treatment Not on filedocumented as of this encounter Visit Diagnoses Not on filedocumented in this encounter Care Teams Manager Plant Relationship Specialty Start Date End Date Unassigned, Provider PCP - General 03/12/03 [address] [place] [address] documented as of this encounter
--- OUTSIDE RECORDS SUMMARY | 2022-05-22 03:55 | XMS_ITS | Encounter Summary ---
:1955 Author Organization [facility] Address [address] [place] [address] Care Team Providers Name Role Phone Unassigned, Provider Primary Care Provider Unavailable Encounter Details Date Type Department Care Team Description 07/29/2008 Office Visit [facility] Unspecified Chest Pain [address] [place] [address] Social History Tobacco Use Types Packs/Day Years [...] 11:22 AM Resul ts for this EXERCISE INTERPRETER AND TRANSLATOR procedure are i n REST/STRESS SPECT the result s section. documented in this encounter Visit Diagnoses Diagnosis Chest pain, unspecified documented in this encounter Care Teams Hat Forming Machine Feeder Relationship Specialty Start Date End Date Unassigned, Provider PCP - General 03/12/03 [address] [place] [address] documented as of this encounter
--- OUTSIDE RECORDS SUMMARY | 2022-05-22 03:55 | XMS_ITS | Encounter Summary ---
:1955 Author [facility] Address [address] [place] [address] Care Team Providers Name Role Phone Unassigned, Provider Primary Care Provider Unavailable Encounter Details Date Type Department Care Team Description 02/02/2005 Correspondence Emergency Dept Emergency, D/C Patient [address] [facility] [place] [address] Social History Tobacco Use Types Packs/Day Years [...] on filedocumented in this encounter Care Teams Rehab Spec Relationship Specialty Start Date End Date Unassigned, Provider PCP - General 03/12/03 [address] [place] [address] documented as of this encounter
--- OUTSIDE RECORDS SUMMARY | 2022-05-22 03:55 | XMS_ITS | Encounter Summary ---
:1955 Author Organization [facility] Address [address] [place] [address] Care Team Providers Name Role Phone Unassigned, Provider Primary Care Provider Unavailable Reason for Visit Reason Onset Date Comments FOLLOW-UP,[facility] 08/04/2008 [facility] [place] Encounter Details Date Type Department Care Team Description 08/04/2008 Telephone C7Stephany Anderson, FOLLOW-UP,[facility] ([address] RN d/c callback) [place] [address] Social History Tobacco Use Types Packs/Day Years [...] on filedocumented in this encounter Care Teams Installer Molding And Trim Relationship Specialty Start Date End Date Unassigned, Provider PCP - General 03/12/[address] [place] [address] documented as of this encounter
--- OUTSIDE RECORDS SUMMARY | 2022-05-22 03:55 | XMS_ITS | Encounter Summary ---
:1955 Author Organization [facility] Address [address] [place] [address] Care Team Providers Name Role Phone Unassigned, Provider Primary Care Provider Unavailable Reason for Visit Reason Comments BACK PAIN--ED chronic Encounter Details Date Type Department Care Team Description 02/02/2005 Emergency [facility] Preet Rahman, LOW BACK PAIN(ACUTE)<6 WEEKS ; [address] Karthik Carlson [place] [address] [phone] [id number] [place], [place] [address] Social History Tobacco Use Types Packs/Day Years [...] Dear Ms. Calderon, Thank you for choosing [facility] for your emergency medical needs. You have received emergency care only and your condition may change. Therefore, we highly recommend you follow-up with your physician as directed. For follow-up care contact: [facility] [phone] For follow-up care, you have an appointment at [facility] next saturday. When you see your [...] would like to be seen in a [facility] clinic, please call the [facility] Appointment Desk at [phone] anytime between 7:00 AM and 9:00 PM, [...] vomiting or sweats. ExitCare(R) Patient Information (C)2004 Mama. \\[email or web address]\[email or web address] documented in this encounter Medications at Time [...] Zimmerman PA-C - 02/02/2005 3:53 PM CDT [facility] Emergency Department Visit Note Patient Name: [...] (10); prozac 40 mg qd - f/u [facility] on saturday Visit note has been dictated: see dictated note ( ) Condition on disposition: Stable This electronic signature covers the nursing and ancillary testing orders for this visit. Author: RODOLFO Rooney - 02/02/2005 2:27 PM Allie Cole - 02/02/2005 2:40 PM CDT F/u appt. arranged at [facility] for Saturday, 02/06 at 10:40 -pt. agrees to plan. Preet Rahman - 02/02/2005 2:32 PM CDT [facility] Emergency Department Attending Supervision Note Patient [...] She did have the surgery done at [facility], bute states they are no longer following her. Previously seen at [facility] but states that's too far [...] The patient was seen by Allie of clinical social worker and is set up for a followup appointment [facility] next Saturday. The patient is discharged to home. She is to continue with ibuprofen for baseline pain. I did give her 10 Vicodin for bad pain and put her on a trial of Medrol Dose Hunter. The patient was also given a refill of her depression med 40 mg q.d. with a 10 day supply. The patientwas offered clinical social worker here but declines at this time. She is currently hoping to get into [facility] in about the next week. FINAL ASSESSMENT 1. Back pain. 2. Depression. maira Dictated: 02/02/2005 15:51:30 Greg Harden PA-C Transcribed: 02/06/2005 11:56:09 Staff: Preet Rahman MD Doc #: [id number] cc: Yoselyn Strauss MD, Primary 1 Page 1 Patient Name: FIFI CALDERON Visit Date: 02/02/2005 EMERGENCY MEDICINE NOTE CONFIDENTIAL MEDICAL RECORD [address] [id number] Page 1 Patient: FIFI CALDERON [id number] Date of : 1955 Visit Date: 02/02/2005 EMERGENCY MEDICINE NOTE documented in this encounter Plan of Treatment Not on filedocumented as of this encounter Visit Diagnoses Diagnosis Lumbago Depressive disorder, not elsewhere class ified documented in this encounter Care Teams Multimedia Engineer Relationship Specialty Start Date End Date Unassigned, Provider PCP - General 03/12/[address] [place] [address] documented as of this encounter
--- OUTSIDE RECORDS SUMMARY | 2022-05-22 03:55 | XMS_ITS | Encounter Summary ---
:1955 Author Organization [facility] Address [address] [place] [address] Care Team Providers Name Role Phone Unassigned, Provider Primary Care Provider Unavailable Encounter Details Date Type Department Care Team Description 03/05/2009 Imaging [facility] [address] [place], [place] [id number] Social History Tobacco Use Types Packs/Day Years [...] been removed. Otherwise, no change. Federico Moy HIDE COOKING OPERATOR, DORR OPERATOR RAD GD documented in this encounter Visit Diagnoses Not on filedocumented in this encounter Care Teams Food Service Technician Relationship Specialty Start Date End Date Unassigned, Provider PCP - General 03/12/[address] [place] [address] documented as of this encounter
--- OUTSIDE RECORDS SUMMARY | 2022-05-22 03:55 | XMS_ITS | Encounter Summary ---
:1955 [facility] Address [address] [place] [address] Care Team Providers Name Role Phone Unassigned, Provider Primary Care Provider Unavailable Encounter Details Date Type Department Care Team Description 01/05/2005 Correspondence None Unknown, Physici an [facility] [place] [address] disability [place], [place] [id number] (Wo rk) Social History Tobacco Use Types [...] on filedocumented in this encounter Care Teams Measurement Advisor Relationship Specialty Start Date End Date Unassigned, Provider PCP - General 03/12/03 [address] [place] [address] documented as of this encounter
--- OUTSIDE RECORDS SUMMARY | 2022-05-22 03:55 | XMS_ITS | Encounter Summary ---
:1955 Author [facility] Address [address] [place] [address] Care Team Providers Name Role Phone Unassigned, [...] filedocumented in this encounter Care Teams Press Tender Long Goods Relationship Specialty Start Date End Date Unassigned, Provider PCP - General 03/12/03 [address] [place] [address] documented as of this encounter
--- OUTSIDE RECORDS SUMMARY | 2022-05-22 03:55 | XMS_ITS | Encounter Summary ---
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 Intake team. Release of Information: Yes Family/Friend Contact: Denies. Release of Information: No Community Providers/Outpatient Psychiatrist: No current psych MD, sees Dr. Aguilar at [facility] as PCP. Release of Information: Yes Financial Insurance: Medical Assistance, medicare Employment/Income: [place], [place], Food stamps Psychiatric/Chemical Dependency/Medical History Pt reports this is her 4th psychiatric admission, last was at [facility] 4 yrs ago Pt admits long history of abusing Methamphetamine, reports 1 past treatment in 1994 at [facility]. Reports using ETOH and THC [...] and low dose medications. Left message with [facility] regarding available services for pt. Await call [...] 3-5 days This document completed by: ELDA Pugh,STEAM SHOVEL ENGINEER --- End of Report --- Initial Assessments - Rhiannon Kearney - 02/04/2009 8:44 AM CDT [facility] OT Initial Assessment Diagnosis: Encounter Diagnoses Code Name Primary? 311 Depressive Disorder, not Elsewhere Classified Yes ??? 724.2 Lumbago ??? 401.9BX HTN ??? 305.1 Tobacco Use Disorder ??? 272.0F Hypercholesteremia Patient Data on File C/o Joelle Shepard [address] [place] [phone] History Social History ??? Marital Status: Spouse [...] phone down the street to call the faculty member. Next thing I know the faculty member arrived with him in the backseat. I [...] WNL, Patient's insight was impaired, Patient's judgment CHEMICALS DISTILLER was poor, Patient's coping skills were impaired, Patient's speech was rambling, excessive, and tangential, Patient's responses were vague, Patient appeared to be minimizing events CHEMICALS DISTILLER, Patient's reasoning for admittance was I just [...] Dcmontserrat Francisco - 02/03/2009 8:55 PM CDT [facility] Nursing Initial Assessment Note GENERAL INFORMATION/PATIENT IDENTIFICATION/HISTORY Admitted From: ED Admitted To: E4 Reason for Admission: depression, thoughts of SI. Needs outside services, homeless. Actual Arrival Date on Unit: 02/03/09 Actual Arrival Time on Unit: 1730 Patient a transfer from another hospital for trauma?: No Primary Care Physician or Clinic: [facility] [place] Patient Orientation: Tour of unit;Shower hours;Patient phones;Emergency [...] Screening: No functional screening criteria is applicable PSYCHOSOCIAL/SPIRITUAL/PRESYBETERIAN/CULTURAL/ABUSE/CHEMICAL Suicide Health Inventory Do you currently have [...] should notify?: Yes Name/Phone Number: dieudonne rodriguez [phone] Patient behaviors that put them at risk [...] inued documented in this encounter Care Teams Stand Up Forklift Operator Relationship Specialty Start Date End Date Unassigned, Provider PCP - General 03/12/03 [address] [place] [address] documented as of this encounter
--- OUTSIDE RECORDS SUMMARY | 2022-05-22 03:55 | XMS_ITS | Encounter Summary ---
:1955 Author Organization [employer] Address [address] [place] [address] Care Team Providers Name Role Phone Unassigned, Provider Primary Care Provider Unavailable Reason for Visit Reason Comments CHEST PAIN--ED Encounter Details Date Type Department Care Team Description 07/28/2008 - Hospital Encounter RH C73 Elroy Fraire MD Angina at Rest; 07/29/2008 [address] [facility] Dilip Bird MD Depression; [place], [place] Unassigned, Provider [address] [place] [address] Anxiety; [address] Kostas Javier MD [address] [place] [address] HTN; [phone] Ajith Katz MD [address] [place], [place] [id number] ACS (Acute Coronary Syndrome) Social History Tobacco [...] Comments Blood Pressure 150/99 07/29/2008 3:15 PM AN EMPLOYEE SPONSOR OR ADVOCATE AND Pulse 69 07/29/2008 12:00 PM AN EMPLOYEE SPONSOR OR ADVOCATE AND Temperature 37.1 ??C (98.7 ??F) 07/29/2008 12:00 PM AN EMPLOYEE SPONSOR OR ADVOCATE AND Respiratory Rate 16 07/29/2008 12:00 PM AN EMPLOYEE SPONSOR OR ADVOCATE AND Oxygen Saturation 97% 07/29/2008 12:00 PM AN EMPLOYEE SPONSOR OR ADVOCATE AND Inhaled Oxygen Concentration - - Weight 75.4 kg (166 lb 3.2 oz) 07/28/2008 5:08 PM AN EMPLOYEE SPONSOR OR ADVOCATE AND Height 162.6 cm (5' 4) 07/28/2008 6:47 PM AN EMPLOYEE SPONSOR OR ADVOCATE AND Body Mass Index 28.53 07/28/2008 5:08 PM AN EMPLOYEE SPONSOR OR ADVOCATE AND documented in this encounter Discharge Summaries Ajith Katz - 07/29/2008 2:23 PM CST [facility] Hospital Discharge Summary Report (MD) Patient [...] Cardiac Activity: As tolerated. Discharge Medications: Unchanged OUTREACH AND EDUCATION SOCIAL WORKER meds that are or will be resumed [...] 30 minutes. --- End of Report --- EMPLOYEE SPONSOR OR ADVOCATE AND documented in this encounter Discharge Instructions Discharge InstructionsZayra Gardner Jay - 07/29/2008 3:48 PM CST Images from the original note were not included. [address] [place] [id number] Discharge Instructions for: Marissa Shepard Thank you for choosing [facility] as your hospital. A copy of [...] 30 0 Designated Pharmacy for Discharge Medications: [address] [26] If you were taking a [...] with usual methods [place] [address] For questions about your discharge instructions call the nursing unit : [phone] Emergency & Urgently Needed Care: For emergencies call 911 and/or get medical help right away. If you are a [facility] member and have medical needs after clinic hours you may call the CareLineat [phone] or . Smoking and second-hand smoke exposure: Smoking damages blood vessels, reduces the oxygen in your blood and makes your heart beat too fast. If you smoke you should quit. Everyone should avoid second- hand smoke. If you would like further assistance after your discharge, please contact [phone] or visit [email or web address] Quitting can offer further [...] weight will also be followed by the Needle Punch Operator when you go in for your treatment. [...] my discharge instructions: Marissa A Cross (or Food Handler) EMPLOYEE SPONSOR OR ADVOCATE AND documented in this encounter Medications at Time [...] Zayra Gardner - 07/29/2008 3:48 PM CST [facility] Discharge Note - Nursing Admission Date/Time: [...] Gardner RN --- End of Report --- EMPLOYEE SPONSOR OR ADVOCATE AND Amira Gonzalez - 07/29/2008 5:55 AM CST [facility] Progress Note (Nursing) Identify/Problem(s): Toothache S/P [...] Gonzalez RN --- End of Report --- EMPLOYEE SPONSOR OR ADVOCATE AND Imtiaz Paige - 07/28/2008 5:03 PM CST [facility] Pharmacy Medication History Note Outpatient Medication [...] None Pharmacy (include contact number if available): Cristian--[phone] Allergy comments (include reaction if available): Lipitor [...] Lassiter D --- End of Report --- EMPLOYEE SPONSOR OR ADVOCATE AND documented in this encounter Procedure Notes Amira Gonzalez - 07/29/2008 7:08 AM CST [facility] Cardiac Stress Test Checklist Allergies: Lipitor and Codeine General Laboratory Equipment Installer needed? No Caffeine has been withheld (including [...] Amira Gonzalez RN For questions, please call [facility] Charge Nurse at . --- End of Report --- EMPLOYEE SPONSOR OR ADVOCATE AND documented in this encounter OR Notes H&P [...] angioplasty done when she was 33. No MS at that time. Pt had some chest [...] I <0.030 0.0-0.049 (ng/ml) BB HOLD TUBE ([facility] ONLY) Component Value Range ??? BB [...] 50% Kostas Javier MD 07/28/2008 5:41 PM [phone] EMPLOYEE SPONSOR OR ADVOCATE AND H&P - King Schilling - 07/28/2008 5:01 PM CST [facility] Medicine History and Physical Date of [...] with CAD s/p CABG, Father with CHF, MS in early 50s. Social History Occupational History [...] Says that she last used at a constitution party about two weeks ago, but feels that she is able to continue quitting on her own. Has never had treatment for meth. Primary team can readdress needfor CD consult with pt prior to d/c. 5)Tobacco abuse: Pt smokes 1/2 ppd x 30 years. Encouraged cessation. 6)DVT/GI prophylaxis: Given therapeutic lovenox in ED. Will d/c in AM. TEDs, ambulate, prevacid. A american sign language interpreter was not used during this exam. Report Completed by: King Schilling PA-C Pager: [phone] EMPLOYEE SPONSOR OR ADVOCATE AND documented in this encounter ED Notes Mark Kerr - 07/28/2008 4:01 PM CST Patient`s clothing and valuables taken home by family. EMPLOYEE SPONSOR OR ADVOCATE AND Mark Kerr - 07/28/2008 4:01 PM CST [facility] Patient's Valuables Patient Name: Marissa Shepard [...] (not recorded) Dispostion of jewelry: Not applicable Vesper #: 0 Disposition of keys: Not applicable List items in possession of patient but belonging to others: Not applicable No items were sent to the Motion Study Analyst's Office. I understand that I assume full responsibility for all clothing, personal items, or valuables retained by me in my hospital room. Any unclaimed personal items deposited into the custody of the hospital will be disposed of by the hospital if they are not claimed within 180 days of discharge. Patients' Signature Witness Integration Manager Food Handler's Signature Witness I authorize release of my valuables to the following: Relationship: Relationship: Relationship: Patient's Signature Patient Valuables taken by: Date: Signature: Relationship: Witness Name: Witness Signature: I have received my valuables as listed. Date: Patient's Signature: Witness: --- End of Report --- EMPLOYEE SPONSOR OR ADVOCATE AND Mark Kerr - 07/28/2008 4:01 PM CST [facility] Clothing List Patient Name: Marissa Thompson [...] Nursing Unit) --- End of Report --- EMPLOYEE SPONSOR OR ADVOCATE AND Zoey Johnson - 07/28/2008 3:36 PM CST [facility] Emergency Department Visit Note Patient Name: Marissa Shepard Date of : 1955 Chief Complaint: Chief Complaint Patient presents with ??? CHEST PAIN--ED HPI: 53 yo female with PMH significant for anxiety and depression comes to [facility] with c/o CP; Patient states that [...] hospitalist. 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 Thepain came and went again during assessment technician. Pt is smoker, hx HTN, probably has high cholesterol, family hx cardiac problems. Lungs are clear, S1S2 heard clearly. MD in room now to evaluate. Blood drawn and sent to lab. EMPLOYEE SPONSOR OR ADVOCATE AND Dilip Bird - 07/28/2008 3:10 PM CST [facility] Emergency Department Attending Supervision Note Patient [...] benign. Symmetric and equal pulses bilaterally. Plan: Welt Sole Layer ECG: NSR, rate of 70, LVH via voltage criteria. No acute ischemic changes or dysrhythmia Imaging: Plain Radiograph(s): chest Laboratory: CBC, Chem 8 and Troponin Medication: lovenox Planned Disposition: inpatient admission General radiology studies were reviewed by me. Author: Dilip Bird MD EMPLOYEE SPONSOR OR ADVOCATE AND Forest Rodriguez - 07/28/2008 2:54 PM CST Pt and daughter giggling and laughing while getting settled. EMPLOYEE SPONSOR OR ADVOCATE AND Forest Rodriguez - 07/28/2008 2:49 PM CST Developed CP while on the phone with the [employer] Administration. Hung up and called 911. Currently [...] ASA prior to the ambulance getting there. EMPLOYEE SPONSOR OR ADVOCATE AND documented in this encounter Plan of Treatment Not on filedocumented as of this encounter Procedures Procedure Name Priority Date/Time Associated Diagnosis Comme nts NM CARD MYOCARD Routine 07/29/2008 11:22 AM Resul ts for this EXERCISE AN EMPLOYEE SPONSOR OR ADVOCATE AND procedure are i n REST/STRESS SPECT the result s section. BASIC METABOLIC Routine 07/29/2008 5:35 AM Result s for this PANEL AN EMPLOYEE SPONSOR OR ADVOCATE AND procedure are i n the results section. TROPONIN I STAT 07/29/2008 5:35 AM Results f or this AN EMPLOYEE SPONSOR OR ADVOCATE AND procedure are i n the results section. LIPID PANEL, FAST > Routine 07/29/2008 5:35 AM Re sults for this 12 HOUR AN EMPLOYEE SPONSOR OR ADVOCATE AND procedure are i n the results section. DRUG SCREEN, URINE Routine 07/28/2008 8:30 PM Res ults for this AN EMPLOYEE SPONSOR OR ADVOCATE AND procedure are i n the results section. GOLD HOLD TUBE (OR Routine 07/28/2008 8:24 PM Res ults for this RED/GARCIA) AN EMPLOYEE SPONSOR OR ADVOCATE AND procedure are i n the results section. TROPONIN I STAT 07/28/2008 8:24 PM Results f or this AN EMPLOYEE SPONSOR OR ADVOCATE AND procedure are i n the results section. ECG 12-LEAD ROUTINE Routine 07/28/2008 8:01 PM Re sults for this AN EMPLOYEE SPONSOR OR ADVOCATE AND procedure are i n the results section. GLUCOSE, WHOLE Routine 07/28/2008 4:07 PM Results for this BLOOD POCT AN EMPLOYEE SPONSOR OR ADVOCATE AND procedure are i n the results section. ECG 12-LEAD ROUTINE STAT 07/28/2008 3:42 PM Re sults for this AN EMPLOYEE SPONSOR OR ADVOCATE AND procedure are i n the results section. XR PORTABLE CHEST 1 STAT 07/28/2008 3:42 PM Re sults for this VIEW AN EMPLOYEE SPONSOR OR ADVOCATE AND procedure are i n the results section. COAG HOLD (BLUE Routine 07/28/2008 3:10 PM Result s for this TUBE) AN EMPLOYEE SPONSOR OR ADVOCATE AND procedure are i n the results section. BB HOLD TUBE Routine 07/28/2008 3:10 PM Results f or this ([place] ONLY) AN EMPLOYEE SPONSOR OR ADVOCATE AND procedure are in the results section. BASIC METABOLIC STAT 07/28/2008 3:10 PM Result s for this PANEL AN EMPLOYEE SPONSOR OR ADVOCATE AND procedure are i n the results section. TROPONIN I STAT 07/28/2008 3:10 PM Results f or this AN EMPLOYEE SPONSOR OR ADVOCATE AND procedure are i n the results section. COMPLETE BLOOD STAT 07/28/2008 3:10 PM Results for this COUNT-NO DIFF AN EMPLOYEE SPONSOR OR ADVOCATE AND procedure are in the results section. documented in this encounter Results NM CARDIAC EXERCISE CARDIOLITE STRESS TST (07/29/2008 11:22 AM AN EMPLOYEE SPONSOR OR ADVOCATE AND) Anatomical Region Laterality Modality Chest, NM Cardiac Nuclear Medicine, Nu clear Medicine Specimen (Source) Anatomical Collection Method Collection Time Re ceived Time Location / / Volume Laterality 07/29/2008 11:22 AM AN EMPLOYEE SPONSOR OR ADVOCATE AND Narrative 07/29/2008 12:35 PM AN EMPLOYEE SPONSOR OR ADVOCATE AND NM MYOCARDIAL PERFUSION EXERCISE REST-STRESS SPECT SCAN [...] which thomas to 188/88 with double product [id number]. Stress stoppe d because of chest discomfort. Abnormal EKG reported separately. industrial controls technician: Normal. FINDINGS: Wall motion and thickening [...] protocol for 7:01 minutes. Work level ac [employer] MAC METS: 8.40. Baseline standing heart rate 78 bpm which thomas to 130 bpm representing 80% predicted. Baseline standing blood press ure 122/88 which thomas to 188/88 with double product [id number]. Stress stoppe d because of chest discomfort. Abnormal EKG reported separately. industrial controls technician: Normal. FINDINGS: Wall motion and thickening [...] adjust schedule as appropriate) (07/29/2008 5:35 AM AN EMPLOYEE SPONSOR OR ADVOCATE AND) P athologist Signature Troponin I <0.030 0.0 - 0.049 [place] ng/ml Comment: (0.000-0.049 ng/ml): Normal (0.050-0.770 ng/ml): Indeterminant for c linical definition of myocardial infarction (0.780 ng/ml): Cutoff indicating myocard ial infarction Specimen Anatomical Collection Method Collection Time Receive d Time (Source) Location / / Volume Laterality 07/29/2008 5:35 AM 9 5:38 AN EMPLOYEE SPONSOR OR ADVOCATE AND AM AN EMPLOYEE SPONSOR OR ADVOCATE AND King Schilling PA-C LAB_1 Performing Organization Address City/[facility]/ZIP [facility] Phon e Number [address] [address] [place], [place] [phone] (ABNORMAL) Cholesterol Lipid Panel Fast > 12 Hr (Chol, HDL, Trig, Calc LDL) (Must be fasting) (07/29/2008 5:35 AM AN EMPLOYEE SPONSOR OR ADVOCATE AND) Patholo gist Method Time Signature Cholesterol 232 (H) 0 - 199 [place] mg/dl Triglyceride 174 (H) 0 - 149 [place] mg/dl HDL 37 (L) >40 mg/dl [place] LDL, Calc. 160 (H) 0 - 129 [place] mg/dl Hours Fasting Information Not hours REG[place] Given Specimen Anatomical Collection Method Collection Time Receive d Time (Source) Location / / Volume Laterality 07/29/2008 5:35 AM 9 5:38 AN EMPLOYEE SPONSOR OR ADVOCATE AND AM AN EMPLOYEE SPONSOR OR ADVOCATE AND King Schilling PA-C LAB_1 Performing Organization Address City/[facility] Phon e Number [address] [address] [place], [place] [phone] (ABNORMAL) Basic Metabolic Panel (K, Na, CO2, [...] Volume Laterality 07/29/2008 5:35 AM 9 5:38 AN EMPLOYEE SPONSOR OR ADVOCATE AND AM AN EMPLOYEE SPONSOR OR ADVOCATE AND King Schilling PA-C LAB_1 Performing Organization Address [facility]/ZIP [facility] Phon e Number [address] [address] [place], [place] [phone] (ABNORMAL) DRUG SCREEN, URINE (07/28/2008 8:30 PM AN EMPLOYEE SPONSOR OR ADVOCATE AND) Component Value Ref Test Analysis Performed Pathologis [...] specimen 07/28/2008 8:30 PM 009 8:44 (specimen) AN EMPLOYEE SPONSOR OR ADVOCATE AND PM AN EMPLOYEE SPONSOR OR ADVOCATE AND King Schilling PA-C LAB_1 Performing Organization Address [facility] Phon e Number [address] [address] [place], [place] [phone] GOLD HOLD TUBE (OR RED/GARCIA) (07/28/2008 8:24 PM AN EMPLOYEE SPONSOR OR ADVOCATE AND) Patholo gist Method Time Signature Gold Hold Held in [place] Tube Chemistry sample rack for 7 days Specimen Anatomical Collection Method Collection Time Receive d Time (Source) Location / / Volume Laterality 07/28/2008 8:24 PM 9 8:29 AN EMPLOYEE SPONSOR OR ADVOCATE AND PM AN EMPLOYEE SPONSOR OR ADVOCATE AND Kostas Javier MD LAB_1 Performing Organization Address [facility] Phon e Number [address] [address] [place], [place] [phone] Troponin I Q6H (check time done in ED, adjust schedule as appropriate) (07/28/2008 8:24 PM AN EMPLOYEE SPONSOR OR ADVOCATE AND) athologist Signature Troponin I <0.030 0.0 - 0.049 [place] ng/ml Comment: (0.000-0.049 ng/ml): Normal (0.050-0.770 ng/ml): Indeterminant for c linical definition of myocardial infarction (0.780 ng/ml): Cutoff indicating myocard ial infarction Specimen Anatomical Collection Method Collection Time Receive d Time (Source) Location / / Volume Laterality 07/28/2008 8:24 PM 9 8:25 AN EMPLOYEE SPONSOR OR ADVOCATE AND PM AN EMPLOYEE SPONSOR OR ADVOCATE AND King Schilling PA-C LAB_1 Performing Organization Address [facility] Phon e Number [address] [address] [place], [place] [phone] ECG 12-LEAD ROUTINE (07/28/2008 8:01 PM AN EMPLOYEE SPONSOR OR ADVOCATE AND) athologist Signature Ventricular Rate 69 BPM MUSE Atrial Rate 69 BPM MUSE P-R Interval 154 ms MUSE QRS Duration 88 ms MUSE QT 438 ms MUSE QTc 469 ms MUSE P [place] 34 degrees MUSE R [place] 30 degrees MUSE T [place] 35 degrees MUSE URL Link MUSE Specimen (Source) Anatomical Collection Method Collection Time Re ceived Time Location / / Volume Laterality 07/28/2008 8:01 PM AN EMPLOYEE SPONSOR OR ADVOCATE AND Narrative MUSE - 07/31/2008 11:31 AM AN EMPLOYEE SPONSOR OR ADVOCATE AND Sinus rhythm Normal ECG When compared with ECG of 28-JUL-2008 15 :42, No significant change was found Procedure Note Darien Goncalves W - 07/31/2008 Sinus rhythm Normal ECG When compared with ECG of 28-JUL-2008 15 :42, No significant change was found Kostas Javier MD EKG Performing Organization Address City/[facility]/ZIP Code Phon e Number MUSE RHP MUSE GLUCOSE, WHOLE BLOOD POC (07/28/2008 4:07 PM AN EMPLOYEE SPONSOR OR ADVOCATE AND) athologist Signature Glucose, Whole 104 70 - 180 [place] Blood mg/dl Comment: Point of Care Testing RN Notified Specimen Anatomical Collection Method Collection Time Receive d Time (Source) Location / / Volume Laterality 07/28/2008 4:07 PM 9 9:08 AN EMPLOYEE SPONSOR OR ADVOCATE AND PM AN EMPLOYEE SPONSOR OR ADVOCATE AND Elroy Fraire MD LAB_1 Performing Organization Address City/State/ZIP [facility] Phon e Number [address] [address] [place], [place] [phone] ECG 12-Lead (07/28/2008 3:42 PM AN EMPLOYEE SPONSOR OR ADVOCATE AND) P athologist Signature Ventricular Rate 70 BPM MUSE Atrial Rate 70 BPM MUSE P-R Interval 152 ms MUSE QRS Duration 90 ms MUSE QT 454 ms MUSE QTc 490 ms MUSE P [place] 31 degrees MUSE R [place] 21 degrees MUSE T [place] 40 degrees MUSE URL Link MUSE Specimen (Source) Anatomical Collection Method Collection Time Re ceived Time Location / / Volume Laterality 07/28/2008 3:42 PM AN EMPLOYEE SPONSOR OR ADVOCATE AND Narrative MUSE - 08/03/2008 1:40 PM AN EMPLOYEE SPONSOR OR ADVOCATE AND Sinus rhythm Minimal voltage criteria for LVH, may be normal variant Prolonged QT Abnormal ECG No previous ECGs available Procedure Note Darien Goncalves - 08/03/2008 Sinus rhythm Minimal voltage criteria for LVH, may be normal variant Prolonged QT Abnormal ECG No previous ECGs available Dilip Bird MD EKG Performing Organization Address City/[facility]/ZIP Code Phon e Number MUSE RHP MUSE XR PORTABLE CHEST 1 VIEW (07/28/2008 3:42 PM AN EMPLOYEE SPONSOR OR ADVOCATE AND) Anatomical Region Laterality Modality Chest, Lung Computed Radiography Specimen (Source) Anatomical Collection Method Collection Time Re ceived Time Location / / Volume Laterality 07/28/2008 3:42 PM AN EMPLOYEE SPONSOR OR ADVOCATE AND Narrative 07/28/2008 3:52 PM AN EMPLOYEE SPONSOR OR ADVOCATE AND [please fill in title of report and [...] COAG HOLD (BLUE TUBE) (07/28/2008 3:10 PM AN EMPLOYEE SPONSOR OR ADVOCATE AND) athologist Signature Coag Hold Held in REGIONS Coag Rack for 8 hours Specimen Anatomical Collection Method Collection Time Receive d Time (Source) Location / / Volume Laterality 07/28/2008 3:10 PM 9 3:50 AN EMPLOYEE SPONSOR OR ADVOCATE AND PM AN EMPLOYEE SPONSOR OR ADVOCATE AND Elroy Fraire MD LAB_1 Performing Organization Address City/[facility] Phon e Number [address] [address] [place], [place] [phone] BB HOLD TUBE ([facility] ONLY) (07/28/2008 3:10 PM AN EMPLOYEE SPONSOR OR ADVOCATE AND) [facility] Method Time Signature BB Hold Tube Blood Bank REG[place] save tube expires in 3 days Specimen Anatomical Collection Method Collection Time Receive d Time (Source) Location / / Volume Laterality 07/28/2008 3:10 PM 9 3:50 AN EMPLOYEE SPONSOR OR ADVOCATE AND PM AN EMPLOYEE SPONSOR OR ADVOCATE AND Elroy Fraire MD LAB_1 Performing Organization Address [facility] Phon e Number [address] [address] [place], [place] [phone] Troponin I (07/28/2008 3:10 PM AN EMPLOYEE SPONSOR OR ADVOCATE AND) athologist Signature Troponin I <0.030 0.0 - 0.049 [place] ng/ml Comment: (0.000-0.049 ng/ml): Normal (0.050-0.770 ng/ml): Indeterminant for c linical definition of myocardial infarction (0.780 ng/ml): Cutoff indicating myocard ial infarction Specimen Anatomical Collection Method Collection Time Receive d Time (Source) Location / / Volume Laterality 07/28/2008 3:10 PM 9 3:41 AN EMPLOYEE SPONSOR OR ADVOCATE AND PM AN EMPLOYEE SPONSOR OR ADVOCATE AND Dilip Bird MD LAB_1 Performing Organization Address [facility]/ZIP [facility] Phon e Number [address] [address] [place], [place] [phone] (ABNORMAL) Basic Metabolic Panel (K, Na, CO2, [...] Volume Laterality 07/28/2008 3:10 PM 9 3:37 AN EMPLOYEE SPONSOR OR ADVOCATE AND PM AN EMPLOYEE SPONSOR OR ADVOCATE AND Dilip Bird MD LAB_1 Performing Organization Address City/State/ZIP Code Phon e Number [address] [address] [place], [place] [phone] Hemogram with Platelets (07/28/2008 3:10 PM AN EMPLOYEE SPONSOR OR ADVOCATE AND) athologist Signature WBC 9.1 4.0 - 11.0 [...] Volume Laterality 07/28/2008 3:10 PM 9 3:37 AN EMPLOYEE SPONSOR OR ADVOCATE AND PM AN EMPLOYEE SPONSOR OR ADVOCATE AND Dilip Bird MD LAB_1 Performing Organization Address City/State/ZIP Code Phon e Number [address] [address] [place], [place] [phone] documented in this encounter Visit Diagnoses Diagnosis Angina at rest (HRC) Other and unspecified angina pectoris Depression Depressive disorder, not elsewhere class ified Anxiety (HRC) Anxiety state, unspecified HTN Unspecified essential hypertension ACS (acute coronary syndrome) (HRC) Intermediate coronary syndrome Chest pain, unspecified Initial Assessments - Mervin Malagon - 07/28/2008 6:51 PM CST [facility] Med-Surg / ICU / Rehab Initial [...] there Guardianship issues affecting care planning? No Spiritual/Jain Is the nurse aware, at present, of any needs or issues for which support from the hospital principle industrial hygienist might be helpful to patient and/or family? (e.g. need or desire for spiritual support, difficulty coping, end of life issues, grief/loss, etc.) No. ([facility] makes daily rounds to all yazidism patients.) Cultural On the Best Care/Best Experience [...] alternatives.) See flowsheet documentation for additional information. EMPLOYEE SPONSOR OR ADVOCATE AND documented in this encounter Administered Medications Inactive Administered Medications - up to 3 most recent administrations Medication Order MAR Action Action Date Dose Rate Site amoxicillin (AMOXIL) capsule 500 Given 07/29/2008 2:00 PM AN EMPLOYEE SPONSOR OR ADVOCATE AND 50 0 mg mg 500 mg, Oral, TID, First dose on Sat07/28/08 at 2000, For 7 days Given 07/29/2008 8:00 AM AN EMPLOYEE SPONSOR OR ADVOCATE AND 500 mg Given 07/28/2008 8:00 PM AN EMPLOYEE SPONSOR OR ADVOCATE AND 500 mg enoxaparin (LOVENOX) injection 70 mg Given 07/28/2008 4:30 PM AN EMPLOYEE SPONSOR OR ADVOCATE AND 70 mg 70 mg, Subcutaneous, NOW, On Sat07/28/08 at 1619, For 1 dose, Recommended dose 1 mg/kg. Patient reports weight being 160lbs approx 70kgs hydrALAZINE (APRESOLINE) tablet 10 mg Given 07/28/2008 5:30 PM AN EMPLOYEE SPONSOR OR ADVOCATE AND 10 mg 10 mg, Oral, Q4H PRN, Blood Pressure >, SBP > 180, Starting on Sat07/28/08 at 1712, Until Michelle 07/29/08 at 1835 hydrocodone/acetaminophen (VICODIN) 5-500 Given 07/28/2008 8 :30 PM AN EMPLOYEE SPONSOR OR ADVOCATE AND 1 Tablet MG 1-2 Tab 1-2 Tablet, Oral, Q4H PRN, Pain, Starting on Sat07/28/08 at 1649, Maximum Daily Acetaminophen dose for patients > 53 k g/day Maximum Daily Acetaminophen dose for patients < 53 k mg/kg/day This product contains 500 mg Acetaminophen per tablet. lansoprazole (PREVACID) capsule 30 mg Given 07/29/2008 8:00 AM [employer] AND 30 mg 30 mg, Oral, DAILY, First dose on Sat07/28/08 at 1809, Until Discontinued Given 07/28/2008 8:00 PM AN [employer] AND 30 mg metoPROLOL tartrate (LOPRESSOR) oral tablet Given 07/15 8:00 AM AN [employer] AND 12.5 mg 12.5 mg 12.5 mg, Oral, BID, First dose on Sat07/28/08 at 2000, Until Discontinued, 12.5 mg = a prepackaged 1/2 tablet Take with food Given 07/28/2008 6:42 PM AN [employer] AND 12.5 mg zolpidem (AMBIEN) tablet 10 mg Given 07/28/2008 10:45 PM AN [employer] AND 10 mg 10 mg, Oral, HS PRN, Sleep, Starting on Sat07/28/08 at 1648, Until Michelle 07/29/08 at 1835 documented in this encounter Active and Recently Administered Medications Times are shown in [employer] AND. 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
--- OUTSIDE RECORDS SUMMARY | 2022-05-22 03:55 | XMS_ITS | Encounter Summary ---
:1955 Author Organization [facility] Address [address] [place] [address] Care Team Providers Name Role Phone Unassigned, Provider Primary Care Provider Unavailable Reason for Visit Reason Comments DEPRESSED--ED Encounter Details Date Type Department Care Team Description 02/23/2009 - Hospital Encounter RH E4 Wisnton Garcia MD [address] [place], [place] [id number] Depressive Disorder, not Elsewhere Class ified (Primary Dx); 03/07/2009 640 [facility] Nathan Alvarado MD Comb Drug Depend NEC, Continuous [id number] [place] [address] Social History Tobacco Use Types Packs/Day Years [...] 03/07/2009 3:57 PM CDT D/c summary done stat#[id number]..Tevin Saravia RN/MSN SaraviaTevin shaffer - 03/07/2009 3:57 [...] are poor. She was seen by social secretary, who initiated chemical dependency evaluation. She's been involved with [facility] intake team. Over the course [...] 80 mg p.r.n. She [place] [facility] [place]. She continues to be willing to undergo CD treatment. She began denying suicidal thoughts, homicidal thoughts, and other psychotic symptoms. She was more engaged and cooperative on the unit. Insight and judgment were improving. She had no major complaints of side effects. It appears that case management will continue to explore CD options possibly at the [facility]. Patient is in agreement with the discharge plan. FINAL DIAGNOSIS: Hoolehua I: 1. Depressive disorder NOS. 2. Dysthymia. 3. Polysubstance abuse with THC and methamphetamine. 4. Alcohol abuse, rule out alcohol dependence, rule out PTSD. Hoolehua II: Deferred. Hoolehua III: 1. Hypertension. 2. Hypercholesterolemia. 3. CAD. 4. Status post hysterectomy. 5. ALLERGIES: LIPITOR AND CODEINE. Hoolehua IV: Moderate. Hoolehua V: GAF at time of discharge 54. DISCHARGE PLAN: As noted, she's discharged to [facility]. She's to avoid alcohol and mood-altering substances. Regular diet. She's free of communicable diseases. She will be seen at the [facility] in [place] by Dr. Fernandes 03/14/09 at 9:15 a.m. [...] 03/07/2009 15:57:11 Transcribed: 03/07/2009 18:11:44 Doc #: [id number] cc: 1 Page 2 Patient Name: FIFI SHEPARD DISCHARGE SUMMARY CONFIDENTIAL MEDICAL RECORD [address] [id number] Page 1 Patient: FIFI SHEPARD Location: E4 HPN: [id number] Admit Date: 02/23/2009 Date of : 1955 Discharge Date: 03/07/2009 Age: 54Y DISCHARGE SUMMARY documented in this encounter Discharge Instructions Discharge InstructionsPatsy Burns - 03/07/2009 7:11 AM CDT Images from the original note were not included. [address] [place] [id number] Discharge Instructions for: Fifi Shepard Thank you for choosing [facility] as your hospital. A copy of [...] Primary care provider: Provider Unassigned Discharge Disposition [facility] Medications UpToDate Carefully read the medication handouts [...] doctor. Additional Orders DISCHARGE CLINIC REFERRAL CLINIC: [facility]; [phone]; [address], [place], [id number] DOCTORS NAME: Dr. Yareli Aguilar WHEN TO [...] of care, I can be reached at [phone]. Discharge Diagnosis Hoolehua I: Depressive Disorder NOS 311.00; Dysthymia, Polysubstance abuse: THC and Methamphetamine, Alcohol abuse, R/0 Alcohol dependence. R/0 PTSD Hoolehua II: Deferred Hoolehua III: HTN, Hypercholesterolemia, CAD, S/P Hysterectomy. She [...] information has been faxed or sent to: [facility] Date: 03/07/2009, Time:NA PHQ-9 Admission Date: NA [...] side effects not tolerable. Resources 1. [facility] [address], [address], [place] [address]. or toll free at 1- [phone] 2. Online go to: [email or web address].info Crisis Line Numbers 1. [facility] [phone] 2. [facility] [phone] 3. [facility] [phone] 4. [facility] [phone] or [phone] Contact Information [address] [address] For questions about your discharge instructions call the nursing unit : E4 Emergency & Urgently Needed Care: For emergencies call 911 and/or get medical help right away. If you are a [facility] member and have medical needs after clinic hours you may call the CareLineat [phone] or . All medical devices (telemetry/IV/etc) unless otherwise ordered, have been removed before discharge. Smoking and Second-hand Smoke Exposure: Smoking damages blood vessels, reduces the oxygen in your blood and makes your heart beat too fast. If you smoke you should quit. Everyone should avoid second- hand smoke. If you would like further assistance after your discharge, please contact [phone] or visit www.[employer] [facility] [employer] can offer further information and assistance. We hope you had a positive experience and that you can definitely recommend [facility] to yourfamily and friends. You???ll be receiving a survey in the mail in about 2 weeks and we look forward to hearing your feedback. When leaving your room at discharge, please stop at the nursing unit desk to check out. I understand my discharge instructions: Fifi A Cross (or [employer]) documented in this encounter Medications at Time [...] Dorys King - 03/07/2009 7:29 AM CDT [facility] OT Progress Note Assessments Initial Assessment [...] pursue post discharge Verbalize problem areas experienced PSYCHOMETRIST to increase insight and self-awareness 03/03/09 0700 [...] Luna Pedraza - 03/07/2009 7:19 AM CDT [facility] Progress Note (Nursing) Identify/Problem(s): Disturbance in mood [...] Katia Lozano - 2009 5:35 PM CDT [facility] Progress Note (Nursing) Identify/Problem(s): Mood Desired [...] Nathan Alvarado - 2009 11:58 AM CDT [facility] Psychiatry Staff Physician Progress Note Date of Service: 2009 Subjective: today is pt's birthday and states that she is more hopefull about her future. She admitsthat she has been her worse critic and that she plans with therapy and with new friends from [employer], to work re framing her self-concept. Pt is without any complaints at this time. She states that she is willing to undergo CD tx. She denies any perceptual disturbance, paranoia, or delusional thoughtprocesses; denies any HI or SI/intent or plan. She states that she is looking forward to being discharged to a [facility] in [place], [place]. Objective: Mental Status Exam Appearance: alert [...] by a transport hold signed by CM claim representative Annemarie Andujar. CM currently expl oring CD options. Impression (Diagnoses) Hoolehua I: Depressive Disorder NOS 311.00; Dysthymia, Polysubstance abuse: THC and Methamphetamine, Alcohol abuse, R/0 Alcohol dependence. R/0 PTSD Hoolehua II: Deferred Hoolehua III: HTN, Hypercholesterolemia, CAD, S/P Hysterectomy. She is allergic to Lipitor and Codeine. Hoolehua IV: Severe: homeless, limited support system. Hoolehua V: GAF = 54 Serious symptoms, or any serious impairment in social, occupational or school functioning Legal Status: Voluntary Acuity Level: Yellow (pt following treatment, improving) Plan: Continue current pharmacological tx regimen. SW: regarding disposition plans. Pt per SW reportis to be discharged this upcoming Saturday. prognosis : guarded. Summary: Follow-up hospital care Nathan Alvarado MD Easton Palomo - 2009 9:47 AM CDT [facility] Progress Note (Nursing) Identify/Problem(s): Mood, [...] c/o of still passing lots of gas. Informatics Coordinator page on-call Dr. Hough who said pt could have Maalox. Pt received 30ml. 1455, pt requested for 5mg haldol for anxiety and agitation. Pt said that she feels anxiety about d/c tomorrow to CD tx. Pt said that she does not know she is going to cope with having room mates. Pt said that she will like to have her own space. Informatics Coordinator encourage pt to do her CD tx and pt was accepting. Pt asked to go on a green code walk to the [employer] shop before it closes and NA took pt at 1457 and came back at 1513. Informatics Coordinator asked pt about the effect of the Maalox and pt said it seems to be working. Informatics Coordinator informed pt to report to PM nurse it improving or not. Plan: Will continue to monitor for any symptoms. Easton Burnham RN --- End of Report --- una Jaramillo - 2009 6:28 AM CDT [facility] Progress Note (Nursing) Identify/Problem(s): Mood [...] INDICATION: Pain. TECHNIQUE: Ultrasound examination performed by car rental service attendant. FINDINGS: Liver is of normal size, configuration [...] kidney measures 10.9 cm, left 11.8 cm [id number]. Abdominal aorta contains atherosclerotic plaque distally and [...] baseline for continued care. Federico Moy, [place], [facility] Katia Lozano - 03/05/2009 5:27 PM CDT [facility] Progress Note (Nursing) Identify/Problem(s): Mood Desired [...] Seroquel and Benadryl for sleep and received @2109. Pt did not c/o chest pain through [...] Tevinpia Blanc - 03/05/2009 9:53 AM CDT [facility] Progress Note (Nursing) Identify/Problem(s): Mood [...] pt's daughter and BF came to visit. Informatics Coordinator and charge nurse physically assisted/walked with pt to walk to the exam room as pt's gait was unstable. Pt rated pain 9/10 and sharp. Pt stated that pain radiated across her rib cage to her neck. Pt said that she had a pain r/t heartburn last July but not as bad as this pain. PA/WATER TRAINER Ralph Moy was paged who saw pt. [...] Pt can have meds with sips of fiction writer but to hold on to nicotine gum still afterthe US. [id number], pt requested/received 650mg tylenol for back and knee pain 12/22 with relieved stated. Pt is now stable at this time, stated she feels okay, chest pain is gone. Plan: Will continue to monitor for chest pain, and other symptoms. Easton Burnham RN --- End of Report --- Luna Pedraza - 03/05/2009 7:11 AM CDT [facility] Progress Note (Nursing) Identify/Problem(s): Mood disturbance [...] Katia Lozano - 03/04/2009 5:35 PM CDT [facility] Progress Note (Nursing) Identify/Problem(s): Mood Desired [...] I will be discharged on Saturday to [facility]. Pt requested Seroquel and Benadryl for sleep and received @2033. Pt was out with her Green code pass. Affect WNL, calm and controlled. Complaint with medication. Plan: Monitor mood improvement and encourage verbalization of feelings Katia Lozano RN --- End of Report --- Arlet Ennis - 03/04/2009 1:35 PM CDT [facility] Progress Note (Nursing) Identify/Problem(s): Altered mood Desired Outcome(s): Mood will improve Evaluation: Pt out on unit, social with peers, attending groups appropriately. Pt states she slept much better last night, as she stayed up all day yesterday and didn't take a nap. Pt jokes appropriately with fiction writer and other staff. Pt is calm [...] Nathan Alvarado - 03/04/2009 1:16 PM CDT [facility] Psychiatry Staff Physician Progress Note Date of Service: 03/04/2009 Subjective: Pt is without any complaints at this time. She states that she is willing to undergo CD tx. She denies any perceptual disturbance, paranoia, or delusional thought processes; denies any HI or SI/intent or plan. She states that she is looking forward to being discharged to a [facility] in [place], [place]. Objective: Mental Status Exam Appearance: alert [...] by a transport hold signed by CM claim representative Annemarie Andujar. CM currently expl oring CD options. Impression (Diagnoses) Hoolehua I: Depressive Disorder NOS 311.00; Dysthymia, Polysubstance abuse: THC and Methamphetamine, Alcohol abuse, R/0 Alcohol dependence. R/0 PTSD Hoolehua II: Deferred Hoolehua III: HTN, Hypercholesterolemia, CAD, S/P Hysterectomy. She is allergic to Lipitor and Codeine. Hoolehua IV: Severe: homeless, limited support system. Hoolehua V: GAF = 54 Serious symptoms, or any serious impairment in social, occupational or school functioning Legal Status: Voluntary Acuity Level: Yellow (pt following treatment, improving) Plan: Continue current pharmacological tx regimen. SW: regarding disposition plans. ADAP/pending. prognosis : guarded. Summary: Follow-up hospital care Nathan Alvarado MD Guille Thomas - 03/04/2009 11:43 AM CDT [facility] Social Work Progress Note Data: Rcvd call back from MANISH Sahrpe, she states, she is not recommending inpt CD treatment. She is recommending pt reside at [facility] and do CD treatment at [facility]. Informatics Coordinator met with pt she is accepting of this plan. States she [facility]. Informatics Coordinator contacted Nahomi at [facility], pt is able to come, but no bed available till Saturday.Pt signed PRIMITIVO, faxed requested records. Risk Assessment/Clinical Summary: Patient continues to stabilize on unit. Plan: Primary Disposition: [facility] Alternative Disposition Options: [facility]: Saturday Report completed by ELDA Pugh,[facility], Pager Number [phone] --- End of Report --- FROILAN spoke with Annemarie Willow, she can pick pt up for transport no later than 8am. FROILAN called unit [facility] who said this would be fine. Plan for CM to pick pt up at 8am on Saturday for d/c. CHELLE Dunbar Rhiannon Kearney - 03/04/2009 7:19 AM CDT [facility] OT Progress Note Assessments Initial Assessment [...] pursue post discharge Verbalize problem areas experienced PSYCHOMETRIST to increase insight and self-awareness 03/03/09699 - [...] Cari Shaw - 03/04/2009 4:55 AM CDT [facility] Progress Note (Nursing) Identify/Problem(s): Mood Desired Outcome(s): Will be stable Evaluation: Pt was observed to have slept throughout the shift, no incident was observed. Plan: Will continue to assess pt's mood and document. Cari Shaw --- End of Report --- Nafisa Chester - 03/03/2009 5:15 PM CDT [facility] Progress Note (Nursing) Identify/Problem(s): Mood Desired [...] Nathan Alvarado - 03/03/2009 4:19 PM CDT [facility] Psychiatry Staff Physician Progress Note Date [...] by a transport hold signed by CM claim representative Annemarie Andujar. CM currently expl oring CD options. Impression (Diagnoses) Hoolehua I: Depressive Disorder NOS 311.00; Dysthymia, Polysubstance abuse: THC and Methamphetamine, Alcohol abuse, R/0 Alcohol dependence. R/0 PTSD Hoolehua II: Deferred Hoolehua III: HTN, Hypercholesterolemia, CAD, S/P Hysterectomy. She is allergic to Lipitor and Codeine. Hoolehua IV: Severe: homeless, limited support system. Hoolehua V: GAF = 54 Serious symptoms, or any serious impairment in social, occupational or school functioning Legal Status: Voluntary Acuity Level: Yellow (pt following treatment, improving) Plan: Continue current pharmacological tx regimen. SW: regarding disposition plans. ADAP/pending. prognosis : guarded. Summary: Follow-up hospital care Nathan Alvarado MD Arlet Ennis - 03/03/2009 9:36 AM CDT [facility] Progress Note (Nursing) Identify/Problem(s): Altered Mood Desired [...] storage garage.Pt laughs and jokes appropriately with fiction writer. Plan: Continue with treatment plan, document/monitor mood, Discussed plan of care with patient and treatment team. Arlet Ennis RN --- End of Report --- Rhiannon Kearney - 03/03/2009 7:08 AM CDT [facility] OT Progress Note Assessments Initial Assessment [...] achieving this goal with assistance from this fiction writer. Her short term goal was: Research realistic/available housing for seniors and/or disabled in the [facility]. Patient's steps included: 1. Look in newspaper and make a list of potential housing options with contact/phone numbers. 2. Make a list of relevant questions to ask potential housing prospects she locates in the paper, and/or questions she could ask [place] [facility] housing information. 3/ Call [facility] regarding housing options. 4. Call [facility] regarding housing options available. Patient was pleasant and cooperative throughout conversation. Informatics Coordinator will follow-up with support for the goal [...] pursue post discharge Verbalize problem areas experienced PSYCHOMETRIST to increase insight and self-awareness 03/03/09699 - [...] Cari Shaw - 03/03/2009 6:13 AM CDT [facility] Progress Note (Nursing) Identify/Problem(s): Mood Desired [...] Nafisa Chester - 03/02/2009 5:51 PM CDT [facility] Progress Note (Nursing) Identify/Problem(s): Mood Desired [...] Nathan Alvarado - 03/02/2009 2:31 PM CDT [facility] Psychiatry Staff Physician Progress Note Date [...] by a transport hold signed by CM claim representative Annemarie Andujar. CM currently expl oring CD options. Impression (Diagnoses) Hoolehua I: Depressive Disorder NOS 311.00; Dysthymia, Polysubstance abuse: THC and Methamphetamine, Alcohol abuse, R/0 Alcohol dependence. R/0 PTSD Hoolehua II: Deferred Hoolehua III: HTN, Hypercholesterolemia, CAD, S/P Hysterectomy. She is allergic to Lipitor and Codeine. Hoolehua IV: Severe: homeless, limited support system. Hoolehua V: GAF = 48 Serious symptoms, or any serious impairment in social, occupational or school functioning Legal Status: Voluntary Acuity Level: Yellow (pt following treatment, improving) Plan: Continue current pharmacological tx regimen. SW: regarding disposition plans. Rule 25/CD tx prognosis : guarded. Summary: Follow-up hospital care Nathan Alvarado MD Brynn Bautista - 03/02/2009 11:17 AM CDT [facility] Progress Note (Nursing) Identify/Problem(s): Behavior Desired [...] Hortencia Fernandez - 03/02/2009 9:15 AM CDT [facility] Social Work Progress Note Data: Rcvd call back from Isaias Kruger 25 at [employer], she states that at this point pt would need a Rule 25 to complete the funding for CD treatment. Informatics Coordinator contacted MANISH Daugherty [phone] to request Rule 25 assessment. Await call back. Risk Assessment/Clinical Summary: Patient continues to stabilize on unit. Plan: Primary Disposition: CD treatment Alternative Disposition Options: CD treatment ELOS: 2-4 days Report completed by ELDA Pugh,[employer], Pager Number [phone] --- End of Report --- CaioRhiannon - 03/02/2009 7:10 AM CDT [facility] OT Progress Note Assessments Initial Assessment [...] una Jaramillo - 03/02/2009 6:44 AM CDT [facility] Progress Note (Nursing) Identify/Problem(s): Mood disturbance [...] Suyapa Mcclain - 03/01/2009 8:16 PM CDT [facility] Progress Note (Nursing) Identify/Problem(s): Mood, behavior Desired Outcome(s): Mood will improve and will be safe on the unit. Evaluation: Pt reports she is doing OK this shift. Went out on the [employer] walk with the staff and enjoyed that. Pt had her CD eval today and thinks she will either go to [facility] or [facility] for a 30 day program. [...] Hortencia Fernandez - 03/01/2009 3:03 PM CDT [facility] Social Work Progress Note Data: CD consult completed, see consults. ADAP states that pt's whose primary funding source is Medicare, then ADAP needs RULE 25 approval before can start program. Rule 25 asks we fax our consult over for them to review and possibly authorize remaining part of treatment. Faxed to Ella bradshaw [place] Rule 25 for review fax [phone], # [phone]. Risk Assessment/Clinical Summary: Pt stabilizing on unit. Plan: Primary Disposition: CD treatment Alternative Disposition Options: [facility] ELOS: 3-5 days Report completed by ELDA Pugh,[facility], Pager Number [phone] --- End of Report --- Nathan Alvarado Nolan - 03/01/2009 12:05 PM CDT [facility] Psychiatry Staff Physician Progress Note Date [...] by a transport hold signed by CM claim representative Annemarie Andujar. CM currently expl oring CD options. Impression (Diagnoses) Hoolehua I: Depressive Disorder NOS 311.00; Dysthymia, Polysubstance abuse: THC and Methamphetamine, Alcohol abuse, R/0 Alcohol dependence. R/0 PTSD Hoolehua II: Deferred Hoolehua III: HTN, Hypercholesterolemia, CAD, S/P Hysterectomy. She is allergic to Lipitor and Codeine. Hoolehua IV: Severe: homeless, limited support system. Hoolehua V: GAF = 48 Serious symptoms, or any serious impairment in social, occupational or school functioning Legal Status: Voluntary Acuity Level: Yellow (pt following treatment, improving) Plan: Continue current pharmacological tx regimen. SW: regarding disposition plans. Rule 25/CD tx prognosis : guarded. Summary: Follow-up hospital care Nathan Alvarado MD Arlet Ennis - 03/01/2009 10:41 AM CDT [facility] Progress Note (Nursing) Identify/Problem(s): Altered Mood Desired [...] of care with patient and treatment team. Arelt Ennis RN --- End of Report --- Rhiannon Kearney - 03/01/2009 7:22 AM CDT [facility] OT Progress Note Assessments Initial Assessment [...] Luna Pedraza - 03/01/2009 7:21 AM CDT [facility] Progress Note (Nursing) Identify/Problem(s): Depressed/ Anxious Mood [...] Suyapa Mcclain - 02/28/2009 7:24 PM CDT [facility] Progress Note (Nursing) Identify/Problem(s): Mood, behavior Desired [...] RN --- End of Report --- Mane Sacnhez - 02/28/2009 2:29 PM CDT As of 02/24/09, per Carolyn at [facility].-[phone]- this pt. Does not have a caser up in [facility]...Mane Sanchez Nathan Alvarado - 02/28/2009 12:31 PM CDT [facility] Psychiatry Staff Physician Progress Note Date [...] by a transport hold signed by CM claim representative Annemarie Andujar. Impression (Diagnoses) Hoolehua I: Depressive Disorder NOS 311.00; Dysthymia, Polysubstance abuse: THC and Methamphetamine, Alcohol abuse, R/0 Alcohol dependence. R/0 PTSD Hoolehua II: Deferred Hoolehua III: HTN, Hypercholesterolemia, CAD, S/P Hysterectomy. She is allergic to Lipitor and Codeine. Hoolehua IV: Severe: homeless, limited support system. Hoolehua V: GAF = 41-50 Serious symptoms, or any serious impairment in social, occupational or school functioning Legal Status: Voluntary Acuity Level: Yellow (pt following treatment, improving) Plan: Continue current pharmacological tx regimen. SW: regarding disposition plans. Rule 25/CD tx prognosis : guarded. Summary: Follow-up hospital care Nathan Alvarado MD Hortencai Fernandez - 02/28/2009 9:07 AM CDT [facility] Social Work Progress Note Data: Rcvd call back from MANISH Sharpe, she states that she met with her intake team and supervisor [employer]. CM does not have current housing options for pt. Can give information regarding a subcity housing, but not current independent living options, which is what pt is requesting. Cm inquired if pt interested in CD patti atment, pt refusing. CM stated that pt's options would be a penitentiary. Cm will look into female shelters.[facility], . Risk Assessment/Clinical Summary: Pt on unit, does not want CD treatment, focused on own apt. Plan: Primary Disposition: [facility] Alternative Disposition Options: [facility] ELOS: 2 days Report completed by ELDA Pugh,[facility], Pager Number [phone] --- End of Report --- Arlet Ennis - 02/28/2009 8:26 AM CDT [facility] Progress Note (Nursing) Identify/Problem(s): Altered mood Desired [...] Sanchez Guanaco - 02/28/2009 7:08 AM CDT [facility] OT Progress Note Assessments Initial Assessment [...] Cari Shaw - 02/28/2009 4:56 AM CDT [facility] Progress Note (Nursing) Identify/Problem(s): Behavior Desired Outcome(s): Will remain calm Evaluation: Pt slept throughout last night, no behavior was observed. Plan: Will continue to monitor pt's behavior and document. Cari Shaw --- End of Report --- Dorys Chowdary - 02/27/2009 4:00 PM CDT [facility] Progress Note (Nursing) Identify/Problem(s): Labile mood. Desired [...] Arlet Ennis - 02/27/2009 10:02 AM CDT [facility] Progress Note (Nursing) Identify/Problem(s): Altered Mood Anxiety [...] Cari Shaw - 02/27/2009 6:19 AM CDT [facility] Progress Note (Nursing) Identify/Problem(s): Behavior Desired Outcome(s): Will remain controlled. Evaluation: Pt slept throughout last night, no behavior was observed. Plan: Will continue to monitor pt's behavior and document. Cari Shaw --- End of Report --- Luna Pedraza - 02/26/2009 8:32 PM CDT [facility] Progress Note (Nursing) Identify/Problem(s): Depressed / Anxious mood Desired Outcome(s): Pt's mood will improve and stabilize Evaluation: Pt was watching television with peers at the onset of this shift. On 1:1 Pt talked in depth about breaking up with her boyfriend of the past 4 years. Pt stated how they met at the [facility] and although they did have some [...] Arlet Ennis - 02/26/2009 10:31 AM CDT [facility] Progress Note (Nursing) Identify/Problem(s): Depressed Mood Desired Outcome(s): Mood Evaluation: Pt isolative to her room most the shift. States she isolates to cope. Continues to state she is tired and still depressed. Is sad that it's her daughter's birthday today and she cannot see her. Informatics Coordinator offered encouragement and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
--- OUTSIDE RECORDS SUMMARY | 2022-05-22 03:55 | XMS_ITS | Encounter Summary ---
:1955 Author Organization [facility] Address [address] [place] [address] Care Team Providers Name Role Phone Unassigned, Provider Primary Care Provider Unavailable Encounter Details Date Type Department Care Team Description 02/02/2005 Emergency Room [facility] Emergency Dept Emergency, [facility] Emergency [address] [facility] Provider Orders/[place] [address] Social History Tobacco Use Types Packs/Day Years [...] on filedocumented in this encounter Care Teams Art Gilder Relationship Specialty Start Date End Date Unassigned, Provider PCP - General 03/12/03 [address] [place] [address] documented as of this encounter
--- OUTSIDE RECORDS SUMMARY | 2022-05-22 03:55 | XMS_ITS | Encounter Summary ---
:1955 Author Organization [employer] Address [address] [place] [address] Care Team Providers Name Role Phone Unassigned, Provider Primary Care Provider Unavailable Reason for Visit Reason Comments DIZZINESS/VERTIGO--ED DENTAL FRACTURE--ED NAUSEA--ED Encounter Details Date Type Department Care Team Description 09/28/2005 Emergency [facility] Emergency Dept Ketan Cortez, LEFT WITHOUT BEING [address] Karthik Calrson MD SEEN/FINISHED/[place] [address] D [phone] Social History Tobacco Use Types Packs/Day Years [...] Comments Blood Pressure 193/117 09/28/2005 4:26 PM LOG CHAIN FEEDER Pulse 83 09/28/2005 4:26 PM LOG CHAIN FEEDER Temperature 36.7 ??C (98 ??F) 09/28/2005 4:26 PM LOG CHAIN FEEDER Respiratory Rate 98 09/28/2005 4:26 PM LOG CHAIN FEEDER Oxygen Saturation - - Inhaled Oxygen Concentration [...] documented as of this encounter ED Notes eKtan Cortez - 09/28/2005 6:48 PM LOG CHAIN FEEDER patient left prior to evaluation. CHAIN FEEDER Pam Kitchen - 09/28/2005 6:37 PM LOG CHAIN FEEDER Pt called for rooming no answer, pt lwbs CHAIN FEEDER Cherelle Harry V - 09/28/2005 6:27 PM LOG CHAIN FEEDER Pt called in triage to go back, no response. CHAIN FEEDER Karin Resendiz - 09/28/2005 4:19 PM LOG CHAIN FEEDER Patient with with dizziness as if the room is spinning, also feels nuaseated. Nausea started after the dizziness today. Patient also has wisdom tooth that is broken. CHAIN FEEDER documented in this encounter Plan of Treatment Not on filedocumented as of this encounter Visit Diagnoses Diagnosis LEFT WITHOUT BEING SEEN/FINISHED/REGISTE RED documented in this encounter Care Teams Machine Dyer Relationship Specialty Start Date End Date Unassigned, Provider PCP - General 03/12/[address] [place] [address] documented as of this encounter
--- OUTSIDE RECORDS SUMMARY | 2022-05-22 03:55 | XMS_ITS | Encounter Summary ---
:1955 Author Organization [employer] Address [address] [place] [address] Care Team Providers Name Role Phone Unassigned, Provider Primary Care Provider Unavailable Reason for Visit Reason Onset Date Comments FOLLOW-UP,[facility] 08/05/2008 Encounter Details Date Type Department Care Team Description 08/05/2008 Telephone Manuelito3 Nola Brown V FOLLOW-UP,HOSPITAL [address] [place] [address] [place] [address] [phone] (Wo rk) Social History Tobacco Use Types [...] on filedocumented in this encounter Care Teams Box Toe Buffer Relationship Specialty Start Date End Date Unassigned, Provider PCP - General 03/12/03 [address] [place] [address] documented as of this encounter
--- OUTSIDE RECORDS SUMMARY | 2022-05-22 03:55 | XMS_ITS | Encounter Summary ---
:1955 Author Organization [employer] Address [address] [place] [address] Care Team Providers Name Role Phone Unassigned, Provider Primary Care Provider Unavailable Encounter Details Date Type Department Care Team Description 07/28/2008 Imaging [facility] [address] [place], [place] [phone] Social History Tobacco Use Types Packs/Day Years [...] 3:42 PM Re sults for this VIEW DEICER KIT ASSEMBLER procedure are i n the results section. documented in this encounter Results XR PORTABLE CHEST 1 VIEW (07/28/2008 3:42 PM DEICER KIT ASSEMBLER) Anatomical Region Laterality Modality Chest, Lung Computed Radiography Specimen (Source) Anatomical Collection Method Collection Time Re ceived Time Location / / Volume Laterality 07/28/2008 3:42 PM DEICER KIT ASSEMBLER Narrative 07/28/2008 3:52 PM DEICER KIT ASSEMBLER [please fill in title of report and [...] on filedocumented in this encounter Care Teams Training Project Manager Relationship Specialty Start Date End Date Unassigned, Provider PCP - General 03/12/[address] [place] [address] documented as of this encounter
--- OUTSIDE RECORDS SUMMARY | 2022-05-22 03:55 | XMS_ITS | Encounter Summary ---
:1955 Author Organization [employer] Address [address] [place] [address] Care Team Providers Name Role Phone Unassigned, Provider Primary Care Provider Unavailable Encounter Details Date Type Department Care Team Description 07/29/2008 Imaging [facility] [address] [place] [address] [phone] Social History Tobacco Use Types Packs/Day Years [...] 11:22 AM Resul ts for this EXERCISE HEMATOLOGY ONCOLOGY CONSULTANT procedure are i n REST/STRESS SPECT the result s section. documented in this encounter Results NM CARDIAC EXERCISE CARDIOLITE STRESS TST (07/29/2008 11:22 AM HEMATOLOGY ONCOLOGY CONSULTANT) Anatomical Region Laterality Modality Chest, NM Cardiac Nuclear Medicine, Nu clear Medicine Specimen (Source) Anatomical Collection Method Collection Time Re ceived Time Location / / Volume Laterality 07/29/2008 11:22 AM HEMATOLOGY ONCOLOGY CONSULTANT Narrative 07/29/2008 12:35 PM HEMATOLOGY ONCOLOGY CONSULTANT NM MYOCARDIAL PERFUSION EXERCISE REST-STRESS SPECT SCAN [...] which thomas to 188/88 with double product 98593. Stress stoppe d because of chest discomfort. Abnormal EKG reported separately. sugar controller: Normal. FINDINGS: Wall motion and thickening [...] which thomas to 188/88 with double product 60101. Stress stoppe d because of chest discomfort. Abnormal EKG reported separately. sugar controller: Normal. FINDINGS: Wall motion and thickening [...] on filedocumented in this encounter Care Teams Fire Management Officer Relationship Specialty Start Date End Date Unassigned, Provider PCP - General 03/12/[address] [place] [address] documented as of this encounter
--- OUTSIDE RECORDS SUMMARY | 2022-05-22 03:55 | XMS_ITS | Encounter Summary ---
:1955 Author Organization [employer] Address [address] [place] [address] Care Team Providers Name Role Phone Unassigned, Provider Primary Care Provider Unavailable Encounter Details Date Type Department Care Team Description 03/05/2009 Imaging [facility] Ul trasound [address] [place], [place] [phone] Social History Tobacco Use Types Packs/Day Years [...] Pain. TECHNIQUE: Ultrasound examination perfor med by stone setter apprentice. FINDINGS: Liver is of normal size, confi [...] measures 10.9 cm , left 11.8 cm [id number]. Abdominal aorta contains atherosclerotic plaque distally and [...] Pain. TECHNIQUE: Ultrasound examination perfor med by stone setter apprentice. FINDINGS: Liver is of normal size, confi [...] measures 10.9 cm , left 11.8 cm [id number]. Abdominal aorta contains atherosclerotic plaque distally and [...] normal caliber aorta. Remainder normal. Federico Moy DIRECTOR OF COUNSELING, PROJECT PORTFOLIO ANALYST RAD US documented in this encounter Visit Diagnoses Not on filedocumented in this encounter Care Teams Hospitalist Program Director Relationship Specialty Start Date End Date Unassigned, Provider PCP - General 03/12/[address] [place] [address] documented as of this encounter
--- OUTSIDE RECORDS SUMMARY | 2022-05-22 03:55 | XMS_ITS | Encounter Summary ---
:1955 Author Organization [facility] Address [address] [place] [address] Care Team Providers Name Role Phone Unassigned, Provider Primary Care Provider Unavailable Encounter Details Date Type Department Care Team Description 07/29/2008 Orders Only [facility] King Schilling, Cardiology PA-C 640 [facility] [address] [place] [address] [place] [address] [phone] (Wo rk) Social History Tobacco Use Types [...] 07/29/2008 12:00 AM R esults for this END USER CONSULTANT procedure are i n the results section. documented in this encounter Results CARDIAC STRESS TEST (07/29/2008 12:00 AM END USER CONSULTANT) Specimen (Source) Anatomical Location Collection Method / Collectio n Time Received Time / Laterality Volume 07/29/2008 Narrative This result has an attachment that is no t available. Transcriptions [facility], PROVIDER - 9 12:00 AM END USER CONSULTANT King Schilling PA-C DUMMY/OTHER/AR documented in this encounter Visit Diagnoses Not on filedocumented in this encounter Care Teams Industrial Services Worker Relationship Specialty Start Date End Date Unassigned, Provider PCP - General 03/12/[address] [place] [address] documented as of this encounter
--- OUTSIDE RECORDS SUMMARY | 2022-05-22 03:55 | XMS_ITS | Encounter Summary ---
:1955 Author Organization [employer] Address [address] [place] [address] Care Team Providers Name Role Phone Unassigned, Provider Primary Care Provider Unavailable Encounter Details Date Type Department Care Team Description 07/29/2008 Imaging [facility] [address] [place] [address] [phone] Social History Tobacco Use Types Packs/Day Years [...] 11:22 AM Resul ts for this EXERCISE COASTAL/HARBOR DEFENSE OFFICER procedure are i n REST/STRESS SPECT the result s section. documented in this encounter Results NM CARDIAC EXERCISE CARDIOLITE STRESS TST (07/29/2008 11:22 AM COASTAL/HARBOR DEFENSE OFFICER) Anatomical Region Laterality Modality Chest, NM Cardiac Nuclear Medicine, Nu clear Medicine Specimen (Source) Anatomical Collection Method Collection Time Re ceived Time Location / / Volume Laterality 07/29/2008 11:22 AM COASTAL/HARBOR DEFENSE OFFICER Narrative 07/29/2008 12:35 PM COASTAL/HARBOR DEFENSE OFFICER NM MYOCARDIAL PERFUSION EXERCISE REST-STRESS SPECT SCAN [...] which thomas to 188/88 with double product 05451. Stress stoppe d because of chest discomfort. Abnormal EKG reported separately. animal control supervisor: Normal. FINDINGS: Wall motion and thickening is [...] which thomas to 188/88 with double product 51676. Stress stoppe d because of chest discomfort. Abnormal EKG reported separately. animal control supervisor: Normal. FINDINGS: Wall motion and thickening is [...] on filedocumented in this encounter Care Teams Batch Plant Supervisor Relationship Specialty Start Date End Date Unassigned, Provider PCP - General 03/12/[address] [place] [address] documented as of this encounter
--- OUTSIDE RECORDS SUMMARY | 2022-05-22 03:56 | XMS_ITS | Encounter Summary ---
:1955 Author Organization [facility] Address [address] [place] [address] Care Team Providers Name Role Phone Unassigned, Provider Primary Care Provider Unavailable Encounter Details Date Type Department Care Team Description 08/17/2003 Office Visit [facility] Albert Tovar, [facility] Neurosurgery [address] [place] [address] CLINIC [phone] [place] [phone] (Wo rk) Social History Tobacco [...] Comments Blood Pressure 143/81 08/17/2003 2:45 PM SUPERVISOR/PORT DIRECTOR Pulse 92 08/17/2003 2:45 PM SUPERVISOR/PORT DIRECTOR Temperature 36.8 ??C (98.3 ??F) 08/17/2003 2:45 PM SUPERVISOR/PORT DIRECTOR Respiratory Rate - - Oxygen Saturation - - Inhaled Oxygen Concentration - - Weight - - Height - - Body Mass Index - - documented in this encounter Progress Notes 08/17/2003 2:45 PM SUPERVISOR/PORT DIRECTOR Fifi Calderon is here today regarding 2nd [...] need to be completed first. [facility] 12:00 AM SUPERVISOR/PORT DIRECTOR This patient is seen in consultation at [...] Tovar MD Transcribed: 08/26/2003 08:24:56 Doc #: [id number] cc: Nallely Winchester MD, Primary and Referring Occ Med 1 Page 2 Patient Name: FIFI CALDERON Visit Date: 08/17/2003 NEUROSURGERY CONFIDENTIAL MEDICAL RECORD [address] [phone] Page 1 Patient: FIFI CALDERON Location: SURG HPN: Date of : 1955 Visit Date: 08/17/2003 NEUROSURGERY RVISOR/PORT DIRECTOR documented in this encounter Plan of Treatment Not on filedocumented as of this encounter Visit Diagnoses Not on filedocumented in this encounter Care Teams Coding Compliance Specialist Relationship Specialty Start Date End Date Unassigned, Provider PCP - General 03/12/[address] [place] [address] documented as of this encounter
--- OUTSIDE RECORDS SUMMARY | 2022-05-22 03:56 | XMS_ITS | Encounter Summary ---
:1955 Author Organization [facility] Address [address] [place] [address] Care Team Providers Name Role Phone Unassigned, Provider Primary Care Provider Unavailable Encounter Details Date Type Department Care Team Description 10/29/2003 Notes/Orders [facility] Occupational and [address], Juan J Medina MD Environmental Medicine [address] [place], [place] [address] (Wo rk) Social History [...] on filedocumented in this encounter Care Teams Aircraft Riveter Relationship Specialty Start Date End Date Unassigned, Provider PCP - General 03/12/03 [address] [place] [address] documented as of this encounter
--- OUTSIDE RECORDS SUMMARY | 2022-05-22 03:56 | XMS_ITS | Encounter Summary ---
:1955 Author [facility] Address [address] [place] [address] Care Team Providers Name Role Phone Unassigned, Provider Primary Care Provider Unavailable Encounter Details Date Type Department Care Team Description 06/08/2003 Notes/Orders [facility] Occupational and Kwasi, Radha Blanc, Environmental Medicine STORM SASH MAKER Social History Tobacco Use Types Packs/Day Years [...] this encounter Progress Notes 06/08/2003 11:59 PM SYRUP BLENDER Per Dr. Winchester a refill was called into the 2nd floor pharmacy. it was vicodin 10 tabs with no refills, and motrin 800mg with no refills. 06/08/2003 Sahsa Prieto LPN documented in this encounter Plan of Treatment Not on filedocumented as of this encounter Visit Diagnoses Not on filedocumented in this encounter Care Teams Reinforcing Rod Layer Relationship Specialty Start Date End Date Unassigned, Provider PCP - General 03/12/03 [address] [place] [address] documented as of this encounter
--- OUTSIDE RECORDS SUMMARY | 2022-05-22 03:56 | XMS_ITS | Encounter Summary ---
:1955 Author Organization [facility] Address [address] [place] [address] Care Team Providers Name Role Phone Unassigned, Provider Primary Care Provider Unavailable Encounter Details Date Type Department Care Team Description 10/05/2003 Notes/Orders [facility] Occupational and Radha Villalpando, Environmental Medicine FUNERAL ASSISTANT Social History Tobacco Use Types Packs/Day Years [...] this encounter Progress Notes 10/05/2003 11:59 PM AIRCRAFT STRUCTURAL REPAIRER patient called requesting a refill of her [...] called into the 1st floor pharmacy at [facility]. Sasha Villalpando LPN documented in this encounter Plan of Treatment Not on filedocumented as of this encounter Visit Diagnoses Not on filedocumented in this encounter Care Teams Quill Picking Machine Operator Relationship Specialty Start Date End Date Unassigned, Provider PCP - General 03/12/[address] [place] [phone] documented as of this encounter
--- OUTSIDE RECORDS SUMMARY | 2022-05-22 03:56 | XMS_ITS | Encounter Summary ---
:1955 Author Organization [facility] Address [address] [place] [address] Care Team Providers Name Role Phone Unassigned, Provider Primary Care Provider Unavailable Encounter Details Date Type Department Care Team Description 06/08/2003 Correspondence External to Unknown, Mariahi barbara [facility] [address] [place], [place] [phone] Social History Tobacco Use Types Packs/Day Years [...] Notes Unknown, Physician - 06/08/2003 12:00 AM SCHOOL EXAMINER documented in this encounter Plan of Treatment Not on filedocumented as of this encounter Visit Diagnoses Not on filedocumented in this encounter Care Teams Investigator Fraud Relationship Specialty Start Date End Date Unassigned, Provider PCP - General 03/12/03 [address] [place] [address] documented as of this encounter
--- OUTSIDE RECORDS SUMMARY | 2022-05-22 03:56 | XMS_ITS | Encounter Summary ---
:1955 Author Organization [employer] Address [address] [place] [address] Care Team Providers Name Role Phone Unassigned, [...] Notes Sherry Winchester - 05/18/2003 12:00 AM AUTISM TEACHER CHIEF COMPLAINT: Chronic low back pain flare-up. HISTORY OF PRESENT ILLNESS: [id number] female [facility] the [facility] [...] Winchester MD Transcribed: 05/24/2003 15:44:46 Doc #: [id number] cc: This document was electronically signed by Sherry Winchester MD on 08/02/2003 15:13:36. 1 Page 2 Patient Name: FIFI CALDERON Visit Date: 05/18/2003 OCCUPATIONAL/ENVIRONMENTAL CONFIDENTIAL MEDICAL RECORD [address] [address] Page 1 Patient: FIFI CALDERON Location:[place] [facility]: Date of : 1955 Visit Date: 05/18/2003 OCCUPATIONAL/ENVIRONMENTAL SM TEACHER Sherry Winchester - 05/18/2003 12:00 AM AUTISM TEACHER SM TEACHER documented in this encounter Plan of Treatment Not on filedocumented as of this encounter Visit Diagnoses Diagnosis Lumbago documented in this encounter Care Teams Contact Printer Dry Film Relationship Specialty Start Date End Date Unassigned, Provider PCP - General 03/12/[address] [place] [id number] documented as of this encounter
--- OUTSIDE RECORDS SUMMARY | 2022-05-22 03:56 | XMS_ITS | Encounter Summary ---
:1955 Author [facility] Address [address] [place] [address] Care Team Providers Name Role Phone Unassigned, Provider Primary Care Provider Unavailable Encounter Details Date Type Department Care Team Description 07/06/2003 Correspondence None Unknown, Physici an [facility] TO DEPT. OF [address] [place] [place] [address] (Wo rk) Social History Tobacco [...] Notes Unknown, Physician - 07/06/2003 12:00 AM EMR ANALYST documented in this encounter Plan of Treatment Not on filedocumented as of this encounter Visit Diagnoses Not on filedocumented in this encounter Care Teams Testing Tech Relationship Specialty Start Date End Date Unassigned, Provider PCP - General 03/12/03 [address] [place] [address] documented as of this encounter
--- OUTSIDE RECORDS SUMMARY | 2022-05-22 03:56 | XMS_ITS | Encounter Summary ---
:1955 Author Organization [employer] Address [address] [place] [address] Care Team Providers Name Role Phone Unassigned, [...] open with an appointment to see her fur weigher tomorrow. No bladder or bowel dysfunction. She [...] Winchester MD Transcribed: 12/01/2003 15:22:03 Doc #: [id number] cc: Sherry Winchester MD, Primary Physician 1 Page 1 Patient Name: FIFI CALDERON Visit Date: 11/29/2003 OCCUPATIONAL/ENVIRONMENTAL CONFIDENTIAL MEDICAL RECORD [address] [address] Page 1 Patient: FIFI CALDERON Location:[place] [facility]: Date of : 1955 Visit Date: 11/29/2003 OCCUPATIONAL/ENVIRONMENTAL Sherry Winchester - 11/29/2003 12:00 AM CDT Sherry Winchester - 11/29/2003 12:00 AM CDT documented in this encounter Plan of Treatment Not on filedocumented as of this encounter Visit Diagnoses Diagnosis Lumbago documented in this encounter Care Teams Sheet Roller Operator Relationship Specialty Start Date End Date Unassigned, Provider PCP - General 03/12/[address] [place] [address] documented as of this encounter
--- OUTSIDE RECORDS SUMMARY | 2022-05-22 03:56 | XMS_ITS | Encounter Summary ---
:1955 Author Organization [employer] Address [address] [place] [address] Care Team Providers Name Role Phone Unassigned, [...] the surgery was denied. She has a straw hat washer operator. Currently it is an aching pain, on [...] Winchester MD Transcribed: 11/16/2003 15:26:46 Doc #: [id number] cc: 1 Page 1 Patient Name: FIFI CALDERON Visit Date: 11/16/2003 OCCUPATIONAL/ENVIRONMENTAL CONFIDENTIAL MEDICAL RECORD [address] [address] Page 1 Patient: FIFI CALDERON Location:[place] [facility]: Date of : 1955 Visit Date: 11/16/2003 OCCUPATIONAL/ENVIRONMENTAL Sherry Winchester - 11/16/2003 12:00 AM CDT documented in this encounter Plan of Treatment Not on filedocumented as of this encounter Visit Diagnoses Diagnosis Lumbago documented in this encounter Care Teams Auto Body Painter Relationship Specialty Start Date End Date Unassigned, Provider PCP - General 03/12/[address] [place] [address] documented as of this encounter
--- OUTSIDE RECORDS SUMMARY | 2022-05-22 03:56 | XMS_ITS | Encounter Summary ---
:1955 Author Organization [facility] Address [address] [place] [address] Care Team Providers Name Role Phone Unassigned, Provider Primary Care Provider Unavailable Encounter Details Date Type Department Care Team Description 12/13/2004 Orders Only [facility] Unknown, Physician Cardiology [address] [place] [phone] (Wo rk) Social History Tobacco Use Types [...] on filedocumented in this encounter Care Teams Immigration Specialist Relationship Specialty Start Date End Date Unassigned, Provider PCP - General 03/12/[address] [place] [address] documented as of this encounter
--- OUTSIDE RECORDS SUMMARY | 2022-05-22 03:56 | XMS_ITS | Encounter Summary ---
:1955 Author Organization [facility] Address [address] [place] [address] Care Team Providers Name Role Phone Unassigned, Provider Primary Care Provider Unavailable Encounter Details Date Type Department Care Team Description 11/22/2004 Correspondence None Unknown, Physici an [facility] TO [facility] [address] [place] [address] (Wo rk) Social History Tobacco [...] on filedocumented in this encounter Care Teams Shutdown Planner Relationship Specialty Start Date End Date Unassigned, Provider PCP - General 03/12/03 [address] [place] [address] documented as of this encounter
--- OUTSIDE RECORDS SUMMARY | 2022-05-22 03:56 | XMS_ITS | Encounter Summary ---
:1955 Author Organization [facility] Address [address] [place] [address] Care Team Providers Name Role Phone Unassigned, Provider Primary Care Provider Unavailable Encounter Details Date Type Department Care Team Description 06/22/2003 Correspondence None Unknown, Physici an [facility] TO COMPREHENSIVE [address] MANAGED CARE [place], [place] [id number] (Wo rk) Social History Tobacco Use Types [...] Notes Unknown, Physician - 06/22/2003 12:00 AM CHEMICAL STRENGTH TESTER documented in this encounter Plan of Treatment Not on filedocumented as of this encounter Visit Diagnoses Not on filedocumented in this encounter Care Teams Clinical Informatics Manager Relationship Specialty Start Date End Date Unassigned, Provider PCP - General 03/12/03 [address] [place] [address] documented as of this encounter
--- OUTSIDE RECORDS SUMMARY | 2022-05-22 03:56 | XMS_ITS | Encounter Summary ---
:1955 Author Organization [facility] Address [address] [place] [address] Care Team Providers Name Role Phone Unassigned, Provider Primary Care Provider Unavailable Encounter Details Date Type Department Care Team Description 05/25/2003 Office Visit [facility] Jay Peterson Physical Medicine [facility] [address] [place] [address] [place] [address] [place] [address] Social History Tobacco Use Types Packs/Day Years [...] Notes Nithya Peterson - 05/25/2003 12:00 AM FIBERGLASS TUBE MOLDER DATE: 07-27-2003 OUTPATIENT PHYSICAL THERAPY - INITIAL NOTE - AQUATIC THERAPY SUBJECTIVE Diagnosis/Onset Date: 724.2 LBP, 719.45 pelvic pain, onset 02/18/03. Complaint/History: Pt has a restart of LBP with bilateral intermittent anterior thigh pain. Pt was initially seen at [facility] [place] on 05/25/03. Please refer to initial evaluation [...] License [id number] Transcribed: 07/29/2003 10:47:31 Doc #: [id number] cc: Sherry Winchester MD (Requests no copies) DENICE KINSEY FAX This document was electronically signed by Nithya Peterson PT, License [id number] on 07/29/2003 14:50:15. Patient: FIFI SHEPARD Page 1 Date: PM&R THERAPY CONFIDENTIAL MEDICAL RECORD [address] [address] Page 1 Patient: FIFI SHEPARD Location: [place] [facility]: Date of : 1955 PM&R THERAPY RGLASS TUBE MOLDER documented in this encounter Plan of Treatment Not on filedocumented as of this encounter Visit Diagnoses Not on filedocumented in this encounter Care Teams Girls Swimming Coach Relationship Specialty Start Date End Date Unassigned, Provider PCP - General 03/12/[address] [place] [address] documented as of this encounter
--- OUTSIDE RECORDS SUMMARY | 2022-05-22 03:56 | XMS_ITS | Encounter Summary ---
:1955 Author Organization [facility] Address [address] [place] [address] Care Team Providers Name Role Phone Unassigned, [...] filedocumented in this encounter Care Teams Regional Operations Director Relationship Specialty Start Date End Date Unassigned, Provider PCP - General 03/12/03 [address] [place] [address] documented as of this encounter
--- OUTSIDE RECORDS SUMMARY | 2022-05-22 03:56 | XMS_ITS | Encounter Summary ---
:1955 Author Organization [facility] Address [address] [place] [address] Care Team Providers Name Role Phone Unassigned, Provider Primary Care Provider Unavailable Encounter Details Date Type Department Care Team Description 08/10/2003 Office Visit [facility] Magrot Balderrama Physical Medicine [facility] [address] [place] [address] [place] [address] [place] [address] Social History Tobacco Use Types Packs/Day Years [...] Notes Margot Balderrama - 08/10/2003 12:00 AM FLAKEBOARD LINE TENDER DATE: 08-26-2003 OUTPATIENT PHYSICAL THERAPY - PROGRESS [...] lcd Dictated: 08/26/2003 13:50:36 Margot Balderrama PT#[id number] [phone] Transcribed: 09/01/2003 11:47:17 Doc #: [id number] cc: Sherry Winchester MD (Requests no copies) This document was electronically signed by Margot Balderrama PT#[id number] [phone] on 09/07/2003 18:13:43. Patient: FIFI CALDERON Page 1 Date: PM&R THERAPY CONFIDENTIAL MEDICAL RECORD [address] [address] Page 1 Patient: FIFI CALDERON Location: [place] [facility]: Date of : 1955 PM&R THERAPY EBOARD LINE TENDER documented in this encounter Plan of Treatment Not on filedocumented as of this encounter Visit Diagnoses Not on filedocumented in this encounter Care Teams Document Advisor Relationship Specialty Start Date End Date Unassigned, Provider PCP - General 03/12/[address] [place] [address] documented as of this encounter
--- OUTSIDE RECORDS SUMMARY | 2022-05-22 03:56 | XMS_ITS | Encounter Summary ---
:1955 Author Organization [employer] Address [address] [place] [address] Care Team Providers Name Role Phone Unassigned, Provider Primary Care Provider Unavailable Encounter Details Date Type Department Care Team Description 12/23/2003 Office Visit [facility] Occupational and Sherry Winchester MD Environmental Medicine [...] [facility]. She [...] q.h.s. 5. The workability form for the [facility] was also filled, which said part-time job until the surgery. Limit lifting to 20 pounds. No bending. No prolonged sitting. 6. Follow with this clinic after the surgery or sooner if symptoms worsen. st1 Dictated: 12/23/2003 13:59:00 Sherry Winchester MD Transcribed: 12/28/2003 11:04:42 Doc #: [id number] cc: 1 Page 1 Patient Name: FIFI CALDERON Visit Date: 12/23/2003 OCCUPATIONAL/ENVIRONMENTAL CONFIDENTIAL MEDICAL RECORD [address] [address] Page 1 Patient: FIFI CALDERON Location:[place] [facility]: Date of : 1955 Visit Date: 12/23/2003 OCCUPATIONAL/ENVIRONMENTAL documented in this encounter Plan of Treatment Not on filedocumented as of this encounter Visit Diagnoses Not on filedocumented in this encounter Care Teams Psychology Associate Relationship Specialty Start Date End Date Unassigned, Provider PCP - General 03/12/[address] [place] [address] documented as of this encounter
--- OUTSIDE RECORDS SUMMARY | 2022-05-22 03:56 | XMS_ITS | Encounter Summary ---
:1955 Author Organization [facility] Address [address] [place] [address] Care Team Providers Name Role Phone Unassigned, Provider Primary Care Provider Unavailable Encounter Details Date Type Department Care Team Description 07/23/2003 Correspondence None Unknown, Physici an [facility] TO COMPREHENSIVE [address] MANAGED CARE [place], [place] [id number] (Wo rk) Social History Tobacco Use Types [...] Notes Unknown, Physician - 07/23/2003 12:00 AM NEONATAL SOCIAL WORKER documented in this encounter Plan of Treatment Not on filedocumented as of this encounter Visit Diagnoses Not on filedocumented in this encounter Care Teams Bed Worker Relationship Specialty Start Date End Date Unassigned, Provider PCP - General 03/12/03 [address] [place] [address] documented as of this encounter
--- OUTSIDE RECORDS SUMMARY | 2022-05-22 03:56 | XMS_ITS | Encounter Summary ---
:1955 Author Organization [facility] Address [address] [place] [address] Care Team Providers Name Role Phone Unassigned, [...] Notes Sherry Winchester - 07/20/2003 12:00 AM SOFTWARE APPLICATION TESTER WARE APPLICATION TESTER documented in this encounter Plan of Treatment Not on filedocumented as of this encounter Visit Diagnoses Not on filedocumented in this encounter Care Teams Senior Technologist Relationship Specialty Start Date End Date Unassigned, Provider PCP - General 03/12/03 [address] [place] [address] documented as of this encounter
--- OUTSIDE RECORDS SUMMARY | 2022-05-22 03:56 | XMS_ITS | Encounter Summary ---
:1955 Author Organization [facility] Address [address] [place] [address] Care Team Providers Name Role Phone Unassigned, Provider Primary Care Provider Unavailable Encounter Details Date Type Department Care Team Description 08/26/2003 Office Visit [facility] Margot Balderrama Physical Medicine [facility] [address] [place] [address] [address] [facility] [phone] [place] [address] Social History Tobacco Use Types Packs/Day Years [...] Notes Margot Balderrama - 08/26/2003 12:00 AM PLANT RELIABILITY ENGINEER T RELIABILITY ENGINEER documented in this encounter Plan of Treatment Not on filedocumented as of this encounter Visit Diagnoses Not on filedocumented in this encounter Care Teams Control Room Supervisor Relationship Specialty Start Date End Date Unassigned, Provider PCP - General 03/12/03 [address] [place] [address] documented as of this encounter
--- OUTSIDE RECORDS SUMMARY | 2022-05-22 03:56 | XMS_ITS | Encounter Summary ---
:1955 Author Organization [facility] Address [address] [place] [address] Care Team Providers Name Role Phone Unassigned, Provider Primary Care Provider Unavailable Reason for Visit Reason Comments ALTERED MENTAL STATUS--ED SEIZURE--ED Encounter Details Date Type Department Care Team Description 12/12/2004 - Hospital Encounter RH C62 Arnol Talbot MD [address] [place] [address] OTHER GENERAL SYMPTOMS; 12/14/2004 640 Charles De León MD AMPHETAMINE ABUSE UNSPECIFIED [place], [place] [id number] Social History Tobacco Use Types Packs/Day Years [...] treatment. She did talk with the social service assistant and stated that she would follow up [...] 12/18/2004 12:17:17 Kristin Talbot MD Doc #: [id number] cc: Heaven Burcht, [facility] This document was electronically signed by Kristin Talbot MD on 12/25/2004 14:05:02. 1 Page 1 Patient Name: FIFI CALDERON DISCHARGE SUMMARY CONFIDENTIAL MEDICAL RECORD [address] [id number] Page 1 Patient: FIFI CALDERON Location: R-DIS [...] The patient was admitted here at [facility] approximately one month ago and stayed for about 8 days. At that time she was found to have depression, methamphetamine dependence and cocaine dependence. She was discharged to [facility] in order to undergo outpatient chemical [...] was also on the psychiatry service at [facility] following a neurosurgery procedure for her [...] 2. Sodium 140, potassium 4.1, chloride 102, [id number], BUN 27, creatinine 1.3, calcium 9.1. Urine [...] 12/12/2004 14:29:25 Kristin Talbot MD Doc #: [id number] cc: Heaven Huynh MD, Primary This document was electronically signed by Kristin Talbot MD on 12/18/2004 08:05:43. 1 Page 2 Patient Name: FIFI CALDERON HISTORY & PHYSICAL CONFIDENTIAL MEDICAL RECORD [address] [address] Page 1 Patient: FIFI CALDERON Location: HPN: Admit Date: 12/12/2004 Date of : 1955 HISTORY & PHYSICAL documented in this encounter ED Notes Charles Trammell - 12/12/2004 11:[address] [facility] Emergency Department Attending Supervision Note Patient [...] and sent to Nursing Unit Fifi Calderon [id number] 12/12/2004 Paper $: (not recorded) Coins $: (not recorded) Checkbook: No, First Number: (not recorded), Last Number: (not recorded) Name of Credit Cards: (not recorded), Number of Credit Cards: (not recorded), Social Security Card:No, Passport: No, Drivers' License: No, Government ID: No Watch: Yes Watch Brand: (not recorded) Glasses: No Hearing Aid: No Dentures: No [place] #: (not recorded) Cell Phone: No Pager: [...] and Witness signatures required. Signature (Patient or outside sales representative) Signature (Person taking valuables home) Signature Nighat Angelo Signature (Receiving Nursing Unit) Nicole Jean Carlos Jay - 12/12/2004 10:[address] [facility] Emergency Department Visit Note Patient Name: Fifi Calderon Date of : 1955 Chief Complaint: Patient presents with: ALTERED MENTAL STATUS--ED SEIZURE--ED HPI: 49 y.o. female present by EMS with AMS. Pt states, I was partying this weekend. I did a line of crank . Admits to taking excess Seroquel (amount unknown). Brought to [facility] by boyfriend, got out of car and laid on ground. EMS called for difficulty to arouse. Pt without complaint at this time. Aware she is at [facility] and knows date PMH: Previous Medical History: None on file There is no previous surgical history on file. Meds: No active medications on file as of 12/12/2004 Allergies: Review of patient's allergies indicates no known allergies. Social and Family History: Tobacco Use: Not Asked Alcohol Use: Not Asked Patient's Family History None on file Review of Systems: Please see CX flowsheet for review of systems. Physical Exam: [...] Ring MD Transcribed: 12/12/2004 11:38:27 Doc #: [id number] cc: Kristin Talbot MD, Attending Heaven Huynh MD, Primary KRISTIN TALBOT, Attending Physician HEAVEN HUYNH, Primary Physician This document was electronically signed by Spenser Ring MD on 12/12/2004 14:05:41. 1 Page 2 Patient Name: FIFI ACLDERON Visit Date: 12/12/2004 EMERGENCY MEDICINE NOTE CONFIDENTIAL MEDICAL RECORD [address] [address] Page 1 Patient: FIFI CALDERON [...] Organization Address City/State/ZIP Code Phon e Number [address] [address] [place], [place] [phone] (ABNORMAL) BASIC METABOLIC PANEL (12/14/2004 6:10 AM [...] MD LAB_1 Performing Organization Address [facility] Phon e Number [address] [address] [place], [place] [phone] URIC ACID (12/14/2004 6:10 AM CDT) athologist Signature Uric Acid 4.0 2.5 - 6.5 [facility] mg/dl Specimen Anatomical Collection Method Collection Time Receive d Time (Source) Location / / Volume Laterality 12/14/2004 6:10 AM 5 6:16 CDT AM CDT Arnol Talbot MD LAB_1 Performing Organization Address [facility] Phon e Number [address] [address] [place], [place] [phone] MAGNESIUM (12/14/2004 6:10 AM CDT) P athologist Signature Magnesium 1.6 1.6 - 2.6 [facility] mg/dl Specimen Anatomical Collection Method Collection Time Receive d Time (Source) Location / / Volume Laterality 12/14/2004 6:10 AM 5 6:16 CDT AM CDT Arnol Talbot MD LAB_1 Performing Organization Address [facility] Phon e Number [address] [address] [place], [place] [phone] (ABNORMAL) CK, TOTAL (12/14/2004 6:10 AM CDT) athologist Signature CK, Total 6455 (H) 17 - 142 [facility] U/L Comment: Result Checked Specimen Anatomical Collection Method Collection Time Receive d Time (Source) Location / / Volume Laterality 12/14/2004 6:10 AM 5 6:16 CDT AM CDT Arnol Talbot MD LAB_1 Performing Organization Address [facility] Phon e Number [address] [address] [place], [place] [phone] (ABNORMAL) BASIC METABOLIC PANEL (12/13/2004 6:45 AM [...] Arnol Talbot MD LAB_1 Performing Organization Address City/[facility] Phon e Number [address] [address] [place], [place] [phone] (ABNORMAL) ALT (SGPT) (12/13/2004 6:45 AM CDT) athologist Signature ALT (SGPT) 116 (H) 0 - 55 U/L [facility] Specimen Anatomical Collection Method Collection Time Receive d Time (Source) Location / / Volume Laterality 12/13/2004 6:45 AM 5 7:01 CDT AM CDT Arnol Talbot MD LAB_1 Performing Organization Address City/[facility]/[place] [facility] [place] Number [address] [address] [place], [place] [phone] (ABNORMAL) PHOSPHORUS (12/13/2004 6:45 AM CDT) P athologist Signature Phosphorus 2.0 (L) 2.8 - 4.6 [facility] mg/dl Specimen Anatomical Collection Method Collection Time Receive d Time (Source) Location / / Volume Laterality 12/13/2004 6:45 AM 5 7:01 CDT AM CDT Arnol Talbot MD LAB_1 Performing Organization Address City/[facility] Code Phon e Number [address] [address] [place], [place] [phone] MAGNESIUM (12/13/2004 6:45 AM CDT) P athologist Signature Magnesium 1.9 1.6 - 2.6 [facility] mg/dl Specimen Anatomical Collection Method Collection Time Receive d Time (Source) Location / / Volume Laterality 12/13/2004 6:45 AM 5 7:01 CDT AM CDT Arnol Talbot MD LAB_1 Performing Organization Address City/[facility]/[place]IP [facility] [place] Phon [place] Number [address] [address] [place], [place] [phone] (ABNORMAL) CK, TOTAL (12/13/2004 6:45 AM CDT) P athologist Signature CK, Total 9971 (H) 17 - 142 [facility] U/L Specimen Anatomical Collection Method Collection Time Receive d Time (Source) Location / / Volume Laterality 12/13/2004 6:45 AM 5 7:01 CDT AM CDT Arnol Talbot MD LAB_1 Performing Organization Address City/[facility]/ZIP Code Phon e Number [address] [address] [place], [place] [phone] (ABNORMAL) HEMOGRAM+PLATELETS (12/13/2004 6:45 AM CDT) athologist [...] MD LAB_1 Performing Organization Address [facility] Phon e Number [address] [address] [place], [place] [phone] (ABNORMAL) GLUCOSE, WHOLE BLOOD POC (12/13/2004 12:03 AM CDT) athologist Signature Glucose, Whole 167 (H) 65 - 115 [facility] Blood mg/dl Comment: Point of Care Testing IV Insulin Specimen Anatomical Collection Method Collection Time Receive d Time (Source) Location / / Volume Laterality 12/13/2004 12:03 12/13/2004 6:56 AM CDT AM CDT Arnol Talbot MD LAB_1 Performing Organization Address [facility] Phon e Number [address] [address] [place], [place] [phone] (ABNORMAL) RAPID DRUG SCREEN (12/12/2004 9:33 AM [...] MD LAB_1 Performing Organization Address [facility] Phon e Number [address] [address] [place], [place] [phone] (ABNORMAL) ACETAMINOPHEN (12/12/2004 9:33 AM CDT) P athologist Signature Acetaminophen <2 (L) 10 - 20 [facility] mcg/ml Specimen Anatomical Collection Method Collection Time Receive d Time (Source) Location / / Volume Laterality 12/12/2004 9:33 AM 5 9:39 CDT AM CDT Charles Trammell MD LAB_1 Performing Organization Address City/[facility] Phon e Number [address] [address] [place], [place] [phone] (ABNORMAL) BASIC METABOLIC PANEL (12/12/2004 9:33 AM [...] MD LAB_1 Performing Organization Address [facility] Phon e Number [address] [address] [place], [place] [phone] BB HOLD TUBE (12/12/2004 9:30 AM CDT) [facility] gist Method Time Signature BB Hold Tube Blood Bank [facility] save tube expires in 3 days Specimen Anatomical Collection Method Collection Time Receive d Time (Source) Location / / Volume Laterality 12/12/2004 9:30 AM 5 9:41 CDT AM CDT Charles Trammell MD LAB_1 Performing Organization Address [facility] Phon e Number [address] [address] [place], [place] [phone] documented in this encounter Visit Diagnoses Diagnosis Other general symptoms(780.99) Other general symptoms 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
--- OUTSIDE RECORDS SUMMARY | 2022-05-22 03:56 | XMS_ITS | Encounter Summary ---
:1955 Author Organization [facility] Address [address] [place] [address] Care Team Providers Name Role Phone Unassigned, Provider Primary Care Provider Unavailable Encounter Details Date Type Department Care Team Description 09/07/2003 Scanned History None Unknown, Physici an Comprehensive Managed Care- [address] [place] [address] (Wo rk) Social History Tobacco [...] Notes Unknown, Physician - 09/07/2003 12:00 AM DISTRIBUTION AGENT documented in this encounter Plan of Treatment Not on filedocumented as of this encounter Visit Diagnoses Not on filedocumented in this encounter Care Teams Set Up Mechanic Heading Machines Relationship Specialty Start Date End Date Unassigned, Provider PCP - General 03/12/03 [address] [place] [address] documented as of this encounter
--- OUTSIDE RECORDS SUMMARY | 2022-05-22 03:56 | XMS_ITS | Encounter Summary ---
:1955 Author Organization [facility] Address [address] [place] [address] Care Team Providers Name Role Phone Unassigned, [...] Notes Sherry [place] - 07/20/2003 12:00 AM FORENSIC CHEMIST CHIEF COMPLAINT: Exacerbation of chronic low back pain, minimal to some improvement. WORK-RELATED: Yes. EMPLOYER: [employer]. HISTORY OF PRESENT ILLNESS: [id number]-jur female presents to the clinic for evaluation of chronic low back pain. The patient has been referred to pool therapy. Noted that after 2 sessions her pool therapy was terminated because of insurance problems. The [facility] is here today and pool therapy will [...] [place] MD Transcribed: 07/21/2003 12:34:01 Doc #: [id number] cc: 1 Page 2 Patient Name: FIFI CALDERON Visit Date: 07/20/2003 OCCUPATIONAL/ENVIRONMENTAL CONFIDENTIAL MEDICAL RECORD [address] [address] Page 1 Patient: FIFI CALDERON Location:[place] HPN: Date of : 1955 Visit Date: 07/20/2003 OCCUPATIONAL/ENVIRONMENTAL NSIC CHEMIST documented in this encounter Plan of Treatment Not on filedocumented as of this encounter Visit Diagnoses Diagnosis Lumbago documented in this encounter Care Teams Refrigerated National Truck Driver Relationship Specialty Start Date End Date Unassigned, Provider PCP - General 03/12/[address] [place] [address] documented as of this encounter
--- OUTSIDE RECORDS SUMMARY | 2022-05-22 03:56 | XMS_ITS | Encounter Summary ---
:1955 Author Organization [facility] Address [address] [place] [address] Care Team Providers Name Role Phone Unassigned, Provider Primary Care Provider Unavailable Encounter Details Date Type Department Care Team Description 10/20/2004 Correspondence None Unknown, Physici an [facility] [place] to [place] [address] disabiltiy [place], [place] [phone] (Wo rk) Social History Tobacco Use Types [...] on filedocumented in this encounter Care Teams Pulley Man Relationship Specialty Start Date End Date Unassigned, Provider PCP - General 03/12/03 [address] [place] [address] documented as of this encounter
--- OUTSIDE RECORDS SUMMARY | 2022-05-22 03:56 | XMS_ITS | Encounter Summary ---
:1955 Author Organization [facility] Address [address] [place] [address] Care Team Providers Name Role Phone Unassigned, Provider Primary Care Provider Unavailable Encounter Details Date Type Department Care Team Description 07/21/2003 Correspondence None Unknown, Physici an [facility] to Comprehensive [address] Managed Care [place], [place] [phone] (Wo rk) Social History Tobacco Use Types [...] Notes Unknown, Physician - 07/21/2003 12:00 AM PAPER SPOOLER documented in this encounter Plan of Treatment Not on filedocumented as of this encounter Visit Diagnoses Not on filedocumented in this encounter Care Teams Wool Sampler Relationship Specialty Start Date End Date Unassigned, Provider PCP - General 03/12/03 [address] [place] [address] documented as of this encounter
--- OUTSIDE RECORDS SUMMARY | 2022-05-22 03:56 | XMS_ITS | Encounter Summary ---
:1955 Author Organization [facility] Address [address] [place] [address] Care Team Providers Name Role Phone Unassigned, Provider Primary Care Provider Unavailable Reason for Visit Reason Onset Date Comments Refill 01/11/2004 Encounter Details Date Type Department Care Team Description 01/11/2004 Refill [facility] Occupational and Sherry [place] MD Refill Environmental [...] on filedocumented in this encounter Care Teams Student Success Advisor Relationship Specialty Start Date End Date Unassigned, Provider PCP - General 03/12/03 [address] [place] [address] documented as of this encounter
--- OUTSIDE RECORDS SUMMARY | 2022-05-22 03:56 | XMS_ITS | Encounter Summary ---
:1955 Author Organization [facility] Address [address] [place] [address] Care Team Providers Name Role Phone Unassigned, [...] Notes Sherry [place] - 06/24/2003 12:00 AM SPINNER FRAME CHIEF COMPLAINT: Low back pain, chronic low [...] [place] MD Transcribed: 07/01/2003 13:25:12 Doc #: [id number] cc: 1 Page 2 Patient Name: FIFI CALDERON Visit Date: 06/24/2003 OCCUPATIONAL/ENVIRONMENTAL CONFIDENTIAL MEDICAL RECORD [address] [address] Page 1 Patient: FIFI CALDERON Location[place] HPN: Date of : 1955 Visit Date: 06/24/2003 OCCUPATIONAL/ENVIRONMENTAL NER FRAME Sherry [place] - 06/24/2003 12:00 AM SPINNER FRAME NER FRAME documented in this encounter Plan of Treatment Not on filedocumented as of this encounter Visit Diagnoses Diagnosis Lumbago documented in this encounter Care Teams Team Psychologist Relationship Specialty Start Date End Date Unassigned, Provider PCP - General 03/12/[address] [place] [address] documented as of this encounter
--- OUTSIDE RECORDS SUMMARY | 2022-05-22 03:56 | XMS_ITS | Encounter Summary ---
:1955 Author Organization [facility] Address [address] [place] [address] Care Team Providers Name Role Phone Unassigned, Provider Primary Care Provider Unavailable Encounter Details Date Type Department Care Team Description 11/01/2003 Telephone [facility] and Malka kapoor, Juan J Medina MD Environmental Medicine [address] [place], [place] [address] (Wo rk) Social History [...] her. I put in refills through the [facility] second floor pharmacy for: 1. [...] Swain MD Transcribed: 11/01/2003 13:16:37 Doc #: [id number] cc: This document was electronically signed by Juan J Swain MD on 11/02/2003 12:24:05. Page 1 Patient Name: FIFI CALDERON Encounter #: Visit Date: PHONE MESSAGE CONFIDENTIAL MEDICAL RECORD [address] [address] Page Patient: FIFI CALDERON Location: HPN: Date of : 1955 Visit Date: PHONE MESSAGE documented in this encounter Plan of Treatment Not on filedocumented as of this encounter Visit Diagnoses Not on filedocumented in this encounter Care Teams Manager Community Development Relationship Specialty Start Date End Date Unassigned, Provider PCP - General 03/12/[address] [place] [address] documented as of this encounter
--- OUTSIDE RECORDS SUMMARY | 2022-05-22 03:56 | XMS_ITS | Encounter Summary ---
:1955 Author Organization [facility] Address [address] [place] [address] Care Team Providers Name Role Phone Unassigned, Provider Primary Care Provider Unavailable Encounter Details Date Type Department Care Team Description 09/07/2003 Office Visit [facility] Margot Balderrama Physical Medicine [facility] [address] [place] [address] [place] [address] [place] [address] Social History Tobacco Use Types Packs/Day Years [...] Notes Margot Balderrama - 09/07/2003 12:00 AM SERVICE DELIVERY MANAGER OUTPATIENT AQUATIC PHYSICAL THERAPY - DISCHARGE SUMMARY [...] PT#[id number] [phone] Transcribed: 10/01/2003 11:11:08 Doc #: [id number] cc: Sherry [place] MD This document was electronically signed by Margot Balderrama PT#[id number] [phone] on 10/05/2003 18:30:14. Patient: KVNG FIFI Page 1 Date: PM&R THERAPY CONFIDENTIAL MEDICAL RECORD [address] [address] Page 1 Patient: KVNG FIFI [facility] Date [facility] : 1955 PM&R THERAPY ICE DELIVERY MANAGER Margot Balderrama - 09/07/2003 12:00 AM SERVICE DELIVERY MANAGER ICE DELIVERY MANAGER documented in this encounter Plan of Treatment Not on filedocumented as of this encounter Visit Diagnoses Not on filedocumented in this encounter Care Teams Nursery Attendant Relationship Specialty Start Date End Date Unassigned, Provider PCP - General 03/12/[address] [place] [address] documented as of this encounter
--- OUTSIDE RECORDS SUMMARY | 2022-05-22 03:56 | XMS_ITS | Encounter Summary ---
:1955 Author Organization [facility] Address [address] [place] [address] Care Team Providers Name Role Phone Unassigned, Provider Primary Care Provider Unavailable Encounter Details Date Type Department Care Team Description 01/11/2004 Notes/Orders [facility] Occupational and Kwasi, Radha Blanc, Environmental Medicine AQUACULTURIST Social History Tobacco Use Types Packs/Day Years [...] on filedocumented in this encounter Care Teams Tooling Specialist Relationship Specialty Start Date End Date Unassigned, Provider PCP - General 03/12/03 [address] [place] [address] documented as of this encounter
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
--- OUTSIDE RECORDS SUMMARY | 2022-05-22 03:56 | XMS_ITS | Encounter Summary ---
:1955 Author Organization [facility] Address [address] [place] [address] Care Team Providers Name Role Phone Unassigned, [...] on filedocumented in this encounter Care Teams Social Media Designer Relationship Specialty Start Date End Date Unassigned, Provider PCP - General 03/12/03 [address] [place] [address] documented as of this encounter
--- OUTSIDE RECORDS SUMMARY | 2022-05-22 03:56 | XMS_ITS | Encounter Summary ---
:1955 Author Organization [facility] Address [address] [place] [address] Care Team Providers Name Role Phone Unassigned, Provider Primary Care Provider Unavailable Encounter Details Date Type Department Care Team Description 07/29/2003 Office Visit [facility] Margot Balderrama Physical Medicine [facility] [address] [place] [address] [address] [facility] [phone] [place] [address] Social History Tobacco Use Types Packs/Day Years [...] Notes Margot Balderrama - 07/29/2003 12:00 AM BUSINESS CENTER MANAGER NESS CENTER MANAGER documented in this encounter Plan of Treatment Not on filedocumented as of this encounter Visit Diagnoses Not on filedocumented in this encounter Care Teams Slubber Tender Relationship Specialty Start Date End Date Unassigned, Provider PCP - General 03/12/03 [address] [place] [address] documented as of this encounter
--- OUTSIDE RECORDS SUMMARY | 2022-05-22 03:56 | XMS_ITS | Encounter Summary ---
:1955 Author Organization [facility] Address [address] [place] [address] Care Team Providers Name Role Phone Unassigned, [...] Lumbago documented in this encounter Care Teams Nut Culler Relationship Specialty Start Date End Date Unassigned, Provider PCP - General 03/12/03 [address] [place] [address] documented as of this encounter
--- OUTSIDE RECORDS SUMMARY | 2022-05-22 03:56 | XMS_ITS | Encounter Summary ---
:1955 Author Organization [facility] Address [address] [place] [address] Care Team Providers Name Role Phone Unassigned, Provider Primary Care Provider Unavailable Encounter Details Date Type Department Care Team Description 05/25/2003 Office Visit [facility] Margot Balderrama Physical Medicine [facility] [address] [place] [address] [place] [address] [place] [address] Social History Tobacco Use Types Packs/Day Years [...] Balderrama PT#[id number] Transcribed: 06/07/2003 13:15:39 Doc #: [id number] cc: Sherry Winchester MD (Requests no copies) [facility] FAX This document was electronically signed by Margot Balderrama PT#[id number] on 06/08/2003 17:36:58. Patient: FIFI CALDERON Page 2 Date: 05-25-2003 PM&R THERAPY CONFIDENTIAL MEDICAL RECORD [address] [address] Page 1 Patient: FIFI CALDERON Location: [facility]: Date of : 1955 PM&R THERAPY ET TEST FIRE WORKER Margot Balderrama - 05/25/2003 12:00 AM ROCKET TEST FIRE WORKER DATE: 07-01-2003 OUTPATIENT PHYSICAL THERAPY - PROGRESS SUMMARY - AQUATIC THERAPY SUBJECTIVE: Pt has been seen 1x for initial evaluation on 05/25/03. After one cancellation & one no show on 06/08/03 patient's work comp company called therapy [employer] to state that coverage for therapy was [...] PT#[id number] [phone] Transcribed: 07/09/2003 11:53:00 Doc #: [id number] cc: Sherry Winchester MD (Requests no copies) This document was electronically signed by Margot Balderrama PT#[id number] [phone] on 07/13/2003 15:26:13. Patient: FIFI CALDERON Page 2 Date: PM&R THERAPY CONFIDENTIAL MEDICAL RECORD [address] [address] Page 1 Patient: FIFI CALDERON Location: [facility]: Date of : 1955 PM&R THERAPY ET TEST FIRE WORKER documented in this encounter Plan of Treatment Not on filedocumented as of this encounter Visit Diagnoses Not on filedocumented in this encounter Care Teams Vamp Seamer Relationship Specialty Start Date End Date Unassigned, Provider PCP - General 03/12/03 [address] [place] [address] documented as of this encounter
--- OUTSIDE RECORDS SUMMARY | 2022-05-22 03:56 | XMS_ITS | Encounter Summary ---
:1955 Author Organization [employer] Address [address] [place] [address] Care Team Providers Name Role Phone Unassigned, Provider Primary Care Provider Unavailable Reason for Visit Reason Comments ALLERGIC REACTION--ED Encounter Details Date Type Department Care Team Description 05/18/2004 Hospital Encounter [facility] Harsh Cantu, ADVERSE EFFECT DRUG MED/BIO SUBST UNSPEIFIED; [address] Karthik Carlson MD SHORTNESS OF BREATH; [place], [place] [address] NEC[facility] [address] [address] [phone] [place] [address] Social History Tobacco Use Types [...] reaction Lorenzo Akers - 05/18/2004 12:00 AM REHABILITATION AIDE/SCHEDULER CHIEF COMPLAINT: Eyelid swelling and subjective feeling of shortness of breath. HISTORY OF PRESENT ILLNESS: The patient is a 49-year-old female who comes in this evening complaining that she felt short of breath at home as well as subjective feeling that her eyelids were swelling and that her eyes were itching after having taken metoprolol which was recently prescribed by a boom crane operator. She has a history of back pain for which she had workup for to undergo back surgery. During this workup at [facility], they discovered that she has a carotid artery stenosis of 70% on the right and is actually scheduled to undergo carotid endarterectomy tomorrow morning. Preoperatively, she was seen by a boom crane operator at [facility] who prescribed her both Lipitor and metoprolol, [...] which she had been prescribed by her boom crane operator she saw. Following that, she began to [...] I did advise her that this could client account representative of an allergic reaction or could [...] metoprolol or Lipitor until she sees her boom crane operator again at [facility]. I advised her not to take these medications tomorrow morning presurgery. I did advise her to discuss this with the anesthesiologist who would be taking over her care at [facility] to advise that she may have [...] 08:44:37 Staff: Harsh Cantu MD Doc #: [id number] cc: Yoselyn Strauss MD, Primary 1 Page 1 Patient Name: FIFI CALDERON Visit Date: 05/18/2004 EMERGENCY MEDICINE NOTE CONFIDENTIAL MEDICAL RECORD [address] [address] Page 1 Patient: FIFI CALDERON Location: [facility]: Date of : 1955 Visit Date: 05/18/2004 EMERGENCY MEDICINE NOTE BILITATION AIDE/SCHEDULER documented in this encounter Plan of Treatment Not on filedocumented as of this encounter Visit Diagnoses Diagnosis Other and unspecified adverse effect of drug, medicinal and biological substance Shortness of breath Swelling, mass, or lump in head and neck documented in this encounter Care Teams Machine Set Up Operator Paper Goods Relationship Specialty Start Date End Date Unassigned, Provider PCP - General 03/12/[address] [place] [address] documented as of this encounter
--- OUTSIDE RECORDS SUMMARY | 2022-05-22 03:56 | XMS_ITS | Encounter Summary ---
:1955 Author Organization [facility] Address [address] [place] [address] Care Team Providers Name Role Phone Unassigned, Provider Primary Care Provider Unavailable Encounter Details Date Type Department Care Team Description 07/01/2003 Correspondence None Unknown, Physici an [facility] TO COMPREHENSIVE [address] MANAGED CARE [place], [place] [phone] (Wo rk) Social History Tobacco Use Types [...] Notes Unknown, Physician - 07/01/2003 12:00 AM MANAGER CAFE documented in this encounter Plan of Treatment Not on filedocumented as of this encounter Visit Diagnoses Not on filedocumented in this encounter Care Teams Echo Vasc Tech Relationship Specialty Start Date End Date Unassigned, Provider PCP - General 03/12/03 [address] [place] [address] documented as of this encounter
--- OUTSIDE RECORDS SUMMARY | 2022-05-22 03:56 | XMS_ITS | Encounter Summary ---
:1955 Author Organization [facility] Address [address] [place] [address] Care Team Providers Name Role Phone Unassigned, Provider Primary Care Provider Unavailable Encounter Details Date Type Department Care Team Description 08/13/2003 Correspondence None Unknown, Physici an [facility] COMPREHENSIVE [address] MANAGED CARE [place], [place] [phone] (Wo rk) Social History Tobacco Use Types [...] Notes Unknown, Physician - 08/13/2003 12:00 AM ADVANCED SOLUTIONS ARCHITECT documented in this encounter Plan of Treatment Not on filedocumented as of this encounter Visit Diagnoses Not on filedocumented in this encounter Care Teams Boiler House Inspector Relationship Specialty Start Date End Date Unassigned, Provider PCP - General 03/12/03 [address] [place] [address] documented as of this encounter
--- OUTSIDE RECORDS SUMMARY | 2022-05-22 03:56 | XMS_ITS | Encounter Summary ---
:1955 Author Organization [facility] Address [address] [place] [address] Care Team Providers Name Role Phone Unassigned, Provider Primary Care Provider Unavailable Encounter Details Date Type Department Care Team Description 12/12/2004 Orders Only [facility] Unknown, Physician Cardiology [address] [place] [id number] (Wo rk) Social History Tobacco Use Types [...] on filedocumented in this encounter Care Teams Field Organizer Relationship Specialty Start Date End Date Unassigned, Provider PCP - General 03/12/[address] [place] [address] documented as of this encounter
--- OUTSIDE RECORDS SUMMARY | 2022-05-22 03:56 | XMS_ITS | Encounter Summary ---
:1955 Author Organization [facility] Address [address] [place] [address] Care Team Providers Name Role Phone Unassigned, Provider Primary Care Provider Unavailable Encounter Details Date Type Department Care Team Description 11/18/2003 Correspondence None Unknown, Physici an [facility] PRIMITIV[facility] TO SELF [address] [place], [place] [phone] (Wo rk) Social History Tobacco Use Types [...] on filedocumented in this encounter Care Teams Starch Mangle Tender Relationship Specialty Start Date End Date Unassigned, Provider PCP - General 03/12/03 [address] [place] [address] documented as of this encounter
[2022-05-22 03:57] LABS: Carbon Dioxide* 19 mmol/L (20-32); Creatinine* 0.5 mg/dL (0.5-1.5); Est. Creatinine Clearance* 43.92; Estimated Glomerular Filt Rate 101 ml/min
--- OUTSIDE RECORDS SUMMARY | 2022-05-22 03:57 | XMS_ITS | Encounter Summary ---
:1955 Author Organization [facility] Address [address] [place] [address] Care Team Providers Name Role Phone Unavailable Primary Care Provider Unavailable Encounter Details Date Type Department Care Team Description 06/24/1999 Office Visit [facility] Emergency Dept SPRAIN/STRAIN OF ANKLE NOS; [address] [facility]. FALL ON LEVEL-TRIPPING [place], [place] [phone] Social History Tobacco Use Types Packs/Day Years [...]
--- OUTSIDE RECORDS SUMMARY | 2022-05-22 03:57 | XMS_ITS | Encounter Summary ---
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
--- OUTSIDE RECORDS SUMMARY | 2022-05-22 03:57 | XMS_ITS | Encounter Summary ---
:1955 Author Organization [employer] Address [address] [place] [address] Care Team Providers Name Role Phone Unassigned, [...] COMPLAINT: Exacerbation of low back pain. EMPLOYER: [employer]. 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 CHIEF COMPLAINT: Exacerbation of chronic back pain with right leg radicular symptoms. HISTORY OF PRESENT ILLNESS: [id number] female presents to the occupational medicine clinic [...] Winchester MD Transcribed: 03/23/2003 15:54:24 Doc #: [id number] cc: Sherry Winchester MD, Attending Physician This document was electronically signed by Sherry Winchester MD on 04/22/2003 16:51:09. 1 Page 2 Patient Name: FIFI CALDERON Visit Date: 03/17/2003 OCCUPATIONAL/ENVIRONMENTAL CONFIDENTIAL MEDICAL RECORD [address] [phone] Page 1 Patient: FIFI CALDERON Location:[place] HPN: Date of : 1955 Visit Date: 03/17/2003 OCCUPATIONAL/ENVIRONMENTAL Sherry Winchester - 03/17/2003 12:00 AM CDT documented in this encounter Plan of Treatment Not on filedocumented as of this encounter Visit Diagnoses Diagnosis Lumbago documented in this encounter Care Teams Mesh Worker Relationship Specialty Start Date End Date Unassigned, Provider PCP - General 03/12/[address] [place] [address] documented as of this encounter
--- OUTSIDE RECORDS SUMMARY | 2022-05-22 03:57 | XMS_ITS | Encounter Summary ---
:1955 Author Organization [employer] Address [address] [place] [address] Care Team Providers Name Role Phone Unavailable Primary Care Provider Unavailable Encounter Details Date Type Department Care Team Description 05/25/2001 Office Visit [facility] LOW BACK PAIN(ACUTE)<6 WEEKS ; [address] [facility]. [facility] FROM OVEREXERTION [place], [place] [id number] Social History Tobacco Use Types Packs/Day Years [...] of the right and left hips. NEUROLOGIC: [place] Coma Scale 15. Motor and sensory within [...] was also given the number to the [facility] to call and inquire about financial services. She will need to follow up with a primary care physician for this back pain. DISPOSITION: She was discharged home in stable condition. [facility] Dictated: 05/25/2001 07:05:04 Sarthak Mccullough MD/Jose Sanchez MD Transcribed: 05/26/2001 16:56:08 Patient seen with Justyn Mcgrath MD Revised: 05/26/2001 17:34:00 /[id number] Doc #: [id number] cc: [facility], Primary 2 Page 2 Patient Name: FIFI CALDERON Visit Date: 05/25/2001 EMERGENCY MEDICINE NOTE CONFIDENTIAL MEDICAL RECORD [address] [phone] Page 1 Patient: FIFI CALDERON Location: [facility] HPN: Date of : 1955 Visit Date: 05/25/2001 EMERGENCY MEDICINE NOTE GREASER documented in this encounter Plan of Treatment Not on filedocumented as of this encounter Procedures Procedure Name Priority Date/Time Associated Diagnosis Comme nts L-SPINE AP/LAT/CONE Routine 05/25/2001 7:25 AM Re sults for this DOWN ROD GREASER procedure are i n the results section. documented in this encounter Results L-SPINE AP/LAT/CONE DOWN (05/25/2001 7:25 AM ROD GREASER) [facility] gist Method Time Signature Lspine LUMBAR SPINE 05/25/2001, 0725 HOURS: [facility] Ap,Lat,[place] INDICATIONS: Pain. RADIOL OGY n L5-S1 FINDINGS: Normal. Anatomical Region Laterality Modality Other Specimen (Source) Anatomical Collection Method Collection Time Re ceived Time Location / / Volume Laterality 05/25/2001 7:25 AM ROD GREASER Justyn Mcgrath MD RAD GENERAL DIAGNOSTIC/[facility] documented in this encounter Visit Diagnoses Diagnosis Lumbago Overexertion and strenuous and repetitiv e movements or loads documented in this encounter
--- OUTSIDE RECORDS SUMMARY | 2022-05-22 03:57 | XMS_ITS | Encounter Summary ---
:1955 Author Organization [employer] Address [address] [place] [address] Care Team Providers Name Role Phone Unassigned, [...] Angel MD Transcribed: 04/21/2003 16:27:49 Doc #: [id number] cc: [facility], Primary Physician This document was electronically signed by Deandre Angel MD on 08/02/2003 16:33:54. 1 Page 2 Patient Name: FIFI CALDERON Visit Date: 04/20/2003 OCCUPATIONAL/ENVIRONMENTAL CONFIDENTIAL MEDICAL RECORD [address] [phone] Page 1 Patient: FIFI CALDERON Location:[place] HPN: Date of : 1955 Visit Date: 04/20/2003 OCCUPATIONAL/ENVIRONMENTAL Sherry Winchester - 04/20/2003 12:00 AM CDT documented in this encounter Plan of Treatment Not on filedocumented as of this encounter Visit Diagnoses Diagnosis Lumbago documented in this encounter Care Teams Progressive Care Unit Registered Nurse Relationship Specialty Start Date End Date Unassigned, Provider PCP - General 03/12/03 [address] [place] [address] documented as of this encounter
[2022-05-22 03:58] LABS: Alanine Aminotransferase* 30 U/L (4-35); Alkaline Phosphatase* 93 U/L (40-150); Aspartate Amino Transferase* 60 U/L (12-35); Bilirubin Total* 0.5 mg/dL (0.1-1.5); Blood Urea Nitrogen* 11 mg/dL (7-30); Glucose* 86 mg/dL (60-115); Total Protein* 6.9 g/dL (6.0-8.3)
[2022-05-22 03:59] LABS: Ethanol* 0.22 % (0.01-0.03)
[2022-05-22 04:07] LABS: NT Pro B Type NatriureticPept* 146 PG/mL (0-125)
[2022-05-22 04:10] LABS: C Reactive Protein* < 0.5 mg/dL (0.5-1.0); Troponin I* 0.05 ng/mL (0.01-0.04)
[2022-05-22 05:04] LABS: Troponin, Point-of-Care* 0.02 ng/ml (0.01-0.04)
== END 2022-05-22 05:35 | disposition home or self-care (01) ==
PROVIDERS: Emergency Provider Family Medicine; PCP Family Medicine
DX: R00.2 Palpitations (principal); F10.229 Alcohol dependence with intoxication, unspecified; Y90.7 Blood alcohol level of 200-239 mg/100 ml
CPT/HCPCS: 36415; 71045; 80053; 82077; 83880; 84484; 85025; 86140; 93005; 94761; 96374; 99283; 99284; A9270; C9113